=== PATIENT | female | born 1940 | race Caucasian/White ===

== ENCOUNTER → 2018-05-28 17:59 | Outpatient (REF) | payer OTHER, SELFPAY | LOC: LAB 17:59 | PROVIDERS: Family Provider Physician Assistant; PCP Physician Assistant; Visit Provider Dermatology | DX: Z85.828 Personal history of other malignant neoplasm of skin (principal); L57.0 Actinic keratosis; L08.9 Local infection of the skin and subcutaneous tissue, unspecified | CPT/HCPCS: 87070; 87075; 87205 ==

== ENCOUNTER → 2018-06-04 17:46 | Outpatient (REF) | payer OTHER, SELFPAY | LOC: LAB 17:46 | PROVIDERS: Family Provider Physician Assistant; PCP Physician Assistant; Visit Provider Physician Assistant | DX: T81.40XA Infection following a procedure, unspecified, initial encounter (principal) | CPT/HCPCS: 87070; 87075; 87205 ==

== ENCOUNTER → 2018-07-30 17:46 | Outpatient (REF) | payer OTHER, SELFPAY | LOC: LAB 17:46 | PROVIDERS: Family Provider Physician Assistant; PCP Physician Assistant; Visit Provider Physician Assistant | DX: L30.8 Other specified dermatitis (principal) | CPT/HCPCS: 87070; 87075; 87147; 87205 ==

== ENCOUNTER → 2018-10-28 13:59 | Outpatient (REF) | payer OTHER, SELFPAY | LOC: LAB 13:59 | PROVIDERS: Family Provider Physician Assistant; PCP Physician Assistant; Visit Provider Dermatology MOHS-Micrographic Surgery | DX: Z48.817 Encounter for surgical aftercare following surgery on the skin and subcutaneous tissue (principal) | CPT/HCPCS: 87070; 87077; 87147; 87186; 87205 ==

== ENCOUNTER → 2018-10-29 09:17 | Outpatient (CLI) | payer OTHER, SELFPAY ==
[2018-10-29 10:10] LABS: Add Manual Diff / Slide Review NO; Basophils Absolute Auto 0 /uL (0-100); Basophils Percent Auto 0.8 % (0-2); Eosinophils Absolute Auto 200 /uL (0-450); Eosinophils Percent Auto 3.8 % (2-4); Hematocrit 40.7 % (36-46); Hemoglobin 13.3 g/dL (12.0-16.0); Lymphocytes Absolute Auto 900 /uL (1100-4500); Lymphocytes Percent Auto 16.1 % (25-40); Mean Corpuscular HGB Conc 32.7 % (30-36); Mean Corpuscular Hemoglobin 28.2 PG (26-34); Mean Corpuscular Volume 86.1 fL (80-100); Monocytes Absolute Auto 400 /uL (0-900); Monocytes Percent Auto 7.1 % (3-14); Neutrophils Absolute Auto 4000 /uL (1500-7000); Neutrophils Percent Auto 72.2 % (50-75); Platelet Count 176 X10^3/uL (150-400); Red Blood Cell Count 4.73 X10^6/uL (4.0-5.2); Red Cell Distribution Width 16.7 % (11.6-14.8); White Blood Cell Count 5.5 X10^3/uL (4.5-11.0)
[2018-10-29 10:23] LABS: Alanine Aminotransferase 25 IU/L (9-52); Albumin 4.5 g/dL (3.5-5.0); Albumin Globulin Ratio 1.5 (1.0-2.8); Alkaline Phosphatase 104 U/L (38-126); Aspartate Aminotransferase 21 IU/L (14-36); Bilirubin Total 0.6 mg/dL (0.2-1.3); Blood Urea Nitrogen 24 mg/dL (7-17); Calcium 9.9 mg/dL (8.4-10.2); Carbon Dioxide 31 mmol/L (22-32); Chloride 101 mmol/L (98-107); Cholesterol 136 mg/dL (140-199); Estimated Glomerular Filt Rate 53.6 mL/min (>60); Glucose 111 mg/dL (80-110); HDL Cholesterol 40 mg/dL (40-60); HEMOLYSIS < 15 (0-50); LDL Cholesterol Calculated 53 mg/dL (<100); Potassium 3.7 mmol/L (3.4-5.1); Sodium 142 mmol/L (137-145); Total Protein 7.5 g/dL (6.3-8.2); Triglycerides 215 mg/dL (35-150)
[2018-10-29 10:41] LABS: Creatinine Urine Random 247.9 mg/dL
[2018-10-29 11:04] LABS: Thyroid Stimulating Hormone 3.77 uIU/mL (0.47-4.68)
== END ==
PROVIDERS: Family Provider Hospitalist; PCP Physician Assistant; Visit Provider Physician Assistant
DX: E03.9 Hypothyroidism, unspecified (principal); E78.5 Hyperlipidemia, unspecified; I10 Essential (primary) hypertension; I48.0 Paroxysmal atrial fibrillation
CPT/HCPCS: 36415; 80053; 80061; 82043; 82570; 84443; 85025

== ENCOUNTER → 2018-11-05 18:48 | Outpatient (REF) | payer OTHER, SELFPAY | LOC: LAB 18:48 | PROVIDERS: Family Provider Hospitalist; PCP Physician Assistant; Visit Provider Dermatology MOHS-Micrographic Surgery | DX: Z48.817 Encounter for surgical aftercare following surgery on the skin and subcutaneous tissue (principal) | CPT/HCPCS: 87070; 87077; 87147; 87205 ==

== ENCOUNTER → 2019-01-01 07:54 | Outpatient (CLI) | payer OTHER, SELFPAY ==
--- NOTE | 2019-01-01 | DI.MG.S_ITS ---
BILATERAL DIGITAL SCREENING MAMMOGRAM 3D/2D WITH CAD: 01/01/2019 CLINICAL: Routine screening. Family history of breast cancer. Comparison is made to exams dated: 12/27/2017 mammogram, 12/14/2016 mammogram, and 12/08/2015 mammogram - [facility]. The tissue of both breasts is heterogeneously dense. This may lower the sensitivity of mammography. Current study was also evaluated with a Computer Aided Detection (CAD) system. There are new grouped coarse calcifications in the left breast at 8 o'clock posterior depth. No other significant masses, calcifications, or other findings are seen in either breast. IMPRESSION: INCOMPLETE: NEEDS ADDITIONAL IMAGING EVALUATION The new grouped coarse calcifications in the left breast are indeterminate. Mediolateral, spot compression, and additional views are recommended. This exam was interpreted at Station ID: [id number]. NOTE: For mammograms, a report in lay terms will be sent to the patient. Approximately 15% of breast malignancies will not be visualized mammographically. In the management of a palpable breast mass, a negative mammogram must not discourage biopsy of a clinically suspicious lesion. Electronically Signed By: Bobby milian/charlotte:01/01/2019 09:41:50 letter sent: Additional Imaging Needed ACR BI-RADS Category 0: Incomplete 3340F
== END ==
PROVIDERS: Family Provider Hospitalist; PCP Physician Assistant; Visit Provider Physician Assistant
DX: Z12.31 Encounter for screening mammogram for malignant neoplasm of breast (principal); Z80.3 Family history of malignant neoplasm of breast
CPT/HCPCS: 77063; 77067

== ENCOUNTER → 2019-01-16 08:58 | Outpatient (CLI) | payer OTHER, SELFPAY ==
--- NOTE | 2019-01-16 08:59 | DI.MG.S_ITS ---
UNILATERAL LEFT DIGITAL DIAGNOSTIC MAMMOGRAM 3D/2D WITH ADDITIONAL VIEWS: 01/16/2019 CLINICAL: Additional evaluation requested from prior study. Family history of breast cancer. Comparison is made to exams dated: 01/01/2019 mammogram, 12/27/2017 mammogram, and 12/14/2016 mammogram - [facility]. The tissue of left breast is heterogeneously dense. This may lower the sensitivity of mammography. The indeterminate group of calcifications in the left breast at 8 o'clock posterior depth seen on recent screening mammogram dated 01/01/19 appear dystrophic in morphology on additional imaging today. They have slightly increased in number but demonstrate benign morphology. They are new since 2017 mammograms but present in 2018 where they demonstrated benign appearance. They were recalled because of questionable new, indeterminate calcifications within this group which on magnification views revealed a benign morphology. No other significant masses or calcifications are seen in the breast. IMPRESSION: There is no mammographic evidence of malignancy. A 1 year screening mammogram is recommended. This exam was interpreted at Station ID: [id number]. NOTE: For mammograms, a report in lay terms will be sent to the patient. Approximately 15% of breast malignancies will not be visualized mammographically. In the management of a palpable breast mass, a negative mammogram must not discourage biopsy of a clinically suspicious lesion. SUMMARY: Findings and recommendations were discussed with the patient during today's visit. Electronically Signed By: Bobby Weaver M.D. aty/:01/16/2019 13:44:50 letter sent: Normal Exam ACR BI-RADS Category 2: Benign Finding(s) 3342F
== END ==
PROVIDERS: Family Provider Hospitalist; PCP Physician Assistant; Visit Provider Physician Assistant
DX: R92.8 Other abnormal and inconclusive findings on diagnostic imaging of breast (principal); Z80.3 Family history of malignant neoplasm of breast
CPT/HCPCS: 77065; G0279

== ENCOUNTER 2019-03-16 12:00 | Observation (INO) | payer OTHER, SELFPAY ==
[2019-03-16] VITALS (20 sets, daily range): BP systolic 83–136; BP diastolic 45–80; PULSE 69–142; RESP 12–20; TEMP 36.4–36.9; O2SAT 93–98; BMI 25.0; BMI 25.5
--- NOTE | 2019-03-16 12:10 | ED.ARRPALP ---
HPI - Arrhythmia/Palpitations General Chief Complaint: Arrhythmia/Palpitations Stated Complaint: Dizziness, SOB Time Seen by Provider: 03/16/19 12:02 Source: patient Mode of arrival: ambulatory Limitations: no limitations History of Present Illness HPI narrative: 70-year-old female nonsmoker with history paroxysmal atrial fibrillation on Coumadin presents with a chief complaint of palpitations, dizziness and shortness of breath since this morning. She denies any history of electrocardioversion. She has been taking her Coumadin as prescribed and denies missing any doses, and states her levels have been stable. She denies any dietary change or medication changes. She's had no fever or chills. MD complaint: rapid heart beat, heart racing, palpitations and atrial fibrillation Onset (ago): hour(s) Duration: constant Severity: moderate Arrhythmia history: atrial fibrillation Associated symptoms: shortness of breath Related Data Home Medications Medication Instructions Recorded Confirmed metoprolol succinate 100 mg PO BID #0 08/01/17 03/16/19 atorvastatin 40 mg PO HS #0 08/12/17 03/16/19 [CHEMOTHERAPY CREAM] TOPICAL QDAY #0 09/23/17 11/06/18 acetaminophen 500 mg tablet 500 mg PO Q6H PRN 11/06/18 11/06/18 ampicillin 500 mg capsule 500 mg PO QID 11/06/18 11/06/18 diazepam 5 mg tablet 5 mg PO DAILY PRN tab 11/06/18 11/06/18 hydrocodone 5 mg-acetaminophen 325 1 tab PO Q4-6H PRN 11/06/18 11/06/18 mg tablet propranolol 40 mg tablet 40 mg PO BID PRN 11/06/18 11/06/18 nitroglycerin [Nitrostat] 0.4 mg SUBLINGUAL SEE INSTRUCT PRN 03/16/19 03/16/19 triamterene-hydrochlorothiazid 1 cap PO DAILY 03/16/19 03/16/19 triazolam [Halcion] 0.25 mg PO BEDTIME PRN 03/16/19 03/16/19 Previous Rx's Medication Instructions Recorded alprazolam 0.5 mg tablet 0.5 mg PO QDAY #20 tab 05/13/18 Warfarin 5 mg See Rx Instructions .ROUTE 08/15/18 .COMPLEX #30 allopurinol 300 mg PO QDAY #90 tab 09/26/18 levothyroxine 75 mcg tablet 75 mcg PO QDAY #30 tab 11/10/18 Allergies Allergy/AdvReac Type Severity Reaction Status Date / Time codeine Allergy Severe ANAPHYLAXIS Verified 11/06/18 13:49 NSAIDS (Non-Steroidal AdvReac Severe on Warfarin Verified 11/06/18 13:49 Anti-Inflamma [NSAIDS (NON-STEROIDAL ANTI-INFLAMMA] oxycodone [OXYCODONE] AdvReac Intermediate NAUSEA, Verified 11/06/18 13:49 HALLUCINATIONS, DIZZINESS hydrocodone AdvReac Mild N/V Verified 11/06/18 13:49 pravastatin AdvReac Mild MYALGIA Verified 11/06/18 13:49 simvastatin AdvReac Mild MYALGIA Verified 11/06/18 13:49 Review of Systems Constitutional Denies chills, Denies fever(s), Denies lethargy and Denies weakness Eyes Denies change in vision, Denies eye discharge, Denies irritation and Denies loss of vision ENT Ears, Nose, Mouth, and Throat: Denies change in voice, Denies neck pain and Denies sore throat Cardiovascular Denies chest pain, Reports irregular heart rhythm, Reports lightheadedness, Reports palpitations, Reports dyspnea, Denies dyspnea on exertion and Denies orthopnea Respiratory Denies cough, Reports dyspnea, Denies dyspnea on exertion and Denies wheezing Gastrointestinal Gastrointestinal: Denies abdominal pain, Denies change in bowel habits, Denies diarrhea, Denies nausea and Denies vomiting Genitourinary Denies hematuria, Denies flank pain, Denies urinary incontinence and Denies urinary urgency Musculoskeletal Denies neck pain Integumentary/Breasts Denies pruritus, Denies erythema, Denies rash and Denies wounds Neurologic Denies confusion, Denies loss of vision and Denies weakness Psychiatric Denies anxiety, Denies confusion, Denies depression, Denies homicidal ideation and Denies suicidal ideation Endocrine Reports palpitations Hematologic/Lymphatic Denies easy bruising Allergic/Immunologic Denies wheezing FORMERLY [facility] Medical History ASHD (arteriosclerotic heart disease) (Chronic) Atrial fibrillation (Chronic) CAD (coronary artery disease) (Chronic 10/2006) 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 (Chronic) GERD (gastroesophageal reflux disease) (Chronic) Hypertension (Chronic) Hypothyroidism (Chronic) Stenosis of carotid artery (Chronic) Colon polyps (Resolved 1998) Detached retina, right (Resolved 1998) Gout (Resolved 10/2011) History of hysterectomy (Resolved 1982) History of renal calculi (Resolved) Skin cancer (Resolved) Surgical History History of Zayra fundoplication (Resolved) History of appendectomy (Resolved 1963) History of arthroscopy of left knee (Resolved 01/05/15) History of bilateral carpal tunnel release (Resolved 1988) History of cardiac catheterization (Resolved 10/2006) History of carpal tunnel release (Resolved 1988) History of section (Resolved 1963) History of cholecystectomy (Resolved 1972) History of colonoscopy (Resolved 03/04/06) History of colonoscopy with polypectomy (Resolved 1998) History of esophagogastroduodenoscopy (EGD) (Resolved 06/06/06) History of eye surgery (Resolved 1998) History of left cataract surgery (Resolved 1989) History of left knee surgery (Resolved 08/2010) History of right knee surgery (Resolved 2000) Status post left partial knee replacement (Resolved 10/12/15) Status post primary angioplasty with coronary stent (Resolved 09/2011) Status post right foot surgery (Resolved 1993) Family History (Updated 06/30/18 @ 15:14 by Francisca Hollis) Mother Brain tumor Cancer Father Heart disease CA (myocardial infarction) Sister Lung cancer Stroke MS (multiple sclerosis) Breast cancer Grandmother Diabetes mellitus Social History Smoking Status: Never smoker second hand exposure: No alcohol intake: current substance use type: does not use Family History Mother Brain tumor Cancer Father Heart disease CA (myocardial infarction) Sister Lung cancer Stroke MS (multiple sclerosis) Breast cancer Grandmother Diabetes mellitus Social History household members: none Smoking Status: Never smoker second hand exposure: No alcohol intake: current substance use type: does not use Exam Narrative Exam Narrative: GENERAL: 78-year-old female appears stated age, and in obvious distress, obviously a bit anxious HEAD: Atraumatic. Normocephalic. No temporal or scalp tenderness. EYES: Pupils equal round and reactive. Extraocular motions intact. No scleral icterus. No injection or drainage. ENT: Nose without bleeding, purulent drainage or septal hematoma. Throat without erythema, tonsillar hypertrophy or exudate. Uvula midline. Airway patent. NECK: Trachea midline. No JVD or lymphadenopathy. Supple, nontender, no meningeal signs. CARDIOVASCULAR: Rapid and irregular, no murmurs RESPIRATORY: Clear to auscultation. Breath sounds equal bilaterally. No wheezes, rales, or rhonchi. GASTROINTESTINAL: Abdomen soft, non-tender, nondistended. No hepato-splenomegaly, or palpable masses. No guarding. EXTREMITIES: No clubbing, cyanosis, or edema. No joint tenderness, effusion, or edema noted. BACK: Nontender without deformity or crepitance. No flank tenderness. NEURO: AOx3. SKIN: No rash or erythema. Initial Vital Signs Initial Vital Signs: Vital Signs Temperature 97.5 F L 03/16/19 12:08 Pulse Rate 130 H 03/16/19 12:08 Respiratory Rate 03/16/19 12:08 Blood Pressure 94/80 03/16/19 12:08 Pulse Oximetry 96 03/16/19 12:08 Procedures Cardioversion Consent Signed: Yes Indication: rapid afib Stability: Stable Number of attempts (shocks): 2 Joules used: 150 and 200 Cardiac rhythm post-cardioversion: rapid afib Procedural Sedation Patient Age: Patient is 5yrs or older Consent signed: Yes Time out performed: Yes Indication: cardioversion ASA Class: II Mallampati Airway Classification: Class II Preparation: case monitor applied, pulse oximeter, capnometry used, supplemental O2 applied, suction/airway equipment at bedside and IV secured IV Propofol dose (mg): 40 Intraservice time/total sedation time (min): 10 ED Sedation Level: Moderate (Concious) Patient Tolerated Procedure: Well Complications: none Course Orders Ordered: ED Orders 03/16/19 12:05 EKG-12 Lead Stat 03/16/19 12:15 Basic Metabolic Panel Stat Complete Blood Count AUTO DIFF Stat Free T4 Free Thyroxine Stat Magnesium Stat Prothrombin Time INR Stat Thyroid Stimulating Hormone Stat Troponin & CK Cardiac Panel Stat 03/16/19 13:21 XR chest 1V Stat 03/16/19 13:35 Consult to Discharge Planning Routine EC echo doppler complete Stat 03/16/19 14:05 Urinalysis and Microscopic Stat 03/16/19 14:55 MRSA PCR Stat Acetaminophen (Tylenol) 650 mg PO Q6HR PRN PRN Reason: As Needed for Fever/Mild Pain Al Hydrox/Mg Hydrox/Simethicone (Maalox Plus) 30 ml PO Q6HR PRN PRN Reason: Dyspepsia Bisacodyl (Dulcolax) 10 mg TN DAILY PRN PRN Reason: Constipation Calcium Carbonate (Tums) 1,000 mg PO Q4HR PRN PRN Reason: Dyspepsia Docusate Sodium (Colace) 100 mg PO BID PRN PRN Reason: Constipation Sodium Chloride (Normal Saline 0.9%) 1,000 mls @ 150 mls/hr IV CONT JONE Last Infusion: 03/16/19 13:03 Dose: 150 mls/hr Infusion: 03/16/19 12:54 Dose: 500 mls/hr Admin: 03/16/19 12:22 Dose: 150 mls/hr DILTIAZEM (Diltiazem 125 Mg/125 Ml-D5w) 125 mg in 125 mls @ 5 mls/hr IV TITRATE JONE; Protocol Last Admin: 03/16/19 12:53 Dose: 5 mg/hr, 5 mls/hr Magnesium Hydroxide (Milk Of Magnesia) 30 ml PO DAILY PRN PRN Reason: Constipation Ondansetron HCl (Zofran) 4 mg IV Q8HR PRN PRN Reason: Nausea And Vomiting Discontinued Medications Diltiazem HCl (Cardizem) 10 mg IV NOW ONE Stop: 03/16/19 12:08 Last Admin: 03/16/19 12:52 Dose: 10 mg Sodium Chloride (Normal Saline 0.9%) 500 mls @ 1,000 mls/hr IV BOLUS ONE Stop: 03/16/19 12:36 Last Infusion: 03/16/19 13:37 Dose: 0 mls/hr Admin: 03/16/19 13:03 Dose: 1,000 mls/hr Potassium Chloride 40 meq/ (Sodium Chloride) 520 mls @ 130 mls/hr IV NOW ONE Stop: 03/16/19 17:18 Last Admin: 03/16/19 13:47 Dose: 130 mls/hr Magnesium Sulfate (Magnesium Sulfate) 2 gm in 50 mls @ 25 mls/hr IV NOW ONE Stop: 03/16/19 15:28 Last Admin: 03/16/19 14:28 Dose: 25 mls/hr Propofol (Diprivan) 40 mg IV NOW ONE Stop: 03/16/19 12:44 Last Admin: 03/16/19 12:54 Dose: 40 mg Consultations Consultation #1: call to hospitalist, happy to accept Vital Signs - 8 hr 03/16/19 12:08 03/16/19 12:36 03/16/19 12:37 Temperature 97.5 F L Pulse Rate 130 H 121 H 122 H Respiratory Rate 19 12 16 Blood Pressure 94/80 Blood Pressure [Left Arm] 106/73 112/62 Pulse Oximetry 96 98 98 03/16/19 12:38 03/16/19 12:41 03/16/19 12:42 Temperature Pulse Rate 142 H 131 H 142 H Respiratory Rate 16 18 16 Blood Pressure Blood Pressure [Left Arm] 109/70 93/45 L 88/71 L Pulse Oximetry 98 96 93 03/16/19 12:47 03/16/19 12:51 03/16/19 12:52 Temperature Pulse Rate 106 H 121 H 122 H Respiratory Rate 20 20 Blood Pressure 97/56 L Blood Pressure [Left Arm] 90/50 L 98/70 Pulse Oximetry 95 95 03/16/19 12:55 03/16/19 12:58 03/16/19 13:04 Temperature Pulse Rate 84 95 H 80 Respiratory Rate 16 18 16 Blood Pressure Blood Pressure [Left Arm] 83/50 L 93/58 L 102/70 Pulse Oximetry 95 97 97 03/16/19 13:11 03/16/19 13:53 03/16/19 14:20 Temperature 98.2 F Pulse Rate 85 75 82 Respiratory Rate 16 16 18 Blood Pressure 122/69 107/63 Blood Pressure [Left Arm] 109/54 L Pulse Oximetry 95 96 97 03/16/19 14:22 03/16/19 15:35 Temperature 98.4 F Pulse Rate 78 Respiratory Rate 19 Blood Pressure 102/56 L Blood Pressure [Left Arm] Pulse Oximetry 96 97 MDM - Arrhythmia/Palpitations Lab Data Result diagrams: 03/16/19 12:15 03/16/19 12:15 Lab Results 03/16/19 03/16/19 03/16/19 Range/Units 12:15 12:15 12:15 WBC 9.0 (4.5-11.0) X10^3/uL RBC 4.71 (4.0-5.2) X10^6/uL Hgb 13.5 (12.0-16.0) g/dL Hct 39.8 (36-46) % MCV 84.6 (80-100) fL MCH 28.7 (26-34) PG MCHC 33.9 (30-36) % RDW 16.1 H (11.6-14.8) % Plt Count 183 (150-400) X10^3/uL Neut % (Auto) 86.3 H (50-75) % Lymph % (Auto) 7.8 L (25-40) % [place] % (Auto) 4.6 (3-14) % Eos % (Auto) 0.6 L (2-4) % Baso % (Auto) 0.7 (0-2) % Neut # (Auto) 7800 H (8906-1430) /uL Lymph # (Auto) 700 L (1967-0068) /uL Mes[place] # (Auto) 400 (0-900) /uL Eos # (Auto) 100 (0-450) /uL Baso # (Auto) 100 (0-100) /uL PT 24.7 H (10.1-12.7) SECONDS INR 2.1 H (0.9-1.3) Sodium 136 L (137-145) mmol/L Potassium 3.0 L (3.4-5.1) mmol/L Chloride 100 (98-107) mmol/L Carbon Dioxide 24 (22-32) mmol/L BUN 24 H (7-17) mg/dL Creatinine 1.10 H (0.52-1.04) mg/dL Estimated GFR 48.0 L (>60) mL/min BUN/Creatinine Ratio 21.8 (6-22) Glucose 155 H (80-110) mg/dL Calcium 9.6 (8.4-10.2) mg/dL Magnesium 1.4 L (1.6-2.3) mg/dL Total Creatine Kinase 82 (30-135) U/L CK-MB (CK-2) TNP CK-MB (CK-2) Rel Index TNP Troponin I < 0.012 (0.01-0.034) ng/mL TSH (0.47-4.68) uIU/mL Free T4 (0.78-2.19) ng/dL Urine Color Urine Appearance Urine pH (4.5-8.0) Ur Specific [place] (1.000-1.035) Urine Protein (Negative) Urine Glucose (UA) (Negative) g/dL Urine Ketones (NEGATIVE) Urine Occult Blood (Negative) Urine Nitrate (Negative) Urine Bilirubin (NEGATIVE) Urine Urobilinogen (0.2) E.U./dL Ur Leukocyte Esterase (NEGATIVE) Urine RBC (0-5/HPF) Urine WBC (0-5/HPF) Urine Bacteria (None) Ur Culture Indicated? Micro UA Comment Nasal Screen MRSA (PCR) (Negative) 03/16/19 03/16/19 03/16/19 Range/Units 12:15 12:15 14:05 WBC (4.5-11.0) X10^3/uL RBC (4.0-5.2) X10^6/uL Hgb (12.0-16.0) g/dL Hct (36-46) % MCV (80-100) fL MCH (26-34) PG MCHC (30-36) % RDW (11.6-14.8) % Plt Count (150-400) X10^3/uL Neut % (Auto) (50-75) % Lymph % (Auto) (25-40) % Mesa % (Auto) (3-14) % Eos % (Auto) (2-4) % Baso % (Auto) (0-2) % Neut # (Auto) (8824-6693) /uL Lymph # (Auto) (7454-4800) /uL Mesa # (Auto) (0-900) /uL Eos # (Auto) (0-450) /uL Baso # (Auto) (0-100) /uL PT (10.1-12.7) SECONDS INR (0.9-1.3) Sodium (137-145) mmol/L Potassium (3.4-5.1) mmol/L Chloride (98-107) mmol/L Carbon Dioxide (22-32) mmol/L BUN (7-17) mg/dL Creatinine (0.52-1.04) mg/dL Estimated GFR (>60) mL/min BUN/Creatinine Ratio (6-22) Glucose (80-110) mg/dL Calcium (8.4-10.2) mg/dL Magnesium (1.6-2.3) mg/dL Total Creatine Kinase (30-135) U/L CK-MB (CK-2) CK-MB (CK-2) Rel Index Troponin I (0.01-0.034) ng/mL TSH 2.15 (0.47-4.68) uIU/mL Free T4 1.01 (0.78-2.19) ng/dL Urine Color Yellow Urine Appearance Clear Urine pH 6.5 (4.5-8.0) Ur Specific [place] 1.010 (1.000-1.035) Urine Protein Negative (Negative) Urine Glucose (UA) Negative (Negative) g/dL Urine Ketones Negative (NEGATIVE) Urine Occult Blood Negative (Negative) Urine Nitrate Negative (Negative) Urine Bilirubin Negative (NEGATIVE) Urine Urobilinogen 0.2 (0.2) E.U./dL Ur Leukocyte Esterase Negative (NEGATIVE) Urine RBC None seen (0-5/HPF) Urine WBC None seen (0-5/HPF) Urine Bacteria None seen (None) Ur Culture Indicated? Cult not indicated Micro UA Comment Microscopic normal Nasal Screen MRSA (PCR) (Negative) 03/16/19 Range/Units 14:55 WBC (4.5-11.0) X10^3/uL RBC (4.0-5.2) X10^6/uL Hgb (12.0-16.0) g/dL Hct (36-46) % MCV (80-100) fL MCH (26-34) PG MCHC (30-36) % RDW (11.6-14.8) % Plt Count (150-400) X10^3/uL Neut % (Auto) (50-75) % Lymph % (Auto) (25-40) % [place] % (Auto) (3-14) % Eos % (Auto) (2-4) % Baso % (Auto) (0-2) % Neut # (Auto) (4568-2406) /uL Lymph # (Auto) (8368-7582) /uL [place] # (Auto) (0-900) /uL Eos # (Auto) (0-450) /uL Baso # (Auto) (0-100) /uL PT (10.1-12.7) SECONDS INR (0.9-1.3) Sodium (137-145) mmol/L Potassium (3.4-5.1) mmol/L Chloride (98-107) mmol/L Carbon Dioxide (22-32) mmol/L BUN (7-17) mg/dL Creatinine (0.52-1.04) mg/dL Estimated GFR (>60) mL/min BUN/Creatinine Ratio (6-22) Glucose (80-110) mg/dL Calcium (8.4-10.2) mg/dL Magnesium (1.6-2.3) mg/dL Total Creatine Kinase (30-135) U/L CK-MB (CK-2) CK-MB (CK-2) Rel Index Troponin I (0.01-0.034) ng/mL TSH (0.47-4.68) uIU/mL Free T4 (0.78-2.19) ng/dL Urine Color Urine Appearance Urine pH (4.5-8.0) Ur Specific [place] (1.000-1.035) Urine Protein (Negative) Urine Glucose (UA) (Negative) g/dL Urine Ketones (NEGATIVE) Urine Occult Blood (Negative) Urine Nitrate (Negative) Urine Bilirubin (NEGATIVE) Urine Urobilinogen (0.2) E.U./dL Ur Leukocyte Esterase (NEGATIVE) Urine RBC (0-5/HPF) Urine WBC (0-5/HPF) Urine Bacteria (None) Ur Culture Indicated? Micro UA Comment Nasal Screen MRSA (PCR) Negative for mrsa (Negative) Point of Care Testing Test Results Not applicable Discharge Plan Departure Patient Disposition: Admitted As Inpatient Clinical Impression: Atrial fibrillation with rapid ventricular response, Acute hypokalemia, Hypomagnesemia Discharge Date/Time: 03/16/19 14:00 Interventions: ED Discharge Assessment Last Done: 03/16/19 13:53 Admit Date/Time: 03/16/19 13:42 Admit Provider: Luisa Tran
[2019-03-16] MEDS: SODIUM CHLORIDE 0.9% 1,000 ML 150 ML IV (12:22)
[2019-03-16 12:36] LABS: Add Manual Diff / Slide Review NO; Basophils Absolute Auto 100 /uL (0-100); Basophils Percent Auto 0.7 % (0-2); Eosinophils Absolute Auto 100 /uL (0-450); Eosinophils Percent Auto 0.6 % (2-4); Hematocrit 39.8 % (36-46); Hemoglobin 13.5 g/dL (12.0-16.0); Lymphocytes Absolute Auto 700 /uL (1100-4500); Lymphocytes Percent Auto 7.8 % (25-40); Mean Corpuscular HGB Conc 33.9 % (30-36); Mean Corpuscular Hemoglobin 28.7 PG (26-34); Mean Corpuscular Volume 84.6 fL (80-100); Monocytes Absolute Auto 400 /uL (0-900); Monocytes Percent Auto 4.6 % (3-14); Neutrophils Absolute Auto 7800 /uL (1500-7000); Neutrophils Percent Auto 86.3 % (50-75); Platelet Count 183 X10^3/uL (150-400); Red Blood Cell Count 4.71 X10^6/uL (4.0-5.2); Red Cell Distribution Width 16.1 % (11.6-14.8)
[2019-03-16 12:44] LABS: INR 2.1 (0.9-1.3); Prothrombin Time 24.7 SECONDS (10.1-12.7)
[2019-03-16 12:50] LABS: BUN Creatinine Ratio 21.8 (6-22); Blood Urea Nitrogen 24 mg/dL (7-17); Calcium 9.6 mg/dL (8.4-10.2); Carbon Dioxide 24 mmol/L (22-32); Chloride 100 mmol/L (98-107); Creatine Kinase 82 U/L (30-135); Glucose 155 mg/dL (80-110); HEMOLYSIS < 15 (0-50); Magnesium 1.4 mg/dL (1.6-2.3); Sodium 136 mmol/L (137-145)
[2019-03-16] MEDS: dilTIAZem 5 MG/ML SDV 10 MG IV (12:52)
[2019-03-16] MEDS: DILTIAZEM 125 MG/125 ML PIGGYBACK IV (12:53)
[2019-03-16] MEDS: PROPOFOL 200 MG/20 ML VIAL 40 MG IV (12:54)
[2019-03-16 13:01] LABS: Troponin I < 0.012 ng/mL (0.01-0.034)
[2019-03-16] MEDS: SODIUM CHLORIDE 0.9% 500 ML 1000 ML IV (13:03)
[2019-03-16 13:21] LABS: Thyroid Stimulating Hormone 2.15 uIU/mL (0.47-4.68)
--- NOTE | 2019-03-16 13:21 | DI.RAD.S_ITS ---
PROCEDURE: XR CHEST 1V INDICATIONS: SOB TECHNIQUE: One view of the chest was acquired. COMPARISON: [facility], CHEST 2 VIEW, 09/27/2015, 11:37. [facility], CHEST 1 VIEW, 02/01/2010, 15:48. FINDINGS: Surgical changes and devices: None. Lungs and pleura: Lungs are clear. No pleural effusions or pneumothorax. Mediastinum: Mediastinal contours appear normal. Heart size is normal. Bones and chest wall: No suspicious bony lesions. Overlying soft tissues appear unremarkable. IMPRESSION: Normal for age, source of current shortness of breath symptoms is not seen. Dictated by: Bello Sykes M.D. on 03/16/2019 at 13:47 Approved by: Bello Sykes M.D. on 03/16/2019 at 13:47
[2019-03-16] MEDS: POTASSIUM CHLORIDE 40 MEQ in SODIUM CHLORIDE 0.9% 500 ML 130 ML IV (13:47)
[2019-03-16 13:54] LABS: Free T4, Direct Thyroxine 1.01 ng/dL (0.78-2.19)
--- NOTE | 2019-03-16 13:58 | ED_ITS ---
HPI - Arrhythmia/Palpitations General Chief Complaint: Arrhythmia/Palpitations Stated Complaint: Dizziness, SOB Time Seen by Provider: 03/16/19 12:02 Source: patient Mode of arrival: ambulatory Limitations: no limitations History of Present Illness HPI narrative: 70-year-old female nonsmoker with history paroxysmal atrial fibrillation on Coumadin presents with a chief complaint of palpitations, dizziness and shortness of breath since this morning. She denies any history of electrocardioversion. She has been taking her Coumadin as prescribed and denies missing any doses, and states her levels have been stable. She denies any dietary change or medication changes. She's had no fever or chills. MD complaint: rapid heart beat, heart racing, palpitations and atrial fibri llation Onset (ago): hour(s) Duration: constant Severity: moderate Arrhythmia history: atrial fibrillation Associated symptoms: shortness of breath Related Data Home Medications Medication Instructions Recorded Confirmed metoprolol succinate 100 mg PO BID #0 08/01/17 03/16/19 atorvastatin 40 mg PO HS #0 08/12/17 03/16/19 [CHEMOTHERAPY CREAM] TOPICAL QDAY #0 09/23/17 11/06/18 acetaminophen 500 mg tablet 500 mg PO Q6H PRN 11/06/18 11/06/18 ampicillin 500 mg capsule 500 mg PO QID 11/06/18 11/06/18 diazepam 5 mg tablet 5 mg PO DAILY PRN tab 11/06/18 11/06/18 hydrocodone 5 mg-acetaminophen 325 1 tab PO Q4-6H PRN 11/06/18 11/06/18 mg tablet propranolol 40 mg tablet 40 mg PO BID PRN 11/06/18 11/06/18 nitroglycerin [Nitrostat] 0.4 mg SUBLINGUAL SEE INSTRUCT PRN 03/16/19 03/16/19 triamterene-hydrochlorothiazid 1 cap PO DAILY 03/16/19 03/16/19 triazolam [Halcion] 0.25 mg PO BEDTIME PRN 03/16/19 03/16/19 Previous Rx's Medication Instructions Recorded alprazolam 0.5 mg tablet 0.5 mg PO QDAY #20 tab 05/13/18 Warfarin 5 mg See Rx Instructions .ROUTE 08/15/18 .COMPLEX #30 allopurinol 300 mg PO QDAY #90 tab 09/26/18 levothyroxine 75 mcg tablet 75 mcg PO QDAY #30 tab 11/10/18 Allergies Allergy/AdvReac Type Severity Reaction Status Date / Time codeine Allergy Severe ANAPHYLAXIS Verified 11/06/18 13:49 NSAIDS (Non-Steroidal AdvReac Severe on Warfarin Verified 11/06/18 13:49 Anti-Inflamma [NSAIDS (NON-STEROIDAL ANTI-INFLAMMA] oxycodone [OXYCODONE] AdvReac Intermediate NAUSEA, Verified 11/06/18 13:49 HALLUCINATIONS, DIZZINESS hydrocodone AdvReac Mild N/V Verified 11/06/18 13:49 pravastatin AdvReac Mild MYALGIA Verified 11/06/18 13:49 simvastatin AdvReac Mild MYALGIA Verified 11/06/18 13:49 Review of Systems Constitutional Denies chills, Denies fever(s), Denies lethargy and Denies weakness Eyes Denies change in vision, Denies eye discharge, Denies irritation and Denies loss of vision ENT Ears, Nose, Mouth, and Throat: Denies change in voice, Denies neck pain and Denies sore throat Cardiovascular Denies chest pain, Reports irregular heart rhythm, Reports lightheadedness, Reports palpitations, Reports dyspnea, Denies dyspnea on exertion and Denies orthopnea Respiratory Denies cough, Reports dyspnea, Denies dyspnea on exertion and Denies wheezing Gastrointestinal Gastrointestinal: Denies abdominal pain, Denies change in bowel habits, Denies diarrhea, Denies nausea and Denies vomiting Genitourinary Denies hematuria, Denies flank pain, Denies urinary incontinence and Denies urinary urgency Musculoskeletal Denies neck pain Integumentary/Breasts Denies pruritus, Denies erythema, Denies rash and Denies wounds Neurologic Denies confusion, Denies loss of vision and Denies weakness Psychiatric Denies anxiety, Denies confusion, Denies depression, Denies homicidal ideation and Denies suicidal ideation Endocrine Reports palpitations Hematologic/Lymphatic Denies easy bruising Allergic/Immunologic Denies wheezing [facility] Medical History ASHD (arteriosclerotic heart disease) (Chronic) Atrial fibrillation (Chronic) CAD (coronary artery disease) (Chronic 10/2006) 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 (Chronic) GERD (gastroesophageal reflux disease) (Chronic) Hypertension (Chronic) Hypothyroidism (Chronic) Stenosis of carotid artery (Chronic) Colon polyps (Resolved 1998) Detached retina, right (Resolved 1998) Gout (Resolved 10/2011) History of hysterectomy (Resolved 1982) History of renal calculi (Resolved) Skin cancer (Resolved) Surgical History History of Zayra fundoplication (Resolved) History of appendectomy (Resolved 1963) History of arthroscopy of left knee (Resolved 01/05/15) History of bilateral carpal tunnel release (Resolved 1988) History of cardiac catheterization (Resolved 10/2006) History of carpal tunnel release (Resolved 1988) History of section (Resolved 1963) History of cholecystectomy (Resolved 1972) History of colonoscopy (Resolved 03/04/06) History of colonoscopy with polypectomy (Resolved 1998) History of esophagogastroduodenoscopy (EGD) (Resolved 06/06/06) History of eye surgery (Resolved 1998) History of left cataract surgery (Resolved 1989) History of left knee surgery (Resolved 08/2010) History of right knee surgery (Resolved 2000) Status post left partial knee replacement (Resolved 10/12/15) Status post primary angioplasty with coronary stent (Resolved 09/2011) Status post right foot surgery (Resolved 1993) Family History (Updated 06/30/18 @ 15:14 by Francisca Hollis) Mother Brain tumor Cancer Father Heart disease PA (myocardial infarction) Sister Lung cancer Stroke MS (multiple sclerosis) Breast cancer Grandmother Diabetes mellitus Social History Smoking Status: Never smoker second hand exposure: No alcohol intake: current substance use type: does not use Family History Mother Brain tumor Cancer Father Heart disease PA (myocardial infarction) Sister Lung cancer Stroke MS (multiple sclerosis) Breast cancer Grandmother Diabetes mellitus Social History household members: none Smoking Status: Never smoker second hand exposure: No alcohol intake: current substance use type: does not use Exam Narrative Exam Narrative: GENERAL: 78-year-old female appears stated age, and in obvious distress, obviously a bit anxious HEAD: Atraumatic. Normocephalic. No temporal or scalp tenderness. EYES: Pupils equal round and reactive. Extraocular motions intact. No scleral icterus. No injection or drainage. ENT: Nose without bleeding, purulent drainage or septal hematoma. Throat without erythema, tonsillar hypertrophy or exudate. Uvula midline. Airway patent. NECK: Trachea midline. No JVD or lymphadenopathy. Supple, nontender, no mening eal signs. CARDIOVASCULAR: Rapid and irregular, no murmurs RESPIRATORY: Clear to auscultation. Breath sounds equal bilaterally. No wheezes, rales, or rhonchi. GASTROINTESTINAL: Abdomen soft, non-tender, nondistended. No hepato- splenomegaly, or palpable masses. No guarding. EXTREMITIES: No clubbing, cyanosis, or edema. No joint tenderness, effusion, or edema noted. BACK: Nontender without deformity or crepitance. No flank tenderness. NEURO: AOx3. SKIN: No rash or erythema. Initial Vital Signs Initial Vital Signs: Vital Signs Temperature 97.5 F L 03/16/19 12:08 Pulse Rate 130 H 03/16/19 12:08 Respiratory Rate 19 03/16/19 12:08 Blood Pressure 94/80 03/16/19 12:08 Pulse Oximetry 96 03/16/19 12:08 Procedures Cardioversion Consent Signed: Yes Indication: rapid afib Stability: Stable Number of attempts (shocks): 2 Joules used: 150 and 200 Cardiac rhythm post-cardioversion: rapid afib Procedural Sedation Patient Age: Patient is 5yrs or older Consent signed: Yes Time out performed: Yes Indication: cardioversion ASA Class: II Mallampati Airway Classification: Class II Preparation: dispatcher relay applied, pulse oximeter, capnometry used, supplemental O2 applied, suction/airway equipment at bedside and IV secured IV Propofol dose (mg): 40 Intraservice time/total sedation time (min): 10 ED Sedation Level: Moderate (Concious) Patient Tolerated Procedure: Well Complications: none Course Orders Ordered: ED Orders 03/16/19 12:05 EKG-12 Lead Stat 03/16/19 12:15 Basic Metabolic Panel Stat Complete Blood Count AUTO DIFF Stat Free T4 Free Thyroxine Stat Magnesium Stat Prothrombin Time INR Stat Thyroid Stimulating Hormone Stat Troponin & CK Cardiac Panel Stat 03/16/19 13:21 XR chest 1V Stat 03/16/19 13:35 Consult to Discharge Planning Routine EC echo doppler complete Stat 03/16/19 14:05 Urinalysis and Microscopic Stat 03/16/19 14:55 MRSA PCR Stat Acetaminophen (Tylenol) 650 mg PO Q6HR PRN PRN Reason: As Needed for Fever/Mild Pain Al Hydrox/Mg Hydrox/Simethicone (Maalox Plus) 30 ml PO Q6HR PRN PRN Reason: Dyspepsia Bisacodyl (Dulcolax) 10 mg NH DAILY PRN PRN Reason: Constipation Calcium Carbonate (Tums) 1,000 mg PO Q4HR PRN PRN Reason: Dyspepsia Docusate Sodium (Colace) 100 mg PO BID PRN PRN Reason: Constipation Sodium Chloride (Normal Saline 0.9%) 1,000 mls @ 150 mls/hr IV CONT JONE Last Infusion: 03/16/19 13:03 Dose: 150 mls/hr Infusion: 03/16/19 12:54 Dose: 500 mls/hr Admin: 03/16/19 12:22 Dose: 150 mls/hr DILTIAZEM (Diltiazem 125 Mg/125 Ml-D5w) 125 mg in 125 mls @ 5 mls/hr IV TITRATE JONE; Protocol Last Admin: 03/16/19 12:53 Dose: 5 mg/hr, 5 mls/hr Magnesium Hydroxide (Milk Of Magnesia) 30 ml PO DAILY PRN PRN Reason: Constipation Ondansetron HCl (Zofran) 4 mg IV Q8HR PRN PRN Reason: Nausea And Vomiting Discontinued Medications Diltiazem HCl (Cardizem) 10 mg IV NOW ONE Stop: 03/16/19 12:08 Last Admin: 03/16/19 12:52 Dose: 10 mg Sodium Chloride (Normal Saline 0.9%) 500 mls @ 1,000 mls/hr IV BOLUS ONE Stop: 03/16/19 12:36 Last Infusion: 03/16/19 13:37 Dose: 0 mls/hr Admin: 03/16/19 13:03 Dose: 1,000 mls/hr Potassium Chloride 40 meq/ (Sodium Chloride) 520 mls @ 130 mls/hr IV NOW ONE Stop: 03/16/19 17:18 Last Admin: 03/16/19 13:47 Dose: 130 mls/hr Magnesium Sulfate (Magnesium Sulfate) 2 gm in 50 mls @ 25 mls/hr IV NOW ONE Stop: 03/16/19 15:28 Last Admin: 03/16/19 14:28 Dose: 25 mls/hr Propofol (Diprivan) 40 mg IV NOW ONE Stop: 03/16/19 12:44 Last Admin: 03/16/19 12:54 Dose: 40 mg Consultations Consultation #1: call to hospitalist, happy to accept Vital Signs - 8 hr 03/16/19 12:08 03/16/19 12:36 03/16/19 12:37 Temperature 97.5 F L Pulse Rate 130 H 121 H 122 H Respiratory Rate 19 12 16 Blood Pressure 94/80 Blood Pressure [Left Arm] 106/73 112/62 Pulse Oximetry 96 98 98 03/16/19 12:38 03/16/19 12:41 03/16/19 12:42 Temperature Pulse Rate 142 H 131 H 142 H Respiratory Rate 16 18 16 Blood Pressure Blood Pressure [Left Arm] 109/70 93/45 L 88/71 L Pulse Oximetry 98 96 93 03/16/19 12:47 03/16/19 12:51 03/16/19 12:52 Temperature Pulse Rate 106 H 121 H 122 H Respiratory Rate 20 20 Blood Pressure 97/56 L Blood Pressure [Left Arm] 90/50 L 98/70 Pulse Oximetry 95 95 03/16/19 12:55 03/16/19 12:58 03/16/19 13:04 Temperature Pulse Rate 84 95 H 80 Respiratory Rate 16 18 16 Blood Pressure Blood Pressure [Left Arm] 83/50 L 93/58 L 102/70 Pulse Oximetry 95 97 97 03/16/19 13:11 03/16/19 13:53 03/16/19 14:20 Temperature 98.2 F Pulse Rate 85 75 82 Respiratory Rate 16 16 18 Blood Pressure 122/69 107/63 Blood Pressure [Left Arm] 109/54 L Pulse Oximetry 95 96 97 03/16/19 14:22 03/16/19 15:35 Temperature 98.4 F Pulse Rate 78 Respiratory Rate 19 Blood Pressure 102/56 L Blood Pressure [Left Arm] Pulse Oximetry 96 97 MDM - Arrhythmia/Palpitations Lab Data Result diagrams: 03/16/19 12:15 03/16/19 12:15 Lab Results 03/16/19 03/16/19 03/16/19 Range/Units 12:15 12:15 12:15 WBC 9.0 (4.5-11.0) X10^3/uL RBC 4.71 (4.0-5.2) X10^6/uL Hgb 13.5 (12.0-16.0) g/dL Hct 39.8 (36-46) % MCV 84.6 (80-100) fL MCH 28.7 (26-34) PG MCHC 33.9 (30-36) % RDW 16.1 H (11.6-14.8) % Plt Count 183 (150-400) X10^3/uL Neut % (Auto) 86.3 H (50-75) % Lymph % (Auto) 7.8 L (25-40) % Christian % (Auto) 4.6 (3-14) % Eos % (Auto) 0.6 L (2-4) % Baso % (Auto) 0.7 (0-2) % Neut # (Auto) 7800 H (6510-0125) /uL Lymph # (Auto) 700 L (8207-2396) /uL Christian # (Auto) 400 (0-900) /uL Eos # (Auto) 100 (0-450) /uL Baso # (Auto) 100 (0-100) /uL PT 24.7 H (10.1-12.7) SECONDS INR 2.1 H (0.9-1.3) Sodium 136 L (137-145) mmol/L Potassium 3.0 L (3.4-5.1) mmol/L Chloride 100 (98-107) mmol/L Carbon Dioxide 24 (22-32) mmol/L BUN 24 H (7-17) mg/dL Creatinine 1.10 H (0.52-1.04) mg/dL Estimated GFR 48.0 L (>60) mL/min BUN/Creatinine Ratio 21.8 (6-22) Glucose 155 H (80-110) mg/dL Calcium 9.6 (8.4-10.2) mg/dL Magnesium 1.4 L (1.6-2.3) mg/dL Total Creatine Kinase 82 (30-135) U/L CK-MB (CK-2) TNP CK-MB (CK-2) Rel Index TNP Troponin I < 0.012 (0.01-0.034) ng/mL TSH (0.47-4.68) uIU/mL Free T4 (0.78-2.19) ng/dL Urine Color Urine Appearance Urine pH (4.5-8.0) Ur Specific [place] (1.000-1.035) Urine Protein (Negative) Urine Glucose (UA) (Negative) g/dL Urine Ketones (NEGATIVE) Urine Occult Blood (Negative) Urine Nitrate (Negative) Urine Bilirubin (NEGATIVE) Urine Urobilinogen (0.2) E.U./dL Ur Leukocyte Esterase (NEGATIVE) Urine RBC (0-5/HPF) Urine WBC (0-5/HPF) Urine Bacteria (None) Ur Culture Indicated? Micro UA Comment Nasal Screen MRSA (PCR) (Negative) 03/16/19 03/16/19 03/16/19 Range/Units 12:15 12:15 14:05 WBC (4.5-11.0) X10^3/uL RBC (4.0-5.2) X10^6/uL Hgb (12.0-16.0) g/dL Hct (36-46) % MCV (80-100) fL MCH (26-34) PG MCHC (30-36) % RDW (11.6-14.8) % Plt Count (150-400) X10^3/uL Neut % (Auto) (50-75) % Lymph % (Auto) (25-40) % Christian % (Auto) (3-14) % Eos % (Auto) (2-4) % Baso % (Auto) (0-2) % Neut # (Auto) (2254-9949) /uL Lymph # (Auto) (0925-5335) /uL Christian # (Auto) (0-900) /uL Eos # (Auto) (0-450) /uL Baso # (Auto) (0-100) /uL PT (10.1-12.7) SECONDS INR (0.9-1.3) Sodium (137-145) mmol/L Potassium (3.4-5.1) mmol/L Chloride (98-107) mmol/L Carbon Dioxide (22-32) mmol/L BUN (7-17) mg/dL Creatinine (0.52-1.04) mg/dL Estimated GFR (>60) mL/min BUN/Creatinine Ratio (6-22) Glucose (80-110) mg/dL Calcium (8.4-10.2) mg/dL Magnesium (1.6-2.3) mg/dL Total Creatine Kinase (30-135) U/L CK-MB (CK-2) CK-MB (CK-2) Rel Index Troponin I (0.01-0.034) ng/mL TSH 2.15 (0.47-4.68) uIU/mL Free T4 1.01 (0.78-2.19) ng/dL Urine Color Yellow Urine Appearance Clear Urine pH 6.5 (4.5-8.0) Ur Specific [place] 1.010 (1.000-1.035) Urine Protein Negative (Negative) Urine Glucose (UA) Negative (Negative) g/dL Urine Ketones Negative (NEGATIVE) Urine Occult Blood Negative (Negative) Urine Nitrate Negative (Negative) Urine Bilirubin Negative (NEGATIVE) Urine Urobilinogen 0.2 (0.2) E.U./dL Ur Leukocyte Esterase Negative (NEGATIVE) Urine RBC None seen (0-5/HPF) Urine WBC None seen (0-5/HPF) Urine Bacteria None seen (None) Ur Culture Indicated? Cult not indicated Micro UA Comment Microscopic normal Nasal Screen MRSA (PCR) (Negative) 03/16/19 Range/Units 14:55 WBC (4.5-11.0) X10^3/uL RBC (4.0-5.2) X10^6/uL Hgb (12.0-16.0) g/dL Hct (36-46) % MCV (80-100) fL MCH (26-34) PG MCHC (30-36) % RDW (11.6-14.8) % Plt Count (150-400) X10^3/uL Neut % (Auto) (50-75) % Lymph % (Auto) (25-40) % Christian % (Auto) (3-14) % Eos % (Auto) (2-4) % Baso % (Auto) (0-2) % Neut # (Auto) (7263-4380) /uL Lymph # (Auto) (8443-2531) /uL Christian # (Auto) (0-900) /uL Eos # (Auto) (0-450) /uL Baso # (Auto) (0-100) /uL PT (10.1-12.7) SECONDS INR (0.9-1.3) Sodium (137-145) mmol/L Potassium (3.4-5.1) mmol/L Chloride (98-107) mmol/L Carbon Dioxide (22-32) mmol/L BUN (7-17) mg/dL Creatinine (0.52-1.04) mg/dL Estimated GFR (>60) mL/min BUN/Creatinine Ratio (6-22) Glucose (80-110) mg/dL Calcium (8.4-10.2) mg/dL Magnesium (1.6-2.3) mg/dL Total Creatine Kinase (30-135) U/L CK-MB (CK-2) CK-MB (CK-2) Rel Index Troponin I (0.01-0.034) ng/mL TSH (0.47-4.68) uIU/mL Free T4 (0.78-2.19) ng/dL Urine Color Urine Appearance Urine pH (4.5-8.0) Ur Specific [place] (1.000-1.035) Urine Protein (Negative) Urine Glucose (UA) (Negative) g/dL Urine Ketones (NEGATIVE) Urine Occult Blood (Negative) Urine Nitrate (Negative) Urine Bilirubin (NEGATIVE) Urine Urobilinogen (0.2) E.U./dL Ur Leukocyte Esterase (NEGATIVE) Urine RBC (0-5/HPF) Urine WBC (0-5/HPF) Urine Bacteria (None) Ur Culture Indicated? Micro UA Comment Nasal Screen MRSA (PCR) Negative for mrsa (Negative) Point of Care Testing Test Results Not applicable Discharge Plan Departure Patient Disposition: Admitted As Inpatient Clinical Impression: Atrial fibrillation with rapid ventricular response, Acute hypokalemia, Hypomagnesemia Discharge Date/Time: 03/16/19 14:00 Interventions: ED Discharge Assessment Last Done: 03/16/19 13:53 Admit Date/Time: 03/16/19 13:42 Admit Provider: Luisa Tran
[2019-03-16 14:23] LABS: Bacteria Urine None Seen; RBC Urine None Seen (0-5/HPF); WBC Urine None Seen (0-5/HPF)
[2019-03-16 14:24] LABS: Appearance Urine UA CLEAR; Bilirubin Urine UA NEGATIVE (NEGATIVE); Color Urine UA YELLOW; Glucose Urine UA NEGATIVE (Negative); Ketones Urine UA NEGATIVE (NEGATIVE); Leukocyte Esterase Urine UA NEGATIVE (NEGATIVE); Nitrite Urine UA NEGATIVE (Negative); Occult Blood Urine UA NEGATIVE (Negative); Protein Urine UA NEGATIVE (Negative); Urobilinogen Urine UA 0.2 E.U./dL (0.2); pH Urine UA 6.5 (4.5-8.0)
[2019-03-16 14:28] LABS: Culture Indicated Urine Cult Not Indicated; Urine Comments Microscopic Normal
[2019-03-16] MEDS: MAGNESIUM SULFATE 2 GM/50 ML PIGGYBACK IV (14:28)
--- NOTE | 2019-03-16 14:48 | PC.ADMIT ---
Admission Note: Patient arrived to room 104 via stretcher from ER at 1405. Per report, pt failed cardioversion x2 in ER. Walked self from stretcher to bathroom to void, steady on feet. Alert and oriented x3. Reported feeling short of breath at home with exertion, denies at this time. Denies any pain. Diltiazem gtt infusing at 5mg/hr, afib CVR with rate in the 80s. Oxygen sats 95% on RA. Money and credit cards placed in safe, pt wishes to keep purse and rest of contents at bedside. Clothing in room closet. Pt reports daughter will be bringing in home meds later this afternoon in order to reconcile home medications. Pt does report new abdominal protuberance when forcibly exhaling. Healing scab/abrasion/lesion to top of scalp - pt reports this is chronic and related to skin cancer. Oriented to room and to call light/bed/TV controls. Instructed on use of call light and need to call prior to getting OOB - acknowledged understanding. Call light within reach. The patient,Bree Aaron,78 y/o, was given written information regarding hospital policies, unit procedures and contact persons. Patient's smoking status: Never smoker. Vital Signs - 8 hr 03/16/19 12:08 03/16/19 12:36 03/16/19 12:37 Temperature 97.5 F L Pulse Rate 130 H 121 H 122 H Respiratory Rate 19 12 16 Blood Pressure 94/80 Blood Pressure [Left Arm] 106/73 112/62 Pulse Oximetry 96 98 98 03/16/19 12:38 03/16/19 12:41 03/16/19 12:42 Temperature Pulse Rate 142 H 131 H 142 H Respiratory Rate 16 18 16 Blood Pressure Blood Pressure [Left Arm] 109/70 93/45 L 88/71 L Pulse Oximetry 98 96 93 03/16/19 12:47 03/16/19 12:51 03/16/19 12:52 Temperature Pulse Rate 106 H 121 H 122 H Respiratory Rate 20 20 Blood Pressure 97/56 L Blood Pressure [Left Arm] 90/50 L 98/70 Pulse Oximetry 95 95 03/16/19 12:55 03/16/19 12:58 03/16/19 13:04 Temperature Pulse Rate 84 95 H 80 Respiratory Rate 16 18 16 Blood Pressure Blood Pressure [Left Arm] 83/50 L 93/58 L 102/70 Pulse Oximetry 95 97 97 03/16/19 13:11 03/16/19 13:53 03/16/19 14:20 Temperature 98.2 F Pulse Rate 85 75 82 Respiratory Rate 16 16 18 Blood Pressure 122/69 107/63 Blood Pressure [Left Arm] 109/54 L Pulse Oximetry 95 96 97 03/16/19 14:22 Temperature Pulse Rate Respiratory Rate Blood Pressure Blood Pressure [Left Arm] Pulse Oximetry 96
--- NOTE | 2019-03-16 20:32 | PM.HP.1 ---
History of Present Illness Date Patient Seen: 03/16/19 Time Patient Seen: 19:50 Chief complaint: Dizziness, SOB Narrative: Ms. Bree Aaron Is a 78-year-old female patient with history significant for paroxysmal atrial fibrillation on warfarin, coronary artery disease status post stent, hypertension, hyperlipidemia, hypothyroidism and squamous cell skin cancer presents to the ER with an acute onset of dizziness, rapid heartbeat. The patient was at [email or web address] which reports of having an abrupt onset of dizziness and lightheadedness and felt like she was going to faint and inability to focus. She had associated shortness of breath, dry mouth and feel the urge to go to the bathroom. The patient states she has been feeling increasing fatigue and exercise intolerance for the last few months with exertional dyspnea but no chest pain. She reports 3 days of nausea and diarrhea resolving in the last few days. She reports trying to drink more water but has had decreased urinary output with mild stress incontinence and has been taking Maxzide and reports no weight gain and only has edema when standing for long periods working at [employer]. She has no current complaints of fevers or chills, headaches, nasal congestion or sore throat. She has no complaints of chest pain and denies palpitations. She has had mild shortness of breath with the present event in the background of exertional dyspnea and denies cough or wheezing. Denies complaints of abdominal pain and has history of IBS stating she needs to move her bowels 30 minutes after eating. Her previous diarrhea has resolved and she denies rectal bleeding. She has history of osteoarthritis but no limitations in activities of daily living or need for assistive devices. Patient does have an anxiety disorder and will use either alprazolam or diazepam as needed for situational anxiety. Upon arrival in the ER the patient was afebrile with a temperature of 98.2?, heart rate 131, blood pressure of 93/45, respirations of 18 with an oxygen saturation 96% on room air. Twelve lead EKG was obtained finding atrial fibrillation with RVR. Patient underwent attempted cardioversion x2 in the ER without conversion to sinus rhythm. The patient was given diltiazem 10 mg IV push and started on diltiazem infusion. On CBC the patient has a normal white count of 9.0, hemoglobin of 13.5 and hematocrit of 39.8 and platelets of 183. The patient is currently on warfarin with an INR of 2.1. On chemistries she has a sodium of 136 potassium low at 3.0, her BUN is 24 and creatinine 1.1 with an estimated EGFR of 48 and nonfasting glucose of 155. Her magnesium is found to be low at 1 1.4. Her troponin is less than 0.012. Thyroid assessed with a TSH of 2.15 and a free T4 of 1.01. Urinalysis is unremarkable. Both potassium and magnesium repleted in the ER. Patient admitted to the ICU in atrial fibrillation with RVR and diltiazem infusion. 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) GERD (gastroesophageal reflux disease) (Chronic) Hypertension (Chronic) Hypothyroidism (Chronic) Stenosis of carotid artery (Chronic) Colon polyps (Resolved 1998) Detached retina, right (Resolved 1998) Gout (Resolved 10/2011) History of hysterectomy (Resolved 1982) History of renal calculi (Resolved) Skin cancer (Resolved) Surgical History History of Zayra fundoplication (Resolved) History of appendectomy (Resolved 1963) History of arthroscopy of left knee (Resolved 01/05/15) History of bilateral carpal tunnel release (Resolved 1988) History of cardiac catheterization (Resolved 10/2006) History of carpal tunnel release (Resolved 1988) History of section (Resolved 1963) History of cholecystectomy (Resolved 1972) History of colonoscopy (Resolved 03/04/06) History of colonoscopy with polypectomy (Resolved 1998) History of esophagogastroduodenoscopy (EGD) (Resolved 06/06/06) History of eye surgery (Resolved 1998) History of left cataract surgery (Resolved 1989) History of left knee surgery (Resolved 08/2010) History of right knee surgery (Resolved 2000) Status post left partial knee replacement (Resolved 10/12/15) Status post primary angioplasty with coronary stent (Resolved 09/2011) Status post right foot surgery (Resolved 1993) Family History Mother Brain tumor Cancer Father Heart disease [place] (myocardial infarction) Sister Lung cancer Stroke [place] (multiple sclerosis) Breast cancer Grandmother Diabetes mellitus Social History household members: none Smoking Status: Never smoker second hand exposure: No alcohol intake: current substance use type: does not use Family & Social History Family History Mother Brain tumor Cancer Father Heart disease [place] (myocardial infarction) Sister Lung cancer Stroke [place] (multiple sclerosis) Breast cancer Grandmother Diabetes mellitus Social History: household members none Prior Living Arrangements Apartment/Condo Safety & Behavioral: Feels Safe in Current Yes Environment Been Physically Hurt or No Threatened By a Person Suicidal Ideation Description None Suicide Plan Description No Plan Tobacco & Substance use: Smoking Status Never smoker alcohol intake current alcohol intake frequency a few times a month Substance Use Type does not use Comment: Advanced directives: The patient states her wishes to be DO NOT RESUSCITATE/DO NOT INTUBATE. She designates her daughter to be her surrogate decision maker. [facility] Home Medications Medication Instructions Recorded Confirmed Type metoprolol succinate 100 mg PO BID #0 08/01/17 03/16/19 History atorvastatin 40 mg PO HS #0 08/12/17 03/16/19 History Warfarin 5 mg See Rx Instructions .ROUTE 08/15/18 03/16/19 Rx .COMPLEX #30 allopurinol 300 mg PO QDAY #90 tab 09/26/18 03/16/19 Rx acetaminophen 500 mg tablet 500 mg PO Q6H PRN 11/06/18 03/16/19 History ampicillin 500 mg capsule 500 mg PO QID PRN 11/06/18 03/16/19 History diazepam 5 mg tablet 5 mg PO DAILY PRN tab 11/06/18 03/16/19 History hydrocodone 5 mg-acetaminophen 325 1 tab PO Q4-6H PRN 11/06/18 03/16/19 History mg tablet levothyroxine 75 mcg tablet 75 mcg PO QDAY #30 tab 11/10/18 03/16/19 Rx alprazolam 0.5 mg PO QDAY PRN 03/16/19 03/16/19 History nitroglycerin [Nitrostat] 0.4 mg SUBLINGUAL SEE INSTRUCT PRN 03/16/19 03/16/19 History triamcinolone acetonide 1 applic TOPICAL DAILY PRN 03/16/19 03/16/19 History triamterene-hydrochlorothiazid 1 cap PO DAILY 03/16/19 03/16/19 History triazolam [Halcion] 0.25 mg PO BEDTIME PRN 03/16/19 03/16/19 History Allergies Allergy/AdvReac Type Severity Reaction Status Date / Time codeine Allergy Severe ANAPHYLAXIS Verified 11/06/18 13:49 NSAIDS (Non-Steroidal AdvReac Severe on Warfarin Verified 11/06/18 13:49 Anti-Inflamma [NSAIDS (NON-STEROIDAL ANTI-INFLAMMA] oxycodone [OXYCODONE] AdvReac Intermediate NAUSEA, Verified 11/06/18 13:49 HALLUCINATIONS, DIZZINESS hydrocodone AdvReac Mild N/V Verified 11/06/18 13:49 pravastatin AdvReac Mild MYALGIA Verified 11/06/18 13:49 simvastatin AdvReac Mild MYALGIA Verified 11/06/18 13:49 Review of Systems Review of Systems All systems reviewed & are unremarkable except as noted in HPI and below Exam Vital Signs (past 8 hours): - 03/16/19 12:36 03/16/19 12:37 03/16/19 12:38 Temperature Pulse Rate 121 H 122 H 142 H Respiratory Rate 12 16 16 Blood Pressure Blood Pressure [Left Arm] 106/73 112/62 109/70 Pulse Oximetry 98 98 98 03/16/19 12:41 03/16/19 12:42 03/16/19 12:47 Temperature Pulse Rate 131 H 142 H 106 H Respiratory Rate 18 16 20 Blood Pressure Blood Pressure [Left Arm] 93/45 L 88/71 L 90/50 L Pulse Oximetry 96 93 95 03/16/19 12:51 03/16/19 12:52 03/16/19 12:55 Temperature Pulse Rate 121 H 122 H 84 Respiratory Rate 20 16 Blood Pressure 97/56 L Blood Pressure [Left Arm] 98/70 83/50 L Pulse Oximetry 95 95 03/16/19 12:58 03/16/19 13:04 03/16/19 13:11 Temperature Pulse Rate 95 H 80 85 Respiratory Rate 18 16 16 Blood Pressure Blood Pressure [Left Arm] 93/58 L 102/70 109/54 L Pulse Oximetry 97 97 95 03/16/19 13:53 03/16/19 14:20 03/16/19 14:22 Temperature 98.2 F Pulse Rate 75 82 Respiratory Rate 16 18 Blood Pressure 122/69 107/63 Blood Pressure [Left Arm] Pulse Oximetry 96 97 96 03/16/19 15:35 03/16/19 16:00 03/16/19 20:00 Temperature 98.4 F 97.9 F Pulse Rate 78 69 Respiratory Rate 19 16 Blood Pressure 102/56 L 136/48 L Blood Pressure [Left Arm] Pulse Oximetry 97 97 Oxygen Delivery Method Room Air Oxygen Flow Rate 0 Narrative Exam Narrative: GENERAL APPEARANCE: well developed, well nourished, in no acute distress. HEAD: Normocephalic, atraumatic EYES: pupils equal, round, reactive to light and accommodation, sclera non-icteric, extraocular movement intact. EARS: normal external structures, no ear pain NOSE: sinuses non tender to percussion, no rhinorrhea ORAL CAVITY: mucosa moist without lesions or exudate, tongue in midline. NECK/THYROID: neck supple, no jugular venous distention, no carotid bruit, no thyromegaly, trachea midline. LYMPH NODES: no cervical or supraclavicular lymphadenopathy. SKIN: warm and dry, no suspicious lesions, no rashes, good turgor. HEART: Rhythm is now regular, S1-S2 without murmur, no rubs or gallops, brisk capillary refill, no edema LUNGS: clear to auscultation bilaterally, no coarseness crackles or wheezing, no cough present CHEST: Symmetrical movement, no accessory muscle use, no pain to AP and lateral compression. ABDOMEN: Round, distended, tympanic to percussion,no abdominal flank or suprapubic tenderness on palpation, no guarding or peritoneal signs, no organomegaly, active bowel tones. EXTREMITIES: moves all extremities, strength is 5/5 and symmetrical, no deformities or joint effusions. NEUROLOGIC: AAO x4, no focal neurologic deficits, motor strength normal upper and lower extremities, sensory exam intact to light touch, hearing grossly normal to speech. PSYCH: alert, pleasant and cooperative, cognitive function intact, good eye contact Objective Labs Result Diagrams: 03/16/19 12:15 03/16/19 12:15 Labs: Laboratory Results - last 24 hr 03/16/19 03/16/19 03/16/19 12:15 12:15 12:15 WBC 9.0 RBC 4.71 Hgb 13.5 Hct 39.8 MCV 84.6 MCH 28.7 MCHC 33.9 RDW 16.1 H Plt Count 183 Neut % (Auto) 86.3 H Lymph % (Auto) 7.8 L [place] % (Auto) 4.6 Eos % (Auto) 0.6 L Baso % (Auto) 0.7 Neut # (Auto) 7800 H Lymph # (Auto) 700 L [place] # (Auto) 400 Eos # (Auto) 100 Baso # (Auto) 100 PT 24.7 H INR 2.1 H Sodium 136 L Potassium 3.0 L Chloride 100 Carbon Dioxide 24 BUN 24 H Creatinine 1.10 H Estimated GFR 48.0 L BUN/Creatinine Ratio 21.8 Glucose 155 H Calcium 9.6 Magnesium 1.4 L Total Creatine Kinase 82 CK-MB (CK-2) TNP CK-MB (CK-2) Rel Index TNP Troponin I < 0.012 TSH Free T4 Urine Color Urine Appearance Urine pH Ur Specific [place] Urine Protein Urine Glucose (UA) Urine Ketones Urine Occult Blood Urine Nitrate Urine Bilirubin Urine Urobilinogen Ur Leukocyte Esterase Urine RBC Urine WBC Urine Bacteria Ur Culture Indicated? Micro UA Comment Nasal Screen MRSA (PCR) 03/16/19 03/16/19 03/16/19 12:15 12:15 14:05 WBC RBC Hgb Hct MCV MCH MCHC RDW Plt Count Neut % (Auto) Lymph % (Auto) [place] % (Auto) Eos % (Auto) Baso % (Auto) Neut # (Auto) Lymph # (Auto) [place] # (Auto) Eos # (Auto) Baso # (Auto) PT INR Sodium Potassium Chloride Carbon Dioxide BUN Creatinine Estimated GFR BUN/Creatinine Ratio Glucose Calcium Magnesium Total Creatine Kinase CK-MB (CK-2) CK-MB (CK-2) Rel Index Troponin I TSH 2.15 Free T4 1.01 Urine Color Yellow Urine Appearance Clear Urine pH 6.5 Ur Specific [place] 1.010 Urine Protein Negative Urine Glucose (UA) Negative Urine Ketones Negative Urine Occult Blood Negative Urine Nitrate Negative Urine Bilirubin Negative Urine Urobilinogen 0.2 Ur Leukocyte Esterase Negative Urine RBC None seen Urine WBC None seen Urine Bacteria None seen Ur Culture Indicated? Cult not indicated Micro UA Comment Microscopic normal Nasal Screen MRSA (PCR) 03/16/19 14:55 WBC RBC Hgb Hct MCV MCH MCHC RDW Plt Count Neut % (Auto) Lymph % (Auto) [place] % (Auto) Eos % (Auto) Baso % (Auto) Neut # (Auto) Lymph # (Auto) [place] # (Auto) Eos # (Auto) Baso # (Auto) PT INR Sodium Potassium Chloride Carbon Dioxide BUN Creatinine Estimated GFR BUN/Creatinine Ratio Glucose Calcium Magnesium Total Creatine Kinase CK-MB (CK-2) CK-MB (CK-2) Rel Index Troponin I TSH Free T4 Urine Color Urine Appearance Urine pH Ur Specific [place] Urine Protein Urine Glucose (UA) Urine Ketones Urine Occult Blood Urine Nitrate Urine Bilirubin Urine Urobilinogen Ur Leukocyte Esterase Urine RBC Urine WBC Urine Bacteria Ur Culture Indicated? Micro UA Comment Nasal Screen MRSA (PCR) Negative for mrsa Assessment & Plan Assessment & Plan narrative: This is 70-year-old female patient who presents to the ER with symptomatic atrial fibrillation with RVR and failed 2 attempts at cardioversion as now admitted to the intensive care unit on a diltiazem infusion. 1. Paroxysmal Atrial fibrillation, no symptomatic with RVR, present on admission -patient has been increasing symptomatic over several months with acute onset of symptomatic atrial fibrillation with RVR. -patient has been on metoprolol 100 mg twice daily with intermittent palpitations, racing heart today -patient attempt to cardiovert x2 with conscious sedation, remains in atrial fibrillation. -patient started on diltiazem 10 mg IV push and diltiazem infusion. -patient with hypokalemia and hypo magnesium contributing to arrhythmia are repleted as below. 2. Chronic coronary artery disease, stable. -patient has had no complaints of chest pain however has had increasing exertional dyspnea. -patient without indications of myocardial ischemia related to tachyarrhythmia on EKG and troponin is negative at less than 0.012. -will obtain echocardiogram. 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 3. Acute hypokalemia, present on admission. -potassium is 3.0 upon arrival in the ER. Patient is mildly dehydrated with a BUN of 24 and creatinine of 1.1. -recent multiple day episode of diarrhea contributing to electrolyte loss, baseline potassium 3.6-3.7 on historical labs, patient previously taking potassium supplement. -potassium 40 mEq IV initiated in the ER. -will recheck potassium at 9:00 p.m. tonight and assess need for further repletion. -will follow electrolytes in the morning. 4. Acute hypo magnesium, present on admission. -magnesium is found to be 1.4 on admit to ER. Likely complicated by recent episode of diarrhea. -patient received 2 g of magnesium IV. -will recheck magnesium level fractured receive repletion. 5. Essential hypertension, chronic, stable. -patient is borderline hypotensive on arrival to the ER at 93/45 in the setting of atrial fibrillation with rapid ventricular response. BP has improved to 102/54. -continue home regimen of metoprolol 100 mg twice daily as used for management of atrial fibrillation and hypertension. -will track and trend blood pressures. 6. Chronic Hyperlipidemia, presumed stable -will continue patient's home medication of atorvastatin 40 mg at bedtime. 7. Chronic hypothyroidism, stable. - TSH is 2.15 and free T4 1.01 -continue home regimen of levothyroxine 75 mcg daily. 8. Chronic insomnia, stable. -patient takes triazolam 0.25 mg nightly which will be continued. The patient is admitted to the intensive care unit for close monitoring until size am titration and management of atrial fibrillation with rapid ventricular response. The patient is admitted as observation with expected length of stay to be less than 2 midnights. Time Spent With Patient Time with patient: 15-24 minutes Scores [facility] [place] coma scale eye opening: Spontaneous Elizabeth coma scale verbal response: Orientated Elizabeth coma scale motor response: Obey commands Elizabeth coma scale total score: 15
[2019-03-16] MEDS: METOPROLOL ER 50 MG TABLET 100 MG PO (21:54)
[2019-03-16] MEDS: WARFARIN 5 MG TABLET PO (21:54)
[2019-03-16] MEDS: ATORVASTATIN 20 MG TABLET 40 MG PO (21:54)
[2019-03-16 21:55] LABS: HEMOLYSIS < 15 (0-50); Potassium 3.3 mmol/L (3.4-5.1)
[2019-03-16] MEDS: TRIAZOLAM 0.125 MG TABLET 0.25 MG PO (23:48)
[2019-03-17 00:12] VITALS: BP 110/44; PULSE 69; RESP 12; TEMP 36.6; O2SAT 96
[2019-03-17] MEDS: POTASSIUM CHLORIDE 60 MEQ in SODIUM CHLORIDE 0.9% 500 ML 88.333 ML IV (00:42)
[2019-03-17] MEDS: LEVOTHYROXINE 75 MCG TABLET PO (05:25)
[2019-03-17 05:26] VITALS: BP 113/61; PULSE 70; RESP 18; TEMP 36.9; O2SAT 97
[2019-03-17 07:53] VITALS: BP 116/54; PULSE 64; RESP 15; TEMP 36.6; O2SAT 98
[2019-03-17 08:00] VITALS: O2SAT 96
[2019-03-17] MEDS: MAGNESIUM SULFATE 2 GM/50 ML PIGGYBACK IV (08:30)
[2019-03-17] MEDS: METOPROLOL ER 50 MG TABLET 100 MG PO (08:32)
[2019-03-17] MEDS: ALLOPURINOL 300 MG TABLET PO (08:32)
[2019-03-17] MEDS: SODIUM CHLORIDE 0.9% FLUSH 10 ML IV (08:33)
[2019-03-17] MEDS: TRIAMTERENE/HCTZ 37.5/25 TABLET 1 CAP PO (08:33)
--- NOTE | 2019-03-17 08:59 | CM.DANOTE ---
Addendum entered by Radha Meadows LPN 03/17/19 10:09: Met with pt as planned. Introduced self and role. Pt confirms that she does live alone, her about 18 months ago (will alert [facility] to update the demographic sheet). Her daughter Carolin Mcclain is POA. Pt is aware that Dr. Tran is planning a d/c today but, as Dr. Tran confirmed in rounds, tests and labs are still pending. Pt is hopeful that she will be able to drive herself home at d/c as she did drive here and I'm about 10 minutes away from the hospital. She does confirm that her PCP is Ana Benitez/recently switched to [facility]. P: will follow prn. Likely home today. Original Note: Discharge Planning/Care Management DCP: assessment: case received, EMR reviewed. Documentation reveals that pt is a 78 year old female who admitted yesterday afternoon to care of hospitalist team. PCP: will confirm this with pt Payer: [facility] Admission status: in review: per UR JOHN Pineda. Pt admitted with s/s dizziness and SOB. Dr. Tran has now put in a d/c order for today although no d/c summary is yet available. P: discuss case with Dr. Tran in Team Rounds this morning and then meet with pt for any needs related to this d/c today. CM Discharge Assessment Start: 03/17/19 08:57 Freq: Status: Active Protocol: Document 03/17/19 08:58 ITV (Rec: 03/17/19 08:59 ITV [id number]) Discharge Planning Assessment Advance Directives? No History Provided By Patient Medical Record Prior Living Arrangements Apartment/Condo Household Members none Independent with ADL's Yes Is patient alert and oriented? Yes Review Status In Process
--- NOTE | 2019-03-17 11:00 | DI.ECHO.S_ITS ---
+ + :Name: KALINA SORIANO Study Date: 03/17/2019 Height: 66 in : :[facility] Exam Location: [facility] Weight: 154 lb : : Gender: Female BSA: 1.8 m2 : :: 1940 Age: 78 yrs BP: 116/54 mmHg: :Reason For Study: Atrial fibrillation/ RVR : :Ordering Physician: Carlos : :Hospitalist Performed By: Esmer Page : :Referring: SIOMARA ESPOSITO : + + Interpretation Summary The left ventricle is normal in size. Left ventricular systolic function is normal. The ejection fraction is estimated to be 60-65%. LV ejection fraction has not changed. There are no obvious focal wall motion abnormalities noted but poor endocardial definition reduces the sensitivity for the detection of such. Diastolic parameters suggest probable normal left ventricular diastolic function and normal filling pressures. The right ventricle is grossly normal size. The right ventricular systolic function is normal. The right ventricular systolic pressure is estimated to be at least 33 mmHg based on an estimated right atrial pressure of 15 mm Hg. The left atrium is mildly dilated. The right atrium is mildly dilated. There is mild mitral regurgitation. There is no other significant valvular heart disease. The aortic root is normal size. Procedure: A two-dimensional transthoracic echocardiogram with color flow and Doppler was performed. The study quality was technically difficult. Comparison is made with the echocardiogram of 10/05/2015. Most of the acoustic windows were suboptimal, but the best imaging was obtained from the subcostal window. The heart rate ranged between 56-61 bpm during the study. The patient was in normal sinus rhythm during the exam. Left Ventricle: The left ventricle is normal in size. There is normal left ventricular wall thickness. Left ventricular systolic function is normal. The ejection fraction is estimated to be 60-65%. There are no obvious focal wall motion abnormalities noted but poor endocardial definition reduces the sensitivity for the detection of such. Diastolic parameters suggest probable normal left ventricular diastolic function and normal filling pressures. Right Ventricle: The right ventricle is grossly normal size. The right ventricular systolic function is normal. Atria: The left atrium is mildly dilated. The right atrium is mildly dilated. There is no Doppler evidence for an interatrial shunt. Mitral Valve: The mitral valve is normal in structure and function. There is mild mitral regurgitation. Aortic Valve: The aortic valve is trileaflet. The aortic valve opens well. No aortic regurgitation is present. Tricuspid Valve: The tricuspid valve is normal in structure and function. There is trace tricuspid regurgitation. The right ventricular systolic pressure is estimated to be at least 33 mmHg based on an estimated right atrial pressure of 15 mm Hg. Pulmonic Valve: The pulmonic valve is not well visualized. There is no other significant valvular heart disease. Great Vessels: The aortic root is normal size. The ascending aorta is normal in size. The pulmonary is not well visualized. The IVC is dilated (diameter is greater than 2.1 cm) and it collapses less than 50% with a sniff. This suggests a high right atrial pressure of 15 mm Hg. Pericardium/ Pleura There is no pericardial effusion. There is no pleural effusion. MMode/2D Measurements & Calculations LVIDd: 5.2 cm Ao root diam: 3.3 cm LVIDs: 3.1 cm asc Aorta Diam: 3.2 cm FS: 40.7 % IVSd: 0.75 cm LVPWd: 0.78 cm LV lópez. diameter/BSA (cm/m^2): 2.9 LV sys. diameter/BSA (cm/m^2): 1.7 LA A2 area: 19.2 cm2 RA long axis: 5.1 cm LA A4 area: 24.1 cm2 RA area: 18.2 cm2 LA length (vol): 5.5 cm RA vol: 56.0 ml LA vol: 70.8 ml RA : 31.3 ml/m2 LA vol index: 39.6 ml/m2 IVC diam: 2.2 cm RVD1 (basal): 3.8 cm TAPSE: 2.0 cm Doppler Measurements & Calculations Ao V2 max: 116.1 cm/sec LVOT Max Moshe: 84.7 cm/sec Ao V2 mean: 75.5 cm/sec LV V1 max P.9 mmHg Ao max P.4 mmHg LV V1 VTI: 17.8 cm Ao mean P.6 mmHg sev ratio: 0.65 Ao V2 VTI: 27.2 cm MV E max moshe: 89.8 cm/sec TR max moshe: 214.5 cm/sec MV A max moshe: 78.0 cm/sec TR max P.4 mmHg MV E/A: 1.1 PA V2 max: 54.0 cm/sec Med Peak E' Moshe: 9.2 cm/sec PA V2 mean: 38.8 cm/sec E/E' med: 9.8 PA mean P.66 mmHg Lat Peak E' Moshe: 10.8 cm/sec PA Accel Time: 0.09 sec E/E' lat: 8.3 E/e' average: 9.0 MV dec time: 0.17 sec MV P1/2t: 51.1 msec MV P1/2t max moshe: 90.2 cm/sec MVA(2t): 4.3 cm2 _ Reading Physician:12:55 PM
[2019-03-17 11:35] VITALS: BP 120/54; PULSE 61; RESP 19; TEMP 36.8; O2SAT 98
[2019-03-17 11:41] LABS: BUN Creatinine Ratio 21.3 (6-22); Blood Urea Nitrogen 17 mg/dL (7-17); Calcium 8.7 mg/dL (8.4-10.2); Carbon Dioxide 26 mmol/L (22-32); Chloride 106 mmol/L (98-107); Estimated Glomerular Filt Rate > 60.0 mL/min (>60); Glucose 99 mg/dL (80-110); HEMOLYSIS < 15 (0-50); Magnesium 2.6 mg/dL (1.6-2.3); Potassium 3.8 mmol/L (3.4-5.1); Sodium 140 mmol/L (137-145)
[2019-03-17] MEDS: POTASSIUM CHLORIDE 20 MEQ TAB 40 MEQ PO (12:59)
--- NOTE | 2019-03-17 14:35 | P.DS_ITS ---
History of Present Illness Date Patient Seen: 03/16/19 Chief complaint: Dizziness, SOB Narrative: Written by Alessandro VALLEJO: Ms. Bree Aaron Is a 78-year-old female patient with history significant for paroxysmal atrial fibrillation on warfarin, coronary artery disease status post stent, hypertension, hyperlipidemia, hypothyroidism and squamous cell skin cancer presents to the ER with an acute onset of dizziness, rapid heartbeat. The patient was at [employer] which reports of having an abrupt onset of dizziness and lightheadedness and felt like she was going to faint and in ability to focus. She had associated shortness of breath, dry mouth and feel the urge to go to the bathroom. The patient states she has been feeling increasing fatigue and exercise intolerance for the last few months with exertional dyspnea but no chest pain. She reports 3 days of nausea and diarrhea resolving in the last few days. She reports trying to drink more water but has had decreased urinary output with mild stress incontinence and has been taking Maxzide and reports no weight gain and only has edema when standing for long periods working at [employer]. She has no current complaints of fevers or chills, headaches, nasal congestion or sore throat. She has no complaints of chest pain and denies palpitations. She has had mild shortness of breath with the present event in the background of exertional dyspnea and denies cough or wheezing. Denies complaints of abdominal pain and has history of IBS stating she needs to move her bowels 30 minutes after eating. Her previous diarrhea has resolved and she denies rectal bleeding. She has history of osteoarthritis but no limitations in activities of daily living or need for assistive devices. Patient does have an anxiety disorder and will use either alprazolam or diazepam as needed for situational anxiety. Upon arrival in the ER the patient was afebrile with a temperature of 98.2?, heart rate 131, blood pressure of 93/45, respirations of 18 with an oxygen saturation 96% on room air. Twelve lead EKG was obtained finding atrial fibrillation with RVR. Patient underwent attempted cardioversion x2 in the ER without conversion to sinus rhythm. The patient was given diltiazem 10 mg IV push and started on diltiazem infusion. On CBC the patient has a normal white count of 9.0, hemoglobin of 13.5 and hematocrit of 39.8 and platelets of 183. The patient is currently on warfarin with an INR of 2.1. On chemistries she has a sodium of 136 potassium low at 3.0, her BUN is 24 and creatinine 1.1 with an estimated EGFR of 48 and nonfasting glucose of 155. Her magnesium is found to be low at 1 1.4. Her troponin is less than 0.012. Thyroid assessed with a TSH of 2.15 and a free T4 of 1.01. Urinalysis is unremarkable. Both potassium and magnesium repleted in the ER. Patient admitted to the ICU in atrial fibrillat ion with RVR and diltiazem infusion. Discharge Providers Date of admission: 03/16/19 13:42 Discharge Date: 03/17/19 Primary care physician: Ana Benitez PA-C Consults: 03/16/19 13:35 Consult to Discharge Planning Routine Comment: Discharge provider: Luisa Tran DO Summary Discharge Diagnosis: 1. Paroxysmal atrial fibrillation with RVR, secondary to dehydration and electrolyte derrangement, present on admission. Resolved. 2. Acute hypokalemia, present on admission. Resolved. 3. Acute hypomagnesemia, present on admission. Resolved. 4. Coronary artery disease, chronic, present on admission. Presumed stable. 5. Hypertension, chronic, present on admission. Stable. 6. Hyperlipidemia, chronic, present on admission. Stable. 7. Hypothyroidism, chronic, present on admission. Stable. 8. Insomnia, chronic, present on admission. Stable. Hospital Course: Bree Aaron is a 70-year-old female with a past medical history significant for squamous cell carcinoma of multiple areas status post several Mohs procedures and managed by Dermatology, paroxysmal atrial fibrillation on chronic anticoagulation with warfarin, hypertension, hyperlipidemia, hypothyroidism, anxiety, and gout who presented with symptomatic atrial fibrillation with RVR status post unsuccessful cardioversion x 2. 1. Paroxysmal atrial fibrillation with RVR on chronic anticoagulation with warfarin, secondary to dehydration and electrolyte derrangement, present on admission. Resolved. -Patient presented with symptomatic atrial fibrillation with RVR with intermittent palpitations and racing heart. -ED physician attempted cardioversion with conscious sedation x 2, unsuccessful and remained in atrial fibrillation. -Received diltiazem 10 mg IV x 1 with good response then started diltiazem gtt. As electrolytes were corrected and home metoprolol succinate 100 mg twice daily titrated off of diltiazem gtt. Corrected electrolyte derangement as below. -Patient spontaneously converted to SR at 1800 on 03/16. -Continued home warfarin 5 mg M/ and 2.5 mg the rest of the week. 2. Acute hypokalemia, present on admission. Resolved. -Patient was mildly dehydrated on admission, BUN of 24 and creatinine of 1.1, with recent multiple day episode of diarrhea contributing to electrolyte loss. Baseline potassium 3.6-3.7 on historical labs and patient had previously taken potassium supplement unclear why discontinued. -Received 1 L NS in ED. Continued IV fluids until adequately hydrated then discontinued. -Initial potassium level 3.0. -Received potassium chloride 40 mEq IV x 1 in ED. Received another potassium chloride 60 mEq IV x1. Goal K+ > 4.0. -Continued to monitor potassium level and replete as needed. Potassium level now 3.8. Discharged on low dose potassium chloride 10 mEq daily and may need to be up titrated or discontinued. Recheck potassium in 2 days with follow-up PCP. 3. Acute hypomagnesemia, present on admission. Resolved. -Initial magnesium 1.4. Likely due to recent episode of diarrhea. -Received magnesium sulfate 2 g IV x 2. Goal Mg > 2.0. -Continued to monitor magnesium level and replete as needed. Magnesium level now 2.6. Discharged on low dose magnesium chloride 64 mEq daily and may need to be up titrated or discontinued. Recheck magnesium in 2 days with follow-up PCP. 4. Coronary artery disease, chronic, present on admission. Presumed stable. -Patient denies chest pain but does endorse increasing exertional dyspnea (deconditioning vs. ASCVD). -No indication of myocardial ischemia related to tachyarrhythmia on EKG and troponin is negative at < 0.012. -Echocardiogram demonstrated LV size and function is normal with EF 60-65%, no obvious focal wall motion abnormalities, normal left ventricular diastolic function and normal filling pressures. RV size and function normal, RVSP 33 mmHg biatrial dilitation, mild mitral regurgitation and no other significant valvular heart disease, and normal aortic root size. Ruled out CHF. 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 5. Hypertension, chronic, present on admission. Stable. -patient is borderline hypotensive on arrival to the ER at 93/45 in the setting of atrial fibrillation with rapid ventricular response. BP has improved to 102/54. -Continued home regimen of metoprolol succinate 100 mg twice daily. 6. Hyperlipidemia, chronic, present on admission. Stable. -Continued atorvastatin 40 mg daily at bedtime. 7. Hypothyroidism, chronic, present on admission. Stable. -TSH normal at 2.15 and free T4 normal at 1.01. -Continued levothyroxine 75 mcg daily. 8. Insomnia, chronic, present on admission. Stable. -Continued triazolam 0.25 mg daily at bedtime. Status at Discharge Overall status at discharge: patient is back to baseline Exam Vital Signs (past 8 hours): - 03/17/19 07:53 03/17/19 08:00 03/17/19 11:35 Temperature 97.8 F 98.2 F Pulse Rate 64 61 Respiratory Rate 15 19 Blood Pressure 116/54 L 120/54 L Pulse Oximetry 98 96 98 Oxygen Delivery Method Room Air Oxygen Flow Rate 0 Narrative Exam Narrative: General: Elderly female sitting in bed and in no acute distress, well-developed , well-nourished, appropriately interactive. HEENT: Normocephalic. Chronic wound on scalp with scarring and eschar with very mild erythema, does not appear infected and managed by Dermatology. External ears without defect. Pupils equal, round, and reactive to light. Anicteric sclerae, moist conjunctivae, and no lid lag. Oropharynx free of erythema and cobble stoning with moist mucosa. Neck: Supple with full range of motion. No jugular venous distension. No bruits. No lymphadenopathy or thyromegaly. Cardiovascular: Regular rate and rhythm without murmurs, rubs, or gallops appreciated Pulmonary: Clear to auscultation bilaterally without crackles, wheezes, or rhonchi. Normal respiratory effort with no use of accessory muscles. Abdomen: Soft, bowel sounds present, nontender, nondistended. No hepatosplenomegaly or masses appreciated. Extremities: No clubbing, cyanosis, or edema. Skin: Normal temperature, turgor, and texture; no rash, ulcers, or subcutaneous nodules appreciated. Neurological: Cranial nerves grossly intact. Psychiatric: Normal mood and affect. Alert and oriented to person, place, and time. Mild cognitive impairment with short-term memory recall deficit. Objective Labs Result Diagrams: 03/16/19 12:15 07/23/19 11:20 Labs: Laboratory Results - last 24 hr 03/16/19 03/16/19 03/17/19 14:55 21:38 11:20 Sodium 140 Potassium 3.3 L 3.8 Chloride 106 Carbon Dioxide 26 BUN 17 Creatinine 0.80 Estimated GFR > 60.0 BUN/Creatinine Ratio 21.3 Glucose 99 Calcium 8.7 Magnesium 2.6 H Nasal Screen MRSA (PCR) Negative for mrsa Discharge Plan Discharge Plan Patient Disposition: Home Discharge comment: You are being discharged home. You were hospitalized for atrial fibrillation with RVR that is likely due to electrolyte deficiencies and your recent episode of diarrhea was likely the cause. You have been started on low-dose potassium and magnesium with lab work to follow in 2 days. Please call your PCP for these results and further guidance in regard to continuing or discontinuing the potassium and magnesium. Please try to keep your bowel movements regular with MiraLax 17 g daily and Colace 100 mg twice daily. You may adjust these as needed to your bowel movements (increase or decrease). Discharge Med Rec/Prescriptions Prescriptions: New docusate sodium [DOK] 100 mg Capsule 100 mg PO BID Qty: 30 RF: 0 magnesium chloride 64 mg tablet,delayed release (DR/EC) 64 mg PO DAILY Qty: 10 RF: 0 potassium chloride 10 mEq tablet extended release 10 meq PO DAILY Qty: 10 RF: 0 polyethylene glycol 3350 [Miralax] 17 gram/dose powder 17 gram PO DAILY Qty: 238 RF: 0 Continued ampicillin 500 mg capsule 500 mg PO QID PRN (Reason: before dentist and surgery) RF: 0 diazepam 5 mg tablet 5 mg PO DAILY PRN (Reason: before drive [place]) RF: 0 hydrocodone-acetaminophen 5-325 mg tablet 1 tab PO Q4-6H PRN (Reason: Pain, Moderate) RF: 0 acetaminophen [Tylenol Extra Strength] 500 mg tablet 500 mg PO Q6H PRN (Reason: Pain, Mild) RF: 0 metoprolol succinate 100 MG tablet extended release 24 hr 100 mg PO BID Qty: 0 RF: 0 atorvastatin 40 MG tablet 40 mg PO HS Qty: 0 RF: 0 Warfarin 5 mg See Patient Comments .ROUTE .COMPLEX Qty: 30 RF: 0 allopurinol 300 mg tablet 300 mg PO QDAY Qty: 90 RF: 1 levothyroxine [Synthroid] 75 mcg tablet 75 mcg PO QDAY Qty: 30 RF: 6 triamterene-hydrochlorothiazid 37.5-25 mg Capsule 1 cap PO DAILY RF: 0 triazolam [Halcion] 0.25 mg tablet 0.25 mg PO BEDTIME PRN (Reason: Insomnia) RF: 0 nitroglycerin [Nitrostat] 0.4 mg tablet, sublingual 0.4 mg Sublingual SEE INSTRUCT PRN (Reason: Chest Pain) RF: 0 alprazolam 0.5 mg tablet 0.5 mg PO QDAY PRN (Reason: public speaking) RF: 0 triamcinolone acetonide 0.1 % Ointment 1 applic TOPICAL DAILY PRN (Reason: Skin Irritation) RF: 0 Follow up/Referrals: Ana Benitez PA-C [Primary Care Provider] - 03/24/19 8:00 am (APPT:03/24 @ 8:00 WITH TWAN PLEASE CHECK IN @ 0750 ) Provider Discharge Instructions Diet: Low-fat, Low-sodium and Low-cholesterol Activity: Activity as tolerated Visit Report/Discharge Packet Instructions: DI for Atrial Fibrillation, DI for Constipation, Potassium Discharge Data Primary Care Provider: Ana Benitez Attending Provider: Luisa Tran Admit Date/Time: 03/16/19 13:42 Discharges patient from system. Discharge Date/Time: 03/17/19 15:55
--- NOTE | 2019-03-17 15:58 | PC.NURSE ---
Pt discharged to home. IVs removed, cannulas intact. States understanding of all discharge instructions and has all belongings. Belongings returned from safe. Follow up appointment on 03/24, lab draw on 03/19. Escorted to exit by nursing staff. Pt in no acute distress, ambulatory to exit.
== END 2019-03-17 15:55 | disposition home or self-care (01) ==
LOC: ED 12:56 → ICU 14:16 → AC 03-17 09:28
PROVIDERS: Nurse Practitioner Adult Health; Admitting Provider Internal Medicine; Emergency Provider Emergency Medicine; Family Provider Hospitalist; PCP Physician Assistant; Visit Provider Internal Medicine
DX: I48.0 Paroxysmal atrial fibrillation (principal); I49.9 Cardiac arrhythmia, unspecified; E83.42 Hypomagnesemia; E87.6 Hypokalemia; Z79.01 Long term (current) use of anticoagulants; I25.10 Atherosclerotic heart disease of native coronary artery without angina pectoris; I10 Essential (primary) hypertension; E78.5 Hyperlipidemia, unspecified; E03.9 Hypothyroidism, unspecified; F51.04 Psychophysiologic insomnia
CPT/HCPCS: 36415; 36591; 71045; 80048; 81001; 82550; 83735; 84132; 84439; 84443; 84484; 85025; 85610; 87797; 92960; 93005; 93306; 96361; 96365; 96366; 96368; 96375; 99152; 99153; 99285; 99291; G0378; J2704; J3480

== ENCOUNTER → 2019-03-19 08:11 | Outpatient (CLI) | payer OTHER, SELFPAY ==
[2019-03-16 14:22] VITALS: BMI 25.5
[2019-03-19 08:52] LABS: Blood Urea Nitrogen 20 mg/dL (7-17); Calcium 9.3 mg/dL (8.4-10.2); Carbon Dioxide 28 mmol/L (22-32); Chloride 105 mmol/L (98-107); Estimated Glomerular Filt Rate 53.6 mL/min (>60); Glucose 105 mg/dL (80-110); HEMOLYSIS < 15 (0-50); Magnesium 1.7 mg/dL (1.6-2.3); Potassium 3.8 mmol/L (3.4-5.1); Sodium 142 mmol/L (137-145)
== END ==
PROVIDERS: PCP Physician Assistant; Visit Provider Internal Medicine
DX: E87.6 Hypokalemia (principal); I48.91 Unspecified atrial fibrillation; E83.42 Hypomagnesemia
CPT/HCPCS: 36415; 80048; 83735

== ENCOUNTER → 2019-04-01 09:01 | Outpatient (CLI) | payer OTHER, SELFPAY ==
[2019-03-16 14:22] VITALS: BMI 25.5
[2019-04-03 13:17] LABS: Fecal Immunochemical Test NOT DETECTED (NOT DETECTED)
== END ==
PROVIDERS: PCP Physician Assistant; Visit Provider Physician Assistant
DX: Z12.11 Encounter for screening for malignant neoplasm of colon (principal)
CPT/HCPCS: 82274

== ENCOUNTER → 2019-06-18 13:39 | Outpatient (CLI) | payer OTHER, SELFPAY ==
[2019-03-16 14:22] VITALS: BMI 25.5
[2019-06-18 14:56] LABS: Blood Urea Nitrogen 24 mg/dL (7-17); Calcium 9.7 mg/dL (8.4-10.2); Carbon Dioxide 33 mmol/L (22-32); Chloride 99 mmol/L (98-107); Estimated Glomerular Filt Rate 53.6 mL/min (>60); Glucose 106 mg/dL (80-110); HEMOLYSIS < 15 (0-50); Magnesium 1.6 mg/dL (1.6-2.3); Potassium 3.5 mmol/L (3.4-5.1); Sodium 141 mmol/L (137-145)
[2019-06-18 16:16] LABS: Thyroid Stimulating Hormone 3.74 uIU/mL (0.47-4.68)
== END ==
PROVIDERS: PCP Physician Assistant; Visit Provider Physician Assistant
DX: E83.42 Hypomagnesemia (principal); E87.6 Hypokalemia; E03.9 Hypothyroidism, unspecified
CPT/HCPCS: 36415; 80048; 83735; 84443

== ENCOUNTER → 2019-10-20 09:04 | Outpatient (CLI) | payer OTHER, SELFPAY ==
[2019-03-16 14:22] VITALS: BMI 25.5
--- NOTE | 2019-10-20 09:07 | DI.MRI.S_ITS ---
PROCEDURE: MR ABDOMEN PELVIS WO CON COMPARISON: [facility], CT, KIDNEY/ URETER/BLADDER, 01/17/2010, 12:37. INDICATIONS: Abdominal mass - possible ventral hernia. TECHNIQUE: Coronal T2 haste, axial T1 in and out of phase, axial T2 haste, sagittal T2, axial T1, axial T1 with fat saturation obtained through the abdomen and pelvis. FINDINGS: Image quality: There are is motion artifact limiting evaluation. Lung bases: No basal pleural effusions. Heart is normal in size. Solid organs: Multiple hepatic cysts are demonstrated, including a large cyst measuring up to 4.6 x 2.7 cm adjacent to the intervening T1. Inferiorly within segment 5 of the right hepatic lobe, there is a curvilinear cystic lesion measuring up to 4 cm. These appear increased in size compared to the prior CT. Evaluation is limited in the absence of intravenous contrast. Gallbladder is surgically absent. There is mild biliary ductal dilatation, with the common bile duct measuring up to 0.8 cm which may be cysts or prior cholecystectomy. No discrete filling defects identified. Pancreatic duct is nondistended. No discrete pancreatic lesions identified. No adrenal nodules. Kidneys demonstrate no hydronephrosis. Multiple small bilateral renal cysts are noted. Bowel: Visualized bowel loops appear normal in caliber. No intraperitoneal free fluid. Nodes and vessels: No mesenteric or retroperitoneal lymphadenopathy by size criteria. The aorta is normal in caliber. Miscellaneous: No discrete ventral abdominal wall hernia identified. There is a small subcutaneous nodule within the ventral abdominal wall measuring up to 0.9 x 0.6 cm demonstrating internal fat signal representing fat necrosis. Pelvis: No pelvic free fluid. Bladder wall appears normal in thickness. Bones: Visualized osseous structures demonstrate no suspicious focal lesions. IMPRESSION: 1. No evidence of intra-abdominal hernia. 2. Small subcutaneous fat signal intensity nodule redemonstrated likely representing fat necrosis. 3. Cystic lesions in the liver are incompletely characterized in the absence of intravenous contrast. Consider followup evaluation with a contrast-enhanced CT or MRI for further evaluation. Dictated by: Edwin Gonzales M.D. on 10/20/2019 at 17:12 Approved by: Edwin Gonzales M.D. on 10/20/2019 at 17:22
== END ==
PROVIDERS: PCP Physician Assistant; Referring Provider Physician Assistant; Visit Provider Physician Assistant
DX: R19.09 Other intra-abdominal and pelvic swelling, mass and lump (principal); K76.89 Other specified diseases of liver; K83.8 Other specified diseases of biliary tract; N28.1 Cyst of kidney, acquired; Z90.49 Acquired absence of other specified parts of digestive tract
CPT/HCPCS: 72195

== ENCOUNTER → 2019-10-28 09:28 | Outpatient (CLI) | payer OTHER, SELFPAY ==
[2019-03-16 14:22] VITALS: BMI 25.5
--- NOTE | 2019-10-28 09:30 | DI.MRI.S_ITS ---
PROCEDURE: MR ABDOMEN WO/W CON INDICATIONS: Cyst lesion in the liver TECHNIQUE: Coronal HASTE, axial 2D FLASH in- and [id number]; axial breath-hold T2 FSE. Dynamic axial VIBE during the administration of contrast; post-contrast coronal VIBE or 2D FLASH with fat saturation from the hepatic dome to the iliac crests. Optional diffusion weighted imaging and ADC may be performed. COMPARISON: [facility], CT, KIDNEY/ URETER/BLADDER, 01/17/2010, 12:37. [facility], MR, MR ABDOMEN PELVIS WO CON, 10/20/2019, 9:32. FINDINGS: Image quality: There is mild motion artifact. Lung bases: No basal pleural effusions. Heart size is normal. Solid organs: Multiple hepatic cysts are redemonstrated including a thin-walled oval cyst traversing the right and left hepatic lobes adjacent to the inferior vena cava measuring approximately 4.3 x 3.5 cm. Inferiorly within the anterior aspect of segment 5, there is a lobulated tubular thin-walled cyst measuring up to 4.3 cm in transverse extent by 1.1 x 1.1 cm. These demonstrate no internal enhancement following contrast administration. No discrete solid hepatic mass or abnormal enhancement. The gallbladder is surgically absent. There is mild biliary ductal dilatation, with the common bile duct measuring up to approximately 9 mm. No definite common duct stones. No pancreatic duct dilatation. There is a small enhancing thin-walled cystic lesion posterior to the pancreatic head measuring up to 1.0 cm in transverse dimension by 1.8 cm in anteroposterior dimension by 0.8 cm in craniocaudad dimension. Findings are suggestive of a small sidebranch IPMN. Spleen is normal in size and enhancement. No adrenal nodules. Kidneys demonstrate hydronephrosis. There are multiple small bilateral renal cysts. Nodes and vessels: No retroperitoneal or mesenteric adenopathy by size criteria. Aorta and inferior vena cava are normal in size. Bowel and peritoneum: Visualized bowel loops are normal in caliber. No free fluid. Bones and soft tissues: No ventral hernias. Within the ventral abdominal wall, the previously described subcutaneous nodule of fat signal intensity measuring approximately 0.8 x 0.6 cm is redemonstrated without evidence of internal enhancement. The findings may reflect a small lipoma or fat necrosis. Bone marrow is normal in overall signal. IMPRESSION: 1. Hepatic cysts redemonstrated without evidence of internal enhancement. Findings are compatible with benign cysts. 2. Small cystic lesion demonstrated posterior to the pancreatic head. 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 This may have been present on the prior noncontrast CT, with evaluation limited due to differences in technique. Recommend a followup MRI in 12 months demonstrate stability if clinically indicated. Dictated by: Edwin Gonzales M.D. on 10/28/2019 at 15:21 Approved by: Edwin Gonzales M.D. on 10/28/2019 at 15:34
== END ==
PROVIDERS: PCP Nurse Practitioner
DX: K76.89 Other specified diseases of liver (principal); N28.1 Cyst of kidney, acquired; K86.2 Cyst of pancreas; Z90.49 Acquired absence of other specified parts of digestive tract
CPT/HCPCS: 74183; A9579

== ENCOUNTER → 2020-01-13 08:08 | Outpatient (CLI) | payer OTHER, SELFPAY ==
[2019-11-10 15:00] VITALS: BMI 25.5
[2020-01-13 08:43] LABS: Creatinine Urine Random 199.6 mg/dL
[2020-01-13 08:48] LABS: Microalbumi Creatinin Ratio Ur 7.5 ug/mg CR (<30); Microalbumin Urine Random 1.5 mg/dL (0-1.6)
[2020-01-13 09:17] LABS: Alanine Aminotransferase 22 IU/L (<35); Albumin 4.4 g/dL (3.5-5.0); Albumin Globulin Ratio 1.5 (1.0-2.8); Alkaline Phosphatase 101 U/L (38-126); Aspartate Aminotransferase 29 IU/L (14-36); BUN Creatinine Ratio 22.1 (6-22); Bilirubin Total 0.5 mg/dL (0.2-1.3); Blood Urea Nitrogen 23 mg/dL (7-17); Calcium 9.7 mg/dL (8.4-10.2); Carbon Dioxide 29 mmol/L (22-32); Chloride 104 mmol/L (98-107); Cholesterol 156 mg/dL (140-199); Estimated Glomerular Filt Rate 51.1 mL/min (>60); Globulin 2.9 g/dL (1.7-4.1); Glucose 105 mg/dL (80-110); HDL Cholesterol 45 mg/dL (40-60); HEMOLYSIS < 15 (0-50); LDL Cholesterol Calculated 75 mg/dL (<100); Sodium 142 mmol/L (137-145); Total Protein 7.3 g/dL (6.3-8.2); Triglycerides 182 mg/dL (35-150)
[2020-01-13 09:31] LABS: Free T3, Triiodothyronine Free 2.73 pg/mL (2.77-5.27); Free T4, Direct Thyroxine 0.85 ng/dL (0.78-2.19)
[2020-01-13 09:44] LABS: Thyroid Stimulating Hormone 8.81 uIU/mL (0.47-4.68)
== END ==
PROVIDERS: PCP Student in an Organized Health Care Education/Training Program; Referring Provider Nurse Practitioner; Visit Provider Nurse Practitioner
DX: E03.9 Hypothyroidism, unspecified (principal); E78.5 Hyperlipidemia, unspecified; I10 Essential (primary) hypertension; Z79.899 Other long term (current) drug therapy
CPT/HCPCS: 36415; 80053; 80061; 82043; 82570; 84439; 84443; 84481

== ENCOUNTER → 2020-02-04 14:48 | Outpatient (CLI) | payer OTHER, SELFPAY ==
[2019-11-10 15:00] VITALS: BMI 25.5
== END ==
PROVIDERS: PCP Student in an Organized Health Care Education/Training Program; Referring Provider Student in an Organized Health Care Education/Training Program; Visit Provider Student in an Organized Health Care Education/Training Program
DX: Z13.820 Encounter for screening for osteoporosis (principal); Z78.0 Asymptomatic menopausal state; E07.9 Disorder of thyroid, unspecified; K92.9 Disease of digestive system, unspecified; Z90.722 Acquired absence of ovaries, bilateral; Z91.89 Other specified personal risk factors, not elsewhere classified
CPT/HCPCS: 77080

== ENCOUNTER → 2020-03-16 15:55 | Outpatient (CLI) | payer OTHER, SELFPAY ==
[2019-11-10 15:00] VITALS: BMI 25.5
[2020-03-16 18:38] LABS: Vitamin D 25 Hydroxy (D3) 43.1 ng/mL (30.0-100.0)
[2020-03-16 18:41] LABS: TSH w/ Reflex to FT4 1.12 uIU/mL (0.47-4.68)
== END ==
PROVIDERS: PCP Student in an Organized Health Care Education/Training Program; Referring Provider Student in an Organized Health Care Education/Training Program; Visit Provider Student in an Organized Health Care Education/Training Program
DX: E55.9 Vitamin D deficiency, unspecified (principal); E03.9 Hypothyroidism, unspecified
CPT/HCPCS: 36415; 82306; 84443

== ENCOUNTER → 2020-03-22 10:34 | Outpatient (CLI) | payer OTHER, SELFPAY ==
[2019-11-10 15:00] VITALS: BMI 25.5
[2020-03-22 12:27] LABS: Magnesium 1.8 mg/dL (1.6-2.3)
== END ==
PROVIDERS: PCP Student in an Organized Health Care Education/Training Program; Referring Provider Nurse Practitioner; Visit Provider Nurse Practitioner
DX: I48.0 Paroxysmal atrial fibrillation (principal); I10 Essential (primary) hypertension
CPT/HCPCS: 36415; 83735

== ENCOUNTER → 2020-04-06 10:20 | Outpatient (CLI) | payer OTHER, SELFPAY ==
[2019-11-10 15:00] VITALS: BMI 25.5
--- NOTE | 2020-04-06 | DI.US.S_ITS ---
PROCEDURE: US CAROTID DOPPLER BI INDICATIONS: LEFT BRUIT TECHNIQUE: Color and pulse Doppler interrogation was performed of both carotid systems, with image documentation and velocity measurements. COMPARISON: [facility], US, CAROTID ARTERY DOPPLER BILAT, 02/22/2010, 8:45. [facility], US, CAROTID ARTERY DOPPLER BILAT, 11/22/2006, 9:38. [facility], US, CAROTID ARTERY DOPPLER BILAT, 09/18/2011, 15:21. [facility], US, CAROTID ARTERY DOPPLER BILAT, 07/31/2017, 11:09. [facility], US, CAROTID ARTERY DOPPLER BILAT, 09/28/2014, 8:37. FINDINGS: Stenosis calculations are based on SRU (Society of Radiologists in Ultrasound) criteria. The flow velocities and the arterial waveforms are normal within both carotid arterial systems. Atherosclerotic plaque is seen on both sides. The estimated degree of internal carotid artery stenosis is less than 50%. Antegrade flow is confirmed within both vertebral arteries. IMPRESSION: No hemodynamically significant stenosis is seen. No significant change from the prior. Atherosclerotic plaque is noted bilaterally. Dictated by: Rafiq Bloom M.D. on 04/06/2020 at 11:51 Approved by: Rafiq Bloom M.D. on 04/06/2020 at 11:52
--- NOTE | 2020-04-06 | DI.MG.S_ITS ---
BILATERAL DIGITAL SCREENING MAMMOGRAM 3D/2D WITH CAD: 04/06/2020 CLINICAL: Routine screening. Family history of breast cancer. Comparison is made to exams dated: 01/16/2019 mammogram, 01/01/2019 mammogram, 12/27/2017 mammogram, and 12/14/2016 mammogram - [facility]. The tissue of both breasts is heterogeneously dense. This may lower the sensitivity of mammography. Current study was also evaluated with a Computer Aided Detection (CAD) system. There are benign calcifications in the left breast. No significant masses, calcifications, or other findings are seen in either breast. There has been no significant interval change. IMPRESSION: BENIGN There is no mammographic evidence of malignancy. A 1 year screening mammogram is recommended. This exam was interpreted at Station ID: [id number]. NOTE: For mammograms, a report in lay terms will be sent to the patient. Approximately 15% of breast malignancies will not be visualized mammographically. In the management of a palpable breast mass, a negative mammogram must not discourage biopsy of a clinically suspicious lesion. Electronically Signed By: Edouard faith/charlotte:04/06/2020 14:37:08 letter sent: Normal Exam ACR BI-RADS Category 2: Benign Finding(s) [id number]
== END ==
PROVIDERS: PCP Student in an Organized Health Care Education/Training Program; Referring Provider Nurse Practitioner; Visit Provider Nurse Practitioner
DX: Z12.31 Encounter for screening mammogram for malignant neoplasm of breast (principal); Z80.3 Family history of malignant neoplasm of breast; I65.23 Occlusion and stenosis of bilateral carotid arteries; I48.0 Paroxysmal atrial fibrillation; I25.10 Atherosclerotic heart disease of native coronary artery without angina pectoris; R09.89 Other specified symptoms and signs involving the circulatory and respiratory systems
CPT/HCPCS: 77063; 77067; 93880

== ENCOUNTER → 2020-06-28 08:22 | Outpatient (CLI) | payer OTHER, SELFPAY ==
[2019-11-10 15:00] VITALS: BMI 25.5
[2020-06-28 13:34] LABS: COVID19 -Nasal RAPID Negative (Negative)
== END ==
PROVIDERS: PCP Student in an Organized Health Care Education/Training Program; Visit Provider Physician Assistant
DX: Z01.812 Encounter for preprocedural laboratory examination (principal)
CPT/HCPCS: 87635

== ENCOUNTER → 2020-11-04 15:11 | Outpatient (CLI) | payer MEDICARE, SELFPAY ==
[2019-11-10 15:00] VITALS: BMI 25.5
[2020-11-04] MEDS: COVID-19 VACC, Ad26(JANSSEN)/PF 0.5 ML IM (15:17)
== END ==
PROVIDERS: PCP Student in an Organized Health Care Education/Training Program; Visit Provider Internal Medicine
DX: Z23 Encounter for immunization (principal)
CPT/HCPCS: 0031A; 91303

== ENCOUNTER → 2020-12-21 08:33 | Outpatient (CLI) | payer OTHER, SELFPAY ==
[2019-11-10 15:00] VITALS: BMI 25.5
[2020-12-21 09:34] LABS: HEMOLYSIS < 15 (0-50); Potassium 4.3 mmol/L (3.4-5.1)
[2020-12-21 09:35] LABS: Alanine Aminotransferase 28 IU/L (<35); Albumin 3.9 g/dL (3.5-5.0); Albumin Globulin Ratio 1.5 (1.0-2.8); Alkaline Phosphatase 102 U/L (38-126); Aspartate Aminotransferase 30 IU/L (14-36); BUN Creatinine Ratio 21.7 (6-22); Bilirubin Total 0.4 mg/dL (0.2-1.3); Blood Urea Nitrogen 20 mg/dL (7-17); Calcium 9.7 mg/dL (8.4-10.2); Carbon Dioxide 27 mmol/L (22-32); Chloride 108 mmol/L (98-107); Estimated Glomerular Filt Rate 58.7 mL/min (>60); Globulin 2.6 g/dL (1.7-4.1); Glucose 102 mg/dL (80-110); Magnesium 1.6 mg/dL (1.6-2.3); Sodium 142 mmol/L (137-145); Total Protein 6.5 g/dL (6.3-8.2)
[2020-12-23 08:09] LABS: Cholesterol, Total 124 mg/dL (100-199); HDL-Cholesterol 45 mg/dL (>39); HDL-Particle (Total) 31.4 umol/L (>=30.5); LDL Particle 817 nmol/L (<1000); LDL Size 20.1 nm (>20.5); LDL-Cholsterol 59 mg/dL (0-99); LP-IR Score 60 (<=45); Small LDL- Particle 584 nmol/L (<=527); Triglycerides 107 mg/dL (0-149)
== END ==
PROVIDERS: PCP Student in an Organized Health Care Education/Training Program; Referring Provider Specialist; Visit Provider Specialist
DX: I48.0 Paroxysmal atrial fibrillation (principal); E78.00 Pure hypercholesterolemia, unspecified
CPT/HCPCS: 36415; 80053; 80061; 83704; 83735

== ENCOUNTER → 2021-01-10 08:11 | Outpatient (CLI) | payer OTHER, SELFPAY ==
[2019-11-10 15:00] VITALS: BMI 25.5
[2021-01-10 10:09] LABS: Alanine Aminotransferase 28 IU/L (<35); Albumin Globulin Ratio 1.4 (1.0-2.8); Alkaline Phosphatase 100 U/L (38-126); Aspartate Aminotransferase 32 IU/L (14-36); BUN Creatinine Ratio 19.6 (6-22); Bilirubin Total 0.3 mg/dL (0.2-1.3); Blood Urea Nitrogen 18 mg/dL (7-17); Calcium 9.9 mg/dL (8.4-10.2); Carbon Dioxide 28 mmol/L (22-32); Chloride 105 mmol/L (98-107); Cholesterol 139 mg/dL (140-199); Estimated Glomerular Filt Rate 58.7 mL/min (>60); Globulin 2.8 g/dL (1.7-4.1); Glucose 97 mg/dL (80-110); HDL Cholesterol 45 mg/dL (40-60); HEMOLYSIS < 15 (0-50); LDL Cholesterol Calculated 64 mg/dL (<100); Magnesium 1.8 mg/dL (1.6-2.3); Potassium 4.2 mmol/L (3.4-5.1); Sodium 140 mmol/L (137-145); Total Protein 6.8 g/dL (6.3-8.2); Triglycerides 152 mg/dL (35-150)
[2021-01-10 10:50] LABS: Thyroid Stimulating Hormone 0.423 uIU/mL (0.47-4.68)
== END ==
PROVIDERS: PCP Student in an Organized Health Care Education/Training Program; Referring Provider Specialist; Visit Provider Specialist
DX: I48.0 Paroxysmal atrial fibrillation (principal); E78.2 Mixed hyperlipidemia
CPT/HCPCS: 36415; 80053; 80061; 83735; 84443

== ENCOUNTER 2021-01-12 01:06 | Emergency (ER) | payer OTHER, SELFPAY ==
[2019-11-10 15:00] VITALS: BMI 25.5
[2021-01-12 01:11] VITALS: BP 145/66; PULSE 71; RESP 16; TEMP 36.4; O2SAT 96; BMI 56.9
[2021-01-12] MEDS: LIDOCAINE 1% (PF) 2 ML INJ (01:45)
[2021-01-12 01:58] VITALS: BP 142/65; PULSE 67; RESP 16; O2SAT 97
--- NOTE | 2021-01-12 02:29 | ED_ITS ---
HPI - Extremity Injury (Lower) General Chief Complaint: Extremity Injury, Lower Stated Complaint: Left foot bleeding from popped blister Time Seen by Provider: 01/12/21 01:15 Source: patient and EMS Mode of arrival: EMS Limitations: no limitations History of Present Illness HPI Narrative: 80-year-old woman with a history of atrial fibrillation for which she is anticoagulated on Coumadin with INR checked today at 2.4, atherosclerotic heart disease, hypothyroidism presents complaining of small broken vessel on her left anterior escamilla that continues to bleed despite pressure. She notes that she was simply taking off her socks when a small lesion on the left escamilla began squirting blood. There was no pain or other obvious trauma. She was unable to get the bleeding stopped at home with continuous pressure. She called 911 for further assistance. She does not complain of pain, dyspnea, recent cough, fevers, chills. 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 Related Data Home Medications Medication Instructions Recorded Confirmed metoprolol succinate 100 mg PO BID #0 08/01/17 07/12/20 acetaminophen 500 mg tablet 500 mg PO Q6H PRN 11/06/18 07/12/20 docusate sodium 100 mg capsule 100 mg PO BID 10/30/19 07/12/20 cholecalciferol (vitamin D3) 25 25 mcg PO DAILY 01/22/20 07/12/20 mcg (1,000 unit) capsule atorvastatin 40 mg tablet 80 mg PO HS #0 tab 03/30/20 07/12/20 Previous Rx's Medication Instructions Recorded potassium chloride 10 mEq 10 meq PO DAILY #90 tab 03/24/19 tablet,extended release diazepam 5 mg tablet 5 mg PO DAILY PRN #20 tab 04/08/19 alprazolam 0.5 mg tablet 0.5 mg PO QDAY PRN #20 tab 08/12/19 allopurinol 300 mg tablet 300 mg PO DAILY #90 tab 03/21/20 conjugated estrogens 0.625 mg/gram 0.625 mg VAG DAILY #30 gram 03/30/20 vaginal cream levothyroxine 100 mcg tablet 100 mcg PO DAILY #90 tab 06/27/20 warfarin 5 mg tablet See Rx Instructions PO DAILY #90 08/01/20 tab triazolam 0.25 mg tablet 0.25 mg PO BEDTIME PRN #20 tab 08/11/20 magnesium chloride 64 mg 128 mg PO DAILY #180 tab 08/25/20 (magnesium chloride) tablet,delayed release nitroglycerin 0.4 mg sublingual 0.4 mg SUBLINGUAL Q5-15M PRN #30 10/07/20 tablet tab MDD 3 tabs warfarin 3 mg tablet 3 mg PO DAILY #90 tab 10/26/20 Allergies Allergy/AdvReac Type Severity Reaction Status Date / Time codeine Allergy Severe ANAPHYLAXIS Verified 07/12/20 13:38 NSAIDS (Non-Steroidal AdvReac Severe on Warfarin Verified 07/12/20 13:38 Anti-Inflamma [NSAIDS (NON-STEROIDAL ANTI-INFLAMMA] oxycodone [OXYCODONE] AdvReac Intermediate NAUSEA, Verified 07/12/20 13:38 HALLUCINATIONS, DIZZINESS hydrocodone AdvReac Mild N/V Verified 07/12/20 13:38 pravastatin AdvReac Mild MYALGIA Verified 07/12/20 13:38 simvastatin AdvReac Mild MYALGIA Verified 07/12/20 13:38 Review of Systems Review of Systems Narrative: Remainder of complete review of systems is otherwise unremarkable except for that included in the HPI. Patient History Medical History Anticoagulated on warfarin ASHD (arteriosclerotic heart disease) Atrial fibrillation CAD (coronary artery disease) (10/2006) Chronic instability of right knee Colon polyps (1998) 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, right (1998) Fat necrosis of abdominal wall GERD (gastroesophageal reflux disease) Gout (10/2011) History of renal calculi Hypertension Hypothyroidism Skin cancer Stenosis of carotid artery Stress incontinence Urinary frequency Vaginal atrophy Surgical History History of appendectomy (1963) History of arthroscopy of left knee (01/05/15) History of bilateral carpal tunnel release (1988) History of cardiac catheterization (10/2006) History of carpal tunnel release (1988) History of section (1963) History of cholecystectomy (1972) History of colonoscopy (03/04/06) History of colonoscopy with polypectomy (1998) History of esophagogastroduodenoscopy (EGD) (06/06/06) History of eye surgery (1998) History of hysterectomy (1982) History of left cataract surgery (1989) History of left knee surgery (08/2010) History of Zayra fundoplication History of right knee surgery (2000) Status post left partial knee replacement (10/12/15) Status post primary angioplasty with coronary stent (09/2011) Status post right foot surgery (1993) Family History Mother Brain tumor Cancer Father Heart disease NC (myocardial infarction) Sister Lung cancer Stroke MS (multiple sclerosis) Breast cancer Grandmother Diabetes mellitus Social History household members: none Smoking Status: Never smoker second hand exposure: No alcohol intake: current substance use type: does not use Smoking Status: Never smoker alcohol intake frequency: holidays/special occasions only Substance Use Type: does not use Exam Narrative Exam Narrative: General: Alert appropriate in no acute distress Respiratory: Able to speak in full sentences, no obvious respiratory distress Skin: No obvious rashes, warm and dry Neurologic: Grossly intact no obvious asymmetries or abnormalities Psych: appropriate insight and affect, cooperative Extremity: Chronic venous stasis changes with 1+ bilateral lower extremity edema. She has a superficial varicosity on the left anterior escamilla that has been abraded and is continuing to bleed. Will a horizontal mattress stitch is placed for hemostasis control and is quite effective Initial Vital Signs Initial Vital Signs: Vital Signs Temperature 97.5 F L 01/12/21 01:11 Pulse Rate 71 01/12/21 01:11 Respiratory Rate 16 01/12/21 01:11 Blood Pressure 145/66 H 01/12/21 01:11 Pulse Oximetry 96 01/12/21 01:11 Procedures Laceration Repair Left lower extremity bleeding superficial varicosity: Site: lower extremity Side (If applicable): left Size (cm): 0.5 Description: other (Hemostatic control for superficial varicosity that the bleeding) Depth: simple, single layer Local Anesthetic: lidocaine 1% Skin layer closed with: nylon Size (cm): 3-0 Number of sutures: 1 Course Orders Ordered: Discontinued Medications Bacitracin (Bacitracin Oint 0.9 Gm Pckt) 1 applic TOP NOW ONE Stop: 01/12/21 01:20 Last Admin: 01/12/21 02:01 Dose: Not Given Documented by: [email or web address] Lidocaine HCl (Lidocaine 1% (Pf)) 2 ml INJ NOW ONE Stop: 01/12/21 01:44 Last Admin: 01/12/21 01:45 Dose: 2 ml Documented by: JAMAR Vital Signs Vital signs: Vital Signs - 8 hr 01/12/21 01:11 01/12/21 01:58 Temperature 97.5 F L Pulse Rate 71 67 Respiratory Rate 16 16 Blood Pressure 145/66 H 142/65 H Pulse Oximetry 96 97 MDM - Extremity Injury (Lower) MDM Narrative Medical decision making narrative: 80-year-old woman with a bleeding superficial varicosity left anterior escamilla. INR was therapeutic this morning. She is having no other issues or complaints at this time. A single hemostatic stitch was placed with nice control of bleeding. Dressing is placed patient is safe for home discharge Discharge Plan Departure Patient Disposition: Home Clinical Impression: Hemorrhage of skin lesion, Anticoagulant long-term use Atrial fibrillation Qualifiers: Atrial fibrillation type: longstanding persistent Qualified Code(s): I48.11 - Longstanding persistent atrial fibrillation Instructions: DI for Laceration Repair -- Simple Activity Restrictions/Additional Instructions: Thank you for coming in today I believe that you are correct in that you have a superficial blood vessel that was simply scratched when you took her sock off this evening and began to bleed. Will with your Coumadin even with a perfect INR level of 2.4 as you have today, it does make it harder to stop bleeding. I used a single suture to pull the skin tight around the small bleeding point. This worked well. You wiill need to have that suture removed in about a week. Please keep a Band-Aid over the suture. It seems like it is getting red, there is any drainage or your having increasing pain at that site, please feel free to return to the ER I hope you feel better Prescriptions: No Action acetaminophen [Tylenol Extra Strength] 500 mg tablet 500 mg PO Q6H PRN (Reason: Pain, Mild) RF: 0 metoprolol succinate 100 MG tablet extended release 24 hr 100 mg PO BID Qty: 0 RF: 0 alprazolam 0.5 mg tablet 0.5 mg PO QDAY PRN (Reason: public speaking) Qty: 20 RF: 0 cholecalciferol (vitamin D3) 25 mcg (1,000 unit) capsule 25 mcg PO DAILY RF: 0 allopurinol 300 mg tablet 300 mg PO DAILY Qty: 90 RF: 3 atorvastatin 40 mg tablet 80 mg PO HS Qty: 0 RF: 0 levothyroxine 100 mcg tablet 100 mcg PO DAILY Qty: 90 RF: 3 triazolam [Halcion] 0.25 mg tablet 0.25 mg PO BEDTIME PRN (Reason: Insomnia) Qty: 20 RF: 5 magnesium chloride 64 mg tablet,delayed release (DR/EC) 128 mg PO DAILY Qty: 180 RF: 0 nitroglycerin [Nitrostat] 0.4 mg tablet, sublingual 0.4 mg Sublingual Q5-15M MDD 3 tabs PRN (Reason: Chest Pain) Qty: 30 RF: 11 docusate sodium [Col-Rite] 100 mg capsule 100 mg PO BID RF: 0 warfarin 3 mg tablet 3 mg PO DAILY Qty: 90 RF: 0 potassium chloride 10 mEq tablet extended release 10 meq PO DAILY Qty: 90 RF: 1 diazepam 5 mg tablet 5 mg PO DAILY PRN (Reason: before drive Smil[place]) Qty: 20 RF: 0 conjugated estrogens 0.625 mg/gram cream 0.625 mg VAG DAILY Qty: 30 RF: 5 warfarin 5 mg tablet See Rx Instructions PO DAILY Qty: 90 RF: 2 Referrals: Farhat Conklin MD [Primary Care Provider] -
== END 2021-01-12 02:00 | disposition home or self-care (01) ==
PROVIDERS: Emergency Provider Emergency Medicine; PCP Student in an Organized Health Care Education/Training Program
DX: R23.3 Spontaneous ecchymoses (principal); I48.91 Unspecified atrial fibrillation; Z79.01 Long term (current) use of anticoagulants
CPT/HCPCS: 12001; 99283

== ENCOUNTER → 2021-02-15 11:18 | Outpatient (CLI) | payer OTHER, SELFPAY ==
[2019-11-10 15:00] VITALS: BMI 25.5
[2021-02-15 12:52] LABS: COVID19 -Nasal RAPID Negative (Negative)
== END ==
PROVIDERS: PCP Student in an Organized Health Care Education/Training Program; Visit Provider Physician Assistant
DX: Z01.812 Encounter for preprocedural laboratory examination (principal); Z20.822 Contact with and (suspected) exposure to COVID-19
CPT/HCPCS: 87635

== ENCOUNTER → 2021-02-17 08:52 | Outpatient (CLI) | payer OTHER, SELFPAY ==
[2019-11-10 15:00] VITALS: BMI 25.5
--- NOTE | 2021-02-17 08:54 | DI.ECHO.S_ITS ---
[facility]---------+ [facility] +---------+ : : [address] : : : : [id number] : : : : Phone: [phone]+ Echocardiogram Report + + :Name: KALINA SORIANO Study Date: 02/17/2021 Height: 66 in : :[facility] ReadingLocation: Weight: 158 lb : : Gender: Female BSA: 1.8 m2 : :: 1940 Age: 80 yrs BP: 161/60 mmHg: :Reason For Study: CAD : :Ordering Physician: Pauline : :Sundar Pickens Performed By: Enzo Greenwood : :Referring: PAULINE PICKENS : + + Interpretation Summary Left ventricular systolic function appears normal with an estimated ejection fraction of 55 to 60% without any focal wall motion abnormality. Left ventricular size and function remain normal with probable normal diastolic function and normal filling pressures. There has been no significant change since the previous study. The right ventricle appears normal and unchanged from the previous exam. Right ventricular systolic pressure cannot be estimated but CVP is likely 3 mmHg which is significantly lower compared to the previous exam. Both atria are normal in size and measure smaller compared to the previous study. There is mild mitral regurgitation and trace tricuspid regurgitation, both less prominent compared to the previous study and no other significant valvular abnormality. Procedure: A two-dimensional transthoracic echocardiogram with color flow and Doppler was performed. The study quality was technically adequate. Comparison is made with the echocardiogram of 03/17/2019. The patient was in sinus rhythm with heart rates between 72-81 bpm during the exam. Left Ventricle: The left ventricle appears normal in size, wall thickness, and systolic function without any focal wall motion abnormalities. The estimated left ventricular end diastolic volume is 77 ml. The ejection fraction is estimated to be 55-60%. Diastolic parameters suggest probable normal left ventricular diastolic function and normal filling pressures. There has been no significant change since the previous study. Right Ventricle: The right ventricle is normal in size and function. This is unchanged compared to the previous study. Atria: Both atria are normal in size. Both atria have mildly decreased in size since the prior echo exam. There is no Doppler evidence for an interatrial shunt. Mitral Valve: There is mild mitral annular calcification. The mitral valve leaflets appear normal. There is no evidence of stenosis, fluttering, or prolapse. There is mild mitral regurgitation. This is slightly less prominent compared to the previous study. Aortic Valve: The aortic valve is normal in structure and function. The aortic valve opens well. No aortic regurgitation is present. Tricuspid Valve: The tricuspid valve is normal in structure and function. There is trace tricuspid regurgitation. This is less prominent compared to the previous study. Pulmonary artery pressures cannot be estimated because of the lack of a measurable TR jet velocity but the IVC suggests a CVP of around 3 mmHg. Pulmonic Valve: The pulmonic valve is normal in structure and function. There is a trace or physiologic amount of pulmonic regurgitation. There is no other significant valvular heart disease. Great Vessels: The aortic root is normal size. The dimensions of the ascending aorta are normal. The IVC is of normal diameter and collapses greater than 50% with a sniff. This suggests a low right atrial pressure of 3 mm Hg. Pericardium/ Pleura There is no pericardial effusion. There is no pleural effusion. MMode/2D Measurements & Calculations LVIDd: 5.2 cm LVOT diam: 1.9 cm LVIDs: 3.6 cm asc Aorta Diam: 2.9 cm FS: 30.7 % IVSd: 0.91 cm LVPWd: 0.76 cm LV lópez. diameter/BSA (cm/m^2): 2.9 LV sys. diameter/BSA (cm/m^2): 2.0 LA A2 area: 17.0 cm2 RA long axis: 4.2 cm LA A4 area: 16.6 cm2 RA area: 13.0 cm2 LA length (vol): 4.6 cm RA vol: 34.4 ml LA vol: 51.7 ml RA : 19.0 ml/m2 LA vol index: 28.6 ml/m2 TAPSE: 2.2 cm Doppler Measurements & Calculations Ao V2 max: 129.8 cm/sec LVOT Max Moshe: 84.1 cm/sec Ao V2 mean: 98.9 cm/sec LV V1 max P.8 mmHg Ao max P.7 mmHg LV V1 VTI: 20.0 cm Ao mean P.2 mmHg SANTIAGO(I,D): 1.8 cm2 Ao V2 VTI: 32.2 cm SANTIAGO(V,D): 1.9 cm2 sev ratio: 0.62 SANTIAGO indexed to BSA (cm^2/m^2): 1.00 MV E max moshe: 107.5 cm/sec PA pr(Accel): 45.6 mmHg MV A max moshe: 90.3 cm/sec MV E/A: 1.2 Med Peak E' Moshe: 8.0 cm/sec E/E' med: 13.4 Lat Peak E' Moshe: 9.6 cm/sec E/E' lat: 11.3 E/e' average: 12.3 MV dec time: 0.19 sec SV(OT): 57.9 ml Reading Physician:07:10 AM
--- NOTE | 2021-02-17 20:01 | DI.NM.S_ITS ---
DATE OF SERVICE: 02/17/2021 PROCEDURE: Pharmacological perfusion study. INDICATIONS: Exertional shortness of breath with CAD, underlying right coronary artery stent, paroxysmal AFib, hypertension, hyperlipidemia. RADIOPHARMACEUTICAL: 25.6 millicurie technetium-99m Myoview IV was injected at stress and 11.6 millicurie technetium-99m Myoview IV was injected at rest. CARDIAC STRESS: The patient underwent IV Lexiscan study under the supervision of an attending staff. The patient remained hemodynamically stable. [place] shortness of breath, which got improved in recovery without the need for intravenous aminophylline. Baseline rhythm was sinus with flattening of ST- segment in inferolateral leads and some PVCs. During stress there was worsening of ST-segment depression in inferolateral leads up to 1 mm. No worsening of ventricular arrhythmias. RAW DATA: There is breast shadow seen. There is increased subdiaphragmatic activity. GATED STUDY: Stress LV ejection fraction is 75 percent and resting LV ejection fraction is 72 percent without any obvious wall motion abnormalities. Resting end-diastolic volume 76 mL. TID ratio 1.08, which is within normal limits. Lung/heart ratio 0.24 ,which is within normal limits. MYOCARDIAL PERFUSION SCAN: The stress supine, resting supine and stress prone images were compared to each other. There appears to be predominantly fixed, small size, mildly decreased perfusion of distal anterior wall extending into the anteroapex without any reversible ischemia. CONCLUSION: I will call this study an abnormal myocardial perfusion study with predominantly fixed, small size, mildly decreased perfusion of distal anterior wall and anteroapex. Those segments are moving well. No regional wall motion abnormality. On raw images, breast shadow was seen. This could be due to fixed tissue attenuation artifact, however one cannot rule out the possibility of small nontransmural myocardial infarction of distal anterior wall and anteroapex. Preserved left ventricular function. Baseline ST flattening in inferolateral leads, which got worse during Lexiscan infusion. In absence of reversible ischemia and preserved left ventricular function, overall, this is a low-risk myocardial perfusion study. Correlate clinically. GalenCarlos Albertoon - Eugenie/billy doc#: [id number]/job#: [id number] dd: 02/17/2021 16:52:00 dt: 02/17/2021 19:45:00 DICTATING MD/COPIES TO: Casey Curtis MD COPIES MNE: JESICA;
== END ==
PROVIDERS: PCP Student in an Organized Health Care Education/Training Program; Referring Provider Specialist; Visit Provider Specialist
DX: I34.0 Nonrheumatic mitral (valve) insufficiency (principal); R94.39 Abnormal result of other cardiovascular function study; I25.10 Atherosclerotic heart disease of native coronary artery without angina pectoris; R06.02 Shortness of breath; I48.0 Paroxysmal atrial fibrillation; I10 Essential (primary) hypertension; E78.5 Hyperlipidemia, unspecified; Z95.5 Presence of coronary angioplasty implant and graft
CPT/HCPCS: 78452; 93017; 93306; A9502; J2785

== ENCOUNTER → 2021-03-09 13:51 | Outpatient (CLI) | payer OTHER, SELFPAY ==
[2019-11-10 15:00] VITALS: BMI 25.5
--- NOTE | 2021-03-09 13:52 | DI.MRI.S_ITS ---
PROCEDURE: MR ABDOMEN WO/W CON INDICATIONS: re-evaluate cystic lesion on pancreas TECHNIQUE: Coronal HASTE, axial 2D FLASH in- and [id number]; axial breath-hold T2 FSE with fat saturation from the hepatic dome to the iliac crests. Oblique coronal thin-slice and radial thick slab HASTE through the biliary system. Dynamic axial VIBE during administration of contrast. Post-contrast coronal VIBE or 2D FLASH with fat saturation from the hepatic dome to the iliac crests. Optional diffusion weighted imaging and ADC may be performed. COMPARISON: [facility], MR, MR ABDOMEN PELVIS WO CON, 10/20/2019, 9:32. [facility], MR, MR ABDOMEN WO/W CON, 10/28/2019, 9:54. FINDINGS: Image quality: There is mild motion artifact. Pancreas and biliary system: A lobulated cystic lesions redemonstrated posterior to the pancreatic head, measuring approximately 1.6 x 0.9 cm in transverse dimension (/) by approximately 1.5 cm in craniocaudal dimension, similar in size compared to the prior study. This demonstrates a linear component communicating with the main pancreatic duct. Following contrast administration, no solid internal enhancement is identified. The main pancreatic duct is normal in caliber. No solid pancreatic mass identified. The gallbladder is surgically absent. There is mild biliary ductal dilatation, with the common bile duct measuring up to approximately 1.0 cm and tapering distally into the ampulla. No discrete filling defects to suggest choledocholithiasis. Solid organs: Multiple hepatic cysts are redemonstrated, with the largest demonstrated centrally adjacent to the IVC measuring approximately 3.7 x 3.3 x 3.8 cm. There is also a tortuous curvilinear cystic lesion inferiorly within segment 5 of the right hepatic lobe measuring up to approximately 3.2 x 1.2 cm in transverse dimension (/) and 4.4 x 1.0 cm in coronal dimension on series 3, image 9. This appears similar in size compared to the prior study. There are thin internal septations. Following contrast administration, no internal solid enhancement demonstrated within the cysts. Spleen is normal in size and enhancement. No adrenal nodules. Kidneys demonstrate no hydronephrosis. There are small bilateral renal cysts. Nodes and vessels: No retroperitoneal or mesenteric adenopathy by size criteria. Aorta and inferior vena cava are normal in size. Bowel and peritoneum: Visualized bowel loops are normal in caliber throughout. No free fluid. Lung bases: No basal pleural effusions. Heart size is normal. Bones and soft tissues: No ventral hernias. Bone marrow is normal in overall signal. IMPRESSION: 1. Small lobulated cystic lesion posterior to the pancreatic head appears similar in size compared to the prior study. This demonstrates communication with the main pancreatic duct and is consistent with a side branch IPMN. No suspicious features such as solid internal enhancement or dilatation of the main pancreatic duct identified. Recommend continued follow-up in 12 months to demonstrate stability. 2. Lobulated curvilinear cystic lesion anteriorly in the inferior right hepatic lobe with internal septations is consistent with a mildly complex hepatic cyst. No discrete solid internal enhancement identified. Recommend attention on follow-up. Dictated by: Edwin Gonzales M.D. on 03/10/2021 at 12:38 Approved by: Edwin Gonzales M.D. on 03/10/2021 at 12:51
== END ==
PROVIDERS: PCP Student in an Organized Health Care Education/Training Program; Referring Provider Student in an Organized Health Care Education/Training Program; Visit Provider Student in an Organized Health Care Education/Training Program
DX: D49.0 Neoplasm of unspecified behavior of digestive system (principal); K76.89 Other specified diseases of liver; Z90.49 Acquired absence of other specified parts of digestive tract
CPT/HCPCS: 74183; A9579

== ENCOUNTER → 2021-03-18 08:57 | Outpatient (CLI) | payer OTHER, SELFPAY ==
[2019-11-10 15:00] VITALS: BMI 25.5
[2021-03-18 12:02] LABS: COVID19 -Nasal RAPID Negative (Negative)
== END ==
PROVIDERS: PCP Student in an Organized Health Care Education/Training Program; Visit Provider Physician Assistant
DX: Z01.812 Encounter for preprocedural laboratory examination (principal); Z20.822 Contact with and (suspected) exposure to COVID-19
CPT/HCPCS: 87635

== ENCOUNTER 2021-03-30 13:19 | Emergency (ER) | payer OTHER, SELFPAY ==
[2019-11-10 15:00] VITALS: BMI 25.5
[2021-03-30] VITALS (11 sets, daily range): BP systolic 108–155; BP diastolic 56–87; PULSE 66–85; RESP 14–23; TEMP 36.2; O2SAT 93–97; BMI 25.0
--- NOTE | 2021-03-30 13:26 | DI.RAD.S_ITS ---
PROCEDURE: XR CHEST 1V INDICATIONS: weakness TECHNIQUE: One view of the chest was acquired. COMPARISON: [facility], CR, XR CHEST 1V, 03/16/2019, 13:30. FINDINGS: Surgical changes and devices: Left chest wall dual lead cardiac pacer placed in the interval since prior exam. Lungs and pleura: Lungs are clear. No pleural effusions or pneumothorax. Mediastinum: Mediastinal contours appear normal. Heart size is normal. Bones and chest wall: No suspicious bony lesions. Overlying soft tissues appear unremarkable. IMPRESSION: No acute cardiopulmonary disease process. Dictated by: Thania Paniagua MD, PhD on 03/30/2021 at 14:11 Approved by: Thania Paniagua MD, PhD on 03/30/2021 at 14:11
[2021-03-30 14:07] LABS: Add Manual Diff / Slide Review NO; Basophils Absolute Auto 0 /uL (0-100); Basophils Percent Auto 0.5 % (0-2); Eosinophils Absolute Auto 100 /uL (0-450); Eosinophils Percent Auto 1.1 % (2-4); Hematocrit 42.8 % (36-46); Hemoglobin 14.1 g/dL (12.0-16.0); Lymphocytes Absolute Auto 800 /uL (1100-4500); Lymphocytes Percent Auto 11.9 % (25-40); Mean Corpuscular HGB Conc 33.1 % (30-36); Mean Corpuscular Hemoglobin 28.5 PG (26-34); Mean Corpuscular Volume 86.3 fL (80-100); Monocytes Absolute Auto 400 /uL (0-900); Monocytes Percent Auto 5.5 % (3-14); Neutrophils Absolute Auto 5800 /uL (1500-7000); Platelet Count 162 X10^3/uL (150-400); Red Blood Cell Count 4.96 X10^6/uL (4.0-5.2); Red Cell Distribution Width 15.5 % (11.6-14.8); White Blood Cell Count 7.2 X10^3/uL (4.5-11.0)
[2021-03-30 14:22] LABS: INR 2.7 (0.9-1.3); Prothrombin Time 31.6 SECONDS (10.1-12.7)
[2021-03-30 14:27] LABS: Alanine Aminotransferase 25 IU/L (<35); Albumin 4.2 g/dL (3.5-5.0); Albumin Globulin Ratio 1.4 (1.0-2.8); Alkaline Phosphatase 102 U/L (38-126); Aspartate Aminotransferase 33 IU/L (14-36); BUN Creatinine Ratio 16.5 (6-22); Bilirubin Total 0.4 mg/dL (0.2-1.3); Blood Urea Nitrogen 13 mg/dL (7-17); Calcium 9.7 mg/dL (8.4-10.2); Carbon Dioxide 23 mmol/L (22-32); Chloride 108 mmol/L (98-107); Creatine Kinase 52 U/L (30-135); Estimated Glomerular Filt Rate > 60.0 mL/min (>60); Globulin 2.9 g/dL (1.7-4.1); Glucose 131 mg/dL (80-110); HEMOLYSIS 18 (0-50); Lipase 76 U/L (23-300); Magnesium 1.8 mg/dL (1.6-2.3); Sodium 140 mmol/L (137-145); Total Protein 7.1 g/dL (6.3-8.2)
[2021-03-30 14:37] LABS: PTT Partial Thromboplastin Tim 47 SECONDS (26.4-36.2)
[2021-03-30 14:39] LABS: NT-proBNP (BNP-Adult 18+) 2760 pg/mL (<450); Troponin I < 0.012 ng/mL (0.01-0.034)
--- NOTE | 2021-03-30 14:50 | ED_ITS ---
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 She presents today with a chief complaint of feeling quite under the weather since last night including dizzy, weak and lightheaded, particularly when standing. She denies any nausea or vomiting but has had loose stools for at least a week. She denies any chest pain palpitations or shortness of breath. She denies any change in medications or dietary change. She states that she had been on antibiotics for the week after her pacemaker was placed. She does admit to chronic loose stools but states it has been significantly worse over the past week or so. Related Data Home Medications Medication Instructions Recorded Confirmed acetaminophen 500 mg tablet 500 mg PO Q6H PRN 11/06/18 03/02/21 (Tylenol Extra Strength) docusate sodium 100 mg capsule 100 mg PO BID 10/30/19 03/02/21 (Col-Rite) cholecalciferol (vitamin D3) 25 25 mcg PO DAILY 01/22/20 03/02/21 mcg (1,000 unit) capsule atorvastatin 40 mg tablet 80 mg PO HS #0 tab 03/30/20 03/02/21 metoprolol succinate 50 mg 50 mg PO BID 03/02/21 03/02/21 tablet,extended release 24 hr Previous Rx's Medication Instructions Recorded potassium chloride 10 mEq 10 meq PO DAILY #90 tab 03/24/19 tablet,extended release diazepam 5 mg tablet 5 mg PO DAILY PRN #20 tab 04/08/19 alprazolam 0.5 mg tablet 0.5 mg PO QDAY PRN #20 tab 08/12/19 conjugated estrogens 0.625 mg/gram 0.625 mg VAG DAILY #30 gram 03/30/20 vaginal cream levothyroxine 100 mcg tablet 100 mcg PO DAILY #90 tab 06/27/20 warfarin 5 mg tablet See Rx Instructions PO DAILY #90 08/01/20 tab magnesium chloride 64 mg 128 mg PO DAILY #180 tab 08/25/20 (magnesium chloride) tablet,delayed release nitroglycerin 0.4 mg sublingual 0.4 mg SUBLINGUAL Q5-15M PRN #30 10/07/20 tablet (Nitrostat) tab MDD 3 tabs warfarin 3 mg tablet See Rx Instructions .ROUTE 02/14/21 .COMPLEX #90 tab allopurinol 300 mg tablet 300 mg PO DAILY #90 tab 03/13/21 triazolam 0.25 mg tablet (Halcion) 0.25 mg PO BEDTIME PRN #20 tab 03/28/21 Allergies Allergy/AdvReac Type Severity Reaction Status Date / Time codeine Allergy Severe ANAPHYLAXIS Verified 03/02/21 14:58 NSAIDS (Non-Steroidal AdvReac Severe on Warfarin Verified 03/02/21 14:58 Anti-Inflamma [NSAIDS (NON-STEROIDAL ANTI-INFLAMMA] oxycodone [OXYCODONE] AdvReac Intermediate NAUSEA, Verified 03/02/21 14:58 HALLUCINATIONS, DIZZINESS hydrocodone AdvReac Mild N/V Verified 03/02/21 14:58 pravastatin AdvReac Mild MYALGIA Verified 03/02/21 14:58 simvastatin AdvReac Mild MYALGIA Verified 03/02/21 14:58 Review of Systems Review of Systems Narrative: GENERAL: Denies chills, fatigue, malaise, fever, sweats. HEENT: Denies sinus pain, ear pain, sore throat, difficulty swallowing, dizziness. RESPIRATORY: Denies dyspnea, cough, wheezing, hemoptysis, sputum. CARDIOVASCULAR: See HPI GASTROINTESTINAL: See HPI : Denies dysuria, frequency, incontinence, hematuria, urinary retention. MUSCULOSKELETAL: denies weakness, joint pain, or bony pain SKIN: Denies rash, skin lesions, or other NEUROLOGIC: Denies weakness, headache, numbness, change in speech, confusion, seizures, incoordination. PSYCHIATRIC: No concerning psychosocial issues. 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 GERD (gastroesophageal reflux disease) Gout (10/2011) History of renal calculi Hypertension Hypothyroidism Skin cancer Stenosis of carotid artery Stress incontinence Urinary frequency Vaginal atrophy Surgical History History of appendectomy (1963) History of arthroscopy of left knee (01/05/15) History of bilateral carpal tunnel release (1988) History of cardiac catheterization (10/2006) History of carpal tunnel release (1988) History of section (1963) History of cholecystectomy (1972) History of colonoscopy (03/04/06) History of colonoscopy with polypectomy (1998) History of esophagogastroduodenoscopy (EGD) (06/06/06) History of eye surgery (1998) History of hysterectomy (1982) History of left cataract surgery (1989) History of left knee surgery (08/2010) History of Zayra fundoplication History of right knee surgery (2000) Status post left partial knee replacement (10/12/15) Status post primary angioplasty with coronary stent (09/2011) Status post right foot surgery (1993) Family History Mother Brain tumor Cancer Father Heart disease [place] (myocardial infarction) Sister Lung cancer Stroke MS (multiple sclerosis) Breast cancer Grandmother Diabetes mellitus Social History household members: none Smoking Status: Never smoker second hand exposure: No alcohol intake: current substance use type: does not use Smoking Status: Never smoker alcohol intake frequency: holidays/special occasions only Substance Use Type: does not use Exam Narrative Exam Narrative: GENERAL: [80] year old patient appears stated age. Well- developed patient, in mild distress. HEAD: Atraumatic. Normocephalic. EYES: Pupils equal round and reactive. Extraocular motions intact. No scleral icterus. No injection or drainage. ENT: Dry mucous membranes Nose without bleeding, purulent drainage. Throat without erythema, tonsillar hypertrophy or exudate. Airway patent. NECK: Trachea midline. Non tender CARDIOVASCULAR: Regular rate and rhythm without murmurs, gallops, or rubs. Pace maker incision 80s clean, dry and intact with no surrounding erythema, dehiscence, fluctuance or induration. RESPIRATORY: Clear to auscultation. Breath sounds equal bilaterally. No wheezes, rales, or rhonchi. GASTROINTESTINAL: Abdomen soft, non-tender, nondistended. EXTREMITIES: No edema or joint tenderness. BACK: Nontender without deformity or crepitance. No flank tenderness. NEURO: AOx3. SKIN: No rash or erythema of visible areas Initial Vital Signs Initial Vital Signs: Vital Signs Temperature 97.2 F L 03/30/21 13:27 Pulse Rate 84 03/30/21 13:27 Respiratory Rate 18 03/30/21 13:27 Blood Pressure 120/87 03/30/21 13:27 Pulse Oximetry 95 03/30/21 13:27 Course Orders Ordered: ED Orders 03/30/21 13:26 XR chest 1V Stat 03/30/21 13:40 Complete Blood Count AUTO DIFF Stat Comprehensive Metabolic Panel Stat Lipase Stat Magnesium Stat NT-proBNP (BNP-Adult 18+) Stat Partial Thromboplastin Time Stat Prothrombin Time INR Stat Troponin & CK Cardiac Panel Stat Discontinued Medications Sodium Chloride (Normal Saline 0.9%) 500 mls @ 1,000 mls/hr IV BOLUS ONE Stop: 03/30/21 15:26 Last Infusion: 03/30/21 16:05 Dose: 0 mls/hr Documented by: Admin: 03/30/21 15:25 Dose: 1,000 mls/hr Documented by: BRENNON Reevaluation(s) Reevaluation #1: Patient feeling much better after gentle rehydration, ambulated to the department in no obvious distress Consultations Consultation #1: Discussed with on-call Cardiology (Dr. Jeffries). After extensive discussion with sure the opinion that she is appropriate for discharge and close follow-up, he will relay a message to Dr. Justine Fletcher has called, patient presentation, exam, labs, pacer interrogation relayed and he shares the opinion the patient is appropriate and well for discharge Vital Signs Vital signs: Vital Signs - 8 hr 03/30/21 13:27 03/30/21 14:13 03/30/21 14:30 Temperature 97.2 F L Pulse Rate 84 75 71 Respiratory Rate 18 20 16 Blood Pressure 120/87 132/63 108/56 L Pulse Oximetry 95 97 93 03/30/21 15:00 03/30/21 15:01 03/30/21 15:30 Temperature Pulse Rate 69 70 70 Respiratory Rate 14 15 16 Blood Pressure 126/58 L 134/60 Pulse Oximetry 94 94 95 03/30/21 16:00 03/30/21 16:30 03/30/21 16:31 Temperature Pulse Rate 72 66 67 Respiratory Rate 16 16 20 Blood Pressure 139/62 133/57 L Pulse Oximetry 97 95 95 03/30/21 17:00 03/30/21 17:07 Temperature Pulse Rate 85 75 Respiratory Rate 23 Blood Pressure 141/67 H 155/69 H Pulse Oximetry 96 97 MDM - Weakness Lab Data Result diagrams: 03/30/21 13:40 03/30/21 13:40 Labs: Lab Results 03/30/21 03/30/21 03/30/21 Range/Units 13:40 13:40 13:40 WBC 7.2 (4.5-11.0) X10^3/uL RBC 4.96 (4.0-5.2) X10^6/uL Hgb 14.1 (12.0-16.0) g/dL Hct 42.8 (36-46) % MCV 86.3 (80-100) fL MCH 28.5 (26-34) PG MCHC 33.1 (30-36) % RDW 15.5 H (11.6-14.8) % Plt Count 162 (150-400) X10^3/uL Neut % (Auto) 81.0 H (50-75) % Lymph % (Auto) 11.9 L (25-40) % [place] % (Auto) 5.5 (3-14) % Eos % (Auto) 1.1 L (2-4) % Baso % (Auto) 0.5 (0-2) % Neut # (Auto) 5800 (8165-4431) /uL Lymph # (Auto) 800 L (7163-7412) /uL [place] # (Auto) 400 (0-900) /uL Eos # (Auto) 100 (0-450) /uL Baso # (Auto) 0 (0-100) /uL PT 31.6 H (10.1-12.7) SECONDS INR 2.7 H (0.9-1.3) APTT (26.4-36.2) SECONDS Sodium 140 (137-145) mmol/L Potassium 4.0 (3.4-5.1) mmol/L Chloride 108 H (98-107) mmol/L Carbon Dioxide 23 (22-32) mmol/L BUN 13 (7-17) mg/dL Creatinine 0.79 (0.52-1.04) mg/dL Estimated GFR > 60.0 (>60) mL/min BUN/Creatinine Ratio 16.5 (6-22) Glucose 131 H (80-110) mg/dL Calcium 9.7 (8.4-10.2) mg/dL Magnesium 1.8 (1.6-2.3) mg/dL Total Bilirubin 0.4 (0.2-1.3) mg/dL AST 33 (14-36) IU/L ALT 25 (<35) IU/L Alkaline Phosphatase 102 (38-126) U/L Total Creatine Kinase 52 (30-135) U/L CK-MB (CK-2) TNP CK-MB (CK-2) Rel Index TNP Troponin I < 0.012 (0.01-0.034) ng/mL NT-Pro-B Natriuret Pep 2760 H (<450) pg/mL Total Protein 7.1 (6.3-8.2) g/dL Albumin 4.2 (3.5-5.0) g/dL Globulin 2.9 (1.7-4.1) g/dL Albumin/Globulin Ratio 1.4 (1.0-2.8) Lipase 76 (23-300) U/L // Range/Units 13:40 WBC (4.5-11.0) X10^3/uL RBC (4.0-5.2) X10^6/uL Hgb (12.0-16.0) g/dL Hct (36-46) % MCV (80-100) fL MCH (26-34) PG MCHC (30-36) % RDW (11.6-14.8) % Plt Count (150-400) X10^3/uL Neut % (Auto) (50-75) % Lymph % (Auto) (25-40) % [place] % (Auto) (3-14) % Eos % (Auto) (2-4) % Baso % (Auto) (0-2) % Neut # (Auto) (0789-3941) /uL Lymph # (Auto) (3868-8938) /uL [place] # (Auto) (0-900) /uL Eos # (Auto) (0-450) /uL Baso # (Auto) (0-100) /uL PT (10.1-12.7) SECONDS INR (0.9-1.3) APTT 47 H (26.4-36.2) SECONDS Sodium (137-145) mmol/L Potassium (3.4-5.1) mmol/L Chloride (98-107) mmol/L Carbon Dioxide (22-32) mmol/L BUN (7-17) mg/dL Creatinine (0.52-1.04) mg/dL Estimated GFR (>60) mL/min BUN/Creatinine Ratio (6-22) Glucose (80-110) mg/dL Calcium (8.4-10.2) mg/dL Magnesium (1.6-2.3) mg/dL Total Bilirubin (0.2-1.3) mg/dL AST (14-36) IU/L ALT (<35) IU/L Alkaline Phosphatase (38-126) U/L Total Creatine Kinase (30-135) U/L CK-MB (CK-2) CK-MB (CK-2) Rel Index Troponin I (0.01-0.034) ng/mL NT-Pro-B Natriuret Pep (<450) pg/mL Total Protein (6.3-8.2) g/dL Albumin (3.5-5.0) g/dL Globulin (1.7-4.1) g/dL Albumin/Globulin Ratio (1.0-2.8) Lipase (23-300) U/L Imaging Data Chest x-ray: Radiologist Impression: Chart Viewer Diagnostics DATE TYPE STATUS REF RANGE/AUTHOR Hx Today 13:26 Thania Paniagua 03/09/21 13:52 Edwin Gonzales 02/17/21 20:01 [facility] 20:01 [facility] 02/17/21 08:54 02/17/21 08:54 Eliseo Jeffries 04/06/20 00:00 Edouard Ghotra 04/06/20 00:00 Rafiq Bloom 02/04/20 14:49 02/04/20 10:16 10/28/19 09:30 Edwin Gonzales 10/20/19 09:07 Edwin Gonzales 03/16/19 13:42 03/16/19 13:35 HoraceJeramie 03/16/19 13:21 Bello Sykes 01/16/19 08:59 Bobby Weaver 01/01/19 00:00 Bobby Weaver 12/27/17 00:00 Last Reyes 80, F108/26/1939 REG ER, Main ED R01 167.64cm 70.307kg BMI: 25.0kg/m? Weakness Search Chart No Data to Display ANAPHYLAXIS on Warfarin NAUSEA, HALLUCINATIONS, DIZZINESS N/V MYALGIA MYALGIA ONSET 09/04/16 09/04/16 01/12/04 01/11/11 10/23/05 01/12/04 01/15/03 04/17/04 10/19/14 Today 14:30 Bree Aaron 80 F [address] [id number] ReportSigned Patient: Bree Aaron BMR#: [id number]: 1940Acct:[id number]/Sex: 80 / FDate of Service: 03/30/21Loc: EDAccession Number: [id number] Procedure: XR chest 1V Ordering Provider: Arturo Barragan D.O. PROCEDURE: XR CHEST 1V INDICATIONS: weakness TECHNIQUE: One view of the chest was acquired. COMPARISON: [facility], XR CHEST 1V, 03/16/2019, 13:30. FINDINGS: Surgical changes and devices: Left chest wall dual lead cardiac pacer placed in the interval since prior exam. Lungs and pleura: Lungs are clear. No pleural effusions or pneumothorax. Mediastinum: Mediastinal contours appear normal. Heart size is normal. Bones and chest wall: No suspicious bony lesions. Overlying soft tissues appear unremarkable. IMPRESSION: No acute cardiopulmonary disease process. Dictated by: Thania Paniagua MD, PhD on 03/30/2021 at 14:11 Approved by: Thania Paniagua MD, PhD on 03/30/2021 at 14:11 ECG Data Interpretation: EKG is normal sinus rhythm rate [ 72] and free of any signs of ischemia or ectopy. No ST segmental elevation or depression. No T wave inversions Discharge Plan Departure Patient Disposition: Home Clinical Impression: Acute dehydration Atrial fibrillation Qualifiers: Atrial fibrillation type: unspecified Qualified Code(s): I48.91 - Unspecified atrial fibrillation Instructions: DI for Dehydration -- Adult Activity Restrictions/Additional Instructions: *You have been diagnosed with [dehydration and atrial fibrillation. Otherwise her labs are very reassuring and her pacemaker is working just fine] *What to do: *Please continue to take your regular medications as directed. [ ] New medication prescriptions sent to your pharmacy: [ ] [ ] New medication written as a paper prescription [x ] No new medications given *Please follow up with your primary care provider in 2-3 days, call for an appointment. Let them know you were seen in the Emergency Department and that we ask that you be seen in follow up. We will electronically transmit a record of today's note if your PCP is in our system *If you do not have a primary care provider please contact the [facility] Resource line at [phone]. They will ask some questions about your medical history and help get you set up with a doctor in the community. *Return to Emergency Department if you should have any new, worsening or concerning symptoms, such as [fever greater than 101 F, shaking chills, worsening pain, persistent vomiting or other bothersome symptoms] Prescriptions: No Action acetaminophen [Tylenol Extra Strength] 500 mg tablet 500 mg PO Q6H PRN (Reason: Pain, Mild) RF: 0 alprazolam 0.5 mg tablet 0.5 mg PO QDAY PRN (Reason: public speaking) Qty: 20 RF: 0 cholecalciferol (vitamin D3) 25 mcg (1,000 unit) capsule 25 mcg PO DAILY RF: 0 atorvastatin 40 mg tablet 80 mg PO HS Qty: 0 RF: 0 levothyroxine 100 mcg tablet 100 mcg PO DAILY Qty: 90 RF: 3 magnesium chloride 64 mg tablet,delayed release (DR/EC) 128 mg PO DAILY Qty: 180 RF: 0 nitroglycerin [Nitrostat] 0.4 mg tablet, sublingual 0.4 mg Sublingual Q5-15M MDD 3 tabs PRN (Reason: Chest Pain) Qty: 30 RF: 11 warfarin 3 mg tablet See Rx Instructions .ROUTE .COMPLEX Qty: 90 RF: 0 allopurinol 300 mg tablet 300 mg PO DAILY Qty: 90 RF: 3 triazolam [Halcion] 0.25 mg tablet 0.25 mg PO BEDTIME PRN (Reason: Insomnia) Qty: 20 RF: 5 docusate sodium [Col-Rite] 100 mg capsule 100 mg PO BID RF: 0 potassium chloride 10 mEq tablet extended release 10 meq PO DAILY Qty: 90 RF: 1 diazepam 5 mg tablet 5 mg PO DAILY PRN (Reason: before drive [place]) Qty: 20 RF: 0 conjugated estrogens 0.625 mg/gram cream 0.625 mg VAG DAILY Qty: 30 RF: 5 warfarin 5 mg tablet See Rx Instructions PO DAILY Qty: 90 RF: 2 metoprolol succinate 50 mg tablet extended release 24 hr 50 mg PO BID RF: 0 Referrals: Farhat Conklin MD [Primary Care Provider] -
[2021-03-30] MEDS: SODIUM CHLORIDE 0.9% 500 ML 1000 ML IV (15:25)
--- NOTE | 2021-03-30 15:26 | PC.NURSE ---
[place] ([place]) pacer interrogated at this time. awaiting fax report. Pt remains AAOx3 with stable VS. BP 126/58 HR 70 paced
--- NOTE | 2021-03-30 17:28 | PC.NURSE ---
ambulation trial, tolerated well. pt states feel better
== END 2021-03-30 17:35 | disposition home or self-care (01) ==
PROVIDERS: Emergency Provider Emergency Medicine; PCP Student in an Organized Health Care Education/Training Program
DX: I48.91 Unspecified atrial fibrillation (principal); E86.0 Dehydration; R06.02 Shortness of breath; Z95.0 Presence of cardiac pacemaker
CPT/HCPCS: 36415; 71045; 80053; 82550; 83690; 83735; 83880; 84484; 85025; 85610; 85730; 93005; 96360; 99284

== ENCOUNTER → 2021-04-25 13:51 | Outpatient (CLI) | payer OTHER, SELFPAY ==
[2019-11-10 15:00] VITALS: BMI 25.5
[2021-04-25 13:56] LABS: Bacteria Urine None Seen; RBC Urine None Seen (0-5/HPF); WBC Urine None Seen (0-5/HPF)
[2021-04-25 14:39] LABS: Appearance Urine UA CLEAR; Bilirubin Urine UA NEGATIVE (NEGATIVE); Color Urine UA YELLOW; Glucose Urine UA NEGATIVE (Negative); Ketones Urine UA NEGATIVE (NEGATIVE); Leukocyte Esterase Urine UA NEGATIVE (NEGATIVE); Nitrite Urine UA NEGATIVE (Negative); Occult Blood Urine UA NEGATIVE (Negative); Protein Urine UA NEGATIVE (Negative); Specific Gravity Urine UA <=1.005 (1.000-1.035); Urobilinogen Urine UA 0.2 E.U./dL (0.2)
[2021-04-25 14:43] LABS: Culture Indicated Urine Cult Not Indicated; Urine Comments Microscopic Normal
[2021-04-26 12:11] LABS: Chloride, Urine 48 mmol/L (Not Estab.)
[2021-04-26 14:16] LABS: Osmolality Urine 237 mOsmol/kg (.)
== END ==
PROVIDERS: PCP Student in an Organized Health Care Education/Training Program; Referring Provider Student in an Organized Health Care Education/Training Program; Visit Provider Student in an Organized Health Care Education/Training Program
DX: R35.0 Frequency of micturition (principal); R35.8 Other polyuria
CPT/HCPCS: 81001; 82436; 83935

== ENCOUNTER → 2021-04-27 11:07 | Outpatient (CLI) | payer OTHER, SELFPAY ==
[2019-11-10 15:00] VITALS: BMI 25.5
[2021-04-27 12:47] LABS: BUN Creatinine Ratio 21.3 (6-22); Blood Urea Nitrogen 17 mg/dL (7-17); Calcium 9.9 mg/dL (8.4-10.2); Carbon Dioxide 27 mmol/L (22-32); Chloride 106 mmol/L (98-107); Estimated Glomerular Filt Rate > 60.0 mL/min (>60); Glucose 106 mg/dL (80-110); HEMOLYSIS < 15 (0-50); Potassium 3.9 mmol/L (3.4-5.1); Sodium 140 mmol/L (137-145)
[2021-04-27 13:48] LABS: Creatinine Urine Random 37.9 mg/dL; Potassium Urine Random 36.4 mmol/L; Sodium Urine Random 60 mmol/L (30-90); Urea Nitrogen,Urine Random 312 mg/dL
[2021-04-27 16:49] LABS: Collection Time Urine 24 Hours; Creatinine 24 Hour Urine 701 mg/day (800-1800); Potassium 24 Hour Urine 67 mmol/day (25-125); Sodium 24 Hour Urine 111 mmol/day (40-220); Total Volume Urine 1850 mL; Urea Nitrogen 24 Hour Urine 6 g/DAY (12-20)
[2021-04-28 11:58] LABS: Osmolality, Serum 295 mOsmol/kg (280-301)
== END ==
PROVIDERS: PCP Student in an Organized Health Care Education/Training Program; Referring Provider Student in an Organized Health Care Education/Training Program; Visit Provider Student in an Organized Health Care Education/Training Program
DX: R35.0 Frequency of micturition (principal); R35.8 Other polyuria
CPT/HCPCS: 36415; 80048; 82570; 83930; 84133; 84300; 84540

== ENCOUNTER 2021-05-04 22:25 | Observation (INO) | payer OTHER, SELFPAY ==
[2019-11-10 15:00] VITALS: BMI 25.5
[2021-05-04 22:35] VITALS: BP 149/83; PULSE 134; RESP 20; TEMP 36.6; O2SAT 97; BMI 25.0
--- NOTE | 2021-05-04 22:38 | DI.RAD.S_ITS ---
PROCEDURE: XR CHEST 1V INDICATIONS: chest pain TECHNIQUE: One view of the chest was acquired. COMPARISON: [facility], CR, XR CHEST 1V, 03/30/2021, 13:54. FINDINGS: Surgical changes and devices: Pacemaker. Lungs and pleura: Lungs are clear. No pleural effusions or pneumothorax. Mediastinum: Mediastinal contours appear normal. Heart size is normal. Bones and chest wall: No suspicious bony lesions. Overlying soft tissues appear unremarkable. IMPRESSION: No acute pulmonary process. The above findings are concordant with preliminary report. Dictated by: Mariann Rosado M.D. on 05/05/2021 at 7:33 Approved by: Mariann Rosado M.D. on 05/05/2021 at 7:36
[2021-05-04 23:13] LABS: Add Manual Diff / Slide Review NO; Basophils Absolute Auto 0 /uL (0-100); Basophils Percent Auto 0.5 % (0-2); Eosinophils Absolute Auto 100 /uL (0-450); Eosinophils Percent Auto 0.9 % (2-4); Hemoglobin 12.7 g/dL (12.0-16.0); Lymphocytes Absolute Auto 600 /uL (1100-4500); Lymphocytes Percent Auto 7.9 % (25-40); Mean Corpuscular HGB Conc 32.4 % (30-36); Mean Corpuscular Hemoglobin 27.9 PG (26-34); Monocytes Absolute Auto 400 /uL (0-900); Monocytes Percent Auto 5.5 % (3-14); Neutrophils Absolute Auto 6500 /uL (1500-7000); Neutrophils Percent Auto 85.2 % (50-75); Platelet Count 140 X10^3/uL (150-400); Red Blood Cell Count 4.53 X10^6/uL (4.0-5.2); Red Cell Distribution Width 15.6 % (11.6-14.8); White Blood Cell Count 7.6 X10^3/uL (4.5-11.0)
[2021-05-04 23:15] LABS: Alanine Aminotransferase 17 IU/L (<35); Albumin 4.1 g/dL (3.5-5.0); Albumin Globulin Ratio 1.6 (1.0-2.8); Alkaline Phosphatase 97 U/L (38-126); Aspartate Aminotransferase 25 IU/L (14-36); BUN Creatinine Ratio 24.1 (6-22); Bilirubin Total 0.3 mg/dL (0.2-1.3); Blood Urea Nitrogen 21 mg/dL (7-17); Calcium 9.4 mg/dL (8.4-10.2); Carbon Dioxide 26 mmol/L (22-32); Chloride 106 mmol/L (98-107); Creatine Kinase 63 U/L (30-135); Estimated Glomerular Filt Rate > 60.0 mL/min (>60); Globulin 2.6 g/dL (1.7-4.1); Glucose 128 mg/dL (80-110); HEMOLYSIS 15 (0-50); Lipase 110 U/L (23-300); Potassium 3.9 mmol/L (3.4-5.1); Sodium 140 mmol/L (137-145); Total Protein 6.7 g/dL (6.3-8.2)
[2021-05-04 23:26] LABS: Troponin I < 0.012 ng/mL (0.01-0.034)
--- NOTE | 2021-05-04 23:30 | ED.ARRPALP ---
HPI - Arrhythmia/Palpitations General Chief Complaint: Arrhythmia/Palpitations Stated Complaint: Low bp, AFIB- has pacemaker Time Seen by Provider: 05/04/21 23:18 Source: patient Mode of arrival: Ambulatory Limitations: no limitations History of Present Illness HPI narrative: Patient here for palpitations and low blood pressure. Has history atrial fibrillation. Seen by her EP motion and time study teacher, Dr. Fletcher, today in [place] status post pacemaker placed 1 month ago. Has been doing well. 6:00 p.m. tonight symptoms started. No syncope. No chest pain. No recent illness. Patient motion and time study teacher is Dr. Eliseo Jeffries Related Data Home Medications Medication Instructions Recorded Confirmed acetaminophen 500 mg tablet 500 mg PO Q6H PRN 11/06/18 04/25/21 (Tylenol Extra Strength) cholecalciferol (vitamin D3) 25 25 mcg PO DAILY 01/22/20 04/25/21 mcg (1,000 unit) capsule atorvastatin 40 mg tablet 80 mg PO HS #0 tab 03/30/20 04/25/21 docusate sodium 100 mg capsule 100 mg PO DAILY cap 04/25/21 04/25/21 (Col-Rite) Previous Rx's Medication Instructions Recorded potassium chloride 10 mEq 10 meq PO DAILY #90 tab 03/24/19 tablet,extended release diazepam 5 mg tablet 5 mg PO DAILY PRN #20 tab 04/08/19 warfarin 5 mg tablet See Rx Instructions PO DAILY #90 08/01/20 tab magnesium chloride 64 mg 128 mg PO DAILY #180 tab 08/25/20 (magnesium chloride) tablet,delayed release nitroglycerin 0.4 mg sublingual 0.4 mg SUBLINGUAL Q5-15M PRN #30 10/07/20 tablet (Nitrostat) tab MDD 3 tabs warfarin 3 mg tablet See Rx Instructions .ROUTE 02/14/21 .COMPLEX #90 tab allopurinol 300 mg tablet 300 mg PO DAILY #90 tab 03/13/21 triazolam 0.25 mg tablet (Halcion) 0.25 mg PO BEDTIME PRN #20 tab 03/28/21 alprazolam 0.5 mg tablet 0.5 mg PO QDAY PRN #20 tab 04/26/21 levothyroxine 75 mcg tablet 75 mcg PO DAILY #30 tab 05/05/21 (Synthroid) metoprolol succinate 25 mg 75 mg PO BID #60 tab 05/05/21 tablet,extended release 24 hr Allergies Allergy/AdvReac Type Severity Reaction Status Date / Time codeine Allergy Severe ANAPHYLAXIS Verified 04/25/21 13:01 NSAIDS (Non-Steroidal AdvReac Severe on Warfarin Verified 04/25/21 13:01 Anti-Inflamma [NSAIDS (NON-STEROIDAL ANTI-INFLAMMA] oxycodone [OXYCODONE] AdvReac Intermediate NAUSEA, Verified 04/25/21 13:01 HALLUCINATIONS, DIZZINESS hydrocodone AdvReac Mild N/V Verified 04/25/21 13:01 pravastatin AdvReac Mild MYALGIA Verified 04/25/21 13:01 simvastatin AdvReac Mild MYALGIA Verified 04/25/21 13:01 Review of Systems Review of Systems Narrative: GENERAL: Denies chills, fatigue, malaise, fever, sweats. HEENT: Denies sinus pain, ear pain, sore throat RESPIRATORY: Denies dyspnea, cough CARDIOVASCULAR: Denies chest pain, complaint palpitations GASTROINTESTINAL: Denies nausea, vomiting, abdominal pain : Denies dysuria, frequency, hematuria MUSCULOSKELETAL: denies muscle or bony pain SKIN: Denies rash, skin lesions NEUROLOGIC: Denies weakness, numbness ROS Unobtainable: All systems reviewed & are unremarkable except as noted in HPI and below Patient History Medical History Anticoagulated on warfarin ASHD (arteriosclerotic heart disease) Atrial fibrillation CAD (coronary artery disease) (10/2006) Chronic instability of right knee Colon polyps (1998) 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, right (1998) Fat necrosis of abdominal wall GERD (gastroesophageal reflux disease) Gout (10/2011) History of renal calculi Hypertension Hypothyroidism Skin cancer Stenosis of carotid artery Stress incontinence Tachy-marcus syndrome Vaginal atrophy Surgical History (Updated 05/05/21 @ 02:36 by ALVARO Cisse) History of appendectomy (1963) History of arthroscopy of left knee (01/05/15) History of bilateral carpal tunnel release (1988) History of cardiac catheterization (10/2006) History of carpal tunnel release (1988) History of section (1963) History of cholecystectomy (1972) History of colonoscopy (03/04/06) History of colonoscopy with polypectomy (1998) History of esophagogastroduodenoscopy (EGD) (06/06/06) History of eye surgery (1998) History of hysterectomy (1982) History of left cataract surgery (1989) History of left knee surgery (08/2010) History of Zayra fundoplication History of permanent cardiac pacemaker placement History of right knee surgery (2000) Status post left partial knee replacement (10/12/15) Status post primary angioplasty with coronary stent (09/2011) Status post right foot surgery (1993) Family History Mother Brain tumor Cancer Father Heart disease [place] (myocardial infarction) Sister Lung cancer Stroke MS (multiple sclerosis) Breast cancer Grandmother Diabetes mellitus Social History household members: none Smoking Status: Never smoker second hand exposure: No alcohol intake: current substance use type: does not use Smoking Status: Never smoker alcohol intake frequency: a few times a month Substance Use Type: does not use Exam Narrative Exam Narrative: GENERAL: in no distress, not toxic not dyspneic HEAD: Normocephalic. EYES: Pupils equal round No scleral icterus. No injection no discharge ENT: Mucous membranes moist. NECK: Trachea midline. CARDIOVASCULAR: Tachycardia with irregular regular rhythm RESPIRATORY: Clear to auscultation. Breath sounds equal bilaterally. No wheezes, rales, or rhonchi. GASTROINTESTINAL: Abdomen soft, non-tender EXTREMITIES: No gross deformities. BACK: No flank tenderness. NEURO: AOx4. SKIN: Warm and dry PSYCH: Not anxious, is cooperative Initial Vital Signs Initial Vital Signs: Vital Signs Temperature 98 F 05/04/21 22:35 Pulse Rate 134 H 05/04/21 22:35 Respiratory Rate 20 05/04/21 22:35 Blood Pressure 149/83 H 05/04/21 22:35 Pulse Oximetry 97 05/04/21 22:35 Course Course Course Narrative: No new issues during course of stay Orders Ordered: Discontinued Medications Acetaminophen (Acetaminophen 325 Mg Tablet) 650 mg PO Q6HR PRN PRN Reason: Fever/Mild Pain (1-3) Al Hydrox/Mg Hydrox/Simethicone (Mag Hydrox/Alum/Simeth 30 Ml Udc) 30 ml PO Q6HR PRN PRN Reason: Dyspepsia Allopurinol (Allopurinol 100 Mg Tablet) 200 mg PO DAILY [facility] Last Admin: 05/05/21 11:35 Dose: 200 mg Documented by: BRANDON Atorvastatin Calcium (Atorvastatin 20 Mg Tablet) 80 mg PO BEDTIME [facility] Last Admin: 05/05/21 05:38 Dose: Not Given Documented by: MARSHAL Diltiazem HCl (Diltiazem 5 Mg/Ml Sdv) 10 mg IV NOW ONE Stop: 05/04/21 23:38 Last Admin: 05/04/21 23:50 Dose: 10 mg Documented by: ANGELA Docusate Sodium (Docusate 100 Mg Capsule) 100 mg PO NOW ONE Stop: 05/05/21 12:47 Diltiazem HCl 125 mg/ Sodium (Chloride) 125 mls @ 5 mls/hr IV TITRATE [facility]; Protocol Last Titration: 05/05/21 01:00 Dose: 2.5 mg/hr, 2.5 mls/hr Documented by: Titration: 05/05/21 00:49 Dose: 2.5 mg/hr, 2.5 mls/hr Documented by: Admin: 05/04/21 23:51 Dose: 5 mg/hr, 5 mls/hr Documented by: ANGELA Diltiazem HCl 125 mg/ Dextrose 125 mls @ 5 mls/hr IV TITRATE [facility] Last Admin: 05/05/21 01:10 Dose: Not Given Documented by: MARSHAL Sodium Chloride (Normal Saline 0.9%) 1,000 mls @ 1,000 mls/hr IV BOLUS ONE Stop: 05/05/21 02:31 Last Infusion: 05/05/21 08:22 Dose: 0 mls/hr Documented by: Admin: 05/05/21 01:30 Dose: 1,000 mls/hr Documented by: MARSHAL Magnesium Sulfate (Magnesium Sulfate) 2 gm in 50 mls @ 25 mls/hr IV NOW ONE Stop: 05/05/21 04:12 Last Infusion: 05/05/21 08:22 Dose: 0 mls/hr Documented by: BRANDON Cosigned by: ARMEN Admin: 05/05/21 02:41 Dose: 25 mls/hr Documented by: MARSHAL Cosigned by: ILYA Lactated Ringer's (Lactated Ringers) 1,000 mls @ 100 mls/hr IV CONT [facility] Last Admin: 05/05/21 05:37 Dose: 100 mls/hr Documented by: MARSHAL Sodium Chloride (Normal Saline 0.9%) 500 mls @ 1,000 mls/hr IV BOLUS ONE Stop: 05/05/21 08:28 Last Admin: 05/05/21 09:35 Dose: 1,000 mls/hr Documented by: BRANDON Magnesium Chloride (Magnesium Chloride 64 Mg Tablet) 128 mg PO DAILY [facility] Last Admin: 05/05/21 11:35 Dose: 128 mg Documented by: BRANDON Metoprolol Succinate (Metoprolol Er 50 Mg Tablet) 25 mg PO BID [facility] Metoprolol Succinate (Metoprolol Er 25 Mg Tablet) 75 mg PO BID [facility] Last Admin: 05/05/21 09:16 Dose: 75 mg Documented by: BRANDON Naloxone HCl (Naloxone 0.4 Mg/Ml Vial) 0.2 mg IV Q2MIN PRN PRN Reason: Opiate Reversal Nitroglycerin (Nitroglycerin 0.4 Mg Sl Tab) 0.4 mg SL PRN PRN PRN Reason: Chest Pain Ondansetron HCl (Ondansetron 4 Mg/2 Ml Inj) 4 mg IV Q8HR PRN PRN Reason: Nausea And Vomiting Potassium Chloride (Potassium Chloride 10 Meq Tab) 10 meq PO DAILY [facility] Last Admin: 05/05/21 09:16 Dose: 10 meq Documented by: BRANDON Sennosides (Sennosides 8.6 Mg Tablet) 17.2 mg PO BEDTIME [facility] Sodium Chloride (Sodium Chloride 0.9% Flush) 10 ml IV PRN PRN PRN Reason: Flush Sodium Chloride (Sodium Chloride 0.9% Flush) 10 ml IV BID [facility] Last Admin: 05/05/21 09:27 Dose: Not Given Documented by: BRANDON Warfarin Sodium (Warfarin 1 Mg Tablet) 3 mg PO SuTuThSa@1700 [facility] Warfarin Sodium (Warfarin 5 Mg Tablet) 5 mg PO MoWeFr@1700 [facility] Consultations Consultation #1: Spoke with patient's cardiology group Dr. land, agrees with Stephan and Stephan donnelly. Will need admit. Possibly over [facility] for continue care otherwise admit here. Time: 23:38 Consultation #2: Spoke with pacemaker insurance claim representative. Reviewed the transmission. Essentially AFib with RVR. No other arrhythmia Time: 00:13 Consultation #3: Spoke with hospitalist, Haritha, will admit Time: 00:17 Vital Signs Vital signs: Vital Signs - 8 hr 05/04/21 22:35 05/04/21 23:35 05/04/21 23:50 Temperature 98 F Pulse Rate 134 H 148 H 135 H Respiratory Rate 20 23 Blood Pressure 149/83 H 110/88 Pulse Oximetry 97 95 05/04/21 23:51 Temperature Pulse Rate 90 Respiratory Rate Blood Pressure 110/88 Pulse Oximetry MDM - Arrhythmia/Palpitations Differential Diagnosis Differential diagnosis: Likely palpitations, artial fibrillation, artial flutter, supraventricular tachycardia, ventricular tachycardia and WPW Lab Data Result diagrams: 05/05/21 04:33 05/05/21 04:33 Labs: Lab Results 05/04/21 05/04/21 05/04/21 Range/Units 22:55 22:55 22:55 WBC 7.6 (4.5-11.0) X10^3/uL RBC 4.53 (4.0-5.2) X10^6/uL Hgb 12.7 (12.0-16.0) g/dL Hct 39.0 (36-46) % MCV 86.0 (80-100) fL MCH 27.9 (26-34) PG MCHC 32.4 (30-36) % RDW 15.6 H (11.6-14.8) % Plt Count 140 L (150-400) X10^3/uL Neut % (Auto) 85.2 H (50-75) % Lymph % (Auto) 7.9 L (25-40) % [place] % (Auto) 5.5 (3-14) % Eos % (Auto) 0.9 L (2-4) % Baso % (Auto) 0.5 (0-2) % Neut # (Auto) 6500 (5889-7983) /uL Lymph # (Auto) 600 L (3739-9101) /uL [place] # (Auto) 400 (0-900) /uL Eos # (Auto) 100 (0-450) /uL Baso # (Auto) 0 (0-100) /uL PT 34.4 H (10.1-12.7) SECONDS INR 3.0 H (0.9-1.3) APTT 46 H (26.4-36.2) SECONDS Sodium 140 (137-145) mmol/L Potassium 3.9 (3.4-5.1) mmol/L Chloride 106 (98-107) mmol/L Carbon Dioxide 26 (22-32) mmol/L BUN 21 H (7-17) mg/dL Creatinine 0.87 (0.52-1.04) mg/dL Estimated GFR > 60.0 (>60) mL/min BUN/Creatinine Ratio 24.1 H (6-22) Glucose 128 H (80-110) mg/dL Calcium 9.4 (8.4-10.2) mg/dL Magnesium (1.6-2.3) mg/dL Total Bilirubin 0.3 (0.2-1.3) mg/dL AST 25 (14-36) IU/L ALT 17 (<35) IU/L Alkaline Phosphatase 97 (38-126) U/L Total Creatine Kinase 63 (30-135) U/L CK-MB (CK-2) TNP CK-MB (CK-2) Rel Index TNP Troponin I < 0.012 (0.01-0.034) ng/mL Total Protein 6.7 (6.3-8.2) g/dL Albumin 4.1 (3.5-5.0) g/dL Globulin 2.6 (1.7-4.1) g/dL Albumin/Globulin Ratio 1.6 (1.0-2.8) Lipase 110 (23-300) U/L TSH (0.47-4.68) uIU/mL Free T4 (0.78-2.19) ng/dL SARS-CoV-2 (PCR) (Negative) 05/04/21 05/04/21 05/05/21 Range/Units 22:55 22:55 00:01 WBC (4.5-11.0) X10^3/uL RBC (4.0-5.2) X10^6/uL Hgb (12.0-16.0) g/dL Hct (36-46) % MCV (80-100) fL MCH (26-34) PG MCHC (30-36) % RDW (11.6-14.8) % Plt Count (150-400) X10^3/uL Neut % (Auto) (50-75) % Lymph % (Auto) (25-40) % [place] % (Auto) (3-14) % Eos % (Auto) (2-4) % Baso % (Auto) (0-2) % Neut # (Auto) (1942-0893) /uL Lymph # (Auto) (1373-5355) /uL [place] # (Auto) (0-900) /uL Eos # (Auto) (0-450) /uL Baso # (Auto) (0-100) /uL PT (10.1-12.7) SECONDS INR (0.9-1.3) APTT (26.4-36.2) SECONDS Sodium (137-145) mmol/L Potassium (3.4-5.1) mmol/L Chloride (98-107) mmol/L Carbon Dioxide (22-32) mmol/L BUN (7-17) mg/dL Creatinine (0.52-1.04) mg/dL Estimated GFR (>60) mL/min BUN/Creatinine Ratio (6-22) Glucose (80-110) mg/dL Calcium (8.4-10.2) mg/dL Magnesium 1.6 (1.6-2.3) mg/dL Total Bilirubin (0.2-1.3) mg/dL AST (14-36) IU/L ALT (<35) IU/L Alkaline Phosphatase (38-126) U/L Total Creatine Kinase (30-135) U/L CK-MB (CK-2) CK-MB (CK-2) Rel Index Troponin I (0.01-0.034) ng/mL Total Protein (6.3-8.2) g/dL Albumin (3.5-5.0) g/dL Globulin (1.7-4.1) g/dL Albumin/Globulin Ratio (1.0-2.8) Lipase (23-300) U/L TSH 0.073 L (0.47-4.68) uIU/mL Free T4 1.40 (0.78-2.19) ng/dL SARS-CoV-2 (PCR) Negative (Negative) Imaging Data Chest x-ray: Radiologist's Impresson: No acute findings ECG Data Interpretation: Atrial fibrillation with RVR. Rate 137 MDM Narrative Medical decision making narrative: Appropriate for admission. Recently just had pacemaker placed 4 weeks ago. Patient currently rate controlled with Cardizem. Requiring ICU admit Critical Care Time Critical Care Time Critical Care Time: Yes Total Critical Care Time: 35 Attestation: Critical Care Time 35 minutes: Critical care time is separate from other billable procedures. This critical care time includes consultation with other consulting doctors, review of records, and interpretation of data from labs, EKGs, imaging, etc. Discharge Plan Departure Patient Disposition: Admitted as Observation Clinical Impression: Atrial fibrillation with rapid ventricular response Admit Date/Time: 05/05/21 00:18 Admit Provider: Haritha Liu
[2021-05-04 23:35] VITALS: PULSE 148; RESP 23; O2SAT 95
[2021-05-04 23:39] LABS: Prothrombin Time 34.4 SECONDS (10.1-12.7)
[2021-05-04 23:42] LABS: PTT Partial Thromboplastin Tim 46 SECONDS (26.4-36.2)
[2021-05-04 23:50] VITALS: BP 110/88; PULSE 135
[2021-05-04] MEDS: dilTIAZem 5 MG/ML SDV 10 MG IV (23:50)
[2021-05-04 23:51] VITALS: BP 110/88; PULSE 90
[2021-05-04] MEDS: dilTIAZem 125 MG in SODIUM CHLORIDE 0.9% 100 ML IV (23:51)
[2021-05-05] VITALS (60 sets, daily range): BP systolic 89–136; BP diastolic 48–64; PULSE 66–104; RESP 11–36; TEMP 36.2–36.6; O2SAT 94–99; BMI 24.9
--- NOTE | 2021-05-05 00:52 | PM.HP.1 ---
History of Present Illness History of Present Illness Date Patient Seen: 05/05/21 Time Patient Seen: 00:50 Chief complaint: Low bp, AFIB- has pacemaker Narrative: ?Ms. Bree Aaron Is a 78-year-old female patient with history significant for paroxysmal atrial fibrillation on warfarin, coronary artery disease status post stent, dual chamber pacemaker placed 03/20/2021, tachy-marcus syndrome, hyperlipidemia, hypothyroidism and squamous cell skin cancer presents to the ER with an acute onset of dizziness, low B/P pressure, palpitations, and rapid heartbeat.? Patient last seen by her volunteer services coordinator who placed pacer, Dr. Fletcher, today in [place] status post pacemaker placed 1 month ago.? Has been doing well.? 6:00 p.m. tonight symptoms started.? Patient denies chest pain, shortness of breath, syncope, cough, weakness, headache, changes in vision, nausea, vomiting, diarrhea, chills, fever, body aches, abnormal swelling of extremities, recent illness injury or trauma. No recent illness. Patient volunteer services coordinator is Dr. Eliseo Jeffries at [facility]. Patient is also followed by Dr. [facility] and was last seen on 04/25 2021 for hypotension presyncope and polydipsia, with increased urinary frequency-concern for UTI or SIADH. Dr. Shell in the ED interrogated patient's double chamber pacemaker that is only set for bradycardia not tachycardia. Patient's initial heart rate 177, initial EKG found to be in AFib with RVR, rate 137, patient was paced on Diltazem Drip-5 mcg, BP 110/88, HR corrected 90, RR 23, O2 saturation 95% on room air. Patient's CBC was mostly unremarkable with the exception of mildly decreased platelets 140, chemistries also were mostly unremarkable with the exception of a BUN of 21, glucose 128, patient's is on Coumadin and INR is therapeutic at 3 (cardiology goal between 2-3). Patient's troponin and lipase were within normal limits. Patient's chest x-ray was negative for any acute cardiopulmonary processes. Patient admitted for AFib with RVR, tachycardia. Patient History Medical History Anticoagulated on warfarin ASHD (arteriosclerotic heart disease) Atrial fibrillation CAD (coronary artery disease) (10/2006) Chronic instability of right knee Colon polyps (1998) 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, right (1998) Fat necrosis of abdominal wall GERD (gastroesophageal reflux disease) Gout (10/2011) History of renal calculi Hypertension Hypothyroidism Skin cancer Stenosis of carotid artery Stress incontinence Tachy-marcus syndrome Vaginal atrophy Surgical History (Updated 05/05/21 @ 02:36 by Haritha Liu [employer]-) History of appendectomy (1963) History of arthroscopy of left knee (01/05/15) History of bilateral carpal tunnel release (1988) History of cardiac catheterization (10/2006) History of carpal tunnel release (1988) History of section (1963) History of cholecystectomy (1972) History of colonoscopy (03/04/06) History of colonoscopy with polypectomy (1998) History of esophagogastroduodenoscopy (EGD) (06/06/06) History of eye surgery (1998) History of hysterectomy (1982) History of left cataract surgery (1989) History of left knee surgery (08/2010) History of Zayra fundoplication History of permanent cardiac pacemaker placement History of right knee surgery (2000) Status post left partial knee replacement (10/12/15) Status post primary angioplasty with coronary stent (09/2011) Status post right foot surgery (1993) Family & Social History Family History Mother Brain tumor Cancer Father Heart disease [place] (myocardial infarction) Sister Lung cancer Stroke MS (multiple sclerosis) Breast cancer Grandmother Diabetes mellitus Social History: household members none Safety & Behavioral: Feels Safe in Current Yes Environment Tobacco & Substance use: Smoking Status Never smoker alcohol intake current alcohol intake frequency a few times a month Substance Use Type does not use Meds Home Medications and Allergies Home Medications Medication Instructions Recorded Confirmed Type acetaminophen 500 mg tablet 500 mg PO Q6H PRN 11/06/18 04/25/21 History (Tylenol Extra Strength) potassium chloride 10 mEq 10 meq PO DAILY #90 tab 03/24/19 04/25/21 Rx tablet,extended release diazepam 5 mg tablet 5 mg PO DAILY PRN #20 tab 04/08/19 04/25/21 Rx cholecalciferol (vitamin D3) 25 25 mcg PO DAILY 01/22/20 04/25/21 History mcg (1,000 unit) capsule atorvastatin 40 mg tablet 80 mg PO HS #0 tab 03/30/20 04/25/21 History levothyroxine 100 mcg tablet 100 mcg PO DAILY #90 tab 06/27/20 04/25/21 Rx warfarin 5 mg tablet See Rx Instructions PO DAILY #90 08/01/20 04/25/21 Rx tab magnesium chloride 64 mg 128 mg PO DAILY #180 tab 08/25/20 04/25/21 Rx (magnesium chloride) tablet,delayed release nitroglycerin 0.4 mg sublingual 0.4 mg SUBLINGUAL Q5-15M PRN #30 10/07/20 04/25/21 Rx tablet (Nitrostat) tab MDD 3 tabs warfarin 3 mg tablet See Rx Instructions .ROUTE 02/14/21 04/25/21 Rx .COMPLEX #90 tab metoprolol succinate 50 mg 50 mg PO BID 03/02/21 04/25/21 History tablet,extended release 24 hr allopurinol 300 mg tablet 300 mg PO DAILY #90 tab 03/13/21 04/25/21 Rx triazolam 0.25 mg tablet (Halcion) 0.25 mg PO BEDTIME PRN #20 tab 03/28/21 04/25/21 Rx docusate sodium 100 mg capsule 100 mg PO DAILY cap 04/25/21 04/25/21 History (Col-Rite) alprazolam 0.5 mg tablet 0.5 mg PO QDAY PRN #20 tab 04/26/21 Rx Allergies Allergy/AdvReac Type Severity Reaction Status Date / Time codeine Allergy Severe ANAPHYLAXIS Verified 04/25/21 13:01 NSAIDS (Non-Steroidal AdvReac Severe on Warfarin Verified 04/25/21 13:01 Anti-Inflamma [NSAIDS (NON-STEROIDAL ANTI-INFLAMMA] oxycodone [OXYCODONE] AdvReac Intermediate NAUSEA, Verified 04/25/21 13:01 HALLUCINATIONS, DIZZINESS hydrocodone AdvReac Mild N/V Verified 04/25/21 13:01 pravastatin AdvReac Mild MYALGIA Verified 04/25/21 13:01 simvastatin AdvReac Mild MYALGIA Verified 04/25/21 13:01 Review of Systems Review of Systems Narrative: All 12 point systems reviewed with the patient and are negative except otherwise documented. Exam Vital Signs (past 8 hours): - 05/04/21 22:35 05/04/21 23:35 05/04/21 23:50 Temperature 98 F Pulse Rate 134 H 148 H 135 H Respiratory Rate 20 23 Blood Pressure 149/83 H 110/88 Pulse Oximetry 97 95 05/04/21 23:51 05/05/21 00:00 05/05/21 00:10 Temperature Pulse Rate 90 94 H 96 H Respiratory Rate 25 H 25 H Blood Pressure 110/88 103/61 106/59 L Pulse Oximetry 95 05/05/21 00:15 05/05/21 00:20 05/05/21 00:26 Temperature Pulse Rate 88 86 87 Respiratory Rate 18 26 H 17 Blood Pressure 136/64 101/52 L 102/54 L Pulse Oximetry 96 95 05/05/21 00:30 05/05/21 00:35 05/05/21 00:40 Temperature Pulse Rate 81 79 84 Respiratory Rate 19 36 H 25 H Blood Pressure 95/54 L 103/50 L 102/54 L Pulse Oximetry 95 94 94 05/05/21 00:45 Temperature Pulse Rate 87 Respiratory Rate 21 Blood Pressure 89/62 L Pulse Oximetry 95 Oxygen Delivery Method Room Air Narrative Exam Narrative: General: Patient is a well-developed, well-nourished a des[place] elderly female who appears younger than stated age, in no distress at this time. HEENT: Normocephalic, atraumatic, extraocular muscles intact, oral pharynx is clear and mucous membranes are moist. Neck is supple and symmetric, trachea is midline, no adenopathy, no thyroid enlargement, nontender, no masses palpated. Negative for JVD Chest: Normal AP diameter and contour without kyphoscoliosis, no nasal flaring, retractions, or tachypneic labored Lungs: Auscultation of all lung sanders are clear without adventitious sounds, wheezes, rhonchi, or rales. Cardio: regular rate and irregular rhythm without murmur, rubs, or gallops, no carotid bruit, no cardiac pulsations present. Abdomen: Soft nontender, negative for organomegaly, or masses. Bowel sounds are present in all 4 quadrants without guarding or rebound, no CVA tenderness. Musculoskeletal: Muscle strength and tone are equal within normal limits, no deformity, crepitus, effusions, cyanosis, clubbing or edema present. Full range of motion intact radial and pedal pulses are normal. Skin: Warm dry and intact without rashes, ulcerations or petechiae. Neuro: Alert and orientated x3, strength is +5/5 in all extremities, sensation to touch intact, no gross deficits noted of cranial nerves. Psych: Patient has a well-kept appearance, appropriate affect, mental status attitude thought context and judgment are appropriate for age. Objective Labs Result Diagrams: 05/04/21 22:55 05/04/21 22:55 Labs: Laboratory Results - last 24 hr 05/04/21 05/04/21 05/04/21 22:55 22:55 22:55 WBC 7.6 RBC 4.53 Hgb 12.7 Hct 39.0 MCV 86.0 MCH 27.9 MCHC 32.4 RDW 15.6 H Plt Count 140 L Neut % (Auto) 85.2 H Lymph % (Auto) 7.9 L [place] % (Auto) 5.5 Eos % (Auto) 0.9 L Baso % (Auto) 0.5 Neut # (Auto) 6500 Lymph # (Auto) 600 L [place] # (Auto) 400 Eos # (Auto) 100 Baso # (Auto) 0 PT 34.4 H INR 3.0 H APTT 46 H Sodium 140 Potassium 3.9 Chloride 106 Carbon Dioxide 26 BUN 21 H Creatinine 0.87 Estimated GFR > 60.0 BUN/Creatinine Ratio 24.1 H Glucose 128 H Calcium 9.4 Total Bilirubin 0.3 AST 25 ALT 17 Alkaline Phosphatase 97 Total Creatine Kinase 63 CK-MB (CK-2) TNP CK-MB (CK-2) Rel Index TNP Troponin I < 0.012 Total Protein 6.7 Albumin 4.1 Globulin 2.6 Albumin/Globulin Ratio 1.6 Lipase 110 Assessment & Plan Assessment & Plan narrative: ?Ms. Bree Aaron Is a 78-year-old female patient with history significant for paroxysmal atrial fibrillation on warfarin, coronary artery disease status post stent, dual chamber pacemaker placed 03/20/2021, tachy-marcus syndrome, hyperlipidemia, hypothyroidism and squamous cell skin cancer presents to the ER with an acute onset of dizziness, low B/P pressure, palpitations, and rapid heartbeat. Patient admitted for atrial fibrillation with RVR, tachycardia. 1. Atrial fibrillation with RVR, tachycardia controlled rate, in the setting of dual chamber pace maker placed for tachy-marcus syndrome, secondary to essential hypertension with chronic CAD status post stent, acute on chronic, present on admission -patient's initial heart rate 177,initial EKG found to be in AFib with RVR, rate 137, patient was paced on Diltazem Drip-5 mcg, BP 110/88, HR corrected 90, RR 23, O2 saturation 95% on room air. PTT 34.4, INR 3.0, APTT 46, Na 140, potassium 3.9, chloride 106, CO2 26, BUN 21, Mag 1.6, Heart Score: 7 -Dr. Shell ED:Consultation #1: Spoke with patient's cardiology group Dr. Sanchez, agrees with Cardizem and Cardizem drip.? Will need admit.? Possibly over [facility] for continue care otherwise admit here. Consultation #2: Spoke with pacemaker sales representative raw fibers.? Reviewed the transmission.? Essentially AFib with RVR.? No other arrhythmia -Once pt arrived floor BP 70/45, HR 86-stopped drip, 1L NS Bolus, Mag ordered- Mag 2GM, TSH/T4 ordered, U/A -consult: Telemedicine Dr. [place] -continue patient's Coumadin, potassium, nitro, magnesium- once off drip -will decrease patient's metoprolol to 25 mg b.i.d., check morning orthostatics-monitor hypotension 2. Hyperlipidemia, chronic, present on admission -continue patient's Lipitor, lipids ordered 3. Hypothyroidism, chronic, present on admission -continue patient's levothyroxine, TSH/T4 ordered -TSH 0.073 waiting for T4, will hold levothyroxine tomorrow 4. Anxiety, acute on chronic, present on admission -will hold patient's Xanax and Halcion at this time concerns due to hypotension. Code status: Full code Surrogate decision maker: Daughter Keysha Herrera COVID vaccination:unknown COVID PCR: Negative DVT/VTE prophylaxis: on Coumadin, SCDs only Disposition: Patient's length of stay estimated to be Less than 2 midnight. Time Spent With Patient Critical Care time: I spent a total of [] minutes of critical care time on this patient's care today; this time is exclusive of procedural time. Scores GCS Elizabeth coma scale eye opening: Spontaneous Elizabeth coma scale verbal response: Orientated Elizabeth coma scale motor response: Obey commands Elizabeth coma scale total score: 15 CHADS-VASc Congestive heart failure: no Hypertension: yes Age 75 years or older: yes Diabetes mellitus: no Stroke, TIA, or TE: no Vascular disease: yes Age 65 to 74 years: no Sex category (female): Female CHADS-VASc Score: 5
[2021-05-05 01:06] LABS: COVID19 - ADMIT (NP swab/PCR) Negative (Negative)
[2021-05-05 01:06] LABS: Magnesium 1.6 mg/dL (1.6-2.3)
[2021-05-05] MEDS: SODIUM CHLORIDE 0.9% 1,000 ML 1000 ML IV (01:30)
[2021-05-05 01:38] LABS: Thyroid Stimulating Hormone 0.073 uIU/mL (0.47-4.68)
--- NOTE | 2021-05-05 01:52 | PM.CN.EICU ---
History of Present Illness Consult details Chief complaint: Low bp, AFIB- has pacemaker :: This patient was seen via real time interactive two-way audiovisual telecommunication. Narrative: Bree Aaron is a 81 year old female with history of atrial fibrillation on coumadin presents with palpitation. Denies chest pain, fever/chills, N/V, abdominal pain, dysuria, or decrease PO intake. On arrival to the ER she was found to be in atrial fibrillation with HR ~170s. She was given diltiazem 10 mg IV once and started on diltiazem infusion protocol. Admitted to ICU for further management. In ICU, she developed hypotension which diltiazem was stopped and given 1 liter NS bolus. Her improved to 114/72 and HR remains in the 80s. Mg 1.6 -> given 2 grams of magnesium sulfate. [facility] Medical History (Updated 05/05/21 @ 02:12 by Phan Montana MD) Anticoagulated on warfarin ASHD (arteriosclerotic heart disease) Atrial fibrillation CAD (coronary artery disease) (10/2006) Chronic instability of right knee Colon polyps (1998) 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, right (1998) Fat necrosis of abdominal wall GERD (gastroesophageal reflux disease) Gout (10/2011) History of renal calculi Hypertension Hypothyroidism Skin cancer Stenosis of carotid artery Stress incontinence Tachy-marcus syndrome Vaginal atrophy Surgical History History of appendectomy (1963) History of arthroscopy of left knee (01/05/15) History of bilateral carpal tunnel release (1988) History of cardiac catheterization (10/2006) History of carpal tunnel release (1988) History of section (1963) History of cholecystectomy (1972) History of colonoscopy (03/04/06) History of colonoscopy with polypectomy (1998) History of esophagogastroduodenoscopy (EGD) (06/06/06) History of eye surgery (1998) History of hysterectomy (1982) History of left cataract surgery (1989) History of left knee surgery (08/2010) History of Zayra fundoplication History of right knee surgery (2000) Status post left partial knee replacement (10/12/15) Status post primary angioplasty with coronary stent (09/2011) Status post right foot surgery (1993) Family History Mother Brain tumor Cancer Father Heart disease [place] (myocardial infarction) Sister Lung cancer Stroke MS (multiple sclerosis) Breast cancer Grandmother Diabetes mellitus Social History household members: none Smoking Status: Never smoker second hand exposure: No alcohol intake: current substance use type: does not use Current Medications Current Medications Medications: Home Medications acetaminophen 500 mg tablet (Tylenol Extra Strength) 500 mg PO Q6H PRN 11/06/18 [History Confirmed 04/25/21] potassium chloride 10 mEq tablet,extended release 10 meq PO DAILY #90 tab 03/24/19 [Rx Confirmed 04/25/21] diazepam 5 mg tablet 5 mg PO DAILY PRN #20 tab 04/08/19 [Rx Confirmed 04/25/21] cholecalciferol (vitamin D3) 25 mcg (1,000 unit) capsule 25 mcg PO DAILY 01/22/20 [History Confirmed 04/25/21] atorvastatin 40 mg tablet 80 mg PO HS #0 tab 03/30/20 [History Confirmed 04/25/21] levothyroxine 100 mcg tablet 100 mcg PO DAILY #90 tab 06/27/20 [Rx Confirmed 04/25/21] warfarin 5 mg tablet See Rx Instructions PO DAILY #90 tab 08/01/20 [Rx Confirmed 04/25/21] magnesium chloride 64 mg (magnesium chloride) tablet,delayed release 128 mg PO DAILY #180 tab 08/25/20 [Rx Confirmed 04/25/21] nitroglycerin 0.4 mg sublingual tablet (Nitrostat) 0.4 mg SUBLINGUAL Q5-15M PRN #30 tab MDD 3 tabs 10/07/20 [Rx Confirmed 04/25/21] warfarin 3 mg tablet See Rx Instructions .ROUTE .COMPLEX #90 tab 02/14/21 [Rx Confirmed 04/25/21] metoprolol succinate 50 mg tablet,extended release 24 hr 50 mg PO BID 03/02/21 [History Confirmed 04/25/21] allopurinol 300 mg tablet 300 mg PO DAILY #90 tab 03/13/21 [Rx Confirmed 04/25/21] triazolam 0.25 mg tablet (Halcion) 0.25 mg PO BEDTIME PRN #20 tab 08/03/21 [Rx Confirmed 04/25/21] docusate sodium 100 mg capsule (Col-Rite) 100 mg PO DAILY cap 04/25/21 [History Confirmed 04/25/21] alprazolam 0.5 mg tablet 0.5 mg PO QDAY PRN #20 tab 04/26/21 [Rx] Exam Vital Signs (past 8 hours): - 05/04/21 22:35 05/04/21 23:35 05/04/21 23:50 Temperature 98 F Pulse Rate 134 H 148 H 135 H Respiratory Rate 20 23 Blood Pressure 149/83 H 110/88 Pulse Oximetry 97 95 05/04/21 23:51 05/05/21 00:00 05/05/21 00:10 Temperature Pulse Rate 90 94 H 96 H Respiratory Rate 25 H 25 H Blood Pressure 110/88 103/61 106/59 L Pulse Oximetry 95 05/05/21 00:15 05/05/21 00:20 05/05/21 00:26 Temperature Pulse Rate 88 86 87 Respiratory Rate 18 26 H 17 Blood Pressure 136/64 101/52 L 102/54 L Pulse Oximetry 96 95 05/05/21 00:30 05/05/21 00:35 05/05/21 00:40 Temperature Pulse Rate 81 79 84 Respiratory Rate 19 36 H 25 H Blood Pressure 95/54 L 103/50 L 102/54 L Pulse Oximetry 95 94 94 05/05/21 00:45 05/05/21 00:50 05/05/21 00:55 Temperature Pulse Rate 87 84 82 Respiratory Rate 21 19 29 H Blood Pressure 89/62 L 99/52 L 98/50 L Pulse Oximetry 95 95 95 05/05/21 00:57 05/05/21 01:00 05/05/21 01:15 Temperature 97.4 F L Pulse Rate 84 81 80 Respiratory Rate 27 H 22 18 Blood Pressure 109/51 L 103/51 L 94/53 L Pulse Oximetry 95 96 97 Oxygen Delivery Method Room Air Oxygen Flow Rate 0 Narrative Exam Narrative: Patient does not appear to be in acute distress. Awake and following commands. Sitting comfortably in bed. Objective Imaging Echo: Radiologist's impression: Left ventricular systolic function appears normal with an estimated ejection fraction of 55 to 60% without any focal wall motion abnormality. Left ventricular size and function remain normal with probable normal diastolic function and normal filling pressures. There has been no significant change since the previous study. ? The right ventricle appears normal and unchanged from the previous exam. Right ventricular systolic pressure cannot be estimated but CVP is likely 3 mmHg which is significantly lower compared to the previous exam. ? Both atria are normal in size and measure smaller compared to the previous study. ? There is mild mitral regurgitation and trace tricuspid regurgitation, both less prominent compared to the previous study and no other significant valvular abnormality. Labs Result Diagrams: 05/04/21 22:55 05/04/21 22:55 Labs: Laboratory Results - last 24 hr 05/04/21 05/04/21 05/04/21 22:55 22:55 22:55 WBC 7.6 RBC 4.53 Hgb 12.7 Hct 39.0 MCV 86.0 MCH 27.9 MCHC 32.4 RDW 15.6 H Plt Count 140 L Neut % (Auto) 85.2 H Lymph % (Auto) 7.9 L [place] % (Auto) 5.5 Eos % (Auto) 0.9 L Baso % (Auto) 0.5 Neut # (Auto) 6500 Lymph # (Auto) 600 L [place] # (Auto) 400 Eos # (Auto) 100 Baso # (Auto) 0 PT 34.4 H INR 3.0 H APTT 46 H Sodium 140 Potassium 3.9 Chloride 106 Carbon Dioxide 26 BUN 21 H Creatinine 0.87 Estimated GFR > 60.0 BUN/Creatinine Ratio 24.1 H Glucose 128 H Calcium 9.4 Magnesium Total Bilirubin 0.3 AST 25 ALT 17 Alkaline Phosphatase 97 Total Creatine Kinase 63 CK-MB (CK-2) TNP CK-MB (CK-2) Rel Index TNP Troponin I < 0.012 Total Protein 6.7 Albumin 4.1 Globulin 2.6 Albumin/Globulin Ratio 1.6 Lipase 110 TSH SARS-CoV-2 (PCR) 05/04/21 05/04/21 05/05/21 22:55 22:55 00:01 WBC RBC Hgb Hct MCV MCH MCHC RDW Plt Count Neut % (Auto) Lymph % (Auto) [place] % (Auto) Eos % (Auto) Baso % (Auto) Neut # (Auto) Lymph # (Auto) [place] # (Auto) Eos # (Auto) Baso # (Auto) PT INR APTT Sodium Potassium Chloride Carbon Dioxide BUN Creatinine Estimated GFR BUN/Creatinine Ratio Glucose Calcium Magnesium 1.6 Total Bilirubin AST ALT Alkaline Phosphatase Total Creatine Kinase CK-MB (CK-2) CK-MB (CK-2) Rel Index Troponin I Total Protein Albumin Globulin Albumin/Globulin Ratio Lipase TSH 0.073 L SARS-CoV-2 (PCR) Negative Assessment & Plan Assessment and plan (1) Atrial fibrillation with rapid ventricular response: Status: Acute Plan: -- Secondary to hypomagnesium and ?thyrotoxicosis from excessive synthroid therapy -- HR improved with diltiazem but developed hypotension which infusion was stopped -- Currently getting NS bolus -- Cont IVF resusciation -- Will replete with 2 grams of magnesium sulfate -- Added metoprolol 25 mg BID -- Repeat renal panel and Mg in 6 hours -- Calculated CHADVASC score 4 -> cont coumadin to seek goal INR 2-3 -- Goal HR < 110 (2) Anticoagulated on warfarin: Status: Acute Plan: -- Cont coumadin therapy to seek goal INR 2-3 -- Daily PT/INR (3) Hypotension: Status: Acute Plan: -- Secondary to diltiazem infusion -- BP improved after stopping diltiazem infusion and starting IVF -- Cont IVF resuscitation -- Check UA -- MAP goal > 65 (4) Hypothyroidism: Status: Chronic Plan: -- TSH is low concerning for possible factitious hyperthyroidism vs sick euthyroid -- Check FT3 and FT4 -- Hold synthroid 100 mcg for now Time Spent With Patient Critical Care time: I spent a total of 39 minutes of critical care time on this patient's care today; this time is exclusive of procedural time.
[2021-05-05] MEDS: MAGNESIUM SULFATE 2 GM/50 ML PIGGYBACK IV (02:41)
[2021-05-05 02:44] LABS: Bacteria Urine None Seen; RBC Urine None Seen (0-5/HPF); WBC Urine None Seen (0-5/HPF)
--- NOTE | 2021-05-05 02:46 | PC.NURSE ---
0130- Patient admitted to room 231. Consult with Tele Grain Elevator Worker completed. Patient Cardizem gtt on hold due to low bp. Patient remains in AFib/CVR with occasional paced beats. Patient denies CP or SOB at this time. Bolus of 1 liter NS infusing per order. Oriented to room and advised to not get OOB without assist. Patient verbalizes understanding. No distress at this time.
[2021-05-05 03:19] LABS: Culture Indicated Urine Cult Not Indicated; Squamous Epithelial Cell Urine 1-5 /HPF (0-5/HPF)
[2021-05-05 05:26] LABS: Add Manual Diff / Slide Review NO; BUN Creatinine Ratio 23.7 (6-22); Basophils Absolute Auto 0 /uL (0-100); Basophils Percent Auto 0.5 % (0-2); Blood Urea Nitrogen 18 mg/dL (7-17); Calcium 8.8 mg/dL (8.4-10.2); Carbon Dioxide 25 mmol/L (22-32); Chloride 111 mmol/L (98-107); Eosinophils Absolute Auto 100 /uL (0-450); Eosinophils Percent Auto 1.2 % (2-4); Estimated Glomerular Filt Rate > 60.0 mL/min (>60); Glucose 99 mg/dL (80-110); HEMOLYSIS < 15 (0-50); Hematocrit 35.1 % (36-46); Hemoglobin 11.4 g/dL (12.0-16.0); Lymphocytes Absolute Auto 1100 /uL (1100-4500); Lymphocytes Percent Auto 19.6 % (25-40); Mean Corpuscular HGB Conc 32.6 % (30-36); Mean Corpuscular Hemoglobin 28.2 PG (26-34); Mean Corpuscular Volume 86.5 fL (80-100); Monocytes Absolute Auto 400 /uL (0-900); Monocytes Percent Auto 7.6 % (3-14); Neutrophils Absolute Auto 4000 /uL (1500-7000); Neutrophils Percent Auto 71.1 % (50-75); Platelet Count 119 X10^3/uL (150-400); Potassium 3.6 mmol/L (3.4-5.1); Red Blood Cell Count 4.06 X10^6/uL (4.0-5.2); Red Cell Distribution Width 15.7 % (11.6-14.8); Sodium 141 mmol/L (137-145); White Blood Cell Count 5.6 X10^3/uL (4.5-11.0)
[2021-05-05 05:33] LABS: INR 2.8 (0.9-1.3); Prothrombin Time 32.3 SECONDS (10.1-12.7)
[2021-05-05] MEDS: LACTATED RINGERS 1,000 ML 100 ML IV (05:37)
[2021-05-05 05:38] LABS: NT-proBNP (BNP-Adult 18+) 1080 pg/mL (<450); Troponin I < 0.012 ng/mL (0.01-0.034)
[2021-05-05 05:48] LABS: Magnesium 2.4 mg/dL (1.6-2.3)
--- NOTE | 2021-05-05 09:12 | P.DS_ITS ---
History of Present Illness History of Present Illness Chief complaint: Low bp, AFIB- has pacemaker Narrative: Per Haritha Liu: Ms. Bree Aaron Is a 78-year-old female patient with history significant for paroxysmal atrial fibrillation on warfarin, coronary artery disease status post stent, dual chamber pacemaker placed 03/20/2021, tachy-marcus syndrome, hyperlipidemia, hypothyroidism and squamous cell skin cancer presents to the ER with an acute onset of dizziness, low B/P pressure, palpitations, and rapid heartbeat.? Patient last seen by her medical surgical tech who placed pacer, Dr. Fletcher, today in [place] status post pacemaker placed 1 month ago.? Has been doing well.? 6:00 p.m. tonight symptoms started.? Patient denies chest pain, shortness of breath, syncope, cough, weakness, headache, changes in vision, nausea, vomiting, diarrhea, chills, fever, body aches, abnormal swelling of extremities, recent illness injury or trauma.? No recent illness. Patient medical surgical tech is Dr. Eliseo Jeffries at [facility].? Patient is also followed by Dr. Conk[facility] and was last seen on 04/25 2021 for hypotension presyncope and polydipsia, with increased urinary frequency- concern for UTI or SIADH.? Dr. Shell? in the ED interrogated patient's double chamber pacemaker that is only set for bradycardia not tachycardia. Patient's initial heart rate 177, initial EKG found to be in AFib with RVR, rate 137, patient was paced on Diltazem Drip-5 mcg, BP 110/88, HR corrected 90, RR 23, O2 saturation 95% on room air.? Patient's CBC was mostly unremarkable with the exception of mildly decreased platelets 140, chemistries also were mostly unremarkable with the exception of a BUN of 21, glucose 128, patient's is on Coumadin and INR is therapeutic at 3 (cardiology goal between 2-3).? Patient's troponin and lipase were within normal limits.? Patient's chest x-ray was negative for any acute cardiopulmonary processes.? Patient admitted for AFib with RVR, tachycardia. Discharge Providers Provider Date of admission: 05/05/21 00:18 Discharge Date: 05/05/21 Primary care physician: Farhat Conklin MD Discharge provider: Demario Castaneda MD Summary Hospital Course Discharge Diagnosis: 1. Afib with RVR 2. s/p PPM for tachybrady syndrome 3. CAD s/p stents 4. HTN 5. HL 6. Hypothyroidism 7. Anxiety Hospital Course: Ms. Aaron was admitted with afib with RVR. She had previously had a pacemaker placed for tachybrady syndrome. She had been doing well but had seen her PCP prior for hypotension, her metoprolol had been decreased from 100mg BID to 50mg BID. In that setting she had symptomatic breakthrough afib with RVR. Initially here she was given IV dilt, and then placed on dilt gtt. She became hypotensive and needed IV boluses, and stopped the dilt gtt. She was placed back on metoprolol and did well. She was discharged on 75mg BID metoprolol succinate. She was encouraged to follow up soon with her medical surgical tech. In addition her TSH was low and it was considered that she may have tachycardia in setting of too high a dose of synthroid. She was recommended to hold her synthroid for a few days and restart at a lower dose. She was encouraged to follow up with her PCP within one week. Discharge time: 38 minutes Exam Vital Signs (past 8 hours): Oxygen Delivery Method Room Air Oxygen Flow Rate 0 Narrative Exam Narrative: General:?no acute distress HEENT:?PERRL, moist mucous membranes Lungs:? clear bilaterally Cardio:? regular rate and irregular rhythm without murmur Abdomen:? Soft nontender Musculoskeletal:? Muscle strength and tone are equal within normal limits Skin:? Warm dry and intact without rashes Objective Labs Result Diagrams: 05/05/21 04:33 05/05/21 04:33 [facility] Medical History Anticoagulated on warfarin ASHD (arteriosclerotic heart disease) Atrial fibrillation CAD (coronary artery disease) (10/2006) Chronic instability of right knee Colon polyps (1998) 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, right (1998) Fat necrosis of abdominal wall GERD (gastroesophageal reflux disease) Gout (10/2011) History of renal calculi Hypertension Hypothyroidism Skin cancer Stenosis of carotid artery Stress incontinence Tachy-marcus syndrome Vaginal atrophy Surgical History (Updated 05/05/21 @ 02:36 by ALVARO Cisse) History of appendectomy (1963) History of arthroscopy of left knee (01/05/15) History of bilateral carpal tunnel release (1988) History of cardiac catheterization (10/2006) History of carpal tunnel release (1988) History of section (1963) History of cholecystectomy (1972) History of colonoscopy (03/04/06) History of colonoscopy with polypectomy (1998) History of esophagogastroduodenoscopy (EGD) (06/06/06) History of eye surgery (1998) History of hysterectomy (1982) History of left cataract surgery (1989) History of left knee surgery (08/2010) History of Zayra fundoplication History of permanent cardiac pacemaker placement History of right knee surgery (2000) Status post left partial knee replacement (10/12/15) Status post primary angioplasty with coronary stent (09/2011) Status post right foot surgery (1993) Family History Mother Brain tumor Cancer Father Heart disease CT (myocardial infarction) Sister Lung cancer Stroke MS (multiple sclerosis) Breast cancer Grandmother Diabetes mellitus Social History household members: none Smoking Status: Never smoker second hand exposure: No alcohol intake: current substance use type: does not use Discharge Plan Discharge Plan Patient Disposition: Home Provider Discharge Comment: Ms. Aaron came in to the hospital with atrial fibrillation with a fast heart rate. She improved with medications. She was found to have testing that showed her dose of thyroid medicine might be slightly too strong. She will have her dose of metoprolol increased slightly. She will be on metoprolol 75mg twice a day. She should restart her thyroid medicine on Monday 05/07 at 75mcg daily. She should follow up with her PCP in one week. She is also referred back to her medical surgical tech. Discharge orders & Medications Prescriptions: New metoprolol succinate 25 mg Tablet Extended Release 24 Hr 75 mg PO BID Qty: 60 RF: 0 levothyroxine [Synthroid] 75 mcg tablet 75 mcg PO DAILY Qty: 30 RF: 0 Continued acetaminophen [Tylenol Extra Strength] 500 mg tablet 500 mg PO Q6H PRN (Reason: Pain, Mild) RF: 0 cholecalciferol (vitamin D3) 25 mcg (1,000 unit) capsule 25 mcg PO DAILY RF: 0 atorvastatin 40 mg tablet 80 mg PO HS Qty: 0 RF: 0 magnesium chloride 64 mg tablet,delayed release (DR/EC) 128 mg PO DAILY Qty: 180 RF: 0 nitroglycerin [Nitrostat] 0.4 mg tablet, sublingual 0.4 mg Sublingual Q5-15M MDD 3 tabs PRN (Reason: Chest Pain) Qty: 30 RF: 11 warfarin 3 mg tablet See Rx Instructions .ROUTE .COMPLEX Qty: 90 RF: 0 allopurinol 300 mg tablet 300 mg PO DAILY Qty: 90 RF: 3 triazolam [Halcion] 0.25 mg tablet 0.25 mg PO BEDTIME PRN (Reason: Insomnia) Qty: 20 RF: 5 alprazolam 0.5 mg tablet 0.5 mg PO QDAY PRN (Reason: public speaking) Qty: 20 RF: 0 docusate sodium [Col-Rite] 100 mg capsule 100 mg PO DAILY RF: 0 potassium chloride 10 mEq tablet extended release 10 meq PO DAILY Qty: 90 RF: 1 diazepam 5 mg tablet 5 mg PO DAILY PRN (Reason: before drive [employer]) Qty: 20 RF: 0 warfarin 5 mg tablet See Rx Instructions PO DAILY Qty: 90 RF: 2 Discontinued levothyroxine 100 mcg tablet 100 mcg PO DAILY Qty: 90 RF: 3 metoprolol succinate 50 mg tablet extended release 24 hr 50 mg PO BID RF: 0 Medication counseling provided by Pharmacist: Yes Follow up/Referrals: Farhat Conklin MD [Primary Care Provider] - 05/10/21 11:30 am (Appt:05/10 @ 11:30 w/ please arrive 15 minutes prior to scheduled appointment time) Eliseo Jeffries MD [Physician] - 1 Week (Dr Deal medical student will call you with appointment date & time breakthrough afib rvr, admitted to hospital, increased metoprolol to 75mg BID, please try to move up cards appt) Diet/Activity/Treatments Activity: Activity as tolerated. Visit Report/Discharge Packet Instructions: DI for Atrial Fibrillation, Metoprolol Discharge Data Primary Care Provider: Farhat Conklin Attending Provider: Haritha Liu [facility] [place] The patient has current or prior documentation of left ventricular ejection fraction (LVEF) less than 40%, or moderate or severely depressed left ve ntricular systolic function.: No
[2021-05-05] MEDS: METOPROLOL ER 25 MG TABLET 75 MG PO (09:16)
[2021-05-05] MEDS: POTASSIUM CHLORIDE 10 MEQ TAB PO (09:16)
[2021-05-05] MEDS: SODIUM CHLORIDE 0.9% 500 ML 1000 ML IV (09:35)
--- NOTE | 2021-05-05 09:49 | PC.NURSE ---
Addendum entered by Haritha Sood R.N. 05/05/21 13:04: Converted to SR @ 0933. Occasional v pacing noted. Pt is reporting feeling so much better SBA while getting dressed IV and tele removed. Pt would like to get taxi for ride home. Rxs sent to [place] and follow appt made. Pt Verbalizes understanding re: teaching about medication and follow up POC. Wheeled to rx and taxi. Original Note: AM shift Pt is feeling well this AM, denies dizziness while upto BR. Orthostatic BP obtained. Home medications restarted, Clarified allopurinol and coumadin, daily INRs ordered. Lungs clear. Tele with occasional v-paced beats and afib cvr rate in the 70s. Denies chest pain. No SOB SBA
[2021-05-05] MEDS: allopurinoL 100 MG TABLET 200 MG PO (11:35)
[2021-05-05] MEDS: MAGNESIUM CHLORIDE 64 MG TABLET 128 MG PO (11:35)
--- NOTE | 2021-05-05 13:55 | CM.DPNOTE ---
Called Efraín Archer to picker tender pt. at front entrance. Anh Mckeon CM Asst.
--- NOTE | 2021-05-05 14:33 | CM.DANOTE ---
DCP: Case received, EMR reviewed and met with patient. Introduced self and role. Was able to obtain information regarding patient's baseline activity status prior to hospitalization. DCP assessment completed with information currently available. Patient is a 80 year old female who admitted early this morning to the care of the hospitalist team. PCP: Dr. Conklin. Payer: confirmed: [facility] [employer]. Patient came to the hospital via private vehicle secondary to having some hypotension as well as a-fib. Patient has history of a-fib, as she has a duel chamber pacemaker that was placed about a month ago at [facility]. She holds current diagnosis of a-fib with RVR. Patient is on diltiazem drip in ICU. Met with patient in her room. She is pleasant, alert and oriented. Confirmed that she is a of 4 years, and lives alone here in [place]. Patient indicated that she is independent with activities, uses no DME supplies and drives short distances. She has a daughter, Keysha who lives in [facility] [place]. She indicated, she has had these heart symptoms before, even after the pacemaker, and she feels that her blood pressure gets low. She indicated that she is feeling better now. P: Patient has discharge orders for home today. Will be calling her a cab with [employer] wheeler, patient has her credit card, after she picks up her medications downstairs at the pharmacy. Blanca Waston RN/Occupational Therapy Technician
--- NOTE | 2021-05-19 10:24 | PC.NURSE ---
Late Entry; LR infusion initiated 05/05 at 05:37, stopped by discharge order [id number]. Bolus ordered to be given prior to discharge. NS infusion initiated 05/05 at 0935 complete at 10:06.
== END 2021-05-05 13:26 | disposition home or self-care (01) ==
LOC: ED 05-05 00:15 → AC 05-05 00:19 → ICU 05-05 01:11
PROVIDERS: Admitting Provider Nurse Practitioner Family; Emergency Provider Emergency Medicine; PCP Student in an Organized Health Care Education/Training Program; Referring Provider Emergency Medicine; Visit Provider Nurse Practitioner Family
DX: I48.0 Paroxysmal atrial fibrillation (principal); E03.9 Hypothyroidism, unspecified; I25.10 Atherosclerotic heart disease of native coronary artery without angina pectoris; E78.5 Hyperlipidemia, unspecified; F41.9 Anxiety disorder, unspecified; Z79.01 Long term (current) use of anticoagulants; Z95.0 Presence of cardiac pacemaker; Z95.818 Presence of other cardiac implants and grafts; Z20.822 Contact with and (suspected) exposure to COVID-19
CPT/HCPCS: 36415; 71045; 80048; 80053; 81015; 82550; 83690; 83735; 83880; 84439; 84443; 84484; 85025; 85610; 85730; 87635; 87797; 93005; 96361; 96365; 96366; 96367; 96375; 99284; 99285; 99291; C9803; G0378; J3475

== ENCOUNTER → 2021-06-20 08:35 | Outpatient (CLI) | payer OTHER, SELFPAY ==
[2021-05-05 01:30] VITALS: BMI 24.9
[2021-06-20 10:02] LABS: TSH w/ Reflex to FT4 1.75 uIU/mL (0.47-4.68)
== END ==
PROVIDERS: PCP Student in an Organized Health Care Education/Training Program; Referring Provider Student in an Organized Health Care Education/Training Program; Visit Provider Student in an Organized Health Care Education/Training Program
DX: E03.9 Hypothyroidism, unspecified (principal)
CPT/HCPCS: 36415; 84443

== ENCOUNTER → 2021-08-17 08:06 | Outpatient (CLI) | payer OTHER, SELFPAY ==
[2021-05-05 01:30] VITALS: BMI 24.9
[2021-08-17 09:41] LABS: INR 2.5 (0.9-1.3); Prothrombin Time 28.7 SECONDS (10.1-12.7)
== END ==
PROVIDERS: PCP Student in an Organized Health Care Education/Training Program; Referring Provider Student in an Organized Health Care Education/Training Program; Visit Provider Student in an Organized Health Care Education/Training Program
DX: Z79.01 Long term (current) use of anticoagulants (principal)
CPT/HCPCS: 36415; 85610

== ENCOUNTER 2021-09-01 15:07 | Emergency (ER) | payer OTHER, SELFPAY ==
[2021-05-05 01:30] VITALS: BMI 24.9
[2021-09-01] VITALS (51 sets, daily range): BP systolic 116–174; BP diastolic 60–101; PULSE 69–143; RESP 13–24; TEMP 36.6; O2SAT 95–99; BMI 25.0
--- NOTE | 2021-09-01 15:12 | DI.RAD.S_ITS ---
PROCEDURE: XR CHEST 1V INDICATIONS: chest pain TECHNIQUE: One view of the chest was acquired. COMPARISON: [facility], , XR CHEST 1V, 05/04/2021, 22:40. FINDINGS: Surgical changes and devices: A cardiac pacemaker is seen with pulse generator in the left chest. Lungs and pleura: Lungs are clear. No pleural effusions or pneumothorax. Mediastinum: Mediastinal contours appear normal. Heart size is normal. Moderate aortic atherosclerotic calcifications. Bones and chest wall: No suspicious bony lesions. Overlying soft tissues appear unremarkable. IMPRESSION: No acute cardiopulmonary abnormality. Dictated by: Edouard Ghotra M.D. on 09/01/2021 at 15:55 Approved by: Edouard Ghotra M.D. on 09/01/2021 at 15:56
[2021-09-01 15:35] LABS: INR 2.7 (0.9-1.3)
[2021-09-01 15:37] LABS: Add Manual Diff / Slide Review NO; Basophils Absolute Auto 0 /uL (0-100); Basophils Percent Auto 0.6 % (0-2); Eosinophils Absolute Auto 0 /uL (0-450); Eosinophils Percent Auto 0.5 % (2-4); Hematocrit 41.4 % (36-46); Hemoglobin 13.9 g/dL (12.0-16.0); Lymphocytes Absolute Auto 800 /uL (1100-4500); Lymphocytes Percent Auto 11.1 % (25-40); Mean Corpuscular HGB Conc 33.5 % (30-36); Mean Corpuscular Hemoglobin 28.8 PG (26-34); Mean Corpuscular Volume 85.9 fL (80-100); Monocytes Absolute Auto 500 /uL (0-900); Monocytes Percent Auto 6.8 % (3-14); Neutrophils Absolute Auto 5600 /uL (1500-7000); Platelet Count 147 X10^3/uL (150-400); Red Blood Cell Count 4.82 X10^6/uL (4.0-5.2); Red Cell Distribution Width 16.2 % (11.6-14.8); White Blood Cell Count 6.9 X10^3/uL (4.5-11.0)
[2021-09-01 15:38] LABS: PTT Partial Thromboplastin Tim 43 SECONDS (26.4-36.2)
[2021-09-01 15:43] LABS: Alanine Aminotransferase 24 IU/L (<35); Albumin 4.4 g/dL (3.5-5.0); Albumin Globulin Ratio 1.4 (1.0-2.8); Alkaline Phosphatase 94 U/L (38-126); Aspartate Aminotransferase 28 IU/L (14-36); Bilirubin Total 0.4 mg/dL (0.2-1.3); Blood Urea Nitrogen 22 mg/dL (7-17); Calcium 10.1 mg/dL (8.4-10.2); Carbon Dioxide 28 mmol/L (22-32); Chloride 108 mmol/L (98-107); Creatine Kinase 73 U/L (30-135); Estimated Glomerular Filt Rate 47.7 mL/min (>60); Globulin 3.1 g/dL (1.7-4.1); Glucose 132 mg/dL (80-110); HEMOLYSIS < 15 (0-50); Lipase 102 U/L (23-300); Magnesium 1.8 mg/dL (1.6-2.3); Potassium 3.8 mmol/L (3.4-5.1); Sodium 141 mmol/L (137-145); Total Protein 7.5 g/dL (6.3-8.2)
[2021-09-01 15:53] LABS: Troponin I < 0.012 ng/mL (0.01-0.034)
--- NOTE | 2021-09-01 16:05 | ED.ARRPALP ---
HPI - Arrhythmia/Palpitations General Chief Complaint: Arrhythmia/Palpitations Stated Complaint: Rapid afib Time Seen by Provider: 09/01/21 16:03 Source: patient and EMS Mode of arrival: EMS Limitations: no limitations History of Present Illness HPI narrative: The patient arrives by EMS with palpitations. She has a history of paroxysmal atrial fib with RVR and tachy-marcus syndrome. A dual chamber pacemaker has been placed. About 9:00 a.m. this morning she developed palpitations. She has dyspnea with exertion with the palpitations. She denies chest pain. She has no headache, sore throat, or cough. She has no GI symptoms. She does have mild peripheral edema. She is under the care local cardiology. She was recently admitted to [facility] to titrate the dose of dofetilide, in an attempt to improve for atrial fib control. Increasing dose did not provide increased control. In addition to the dofetilide she takes metoprolol. She is compliant with medications. She denies recent illness. She is in no distress when at rest. Related Data Home Medications Medication Instructions Recorded Confirmed acetaminophen 500 mg tablet 500 mg PO Q6H PRN 11/06/18 09/01/21 (Tylenol Extra Strength) cholecalciferol (vitamin D3) 25 50 mcg PO DAILY 01/22/20 09/01/21 mcg (1,000 unit) capsule atorvastatin 40 mg tablet 80 mg PO HS #0 tab 03/30/20 09/01/21 docusate sodium 100 mg capsule 100 mg PO DAILY cap 04/25/21 09/01/21 (Col-Rite) dofetilide 250 mcg capsule 375 mcg PO Q12H 06/14/21 09/01/21 warfarin 3 mg tablet See Rx Instructions .ROUTE 07/18/21 09/01/21 .COMPLEX tab warfarin 5 mg tablet See Rx Instructions PO DAILY tab 07/18/21 09/01/21 magnesium oxide 400 mg (241.3 mg 400 mg PO BID 09/01/21 09/01/21 magnesium) tablet potassium chloride 10 mEq 20 meq PO DAILY 09/01/21 09/01/21 tablet,extended release Previous Rx's Medication Instructions Recorded diazepam 5 mg tablet 5 mg PO DAILY PRN #20 tab 04/08/19 nitroglycerin 0.4 mg sublingual 0.4 mg SUBLINGUAL Q5-15M PRN #30 10/07/20 tablet (Nitrostat) tab MDD 3 tabs allopurinol 300 mg tablet 300 mg PO DAILY #90 tab 03/13/21 triazolam 0.25 mg tablet (Halcion) 0.25 mg PO BEDTIME PRN #20 tab 03/28/21 alprazolam 0.5 mg tablet 0.5 mg PO QDAY PRN #20 tab 04/26/21 levothyroxine 75 mcg tablet 75 mcg PO DAILY #90 tab 06/20/21 (Synthroid) metoprolol succinate 25 mg 37.5 mg PO BID #60 tab 08/09/21 tablet,extended release 24 hr Allergies Allergy/AdvReac Type Severity Reaction Status Date / Time codeine Allergy Severe ANAPHYLAXIS Verified 05/10/21 11:31 NSAIDS (Non-Steroidal AdvReac Severe on Warfarin Verified 05/10/21 11:31 Anti-Inflamma [NSAIDS (NON-STEROIDAL ANTI-INFLAMMA] oxycodone [OXYCODONE] AdvReac Intermediate NAUSEA, Verified 05/10/21 11:31 HALLUCINATIONS, DIZZINESS hydrocodone AdvReac Mild N/V Verified 05/10/21 11:31 pravastatin AdvReac Mild MYALGIA Verified 05/10/21 11:31 simvastatin AdvReac Mild MYALGIA Verified 05/10/21 11:31 Review of Systems Constitutional Constitutional: Denies chills, Denies fever(s), Denies headache(s) and Denies poor appetite ENT Ears, Nose, Mouth, and Throat: Denies vertigo, Denies dizziness, Denies headache(s), Denies sinus pressure and Denies sore throat Cardiovascular Cardiovascular: Reports as per HPI, Denies syncope and Denies dyspnea Respiratory Respiratory: Denies chest congestion, Denies pain with cough and Denies dyspnea Gastrointestinal Gastrointestinal: Denies abdominal pain and Denies nausea Genitourinary Genitourinary: Denies dysuria Musculoskeletal Musculoskeletal: Denies back pain and Denies arthralgias Comments: No lower extremity edema. Integumentary/Breasts Skin/Breast: Denies lesions and Denies rash Neurologic Neurologic: Denies confusion, Denies vertigo, Denies dizziness, Denies syncope and Denies headache(s) Psychiatric Psychiatric: Denies confusion Hematologic/Lymphatic On Anticoagulants: Yes Patient History Medical History Anticoagulated on warfarin ASHD (arteriosclerotic heart disease) Atrial fibrillation CAD (coronary artery disease) (10/2006) Chronic instability of right knee Colon polyps (1998) 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, right (1998) Fat necrosis of abdominal wall GERD (gastroesophageal reflux disease) Gout (10/2011) History of renal calculi Hypertension Hypothyroidism Skin cancer Stenosis of carotid artery Stress incontinence Tachy-marcus syndrome Vaginal atrophy Surgical History History of appendectomy (1963) History of arthroscopy of left knee (01/05/15) History of bilateral carpal tunnel release (1988) History of cardiac catheterization (10/2006) History of carpal tunnel release (1988) History of section (1963) History of cholecystectomy (1972) History of colonoscopy (03/04/06) History of colonoscopy with polypectomy (1998) History of esophagogastroduodenoscopy (EGD) (06/06/06) History of eye surgery (1998) History of hysterectomy (1982) History of left cataract surgery (1989) History of left knee surgery (08/2010) History of Zayra fundoplication History of permanent cardiac pacemaker placement History of right knee surgery (2000) Status post left partial knee replacement (10/12/15) Status post primary angioplasty with coronary stent (09/2011) Status post right foot surgery (1993) Family History Mother Brain tumor Cancer Father Heart disease MT (myocardial infarction) Sister Lung cancer Stroke MS (multiple sclerosis) Breast cancer Grandmother Diabetes mellitus Social History household members: none Smoking Status: Never smoker second hand exposure: No alcohol intake: current substance use type: does not use Smoking Status: Never smoker alcohol intake frequency: a few times a month Substance Use Type: does not use Exam Initial Vital Signs Initial Vital Signs: Vital Signs Temperature 98 F 09/01/21 15:07 Pulse Rate 143 H 09/01/21 15:07 Respiratory Rate 18 09/01/21 15:07 Blood Pressure 134/85 09/01/21 15:07 Pulse Oximetry 96 09/01/21 15:07 Const General: cooperative, healthy appearing and comfortable HENMT Head: normal to inspection, normocephalic and atraumatic Mouth: oral mucosae normal Throat: posterior oropharynx normal Eyes Conjunctivae: conjunctivae normal Sclera: sclerae normal Pupils: PERRL EOM: EOM intact bilaterally Neck Neck: No tender and No JVD Chest Chest: No tenderness Resp Effort & Inspection: normal respiratory effort Auscultation: clear to auscultation bilaterally Cardio Rate: tachycardic (Rate 130s) GI Inspection: normal to inspection Palpation: soft, No guarding and No tender Back/Spine/Pelvis Back: normal to inspection Skin General: no rashes or lesions noted Neuro General: patient alert, patient awake, patient oriented x3 and no focal motor deficits Extrem General: normal to inspection, full ROM, no pedal edema and no calf tenderness Psych Appearance: grossly normal Course Course Course Narrative: The patient converted to normal sinus rhythm after multiple medications. She is currently asymptomatic, done quite well. She is discharged home on her current medication regimen. Orders Ordered: ED Orders 09/01/21 15:10 Complete Blood Count AUTO DIFF Stat Comprehensive Metabolic Panel Stat Lipase Stat Magnesium Stat Partial Thromboplastin Time Stat Prothrombin Time INR Stat Troponin & CK Cardiac Panel Stat 09/01/21 15:12 XR chest 1V Stat EKG-12 Lead Stat Discontinued Medications Digoxin (Digoxin 500 Mcg/2 Ml Ampul) 500 mcg IV NOW ONE Stop: 09/01/21 16:58 Last Admin: 09/01/21 17:04 Dose: 500 mcg Documented by: BANDAR Diltiazem HCl (Diltiazem 5 Mg/Ml Sdv) 10 mg IV NOW ONE Stop: 09/01/21 16:14 Last Admin: 09/01/21 16:25 Dose: 10 mg Documented by: BANDAR Metoprolol Tartrate (Metoprolol Tartrate 5 Mg/5 Ml Inj) 5 mg IV Q5M [facility] Stop: 09/01/21 18:56 Last Admin: 09/01/21 19:36 Dose: 5 mg Documented by: Admin: 09/01/21 19:06 Dose: 5 mg Documented by: BANDAR Vital Signs Vital signs: Vital Signs - 8 hr 09/01/21 15:07 09/01/21 15:12 09/01/21 15:16 Temperature 98 F Pulse Rate 143 H 123 H 138 H Respiratory Rate 18 17 Blood Pressure 134/85 134/85 Pulse Oximetry 96 99 96 09/01/21 15:30 09/01/21 16:00 09/01/21 16:23 Temperature Pulse Rate 141 H 136 H 133 H Respiratory Rate 17 17 17 Blood Pressure 138/87 Pulse Oximetry 97 95 96 09/01/21 16:25 09/01/21 16:33 09/01/21 16:34 Temperature Pulse Rate 138 H 134 H 136 H Respiratory Rate 17 Blood Pressure 133/87 132/94 H Pulse Oximetry 97 98 09/01/21 16:35 09/01/21 16:41 09/01/21 16:45 Temperature Pulse Rate 132 H 126 H 120 H Respiratory Rate 20 20 14 Blood Pressure 129/70 122/65 139/63 Pulse Oximetry 98 98 97 09/01/21 16:51 09/01/21 16:55 09/01/21 17:00 Temperature Pulse Rate 129 H 126 H 129 H Respiratory Rate 14 16 20 Blood Pressure 132/68 125/70 116/80 Pulse Oximetry 96 97 96 09/01/21 17:04 09/01/21 17:05 09/01/21 17:10 Temperature Pulse Rate 128 H 128 H 126 H Respiratory Rate 14 24 Blood Pressure 116/80 124/81 133/96 H Pulse Oximetry 98 98 09/01/21 17:15 09/01/21 17:21 09/01/21 17:25 Temperature Pulse Rate 120 H 121 H 123 H Respiratory Rate 13 16 16 Blood Pressure 137/81 135/75 132/65 Pulse Oximetry 97 97 97 09/01/21 17:30 09/01/21 17:35 09/01/21 17:40 Temperature Pulse Rate 117 H 111 H 130 H Respiratory Rate 17 17 18 Blood Pressure 147/66 H 145/60 H 158/67 H Pulse Oximetry 96 96 97 09/01/21 17:45 09/01/21 17:50 09/01/21 17:56 Temperature Pulse Rate 125 H 123 H 121 H Respiratory Rate 17 14 18 Blood Pressure 139/67 135/70 142/72 H Pulse Oximetry 97 98 97 09/01/21 18:00 09/01/21 18:05 09/01/21 18:15 Temperature Pulse Rate 124 H 127 H 127 H Respiratory Rate 15 13 15 Blood Pressure 145/65 H 142/75 H 150/85 H Pulse Oximetry 97 97 97 01/07/22 18:20 09/01/21 18:25 09/01/21 18:30 Temperature Pulse Rate 127 H 126 H 130 H Respiratory Rate 20 14 17 Blood Pressure 149/90 H 136/63 Pulse Oximetry 98 98 98 09/01/21 18:31 09/01/21 18:35 09/01/21 18:40 Temperature Pulse Rate 120 H 126 H 126 H Respiratory Rate 18 16 14 Blood Pressure 151/63 H 160/79 H 146/64 H Pulse Oximetry 98 98 98 09/01/21 18:46 09/01/21 18:50 09/01/21 18:55 Temperature Pulse Rate 123 H 125 H 126 H Respiratory Rate 14 16 13 Blood Pressure 150/85 H 174/72 H 142/66 H Pulse Oximetry 97 96 98 09/01/21 19:00 09/01/21 19:05 09/01/21 19:10 Temperature Pulse Rate 123 H 117 H 115 H Respiratory Rate 15 15 18 Blood Pressure 146/67 H 146/71 H 149/72 H Pulse Oximetry 97 97 98 09/01/21 19:15 09/01/21 19:20 09/01/21 19:25 Temperature Pulse Rate 112 H 106 H 110 H Respiratory Rate 14 14 15 Blood Pressure 137/65 136/69 142/74 H Pulse Oximetry 96 96 96 09/01/21 19:30 09/01/21 19:35 09/01/21 19:43 Temperature Pulse Rate 115 H 109 H 73 Respiratory Rate 16 15 16 Blood Pressure 131/78 147/80 H 142/101 H Pulse Oximetry 96 96 96 09/01/21 19:45 09/01/21 19:50 09/01/21 19:55 Temperature Pulse Rate 71 69 69 Respiratory Rate 21 14 21 Blood Pressure 133/63 154/74 H 148/72 H Pulse Oximetry 96 96 96 MDM - Arrhythmia/Palpitations Lab Data Result diagrams: 09/01/21 15:10 09/01/21 15:10 Labs: Lab Results 09/01/21 09/01/21 09/01/21 Range/Units 15:10 15:10 15:10 WBC 6.9 (4.5-11.0) X10^3/uL RBC 4.82 (4.0-5.2) X10^6/uL Hgb 13.9 (12.0-16.0) g/dL Hct 41.4 (36-46) % MCV 85.9 (80-100) fL MCH 28.8 (26-34) PG MCHC 33.5 (30-36) % RDW 16.2 H (11.6-14.8) % Plt Count 147 L (150-400) X10^3/uL Neut % (Auto) 81.0 H (50-75) % Lymph % (Auto) 11.1 L (25-40) % [place] % (Auto) 6.8 (3-14) % Eos % (Auto) 0.5 L (2-4) % Baso % (Auto) 0.6 (0-2) % Neut # (Auto) 5600 (3484-4190) /uL Lymph # (Auto) 800 L (6851-5568) /uL [place] # (Auto) 500 (0-900) /uL Eos # (Auto) 0 (0-450) /uL Baso # (Auto) 0 (0-100) /uL PT 32.0 H (10.1-12.7) SECONDS INR 2.7 H (0.9-1.3) APTT 43 H (26.4-36.2) SECONDS Sodium 141 (137-145) mmol/L Potassium 3.8 (3.4-5.1) mmol/L Chloride 108 H (98-107) mmol/L Carbon Dioxide 28 (22-32) mmol/L BUN 22 H (7-17) mg/dL Creatinine 1.10 H (0.52-1.04) mg/dL Estimated GFR 47.7 L (>60) mL/min BUN/Creatinine Ratio 20.0 (6-22) Glucose 132 H (80-110) mg/dL Calcium 10.1 (8.4-10.2) mg/dL Magnesium 1.8 (1.6-2.3) mg/dL Total Bilirubin 0.4 (0.2-1.3) mg/dL AST 28 (14-36) IU/L ALT 24 (<35) IU/L Alkaline Phosphatase 94 (38-126) U/L Total Creatine Kinase 73 (30-135) U/L CK-MB (CK-2) TNP CK-MB (CK-2) Rel Index TNP Troponin I < 0.012 (0.01-0.034) ng/mL Total Protein 7.5 (6.3-8.2) g/dL Albumin 4.4 (3.5-5.0) g/dL Globulin 3.1 (1.7-4.1) g/dL Albumin/Globulin Ratio 1.4 (1.0-2.8) Lipase 102 (23-300) U/L Urine Dip Bedside Urine Glucose Negative Bedside Urine Bilirubin - Negative Bedside Urine Ketone - Negative Urine Specific [place] 1.015 Bedside Urine Occult Blood - Negative Bedside Urine pH 6.0 Bedside Urine Protein +/- 15 Bedside Urine Urobilinogen - Negative Bedside Urine Nitrite - Negative Bedside Urine Leukocytes - Negative Esterase Imaging Data Chest x-ray: Radiologist's Impresson: No acute cardiopulmonary findings. ECG Data Attestation: I personally reviewed and interpreted this ECG as follows: (AFib with RVR rate 138 beats per minute. Nonspecific ST T wave changes. No significant ST elevations or depressions.) Discharge Plan Departure Patient Disposition: Home Clinical Impression: Atrial fibrillation with RVR Instructions: DI for Atrial Fibrillation Activity Restrictions/Additional Instructions: You arrived with AFib RVR rate 138. I gave you a combination of IV Cardizem, with little effect. This was followed by IV digoxin and IV Lopressor. You also received your schedule does of Dofetilide. You converted to normal sinus rhythm rate 69 beats per minute with a systolic blood pressure of 157. Continue current medications. Follow-up with cardiology as scheduled. Return here as needed. Prescriptions: No Action acetaminophen [Tylenol Extra Strength] 500 mg tablet 500 mg PO Q6H PRN (Reason: Pain, Mild) 0RF cholecalciferol (vitamin D3) 25 mcg (1,000 unit) capsule 50 mcg PO DAILY 0RF atorvastatin 40 mg tablet 80 mg PO HS Qty: 0 0RF nitroglycerin [Nitrostat] 0.4 mg tablet, sublingual 0.4 mg Sublingual Q5-15M MDD 3 tabs PRN (Reason: Chest Pain) Qty: 30 11RF allopurinol 300 mg tablet 300 mg PO DAILY Qty: 90 3RF triazolam [Halcion] 0.25 mg tablet 0.25 mg PO BEDTIME PRN (Reason: Insomnia) Qty: 20 5RF alprazolam 0.5 mg tablet 0.5 mg PO QDAY PRN (Reason: public speaking) Qty: 20 0RF dofetilide 250 mcg capsule 375 mcg PO Q12H 0RF Rx Instructions: take 1 cap 250 mcg and 1 cap 125 mcg for a total dose of 375 mcg levothyroxine [Synthroid] 75 mcg tablet 75 mcg PO DAILY Qty: 90 3RF metoprolol succinate 25 mg tablet extended release 24 hr 37.5 mg PO BID Qty: 60 0RF docusate sodium [Col-Rite] 100 mg capsule 100 mg PO DAILY 0RF warfarin 5 mg tablet See Rx Instructions PO DAILY 0RF Rx Instructions: 5mg Saturday, Saturday, Saturday and 3mg all other days; or as directed. diazepam 5 mg tablet 5 mg PO DAILY PRN (Reason: before drive [place]) Qty: 20 0RF warfarin 3 mg tablet See Rx Instructions .ROUTE .COMPLEX 0RF Dose Instruction: take 1 tablet by mouth once daily or as directed Rx Instructions: 5 mg Saturday, Saturday, Saturday and 3 mg all other days (Saturday, , Saturday, Saturday) ; or as directed. magnesium oxide 400 mg (241.3 mg magnesium) tablet 400 mg PO BID 0RF Label Comments: take 1 tablet by mouth twice a day potassium chloride 10 mEq tablet extended release 20 meq PO DAILY 0RF Referrals: Farhat Conklin MD [Primary Care Provider] -
[2021-09-01] MEDS: dilTIAZem 5 MG/ML SDV 10 MG IV (16:25)
[2021-09-01] MEDS: DIGOXIN 500 MCG/2 ML AMPUL IV (17:04)
[2021-09-01] MEDS: METOPROLOL TARTRATE 5 MG/5 ML INJ IV ×2 (19:06→19:36)
== END 2021-09-01 20:06 | disposition home or self-care (01) ==
PROVIDERS: Emergency Provider Emergency Medicine; PCP Student in an Organized Health Care Education/Training Program
DX: I48.91 Unspecified atrial fibrillation (principal); Z95.0 Presence of cardiac pacemaker; Z79.01 Long term (current) use of anticoagulants
CPT/HCPCS: 36415; 71045; 80053; 81003; 82550; 83690; 83735; 84484; 85025; 85610; 85730; 93005; 93010; 96374; 96375; 99284; J1160

== ENCOUNTER → 2021-09-18 09:09 | Outpatient (CLI) | payer OTHER, SELFPAY ==
[2021-05-05 01:30] VITALS: BMI 24.9
[2021-09-18 10:26] LABS: INR 2.9 (0.9-1.3); Prothrombin Time 33.4 SECONDS (10.1-12.7)
[2021-09-18 10:32] LABS: BUN Creatinine Ratio 23.3 (6-22); Blood Urea Nitrogen 24 mg/dL (7-17); Estimated Glomerular Filt Rate 51.4 mL/min (>60)
== END ==
PROVIDERS: PCP Student in an Organized Health Care Education/Training Program; Referring Provider Student in an Organized Health Care Education/Training Program; Visit Provider Student in an Organized Health Care Education/Training Program
DX: Z79.01 Long term (current) use of anticoagulants (principal); N17.9 Acute kidney failure, unspecified
CPT/HCPCS: 36415; 82565; 84520; 85610

== ENCOUNTER → 2022-01-01 08:16 | Outpatient (CLI) | payer OTHER, SELFPAY ==
[2021-05-05 01:30] VITALS: BMI 24.9
[2022-01-03 08:08] LABS: Cholesterol, Total 155 mg/dL (100-199); HDL-Cholesterol 50 mg/dL (>39); HDL-Particle (Total) 35.8 umol/L (>=30.5); LDL Particle 899 nmol/L (<1000); LDL Size 20.6 nm (>20.5); LDL-Cholsterol 75 mg/dL (0-99); LP-IR Score 53 (<=45); Small LDL- Particle 517 nmol/L (<=527); Triglycerides 178 mg/dL (0-149)
== END ==
PROVIDERS: PCP Student in an Organized Health Care Education/Training Program; Referring Provider Specialist; Visit Provider Specialist
DX: E78.00 Pure hypercholesterolemia, unspecified (principal)
CPT/HCPCS: 36415; 80061; 83704

== ENCOUNTER → 2022-01-08 07:53 | Outpatient (CLI) | payer OTHER, SELFPAY ==
[2021-05-05 01:30] VITALS: BMI 24.9
--- NOTE | 2022-01-08 | DI.MG.S_ITS ---
BILATERAL DIGITAL SCREENING MAMMOGRAM 3D/2D WITH CAD: 01/08/2022 CLINICAL: Routine screening. Family history of breast cancer. Comparison is made to exams dated: 04/06/2020 mammogram, 01/16/2019 mammogram, 01/01/2019 mammogram, 12/27/2017 mammogram, and 12/14/2016 mammogram - [facility]. The tissue of both breasts is heterogeneously dense. This may lower the sensitivity of mammography. Current study was also evaluated with a Computer Aided Detection (CAD) system. There are benign calcifications in the left breast. No significant masses, calcifications, or other findings are seen in either breast. IMPRESSION: BENIGN There is no mammographic evidence of malignancy. A 1 year screening mammogram is recommended. This exam was interpreted at Station ID: [id number]. NOTE: For mammograms, a report in lay terms will be sent to the patient. Approximately 15% of breast malignancies will not be visualized mammographically. In the management of a palpable breast mass, a negative mammogram must not discourage biopsy of a clinically suspicious lesion. Electronically Signed By: Bobby milian/charlotte:01/08/2022 16:18:48 letter sent: Normal Exam ACR BI-RADS Category 2: Benign Finding(s) 3342F
== END ==
PROVIDERS: PCP Student in an Organized Health Care Education/Training Program; Referring Provider Student in an Organized Health Care Education/Training Program; Visit Provider Student in an Organized Health Care Education/Training Program
DX: Z12.31 Encounter for screening mammogram for malignant neoplasm of breast (principal); Z80.3 Family history of malignant neoplasm of breast
CPT/HCPCS: 77063; 77067

== ENCOUNTER → 2022-01-15 08:27 | Outpatient (CLI) | payer OTHER, SELFPAY ==
[2021-05-05 01:30] VITALS: BMI 24.9
[2022-01-15 11:15] LABS: Alanine Aminotransferase 21 IU/L (<35); Albumin Globulin Ratio 1.7 (1.0-2.8); Alkaline Phosphatase 76 U/L (38-126); Aspartate Aminotransferase 25 IU/L (14-36); BUN Creatinine Ratio 21.8 (6-22); Bilirubin Total 0.4 mg/dL (0.2-1.3); Blood Urea Nitrogen 22 mg/dL (7-17); Calcium 9.1 mg/dL (8.4-10.2); Carbon Dioxide 29 mmol/L (22-32); Chloride 106 mmol/L (98-107); Estimated Glomerular Filt Rate 56 mL/min (>60); Globulin 2.3 g/dL (1.7-4.1); Glucose 95 mg/dL (80-110); HEMOLYSIS < 15 (0-50); Magnesium 1.8 mg/dL (1.6-2.3); Potassium 4.3 mmol/L (3.4-5.1); Sodium 139 mmol/L (137-145); Total Protein 6.3 g/dL (6.3-8.2)
== END ==
PROVIDERS: PCP Student in an Organized Health Care Education/Training Program; Referring Provider Specialist; Visit Provider Specialist
DX: I48.0 Paroxysmal atrial fibrillation (principal); E78.2 Mixed hyperlipidemia
CPT/HCPCS: 36415; 80053; 83735

== ENCOUNTER → 2022-04-03 10:01 | Outpatient (CLI) | payer OTHER, SELFPAY ==
[2021-05-05 01:30] VITALS: BMI 24.9
== END ==
PROVIDERS: PCP Student in an Organized Health Care Education/Training Program; Referring Provider Student in an Organized Health Care Education/Training Program; Visit Provider Student in an Organized Health Care Education/Training Program
DX: Z78.0 Asymptomatic menopausal state (principal); Z13.820 Encounter for screening for osteoporosis; Z92.23 Personal history of estrogen therapy; Z90.710 Acquired absence of both cervix and uterus; Z85.828 Personal history of other malignant neoplasm of skin
CPT/HCPCS: 77080

== ENCOUNTER → 2022-04-16 07:52 | Outpatient (CLI) | payer OTHER, SELFPAY ==
[2021-05-05 01:30] VITALS: BMI 24.9
[2022-04-16 09:35] LABS: INR 2.7 (0.9-1.3)
== END ==
PROVIDERS: PCP Student in an Organized Health Care Education/Training Program; Referring Provider Student in an Organized Health Care Education/Training Program; Visit Provider Student in an Organized Health Care Education/Training Program
DX: Z79.01 Long term (current) use of anticoagulants (principal)
CPT/HCPCS: 36415; 85610

== ENCOUNTER → 2022-05-08 14:36 | Outpatient (CLI) | payer OTHER, SELFPAY ==
[2021-05-05 01:30] VITALS: BMI 24.9
--- NOTE | 2022-05-08 | DI.ECHO.S_ITS ---
[facility]---------+ [facility] +---------+ : : [id number] : : : : [id number] : : : : Phone: [phone] Echocardiogram Report + + :Name: KALINA SORIANO Study Date: 05/08/2022 Height: 66.5 in: :[facility] ReadingLocation: Weight: 159 lb : : Gender: Female BSA: 1.8 m2 : :: 1940 Age: 81 yrs BP: 130/76 mmHg: :Reason For Study: DYSPNEA : :Ordering Physician: CELIO, : :PAULINE Performed By: Corine Figueroa : :Referring: PAULINE PICKENS : + + Interpretation Summary Left ventricular systolic function appears normal with an ejection fraction of 55 to 60% with a slight dyssynchronous contraction pattern but no focal wall motion abnormality and appears unchanged from the previous study. Left ventricular size and wall thickness remain normal with probable normal diastolic function and normal filling pressures although tissue Doppler velocities are somewhat lower compared to previous which could be an indication of higher preload. The right ventricle appears normal and unchanged. Right ventricular systolic pressure cannot be estimated but CVP is likely around 3 mmHg, unchanged from the previous study. Both atria are normal and unchanged from the previous exam. There is mild mitral regurgitation that is unchanged from the previous study and no other significant valvular abnormality. The patient was in sinus rhythm with frequent PVCs during the exam. Procedure: A two-dimensional transthoracic echocardiogram with color flow and Doppler was performed. Comparison is made with the echocardiogram of 02/17/2021. The study quality was technically difficult. Most of the acoustic windows were suboptimal, but the best imaging was obtained from the subcostal window. The patient was in sinus rhythm with heart rates between 76-85 bpm during the exam. The patient had frequent PVCs during the exam. Left Ventricle: The left ventricle is normal in size and wall thickness. The estimated left ventricular end diastolic volume is 65 mL compared to the previous 77 ml. Left ventricular systolic function is normal. The ejection fraction is estimated to be 55-60%. There is a borderline dyssynchronous contraction pattern, consistent with a conduction abnormality. There are no focal wall motion abnormalities. This is unchanged compared to the previous study. Diastolic parameters suggest probable normal left ventricular diastolic function and normal filling pressures. This is likely unchanged compared to the previous study. However, tissue Doppler velocities are slightly lower compared to previous. Right Ventricle: The right ventricle is not well visualized. The right ventricle grossly appears normal in size with probable normal systolic function. This is unchanged compared to the previous study. Atria: Both atria are normal in size. This is unchanged compared to the previous study. There is no Doppler evidence for an interatrial shunt. Mitral Valve: There is mild mitral annular calcification. The mitral valve leaflets appear normal. There is no evidence of stenosis, fluttering, or prolapse. There is mild mitral regurgitation. This is unchanged compared to the previous study. Aortic Valve: The aortic valve is trileaflet. The aortic valve opens well. There is no aortic valve stenosis. No aortic regurgitation is present. Tricuspid Valve: The tricuspid valve is not well visualized, but is grossly normal. There is trace tricuspid regurgitation. Pulmonary artery pressures cannot be estimated because of the lack of a measurable TR jet velocity but the IVC suggests a CVP of around 3 mmHg. Pulmonic Valve: The pulmonic valve leaflets are thin and pliable; valve motion is normal. There is no pulmonic valvular regurgitation. Great Vessels: The aortic root is normal size. The dimensions of the ascending aorta are normal. The IVC is of normal diameter and collapses greater than 50% with a sniff. This suggests a low right atrial pressure of 3 mm Hg. Pericardium/ Pleura There is no pericardial effusion. There is no pleural effusion. MMode/2D Measurements & Calculations LVIDd: 5.1 cm LVOT diam: 2.1 cm LVIDs: 3.6 cm Ao root diam: 3.0 cm FS: 29.4 % asc Aorta Diam: 3.1 cm IVSd: 1.1 cm Ao Arch Diam (Prox Trans): 2.4 cm LVPWd: 0.67 cm LV lópez. diameter/BSA (cm/m^2): 2.8 LV sys. diameter/BSA (cm/m^2): 2.0 LA A2 area: 16.6 cm2 RA long axis: 4.3 cm LA A4 area: 15.9 cm2 RA area: 13.6 cm2 LA length (vol): 4.9 cm RA vol: 36.3 ml LA vol: 45.8 ml RA : 19.9 ml/m2 LA vol index: 25.1 ml/m2 IVC diam: 1.3 cm TAPSE: 1.7 cm Doppler Measurements & Calculations Ao V2 max: 108.8 cm/sec LVOT Max Moshe: 67.5 cm/sec Ao V2 mean: 78.8 cm/sec LV V1 max P.8 mmHg Ao max P.7 mmHg LV V1 VTI: 17.2 cm Ao mean P.8 mmHg SANTIAGO(I,D): 2.1 cm2 Ao V2 VTI: 26.7 cm SANTIAGO(V,D): 2.0 cm2 sev ratio: 0.64 SANTIAGO indexed to BSA (cm^2/m^2): 1.2 MV E max moshe: 69.5 cm/sec TR max moshe: 201.1 cm/sec MV A max moshe: 84.9 cm/sec TR max P.2 mmHg MV E/A: 0.82 PA V2 max: 83.1 cm/sec Med Peak E' Moshe: 6.1 cm/sec PA V2 mean: 54.2 cm/sec E/E' med: 11.4 PA mean P.4 mmHg Lat Peak E' Moshe: 6.1 cm/sec PA pr(Accel): 24.2 mmHg E/E' lat: 11.4 E/e' average: 11.4 MV dec time: 0.25 sec SV(LVOT): 56.8 ml Reading Physician:05:06 PM
== END ==
PROVIDERS: PCP Student in an Organized Health Care Education/Training Program; Referring Provider Specialist; Visit Provider Specialist
DX: I49.3 Ventricular premature depolarization (principal); R06.00 Dyspnea, unspecified
CPT/HCPCS: 93306

== ENCOUNTER → 2022-05-10 07:38 | Outpatient (CLI) | payer OTHER, SELFPAY ==
[2021-05-05 01:30] VITALS: BMI 24.9
[2022-05-10 10:36] LABS: INR 2.8 (0.9-1.3); Prothrombin Time 32.5 SECONDS (10.1-12.7)
[2022-05-10 11:14] LABS: Uric Acid 3.6 mg/dL (2.5-6.2)
[2022-05-10 11:28] LABS: Alanine Aminotransferase 22 IU/L (<35); Albumin 4.1 g/dL (3.5-5.0); Albumin Globulin Ratio 1.6 (1.0-2.8); Alkaline Phosphatase 80 U/L (38-126); Aspartate Aminotransferase 25 IU/L (14-36); BUN Creatinine Ratio 20.8 (6-22); Bilirubin Total 0.4 mg/dL (0.2-1.3); Blood Urea Nitrogen 20 mg/dL (7-17); Calcium 9.3 mg/dL (8.4-10.2); Carbon Dioxide 27 mmol/L (22-32); Chloride 104 mmol/L (98-107); Estimated Glomerular Filt Rate 59 mL/min (>60); Globulin 2.5 g/dL (1.7-4.1); Glucose 98 mg/dL (80-110); HEMOLYSIS < 15 (0-50); Magnesium 1.8 mg/dL (1.6-2.3); Potassium 4.1 mmol/L (3.4-5.1); Sodium 141 mmol/L (137-145); Total Protein 6.6 g/dL (6.3-8.2)
[2022-05-10 11:28] LABS: Free T4, Direct Thyroxine 1.04 ng/dL (0.78-2.19)
[2022-05-10 11:42] LABS: Thyroid Stimulating Hormone 2.96 uIU/mL (0.47-4.68)
== END ==
PROVIDERS: PCP Student in an Organized Health Care Education/Training Program; Visit Provider Specialist
DX: I48.0 Paroxysmal atrial fibrillation (principal); E78.2 Mixed hyperlipidemia; M10.9 Gout, unspecified; E03.9 Hypothyroidism, unspecified; Z79.01 Long term (current) use of anticoagulants
CPT/HCPCS: 36415; 80053; 83735; 84439; 84443; 84481; 84550; 85610

== ENCOUNTER → 2022-05-11 07:25 | Outpatient (CLI) | payer OTHER, SELFPAY ==
[2021-05-05 01:30] VITALS: BMI 24.9
[2022-05-13 10:45] LABS: Cholesterol, Total 148 mg/dL (100-199); HDL-Cholesterol 51 mg/dL (>39); HDL-Particle (Total) 35.7 umol/L (>=30.5); LDL Particle 762 nmol/L (<1000); LDL Size 20.2 nm (>20.5); LDL-Cholsterol 73 mg/dL (0-99); LP-IR Score 49 (<=45); Small LDL- Particle 470 nmol/L (<=527); Triglycerides 139 mg/dL (0-149)
== END ==
PROVIDERS: PCP Student in an Organized Health Care Education/Training Program; Referring Provider Specialist; Visit Provider Specialist
DX: E78.2 Mixed hyperlipidemia (principal)
CPT/HCPCS: 36415; 80061; 83704

== ENCOUNTER → 2022-06-06 08:22 | Outpatient (CLI) | payer OTHER, SELFPAY ==
[2021-05-05 01:30] VITALS: BMI 24.9
[2022-06-06 09:01] LABS: COVID19 -Nasal RAPID Negative (Negative)
== END ==
PROVIDERS: PCP Student in an Organized Health Care Education/Training Program; Referring Provider Internal Medicine; Visit Provider Internal Medicine
DX: Z20.822 Contact with and (suspected) exposure to COVID-19 (principal)
CPT/HCPCS: 87635; C9803

== ENCOUNTER → 2022-06-07 08:09 | Outpatient (CLI) | payer OTHER, SELFPAY ==
[2021-05-05 01:30] VITALS: BMI 24.9
--- NOTE | 2022-06-16 10:50 | PM.PFT.1 ---
Pulmonary Function Test Referral & Results Date Patient Seen: 06/07/22 Requesting provider: Farhat Conklin Results: The spirometry demonstrates an FVC of 2.34 L which is 80% of predicted. The FEV1 was measured at 1.41 L which is 65% of predicted. The FEV1/FVC ratio was 60 which is 82% of predicted. Following the administration of bronchodilator there was no notable change. Lung volumes show an SVC of 2.28 L which is 77% of predicted. The diffusing capacity was measured at 13.29 which is 46% of predicted. No hemoglobin value was provided, so no correction for potential anemia could be made, if appropriate. The maximum voluntary ventilation was reduced Interpretation: This study demonstrates moderate obstructive lung disease based on reduction FEV1 although FEV1/FVC ratio is relatively preserved and there really is no significant benefit following bronchodilator, shape of flow volume loop does indeed support the presence of obstructive lung disease There is a minimal reduction in lung volumes which may explain some of the abnormality in the FEV1 above There is a more significant reduction diffusing capacity suggesting moderate to moderately severe disease at the capillary alveolar level Clinical correlation suggested
== END ==
PROVIDERS: PCP Student in an Organized Health Care Education/Training Program; Referring Provider Student in an Organized Health Care Education/Training Program; Visit Provider Student in an Organized Health Care Education/Training Program
DX: R06.09 Other forms of dyspnea (principal); J98.8 Other specified respiratory disorders
CPT/HCPCS: 94060; 94726; 94729

== ENCOUNTER 2022-06-15 21:21 | Emergency (ER) | payer OTHER, SELFPAY ==
[2021-05-05 01:30] VITALS: BMI 24.9
[2022-06-15] VITALS (8 sets, daily range): BP systolic 136–173; BP diastolic 63–76; PULSE 81–87; RESP 20; TEMP 37.3; O2SAT 89–94; BMI 25.8
--- NOTE | 2022-06-15 21:39 | ED_ITS ---
HPI - General Adult General Chief complaint: Abdominal Pain Stated complaint: vomitting Time Seen by Provider: 06/15/22 21:29 Source: patient and EMS Mode of arrival: EMS History of Present Illness HPI narrative: 81-year-old female who received her COVID booster this morning. This evening she was out it some friends when she stated that she started to not feel very well. Was starting to have abdominal pain and vomiting. She is also having shortness of breath. The shortness of breath is not new for her. She is also having diarrhea. This is not new for her as well. The abdominal pain is new. She states she just generally does not feel very well. No fevers. Abdominal pain is generalized. No urinary symptoms. Related Data Home Medications Medication Instructions Recorded Confirmed acetaminophen 500 mg tablet 500 mg PO Q6H PRN Pain, Mild 11/06/18 05/30/22 (Tylenol Extra Strength) cholecalciferol (vitamin D3) 25 50 mcg PO DAILY 01/22/20 05/30/22 mcg (1,000 unit) capsule atorvastatin 40 mg tablet 80 mg PO HS #0 tabs 03/30/20 05/30/22 docusate sodium 100 mg capsule 100 mg PO DAILY 04/25/21 05/30/22 (Col-Rite) potassium chloride 10 mEq 20 meq PO DAILY 09/01/21 05/30/22 tablet,extended release metoprolol succinate 50 mg capsule 75 mg PO BID 09/14/21 05/30/22 sprinkle, ext. release 24 hr fluocinolone 0.01 % scalp oil and ea topical 03/21/22 05/30/22 shower cap ketoconazole 2 % shampoo 1 applic topical 2XW 03/21/22 05/30/22 niacinamide 500 mg tablet 500 mg PO BID 03/21/22 05/30/22 dofetilide 250 mcg capsule 250 mcg PO Q12H 05/23/22 05/30/22 magnesium oxide 400 mg (241.3 mg 400 mg PO BID 05/30/22 05/30/22 magnesium) tablet Previous Rx's Medication Instructions Recorded nitroglycerin 0.4 mg sublingual 0.4 mg sublingual Q5-15M PRN Chest 10/07/20 tablet (Nitrostat) Pain #30 tabs alprazolam 0.5 mg tablet 0.5 mg PO QDAY PRN public speaking 04/26/21 #20 tabs levothyroxine 75 mcg tablet 75 mcg PO DAILY #90 tabs 06/20/21 (Synthroid) warfarin 5 mg tablet See Rx Instructions PO DAILY #90 10/02/21 tabs allopurinol 300 mg tablet 300 mg PO DAILY #90 tabs 03/16/22 triazolam 0.25 mg tablet (Halcion) 0.25 mg PO BEDTIME PRN Insomnia 04/16/22 #20 tabs warfarin 3 mg tablet See Rx Instructions .Route 06/05/22 .COMPLEX #50 tabs Allergies Allergy/AdvReac Type Severity Reaction Status Date / Time codeine Allergy Severe ANAPHYLAXIS Verified 06/15/22 21:31 NSAIDS (Non-Steroidal AdvReac Severe on Warfarin Verified 06/15/22 21:31 Anti-Inflamma [NSAIDS (NON-STEROIDAL ANTI-INFLAMMA] oxycodone [OXYCODONE] AdvReac Intermediate NAUSEA, Verified 06/15/22 21:31 HALLUCINATIONS, DIZZINESS hydrocodone AdvReac Mild N/V Verified 06/15/22 21:31 pravastatin AdvReac Mild MYALGIA Verified 06/15/22 21:31 simvastatin AdvReac Mild MYALGIA Verified 06/15/22 21:31 Review of Systems Review of Systems ROS Unobtainable: All systems reviewed & are unremarkable except as noted in HPI and below Patient History Medical History Anticoagulated on warfarin ASHD (arteriosclerotic heart disease) Atrial fibrillation CAD (coronary artery disease) (10/2006) Chronic instability of right knee Colon polyps (1998) 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, right (1998) Diastasis recti Fat necrosis of abdominal wall GERD (gastroesophageal reflux disease) Gout (10/2011) History of renal calculi Hypertension Hypothyroidism Skin cancer Stenosis of carotid artery Stress incontinence Tachy-marcus syndrome Vaginal atrophy Surgical History History of appendectomy (1963) History of arthroscopy of left knee (01/05/15) History of bilateral carpal tunnel release (1988) History of cardiac catheterization (10/2006) History of carpal tunnel release (1988) History of section (1963) History of cholecystectomy (1972) History of colonoscopy (03/04/06) History of colonoscopy with polypectomy (1998) History of esophagogastroduodenoscopy (EGD) (06/06/06) History of eye surgery (1998) History of hysterectomy (1982) History of left cataract surgery (1989) History of left knee surgery (08/2010) History of Zayra fundoplication History of permanent cardiac pacemaker placement History of right knee surgery (2000) Status post left partial knee replacement (10/12/15) Status post primary angioplasty with coronary stent (09/2011) Status post right foot surgery (1993) Family History Mother Brain tumor Cancer Father Heart disease [place] (myocardial infarction) Sister Lung cancer Stroke MS (multiple sclerosis) Breast cancer Grandmother Diabetes mellitus Social History household members: none Smoking Status: Never smoker second hand exposure: No alcohol intake: current substance use type: does not use Smoking Status: Never smoker alcohol intake frequency: a few times a month Substance Use Type: does not use Exam Initial Vital Signs Initial Vital Signs: Vital Signs Pulse Rate 85 06/15/22 21:27 Pulse Oximetry 93 06/15/22 21:27 HENMT Head: normal to inspection and normocephalic Resp Effort & Inspection: normal respiratory effort and not tachypneic Auscultation: clear to auscultation bilaterally Cardio Rate: regular rate and bradycardic GI Inspection: normal to inspection Palpation: soft, No firm, No guarding and tender (Generalized) Skin General: no rashes or lesions noted Neuro General: patient alert, patient awake, patient oriented x3 and moves all extremities Extrem General: normal to inspection and capillary refill normal Psych Appearance: grossly normal Course Orders Ordered: ED Orders 06/15/22 21:41 CT abdomen pelvis w con Stat XR chest 1V Stat 06/15/22 21:42 EKG-12 Lead Stat 06/15/22 21:45 Complete Blood Count AUTO DIFF Stat Comprehensive Metabolic Panel Stat Lactate (Lactic Acid) Stat Lipase Stat NT-proBNP (BNP-Adult 18+) Stat Discontinued Medications Acetaminophen (Acetaminophen 325 Mg Tablet) 650 mg PO NOW ONE Stop: 06/15/22 21:30 Last Admin: 06/15/22 22:14 Dose: 650 mg Documented By: RL Sodium Chloride (Normal Saline 0.9%) 1,000 mls @ 500 mls/hr IV BOLUS ONE Stop: 06/15/22 23:39 Last Infusion: 06/15/22 23:44 Dose: 0 mls/hr Documented By: Admin: 06/15/22 21:46 Dose: 500 mls/hr Documented By: GRANT Ondansetron HCl (Ondansetron 4 Mg Odt) 4 mg PO NOW ONE Stop: 06/15/22 21:30 Last Admin: 06/15/22 21:42 Dose: Not Given Documented By: GRANT Ondansetron HCl (Ondansetron 4 Mg/2 Ml Inj) 4 mg IV NOW ONE Stop: 06/15/22 21:41 Last Admin: 06/15/22 21:46 Dose: 4 mg Documented By: GRANT Ondansetron HCl (Ondansetron 4 Mg Odt Prepack) 1 bottle MISC SEEINSTR ONE Stop: 06/15/22 23:38 Last Admin: 06/15/22 23:43 Dose: 1 bottle Documented By: GRANT Vital Signs Vital signs: Vital Signs - 8 hr 06/15/22 21:31 06/15/22 21:27 06/15/22 21:30 Temperature 99.2 F Pulse Rate 87 85 84 Respiratory Rate 20 Blood Pressure 173/76 H Pulse Oximetry 92 93 89 L Oxygen Delivery Method Room Air 06/15/22 21:49 06/15/22 21:49 06/15/22 22:00 Temperature Pulse Rate 84 Respiratory Rate Blood Pressure 160/71 H 158/70 H Pulse Oximetry 94 Oxygen Delivery Method 06/15/22 22:00 06/15/22 22:40 06/15/22 22:41 Temperature Pulse Rate 82 87 87 Respiratory Rate Blood Pressure Pulse Oximetry 94 94 93 Oxygen Delivery Method 06/15/22 22:41 06/15/22 23:00 06/15/22 23:00 Temperature Pulse Rate 81 Respiratory Rate Blood Pressure 150/66 H 136/63 Pulse Oximetry 93 Oxygen Delivery Method Medical Decision Making Lab Data Lab results reviewed: Yes I reviewed the patient's lab results. Result diagrams: 06/15/22 21:45 06/15/22 21:45 Labs: Lab Results 06/15/22 06/15/22 06/15/22 Range/Units 21:45 21:45 21:45 WBC 7.8 (4.5-11.0) X10^3/uL RBC 4.27 (4.0-5.2) X10^6/uL Hgb 12.5 (12.0-16.0) g/dL Hct 37.3 (36-46) % MCV 87.4 (80-100) fL MCH 29.3 (26-34) PG MCHC 33.5 (30-36) % RDW 15.4 H (11.6-14.8) % Plt Count 104 L (150-400) X10^3/uL Neut % (Auto) 89.5 H (50-75) % Lymph % (Auto) 3.2 L (25-40) % [place] % (Auto) 6.0 (3-14) % Eos % (Auto) 0.8 L (2-4) % Baso % (Auto) 0.5 (0-2) % Neut # (Auto) 7000 (1115-6653) /uL Lymph # (Auto) 200 L (0166-6253) /uL [place] # (Auto) 500 (0-900) /uL Eos # (Auto) 100 (0-450) /uL Baso # (Auto) 0 (0-100) /uL Sodium 139 (137-145) mmol/L Potassium 3.7 (3.4-5.1) mmol/L Chloride 103 (98-107) mmol/L Carbon Dioxide 25 (22-32) mmol/L BUN 24 H (7-17) mg/dL Creatinine 0.88 (0.52-1.04) mg/dL Estimated GFR > 60 (>60) mL/min BUN/Creatinine Ratio 27.3 H (6-22) Glucose 177 H (80-110) mg/dL Lactate 1.4 (0.7-2.1) mmol/L Calcium 9.1 (8.4-10.2) mg/dL Total Bilirubin 0.5 (0.2-1.3) mg/dL AST 24 (14-36) IU/L ALT 20 (<35) IU/L Alkaline Phosphatase 107 (38-126) U/L NT-Pro-B Natriuret Pep 304 (<450) pg/mL Total Protein 7.1 (6.3-8.2) g/dL Albumin 4.2 (3.5-5.0) g/dL Globulin 2.9 (1.7-4.1) g/dL Albumin/Globulin Ratio 1.4 (1.0-2.8) Lipase 91 (23-300) U/L Imaging Data CT scan - abdomen/pelvis: Radiologist's Impression: [address] [address] [address] Scan Report Signed Patient: Bree Aaron MR#: [id number] : 1940 Acct:[id number] Age/Sex: 81 / F Date of Service: 06/15/22 Loc: ED Accession Number: [id number] ?? Procedure: CT abdomen pelvis w con Ordering Provider: Lg Lynch D.O. PROCEDURE:? CT ABDOMEN PELVIS W CON ? INDICATIONS:? Generalized abdominal pain ? TECHNIQUE:? After the administration of intravenous contrast, axial sections acquired from the lung bases to the pubic symphysis.? Coronal and sagittal reformats were performed.? For radiation dose reduction, the following was used:? automated exposure control, adjustment of mA and/or kV according to patient size.? ? COMPARISON:? None. ? FINDINGS:? Image quality:? Excellent.? ? Lung bases:? Scarring/atelectasis at bilateral lung bases are seen.? 8 mm down to low-density is seen in posterior medial right lung base series 3, image 13. Heart:? Heart size is enlarged, no pericardial effusion.? Pacemaker leads are in the region of right atrium and right ventricle.? Small hiatal hernia is seen. ? ABDOMEN: Liver:? Liver is normal in size.? Ill-defined hypodense area involving inferior aspect of anterior right hepatic lobe is seen and measures 8.5 Hounsfield unit in density series 2, image 30. Gallbladder:? Gallbladder is within normal limits.? Biliary ducts:? Unremarkable.? ? Pancreas:? Unremarkable.? ? Spleen:? Unremarkable.? ? Adrenal Glands:? Unremarkable.? ? Kidneys and Ureters:? Small bilateral renal cortical cysts are seen.? No renal stones or hydronephrosis.? No hydroureter. ? Stomach and Bowel:? There is no bowel obstruction.? No gross gastric or small bowel wall thickening.? No mesenteric fat stranding.? No colonic wall thickening.? No abscess collection. Peritoneum:? No abnormal intraperitoneal fluid.? No free air.? ? Ventral Wall: ? No hernias.? Abdominal Nodes:? No retroperitoneal or mesenteric adenopathy by size criteria.? Vessels:? Aorta and inferior vena cava are normal in size.? Moderate atherosclerotic calcifications are noted throughout abdominal aorta. ? PELVIS: Pelvic Organs:? Unremarkable.? ? Bladder:? Unremarkable.? ? Pelvic Nodes: No enlarged lymph nodes.? Miscellaneous: No hernias are seen. ? ? ? Bones:? No suspicious bony lesion.? No acute vertebral body compression fracture or spondylolisthesis. ? ? IMPRESSION:? 1. No acute inflammatory process is seen in abdomen or pelvis.? No bowel obstruction.? No free fluid or free air. ? 2. Possible hepatic cyst in inferior aspect of right hepatic lobe as above.? No ? 3. Bilateral renal cysts.? No obstructing renal stones or hydronephrosis.? No hydroureter.? Normal appearing urinary bladder. ? 4. Bibasilar scarring/atelectasis.? Incidentally noted of 8 mm nodular density in posterior medial right lung base.? Follow-up CT chest study as an outpatient can be done for further evaluation of bilateral lung sanders. ? ? Dictated by: Eldon Huang M.D. on 06/15/2022 at 22:53 ? ? Approved by: Eldon Huang M.D. on 06/15/2022 at 23:02?? Chest x-ray: Radiologist's Impression: [address] [address] XRay Report Signed Patient: Bree Aaron MR#: [id number] : 1940 Acct:[id number] Age/Sex: 81 / F Date of Service: 06/15/22 Loc: ED Accession Number: [id number] ?? Procedure: XR chest 1V Ordering Provider: Lg Lynch D.O. PROCEDURE:? XR CHEST 1V ? INDICATIONS:? Shortness of breath ? TECHNIQUE:? One view of the chest was acquired.? ? COMPARISON:? [facility], [facility], XR CHEST 1V, 09/01/2021, 15:36. ? FINDINGS:? ? Surgical changes and devices:? Left chest wall pacemaker leads are in the region of right atrium and right ventricle. ? Lungs and pleura:? Lungs are clear.? No pleural effusions or pneumothorax.? ? Mediastinum:? Mediastinal contours appear normal.? Heart size is normal.? ? Bones and chest wall:? No suspicious bony lesions.? Overlying soft tissues appear unremarkable.? ? IMPRESSION:? No acute cardiopulmonary pathology. ? ? Dictated by: Eldon Huang M.D. on 06/15/2022 at 22:52 ? ? Approved by: Eldon Huang M.D. on 06/15/2022 at 22:53? ECG Data Attestation: I personally reviewed and interpreted this ECG as follows: Interpretation: Sinus rhythm Ventricular rate 83 Normal axis Normal QRS Normal QTC No ST T wave changes MDM Narrative Medical decision making narrative: Workup here in the emergency department is unremarkable. Labs unremarkable. Vital signs unremarkable. CT scan of the abdomen shows no acute pathology. Chest x-ray is unremarkable. I suspect that her symptoms are the result of her COVID shot that she had this morning. There is no indication for the need of any antibiotics. Informed patient that she could take Tylenol/ibuprofen for fevers or discomfort. She was given return precautions. She expressed understanding and agreement. Discharge Plan Departure Patient Disposition: Home Clinical Impression: Nausea, Abdominal pain, Chills Instructions: DI for Abdominal Pain-Adult Activity Restrictions/Additional Instructions: Continue to take all of your medications as directed. You can take Tylenol for any fevers or discomfort. Contact your primary provider for a follow-up. Return to the emergency department for any new or worsening symptoms. Prescriptions: No Action acetaminophen [Tylenol Extra Strength] 500 mg tablet 500 mg PO Q6H PRN (Reason: Pain, Mild) cholecalciferol (vitamin D3) 25 mcg (1,000 unit) capsule 50 mcg PO DAILY atorvastatin 40 mg tablet 80 mg PO HS Qty: 0 nitroglycerin [Nitrostat] 0.4 mg tablet, sublingual 0.4 mg Sublingual Q5-15M MDD 3 tabs PRN (Reason: Chest Pain) Qty: 30 11RF alprazolam 0.5 mg tablet 0.5 mg PO QDAY PRN (Reason: public speaking) Qty: 20 0RF levothyroxine [Synthroid] 75 mcg tablet 75 mcg PO DAILY Qty: 90 3RF warfarin 5 mg tablet See Rx Instructions PO DAILY Qty: 90 3RF Rx Instructions: 5mg Saturday, Saturday, Saturday and 3mg all other days; or as directed. allopurinol 300 mg tablet 300 mg PO DAILY Qty: 90 1RF triazolam [Halcion] 0.25 mg tablet 0.25 mg PO BEDTIME PRN (Reason: Insomnia) Qty: 20 4RF dofetilide 250 mcg capsule 250 mcg PO Q12H Rx Instructions: take 1 cap 250 mcg warfarin 3 mg tablet See Rx Instructions .ROUTE .COMPLEX Qty: 50 1RF Dose Instruction: take 1 tablet by mouth once daily or as directed Rx Instructions: 5 mg Saturday, Saturday, Saturday and 3 mg all other days or as directed. docusate sodium [Col-Rite] 100 mg capsule 100 mg PO DAILY fluocinolone and shower cap 0.01 % oil topical ketoconazole 2 % shampoo 1 applic topical 2XW niacinamide 500 mg tablet 500 mg PO BID metoprolol succinate 50 mg capsule,sprinkle,ER 24hr 75 mg PO BID potassium chloride 10 mEq tablet extended release 20 meq PO DAILY magnesium oxide 400 mg (241.3 mg magnesium) tablet 400 mg PO BID Label Comments: Takes 1 tab AM. 2 tab PM. Referrals: Farhat Conklin MD [Primary Care Provider] - Visit Report Forms: Patient Portal/API
--- NOTE | 2022-06-15 21:41 | DI.RAD.S_ITS ---
PROCEDURE: XR CHEST 1V INDICATIONS: Shortness of breath TECHNIQUE: One view of the chest was acquired. COMPARISON: [facility], , XR CHEST 1V, 09/01/2021, 15:36. FINDINGS: Surgical changes and devices: Left chest wall pacemaker leads are in the region of right atrium and right ventricle. Lungs and pleura: Lungs are clear. No pleural effusions or pneumothorax. Mediastinum: Mediastinal contours appear normal. Heart size is normal. Bones and chest wall: No suspicious bony lesions. Overlying soft tissues appear unremarkable. IMPRESSION: No acute cardiopulmonary pathology. Dictated by: Eldon Huang M.D. on 06/15/2022 at 22:52 Approved by: Eldon Huang M.D. on 06/15/2022 at 22:53
--- NOTE | 2022-06-15 21:41 | DI.CT.S_ITS ---
PROCEDURE: CT ABDOMEN PELVIS W CON INDICATIONS: Generalized abdominal pain TECHNIQUE: After the administration of intravenous contrast, axial sections acquired from the lung bases to the pubic symphysis. Coronal and sagittal reformats were performed. For radiation dose reduction, the following was used: automated exposure control, adjustment of mA and/or kV according to patient size. COMPARISON: None. FINDINGS: Image quality: Excellent. Lung bases: Scarring/atelectasis at bilateral lung bases are seen. 8 mm down to low-density is seen in posterior medial right lung base series 3, image 13. Heart: Heart size is enlarged, no pericardial effusion. Pacemaker leads are in the region of right atrium and right ventricle. Small hiatal hernia is seen. ABDOMEN: Liver: Liver is normal in size. Ill-defined hypodense area involving inferior aspect of anterior right hepatic lobe is seen and measures 8.5 Hounsfield unit in density series 2, image 30. Gallbladder: Gallbladder is within normal limits. Biliary ducts: Unremarkable. Pancreas: Unremarkable. Spleen: Unremarkable. Adrenal Glands: Unremarkable. Kidneys and Ureters: Small bilateral renal cortical cysts are seen. No renal stones or hydronephrosis. No hydroureter. Stomach and Bowel: There is no bowel obstruction. No gross gastric or small bowel wall thickening. No mesenteric fat stranding. No colonic wall thickening. No abscess collection. Peritoneum: No abnormal intraperitoneal fluid. No free air. Ventral Wall: No hernias. Abdominal Nodes: No retroperitoneal or mesenteric adenopathy by size criteria. Vessels: Aorta and inferior vena cava are normal in size. Moderate atherosclerotic calcifications are noted throughout abdominal aorta. PELVIS: Pelvic Organs: Unremarkable. Bladder: Unremarkable. Pelvic Nodes: No enlarged lymph nodes. Miscellaneous: No hernias are seen. Bones: No suspicious bony lesion. No acute vertebral body compression fracture or spondylolisthesis. IMPRESSION: 1. No acute inflammatory process is seen in abdomen or pelvis. No bowel obstruction. No free fluid or free air. 2. Possible hepatic cyst in inferior aspect of right hepatic lobe as above. No 3. Bilateral renal cysts. No obstructing renal stones or hydronephrosis. No hydroureter. Normal appearing urinary bladder. 4. Bibasilar scarring/atelectasis. Incidentally noted of 8 mm nodular density in posterior medial right lung base. Follow-up CT chest study as an outpatient can be done for further evaluation of bilateral lung sanders. Dictated by: Eldon Huang M.D. on 06/15/2022 at 22:53 Approved by: Eldon Huang M.D. on 06/15/2022 at 23:02
[2022-06-15] MEDS: ONDANSETRON 4 MG/2 ML INJ IV (21:46)
[2022-06-15] MEDS: SODIUM CHLORIDE 0.9% 1,000 ML 500 ML IV (21:46)
[2022-06-15 21:48] LABS: Add Manual Diff / Slide Review NO; Basophils Absolute Auto 0 /uL (0-100); Basophils Percent Auto 0.5 % (0-2); Eosinophils Absolute Auto 100 /uL (0-450); Eosinophils Percent Auto 0.8 % (2-4); Hematocrit 37.3 % (36-46); Hemoglobin 12.5 g/dL (12.0-16.0); Lymphocytes Absolute Auto 200 /uL (1100-4500); Lymphocytes Percent Auto 3.2 % (25-40); Mean Corpuscular HGB Conc 33.5 % (30-36); Mean Corpuscular Hemoglobin 29.3 PG (26-34); Mean Corpuscular Volume 87.4 fL (80-100); Monocytes Absolute Auto 500 /uL (0-900); Neutrophils Absolute Auto 7000 /uL (1500-7000); Neutrophils Percent Auto 89.5 % (50-75); Platelet Count 104 X10^3/uL (150-400); Red Blood Cell Count 4.27 X10^6/uL (4.0-5.2); Red Cell Distribution Width 15.4 % (11.6-14.8); White Blood Cell Count 7.8 X10^3/uL (4.5-11.0)
[2022-06-15 21:54] LABS: Lactate (Lactic Acid) 1.4 mmol/L (0.7-2.1)
[2022-06-15 21:56] LABS: Alanine Aminotransferase 20 IU/L (<35); Albumin 4.2 g/dL (3.5-5.0); Albumin Globulin Ratio 1.4 (1.0-2.8); Alkaline Phosphatase 107 U/L (38-126); Aspartate Aminotransferase 24 IU/L (14-36); BUN Creatinine Ratio 27.3 (6-22); Bilirubin Total 0.5 mg/dL (0.2-1.3); Blood Urea Nitrogen 24 mg/dL (7-17); Calcium 9.1 mg/dL (8.4-10.2); Carbon Dioxide 25 mmol/L (22-32); Chloride 103 mmol/L (98-107); Estimated Glomerular Filt Rate > 60 mL/min (>60); Globulin 2.9 g/dL (1.7-4.1); Glucose 177 mg/dL (80-110); HEMOLYSIS < 15 (0-50); Lipase 91 U/L (23-300); Potassium 3.7 mmol/L (3.4-5.1); Sodium 139 mmol/L (137-145); Total Protein 7.1 g/dL (6.3-8.2)
[2022-06-15 22:04] LABS: NT-proBNP (BNP-Adult 18+) 304 pg/mL (<450)
[2022-06-15] MEDS: ACETAMINOPHEN 325 MG TABLET 650 MG PO (22:14)
[2022-06-15] MEDS: ONDANSETRON 4 MG ODT PREPACK 1 BOTTLE MISC (23:43)
== END 2022-06-15 23:45 | disposition home or self-care (01) ==
PROVIDERS: Emergency Provider Emergency Medicine; PCP Student in an Organized Health Care Education/Training Program
DX: R10.84 Generalized abdominal pain (principal); R11.2 Nausea with vomiting, unspecified; R68.83 Chills (without fever); R06.02 Shortness of breath; Z79.01 Long term (current) use of anticoagulants
CPT/HCPCS: 36415; 71045; 74177; 80053; 83605; 83690; 83880; 85025; 93005; 93010; 96361; 96374; 99284; J2405; Q9967

== ENCOUNTER → 2022-06-26 13:19 | Outpatient (CLI) | payer OTHER, SELFPAY ==
[2021-05-05 01:30] VITALS: BMI 24.9
--- NOTE | 2022-06-26 13:20 | DI.CT.S_ITS ---
PROCEDURE: CT CHEST HIGH RESOLUTION INDICATIONS: Restrictive lung disease TECHNIQUE: Noncontrast 1.0 and 5.0 mm thick contiguous axial sections from the pulmonary apex to the posterior costophrenic angles, with 7 mm thick coronal and sagittal MIP reformats. 1 mm thick dynamic expiratory images acquired through the upper, mid, and lower lungs. 1.0 mm thick axial sections acquired from the austen to the posterior costophrenic angles in the prone end-inspiration position. For radiation dose reduction, the following was used: automated exposure control, adjustment of mA and/or kV according to patient size. COMPARISON: None. FINDINGS: Image quality: Excellent. Lungs: No high-grade fibrotic changes. Mild basal atelectasis and scarring is present. There might be very early peripheral reticulation. Pulmonary nodules are present, in particular with the area of nodular suspected scarring in medial portion of the right base, measuring about 7 millimeters in thickness. There is also a 5-6 millimeter nodule adjacent to the left hilum. Tubular nodularity, possibly related to a bronchus is seen in the lingula. On prone images, the basal findings mostly persist. On dynamic images, there is no convincing air trapping. Pleura: No pleural effusions or pneumothorax. Mediastinum: Possible small hiatal hernia and fundoplication. No pathologic adenopathy by size criteria. Left chest wall pulse generator in place with electrode leads. There are coronary calcifications. Bones and chest wall: Unremarkable. Degenerative changes are present. No acute or suspicious osseous abnormality. Abdomen: Partially visualized suspected liver cyst. There liver suspected granulomas and possible splenic artery calcified aneurysms. The abdomen is not well assessed on noncontrast imaging. IMPRESSION: No specific findings for fibrotic lung disease is identified. [id number] degree of scarring and atelectasis is seen at the bases. No convincing honeycombing. There might be very early reticulation. No convincing air trapping or ground-glass opacities to suggest non UIP related restrictive lung diseases. ATS 2018 HRCT classification: Indeterminate for UIP. Pulmonary nodules and nodular regions are described above. Consider follow-up in 3-6 months to ensure stability. Other findings as above. Dictated by: Saroj Granado M.D. on 06/26/2022 at 17:21 Approved by: Saroj Granado M.D. on 06/26/2022 at 17:30
== END ==
PROVIDERS: PCP Student in an Organized Health Care Education/Training Program; Referring Provider Student in an Organized Health Care Education/Training Program; Visit Provider Student in an Organized Health Care Education/Training Program
DX: J98.4 Other disorders of lung (principal); J98.11 Atelectasis
CPT/HCPCS: 71250

== ENCOUNTER → 2022-07-03 10:27 | Outpatient (CLI) | payer OTHER, SELFPAY ==
[2021-05-05 01:30] VITALS: BMI 24.9
[2022-07-03 16:33] LABS: INR 2.8 (0.9-1.3); Prothrombin Time 32.2 SECONDS (10.1-12.7)
== END ==
PROVIDERS: PCP Student in an Organized Health Care Education/Training Program; Referring Provider Student in an Organized Health Care Education/Training Program; Visit Provider Student in an Organized Health Care Education/Training Program
DX: Z79.01 Long term (current) use of anticoagulants (principal)
CPT/HCPCS: 36415; 85610

== ENCOUNTER → 2022-08-07 08:23 | Outpatient (CLI) | payer OTHER, SELFPAY ==
[2021-05-05 01:30] VITALS: BMI 24.9
[2022-08-07 09:42] LABS: INR 3.6 (0.9-1.3); Prothrombin Time 41.6 SECONDS (10.1-12.7)
== END ==
PROVIDERS: PCP Student in an Organized Health Care Education/Training Program; Referring Provider Student in an Organized Health Care Education/Training Program; Visit Provider Student in an Organized Health Care Education/Training Program
DX: I48.0 Paroxysmal atrial fibrillation (principal); Z79.01 Long term (current) use of anticoagulants
CPT/HCPCS: 36415; 85610

== ENCOUNTER → 2022-08-15 09:02 | Outpatient (CLI) | payer OTHER, SELFPAY ==
[2021-05-05 01:30] VITALS: BMI 24.9
[2022-08-15 10:52] LABS: Prothrombin Time 43.6 SECONDS (10.1-12.7)
[2022-08-15 10:54] LABS: INR 3.7 (0.9-1.3)
== END ==
PROVIDERS: PCP Student in an Organized Health Care Education/Training Program; Referring Provider Student in an Organized Health Care Education/Training Program; Visit Provider Student in an Organized Health Care Education/Training Program
DX: I48.0 Paroxysmal atrial fibrillation (principal); Z79.01 Long term (current) use of anticoagulants
CPT/HCPCS: 36415; 85610

== ENCOUNTER → 2022-09-07 08:30 | Outpatient (CLI) | payer OTHER, SELFPAY ==
[2021-05-05 01:30] VITALS: BMI 24.9
[2022-09-07 09:18] LABS: INR 3.1 (0.9-1.3); Prothrombin Time 36.4 SECONDS (10.1-12.7)
== END ==
PROVIDERS: PCP Student in an Organized Health Care Education/Training Program; Referring Provider Student in an Organized Health Care Education/Training Program; Visit Provider Student in an Organized Health Care Education/Training Program
DX: Z79.01 Long term (current) use of anticoagulants (principal); I48.0 Paroxysmal atrial fibrillation; Z51.81 Encounter for therapeutic drug level monitoring
CPT/HCPCS: 36415; 85610

== ENCOUNTER → 2022-09-24 07:40 | Outpatient (CLI) | payer OTHER, SELFPAY ==
[2022-09-10 13:29] VITALS: BMI 24.9
[2022-09-24 08:27] LABS: Add Manual Diff / Slide Review NO; Basophils Absolute Auto 0 /uL (0-100); Basophils Percent Auto 0.8 % (0-2); Eosinophils Absolute Auto 200 /uL (0-450); Hematocrit 39.2 % (36-46); Lymphocytes Absolute Auto 800 /uL (1100-4500); Lymphocytes Percent Auto 18.4 % (25-40); Mean Corpuscular HGB Conc 33.1 % (30-36); Mean Corpuscular Hemoglobin 29.2 PG (26-34); Mean Corpuscular Volume 88.3 fL (80-100); Monocytes Absolute Auto 300 /uL (0-900); Monocytes Percent Auto 6.3 % (3-14); Neutrophils Absolute Auto 3100 /uL (1500-7000); Neutrophils Percent Auto 70.5 % (50-75); Platelet Count 126 X10^3/uL (150-400); Red Blood Cell Count 4.43 X10^6/uL (4.0-5.2); Red Cell Distribution Width 15.4 % (11.6-14.8); White Blood Cell Count 4.4 X10^3/uL (4.5-11.0)
[2022-09-24 08:35] LABS: INR 3.2 (0.9-1.3); Prothrombin Time 37.5 SECONDS (10.1-12.7)
[2022-09-24 08:44] LABS: Alanine Aminotransferase 29 IU/L (<35); Albumin 4.1 g/dL (3.5-5.0); Albumin Globulin Ratio 1.5 (1.0-2.8); Alkaline Phosphatase 92 U/L (38-126); Aspartate Aminotransferase 30 IU/L (14-36); BUN Creatinine Ratio 25.3 (6-22); Bilirubin Total 0.4 mg/dL (0.2-1.3); Blood Urea Nitrogen 23 mg/dL (7-17); Calcium 9.4 mg/dL (8.4-10.2); Carbon Dioxide 29 mmol/L (22-32); Chloride 105 mmol/L (98-107); Cholesterol 156 mg/dL (140-199); Estimated Glomerular Filt Rate > 60 mL/min (>60); Globulin 2.8 g/dL (1.7-4.1); Glucose 104 mg/dL (80-110); HDL Cholesterol 51 mg/dL (40-60); HEMOLYSIS < 15 (0-50); LDL Cholesterol Calculated 79 mg/dL (<100); Magnesium 1.9 mg/dL (1.6-2.3); Potassium 4.3 mmol/L (3.4-5.1); Sodium 140 mmol/L (137-145); Total Protein 6.9 g/dL (6.3-8.2); Triglycerides 128 mg/dL (35-150)
[2022-09-24 09:13] LABS: Thyroid Stimulating Hormone 3.58 uIU/mL (0.47-4.68)
== END ==
PROVIDERS: PCP Student in an Organized Health Care Education/Training Program; Referring Provider Specialist; Visit Provider Specialist
DX: I48.0 Paroxysmal atrial fibrillation (principal); E78.2 Mixed hyperlipidemia
CPT/HCPCS: 36415; 80053; 80061; 83735; 84443; 85025; 85610

== ENCOUNTER → 2023-01-02 06:40 | Outpatient (CLI) | payer OTHER, SELFPAY ==
[2022-09-10 13:29] VITALS: BMI 24.9
--- NOTE | 2023-01-02 | DI.US.S_ITS ---
PROCEDURE: US CAROTID DOPPLER BI INDICATIONS: signs involving the circulatory system TECHNIQUE: Color and pulse Doppler interrogation was performed of both carotid systems, with image documentation and velocity measurements. COMPARISON: [facility] [place], [place], US CAROTID DOPPLER BI, 04/06/2020, 10:58. FINDINGS: Stenosis calculations are based on SRU (Society of Radiologists in Ultrasound) criteria. Right side: Brachial blood pressure: 143/68 mm Hg. Common carotid artery peak systolic velocity: 88 cm/sec. Internal carotid artery peak systolic velocity: 103 cm/sec. Internal carotid artery end diastolic velocity: 25 cm/sec. External carotid artery peak systolic velocity: 85 cm/sec. ICA/CCA peak systolic ratio: 1.2. Lopes scale imaging description: Atheromatous plaque is present at the carotid bifurcation. Percent internal carotid artery stenosis: Less than 50%. Vertebral artery: Flow direction is antegrade. Left side: Brachial blood pressure: 117/65 mm Hg. Common carotid artery peak systolic velocity: 86 cm/sec. Internal carotid artery peak systolic velocity: 121 cm/sec. Internal carotid artery end diastolic velocity: 22 cm/sec. External carotid artery peak systolic velocity: 101 cm/sec. ICA/CCA peak systolic ratio: 1.4. Lopes scale imaging description: Atheromatous plaque is present at the carotid bifurcation. Percent internal carotid artery stenosis: Less than 50%. Vertebral artery: Flow direction is antegrade. IMPRESSION: 1. Less than 50% stenosis of the internal carotid arteries. 2. Differential systolic blood pressures within the bilateral extremities as above. The significance of this finding is unclear; however central stenosis may be present. If further characterization is warranted, ultrasound of this region or CTA of the central aspect of the upper extremities could be used. Dictated by: Demetra Engle M.D. on 01/02/2023 at 9:08 Approved by: Demetra Engle M.D. on 01/02/2023 at 9:11
[2023-01-02 09:51] LABS: Alanine Aminotransferase 23 IU/L (<35); Albumin 3.8 g/dL (3.5-5.0); Albumin Globulin Ratio 1.5 (1.0-2.8); Alkaline Phosphatase 88 U/L (38-126); Aspartate Aminotransferase 25 IU/L (14-36); BUN Creatinine Ratio 20.4 (6-22); Bilirubin Total 0.7 mg/dL (0.2-1.3); Blood Urea Nitrogen 19 mg/dL (7-17); Calcium 9.3 mg/dL (8.4-10.2); Carbon Dioxide 30 mmol/L (22-32); Chloride 103 mmol/L (98-107); Cholesterol 134 mg/dL (140-199); Estimated Glomerular Filt Rate > 60 mL/min (>60); Globulin 2.5 g/dL (1.7-4.1); Glucose 98 mg/dL (80-110); HDL Cholesterol 47 mg/dL (40-60); HEMOLYSIS < 15 (0-50); LDL Cholesterol Calculated 55 mg/dL (<100); Potassium 4.3 mmol/L (3.4-5.1); Sodium 140 mmol/L (137-145); Total Protein 6.3 g/dL (6.3-8.2); Triglycerides 159 mg/dL (35-150)
[2023-01-02 10:25] LABS: Thyroid Stimulating Hormone 2.46 uIU/mL (0.47-4.68)
== END ==
PROVIDERS: PCP Student in an Organized Health Care Education/Training Program; Referring Provider Specialist; Visit Provider Specialist
DX: I65.23 Occlusion and stenosis of bilateral carotid arteries (principal); I48.0 Paroxysmal atrial fibrillation; E78.2 Mixed hyperlipidemia; R09.89 Other specified symptoms and signs involving the circulatory and respiratory systems
CPT/HCPCS: 36415; 80053; 80061; 83735; 84443; 93880

== ENCOUNTER → 2023-02-08 09:24 | Outpatient (CLI) | payer OTHER, SELFPAY ==
[2022-09-10 13:29] VITALS: BMI 24.9
[2023-02-08 11:23] LABS: Prothrombin Time 57.4 SECONDS (10.1-12.7)
[2023-02-08 11:28] LABS: INR 4.9 (0.9-1.3)
== END ==
PROVIDERS: PCP Pediatrics; Referring Provider Pediatrics; Visit Provider Pediatrics
DX: I82.409 Acute embolism and thrombosis of unspecified deep veins of unspecified lower extremity (principal)
CPT/HCPCS: 36415; 85610

== ENCOUNTER → 2023-02-18 07:49 | Outpatient (CLI) | payer OTHER, SELFPAY ==
[2022-09-10 13:29] VITALS: BMI 24.9
--- NOTE | 2023-02-18 | DI.MG.S_ITS ---
BILATERAL DIGITAL SCREENING MAMMOGRAM 3D/2D WITH CAD: 02/18/2023 CLINICAL: Routine screening. Family history of breast cancer. Comparison is made to exams dated: 01/08/2022 mammogram, 04/06/2020 mammogram, 01/01/2019 mammogram, 12/27/2017 mammogram, 12/14/2016 mammogram, and 01/16/2019 mammogram - [facility]. Both breasts are heterogeneously dense, which may obscure small masses (category c / 51-75% glandular tissue). Current study was also evaluated with a Computer Aided Detection (CAD) system. There are benign calcifications in the left breast. No significant masses, calcifications, or other findings are seen in either breast. There has been no significant interval change. IMPRESSION: BENIGN There is no mammographic evidence of malignancy. A 1 year screening mammogram is recommended. Based on the Tyrer Cuzick model (a risk assessment model) the patient's lifetime risk is 1.4% and her 10 year risk is 0.0%. According to the ACR, ACS, and NCCN guidelines, an annual breast MRI exam along with mammogram is recommended if the patient's lifetime risk is 20% or greater. This exam was interpreted at Station ID: [id number]. NOTE: For mammograms, a report in lay terms will be sent to the patient. Approximately 15% of breast malignancies will not be visualized mammographically. In the management of a palpable breast mass, a negative mammogram must not discourage biopsy of a clinically suspicious lesion. Electronically Signed By: Saroj cervantes/[place]lotte:02/18/2023 10:07:37 letter sent: Normal Exam ACR BI-RADS Category 2: Benign Finding(s) 3342F
== END ==
PROVIDERS: PCP Pediatrics; Referring Provider Pediatrics; Visit Provider Pediatrics
DX: Z12.31 Encounter for screening mammogram for malignant neoplasm of breast (principal); Z80.3 Family history of malignant neoplasm of breast
CPT/HCPCS: 77063; 77067

== ENCOUNTER 2023-03-26 14:33 | Emergency (ER) | payer OTHER, SELFPAY ==
[2023-03-21 09:34] VITALS: BMI 24.9
[2023-03-26 14:44] VITALS: BP 193/79; PULSE 55; RESP 16; TEMP 36.1; O2SAT 97; BMI 25.3
--- NOTE | 2023-03-26 14:47 | DI.CT.S_ITS ---
PROCEDURE: CT HEAD/BRAIN WO CON INDICATIONS: fall on thinners TECHNIQUE: Noncontrast 4.5 mm thick angled axial sections acquired from the foramen magnum to the vertex, with coronal and sagittal reformats. For radiation dose reduction, the following was used: automated exposure control, adjustment of mA and/or kV according to patient size. COMPARISON: None. FINDINGS: Image quality: Excellent. CSF spaces: Basal cisterns are patent. No extra-axial fluid collections. The ventricles are symmetric in size and shape. Brain: No intracranial bleeds or masses. There is cerebral volume loss for age, with resultant ventricular and sulcal prominence. There are periventricular and deep white matter chronic small vessel ischemic changes. There is intracranial internal carotid artery atherosclerosis. Note is made of a cavum septum pellucidum. When discovered in isolation, this is considered to be a developmental variant of no clinical consequence. Skull and face: Calvarium and visualized facial bones appear intact, without suspicious lesions. Sinuses: Visualized sinuses and mastoids are clear. IMPRESSION: No acute intracranial hemorrhage is seen. No acute intracranial process is seen. Dictated by: Rafiq Bloom M.D. on 03/26/2023 at 14:14 Approved by: Rafiq Bloom M.D. on 03/26/2023 at 14:15
--- NOTE | 2023-03-26 14:47 | DI.CT.S_ITS ---
PROCEDURE: CT CERVICAL SPINE WO CON INDICATIONS: fall on thinners TECHNIQUE: Noncontrast 3 mm thick sections acquired from the skull base to the T4 level. Sagittal and coronal reformats were then constructed. For radiation dose reduction, the following was used: automated exposure control, adjustment of mA and/or kV according to patient size. COMPARISON: [facility], CT, CT HEAD/BRAIN WO CON, 03/26/2023, 15:03. , CT, CT ANGIO CHEST, 09/26/2022, 9:54. FINDINGS: Image quality: Excellent. Bones: No fractures or dislocations. Visualized superior ribs are intact. Focal degenerative change is seen involving the C1-C2 interface anteriorly. There is moderate to severe disc space narrowing seen at C5-C6, with at least moderate disc space narrowing seen at C6-C7. Milder degenerative changes are seen elsewhere. Soft tissues: Prevertebral soft tissues are normal in thickness. No paravertebral hematomas. No apical pneumothoraces. Atherosclerotic calcification is noted. Left-sided pacer leads are seen. The thyroid is not well seen and is believed to be small in size. IMPRESSION: Negative for acute fracture. Multilevel cervical spine degenerative change can be seen. Dictated by: Rafiq Bloom M.D. on 03/26/2023 at 14:15 Approved by: Rafiq Bloom M.D. on 03/26/2023 at 14:18
[2023-03-26 17:09] VITALS: BP 172/87; PULSE 70; RESP 15; O2SAT 99
--- NOTE | 2023-03-26 19:15 | ED.HEATRA ---
HPI - Head Injury <Joann Graves PA-C - Last Filed: 03/26/23 19:26> General Chief complaint: Trauma Stated complaint: fell T-7 hit the cement takes Warfin Time Seen by Provider: 03/26/23 15:34 Source: patient Mode of arrival: Family Vehicle History of Present Illness HPI Narrative: 82-year-old female presents with concern for head injury. Patient states that on the 18 of March she was at her 's grave site, she moved a heavy flower pot down to the ground and was replacing with a smaller flower pot she was leaning forward and she thinks that her purse which was over her right shoulder swung forward causing her to lose balance, she fell forward and hit the right side of her face above her eye on an adjacent Grave stone. She states that all of the stones in the area are flat as this is a cremation variable site. She did not lose consciousness and states that she was able to get up okay on her own. Since that time she has not had any notable symptoms, she denies headaches, vision changes, neck pain, eye pain or any other symptoms. She does state that she had fairly large bruise around her right eye for a number of days but this has largely resolved. Multiple friends of hers found out that she had hit her head hard and encouraged her to seek evaluation in the emergency department today she states she is seeing her primary care provider in the next 2 days as they are working on switching her from warfarin to a different blood thinner medication. She does get her INR checked once weekly but states that it tends to fluctuate. She denies any other complaints or concerns including numbness, tingling of the upper extremities, one-sided weakness, nausea, vomiting, light sensitivity or any other symptoms. Related Data Home Medications Medication Instructions Recorded Confirmed acetaminophen 500 mg tablet 500 mg PO Q6H PRN Pain, Mild 11/06/18 08/22/22 (Tylenol Extra Strength) cholecalciferol (vitamin D3) 25 50 mcg PO DAILY 01/22/20 08/22/22 mcg (1,000 unit) capsule atorvastatin 40 mg tablet 80 mg PO HS #0 tabs 03/30/20 08/22/22 docusate sodium 100 mg capsule 100 mg PO DAILY 04/25/21 08/22/22 (Col-Rite) potassium chloride 10 mEq 20 meq PO DAILY 09/01/21 08/22/22 tablet,extended release metoprolol succinate 50 mg capsule 75 mg PO BID 09/14/21 08/22/22 sprinkle, ext. release 24 hr ketoconazole 2 % shampoo 1 applic topical 2XW 03/21/22 08/22/22 niacinamide 500 mg tablet 500 mg PO BID 03/21/22 08/22/22 dofetilide 250 mcg capsule 250 mcg PO Q12H 05/23/22 08/22/22 magnesium oxide 400 mg (241.3 mg 400 mg PO BID 05/30/22 08/22/22 magnesium) tablet dofetilide 125 mcg capsule 125 mcg PO BID 07/03/22 08/22/22 fluticasone propionate 50 g intranasal 08/22/22 08/22/22 mcg/actuation nasal spray,suspension Previous Rx's Medication Instructions Recorded nitroglycerin 0.4 mg sublingual 0.4 mg sublingual Q5-15M PRN Chest 10/07/20 tablet (Nitrostat) Pain #30 tabs levothyroxine 75 mcg tablet 75 mcg PO DAILY #90 tabs 07/02/22 (Synthroid) allopurinol 300 mg tablet 300 mg PO DAILY #90 tabs 09/24/22 triazolam 0.25 mg tablet (Halcion) 0.25 mg PO BEDTIME PRN Insomnia 10/17/22 #20 tabs warfarin 3 mg tablet See Rx Instructions .Route 11/26/22 .COMPLEX #50 tabs warfarin 5 mg tablet See Rx Instructions PO DAILY #90 12/10/22 tabs alprazolam 0.5 mg tablet 0.5 mg PO QDAY PRN public speaking 01/02/23 #20 tabs Allergies Allergy/AdvReac Type Severity Reaction Status Date / Time codeine Allergy Severe ANAPHYLAXIS Verified 03/26/23 14:51 NSAIDS (Non-Steroidal AdvReac Severe on Warfarin Verified 03/26/23 14:51 Anti-Inflamma [NSAIDS (NON-STEROIDAL ANTI-INFLAMMA] oxycodone [OXYCODONE] AdvReac Intermediate NAUSEA, Verified 03/26/23 14:51 HALLUCINATIONS, DIZZINESS hydrocodone AdvReac Mild N/V Verified 03/26/23 14:51 pravastatin AdvReac Mild MYALGIA Verified 03/26/23 14:51 simvastatin AdvReac Mild MYALGIA Verified 03/26/23 14:51 Review of Systems <Joann Graves PA-C - Last Filed: 03/26/23 19:26> Review of Systems Narrative: See HPI Patient History <Joann Graves PA-C - Last Filed: 03/26/23 19:26> Medical History Anticoagulated on warfarin ASHD (arteriosclerotic heart disease) Atrial fibrillation CAD (coronary artery disease) (10/2006) Chronic instability of right knee Colon polyps (1998) 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, right (1998) Diastasis recti Fat necrosis of abdominal wall GERD (gastroesophageal reflux disease) Gout (10/2011) History of renal calculi Hypertension Hypothyroidism Skin cancer Stenosis of carotid artery Stress incontinence Tachy-marcus syndrome Vaginal atrophy Surgical History History of appendectomy (1963) History of arthroscopy of left knee (01/05/15) History of bilateral carpal tunnel release (1988) History of cardiac catheterization (10/2006) History of carpal tunnel release (1988) History of section (1963) History of cholecystectomy (1972) History of colonoscopy (03/04/06) History of colonoscopy with polypectomy (1998) History of esophagogastroduodenoscopy (EGD) (06/06/06) History of eye surgery (1998) History of hysterectomy (1982) History of left cataract surgery (1989) History of left knee surgery (08/2010) History of Zayra fundoplication History of permanent cardiac pacemaker placement History of right knee surgery (2000) Status post left partial knee replacement (10/12/15) Status post primary angioplasty with coronary stent (09/2011) Status post right foot surgery (1993) Family History Mother Brain tumor Cancer Father Heart disease MD (myocardial infarction) Sister Lung cancer Stroke MS (multiple sclerosis) Breast cancer Grandmother Diabetes mellitus Social History household members: none Smoking Status: Never smoker second hand exposure: No alcohol intake: current substance use type: does not use Smoking Status: Never smoker alcohol intake frequency: a few times a month Substance Use Type: does not use Exam <Joann Graves PA-C - Last Filed: 03/26/23 19:26> Narrative Exam Narrative: GENERAL: 82 year old patient appears stated age. Well-developed patient, in mild distress. HEAD: There is very subtle purplish discoloration just lateral and superior to the right orbit without swelling or tenderness present. Facial bones are stable, patient has a normal bite, there is no other tenderness or swelling noted. Otherwise Atraumatic. Normocephalic. EYES: Pupils equal round and reactive. Extraocular motions intact. No scleral icterus. No injection or drainage. ENT: Nose without bleeding, purulent drainage. Airway patent. NECK: Trachea midline. Non tender, no midline spinous process tenderness, normal active range of motion pain-free. CARDIOVASCULAR: Regular rate and rhythm without murmurs, gallops, or rubs. RESPIRATORY: Clear to auscultation. Breath sounds equal bilaterally. No wheezes, rales, or rhonchi. GASTROINTESTINAL: Abdomen soft, non-tender, nondistended. EXTREMITIES: No edema or joint tenderness. BACK: Nontender without deformity or crepitance. No flank tenderness. NEURO: AOx3. Cranial nerves 2-12 are intact, equal cloth weaver bilaterally equal push pull, EOMs intact SKIN: No rash or erythema of visible areas Initial Vital Signs Initial Vital Signs: Vital Signs Temperature 97 F L 03/26/23 14:44 Pulse Rate 55 L 03/26/23 14:44 Respiratory Rate 16 03/26/23 14:44 Blood Pressure 193/79 H 03/26/23 14:44 Pulse Oximetry 97 03/26/23 14:44 Oxygen Delivery Method Room Air 03/26/23 14:44 <John Kebede MD - Last Filed: 03/27/23 08:32> Initial Vital Signs Initial Vital Signs: Vital Signs Temperature 97 F L 03/26/23 14:44 Pulse Rate 55 L 03/26/23 14:44 Respiratory Rate 16 03/26/23 14:44 Blood Pressure 193/79 H 03/26/23 14:44 Pulse Oximetry 97 03/26/23 14:44 Oxygen Delivery Method Room Air 03/26/23 14:44 Course <Joann Graves PA-C - Last Filed: 03/26/23 19:26> Orders Ordered: ED Orders 03/26/23 14:47 CT cervical spine wo con Stat CT head/brain wo con Stat Vital Signs Vital signs: Vital Signs - 8 hr 03/26/23 14:44 03/26/23 17:09 Temperature 97 F L Pulse Rate 55 L 70 Respiratory Rate 16 15 Blood Pressure 193/79 H 172/87 H Pulse Oximetry 97 99 Oxygen Delivery Method Room Air Room Air <John Kebede MD - Last Filed: 03/27/23 08:32> Orders Ordered: ED Orders 03/26/23 14:47 CT cervical spine wo con Stat CT head/brain wo con Stat Vital Signs Vital signs: Vital Signs - 8 hr 03/26/23 14:44 03/26/23 17:09 Temperature 97 F L Pulse Rate 55 L 70 Respiratory Rate 16 15 Blood Pressure 193/79 H 172/87 H Pulse Oximetry 97 99 Oxygen Delivery Method Room Air Room Air MDM - Head Injury <Joann Graves PA-C - Last Filed: 03/26/23 19:26> Differential Diagnosis Differential diagnosis: Likely concussion without loss of consciousness and closed head injury Medical Records Attestation: I reviewed the patient's medical records. Imaging Data CT scan - head: My Impression: Agree with Radiology interpretation Radiologist's Impression: [place] [address] CT Scan Report Signed Patient: Bree Aaron MR#: [id number] : 1940 Acct:[id number] Age/Sex: 82 / F Date of Service: 03/26/23 Loc: ED Accession Number: [id number] ?? Procedure: CT head/brain wo con Ordering Provider: John Kbeede MD PROCEDURE:? CT HEAD/BRAIN WO CON ? INDICATIONS:? fall on thinners ? TECHNIQUE:? Noncontrast 4.5 mm thick angled axial sections acquired from the foramen magnum to the vertex, with coronal and sagittal reformats.? For radiation dose reduction, the following was used:? automated exposure control, adjustment of mA and/or kV according to patient size.? ? COMPARISON:? None. ? FINDINGS:? Image quality:? Excellent.? ? CSF spaces:? Basal cisterns are patent.? No extra-axial fluid collections.? The ventricles are symmetric in size and shape.? ? Brain:? No intracranial bleeds or masses.? There is cerebral volume loss for age, with resultant ventricular and sulcal prominence.? There are periventricular and deep white matter chronic small vessel ischemic changes.? There is intracranial internal carotid artery atherosclerosis.? Note is made of a cavum septum pellucidum.? When discovered in isolation, this is considered to be a developmental variant of no clinical consequence.? ? Skull and face:? Calvarium and visualized facial bones appear intact, without suspicious lesions.? ? Sinuses:? Visualized sinuses and mastoids are clear.? ? ? IMPRESSION:? No acute intracranial hemorrhage is seen.? ? No acute intracranial process is seen.? ? ? Dictated by: Rafiq Bloom M.D. on 03/26/2023 at 14:14 ? ? Approved by: Rafiq Bloom M.D. on 03/26/2023 at 14:15?? CT - cervical spine: My Impression: Agree with Radiology interpretation Radiologist's Impression: [place] [address] CT Scan Report Signed Patient: Bree Aaron MR#: [id number] : 1940 Acct:[id number] Age/Sex: 82 / F Date of Service: 03/26/23 Loc: ED Accession Number: [id number] ?? Procedure: CT cervical spine wo con Ordering Provider: John Kebede MD PROCEDURE:? CT CERVICAL SPINE WO CON ? INDICATIONS:? fall on thinners ? TECHNIQUE:? Noncontrast 3 mm thick sections acquired from the skull base to the T4 level.? Sagittal and coronal reformats were then constructed.? For radiation dose reduction, the following was used:? automated exposure control, adjustment of mA and/or kV according to patient size.? ? COMPARISON:? [facility], CT, CT HEAD/BRAIN WO CON, 03/26/2023, 15:03.? [facility], CT, CT ANGIO CHEST, 09/26/2022, 9:54. ? FINDINGS:? Image quality:? Excellent.? ? Bones:? No fractures or dislocations.? Visualized superior ribs are intact.? ? Focal degenerative change is seen involving the C1-C2 interface anteriorly.? There is moderate to severe disc space narrowing seen at C5-C6, with at least moderate disc space narrowing seen at C6-C7.? Milder degenerative changes are seen elsewhere.? ? Soft tissues:? Prevertebral soft tissues are normal in thickness.? No paravertebral hematomas.? No apical pneumothoraces.? Atherosclerotic calcification is noted.? Left-sided pacer leads are seen.? The thyroid is not well seen and is believed to be small in size. ? ? IMPRESSION:? Negative for acute fracture. ? Multilevel cervical spine degenerative change can be seen. ? ? Dictated by: Rafiq Bloom M.D. on 03/26/2023 at 14:15 ? ? Approved by: Rafiq Bloom M.D. on 03/26/2023 at 14:18?? Treatment and disposition Shared decision making:: Shared decision-making was used to determine the patient's plan of care in the emergency department plan for outpatient follow-up MDM Narrative Medical decision making narrative: This is a well-appearing 82-year-old woman who is on warfarin with a history of obstructive lung disease paroxysmal atrial fibrillation hypertension and CAD with generalized osteoarthritis who presents with concern for a head injury sustained on March 18. Patient actually denies any symptoms other than having some bruising around her right eye after the event. This was a ground level fall sustained when she was leaning forward adjusting flower pot on her 's grave. She was advised to come to the emergency department by friends and family who were concerned about her based on her age and the fact that she is on blood thinners. She had a non-con head CT and neck CT today which did not reveal any concerning findings, she does have some degenerative changes of the cervical spine which were discussed with the patient. In no acute injury noted and no head bleed. Based on duration of symptoms as her fall occurred 7 days ago and she has not had any concerning symptoms since that time with negative findings today, this is reassuring. She is going to see her primary care provider in the next 2 days and she is advised to touch base with him as well for a recheck. She is advised regarding monitoring for new or worsening symptoms, return precautions provided, follow-up plan discussed, all questions answered. Discharge Plan Departure Patient Disposition: Home Clinical Impression: Fall, Head injury Activity Restrictions/Additional Instructions: *You have been diagnosed with [fall, head injury without new findings] *What to do: *Please continue to take your regular medications as directed. [ ] New medication prescriptions sent to your pharmacy: [ ] [ ] New medication written as a paper prescription [ X] No new medications given *Please follow up with your primary care provider in 2-3 days, call for an appointment. Let them know you were seen in the Emergency Department and that we ask that you be seen in follow up. We will electronically transmit a record of today's note if your PCP is in our system. We did a CT scan of your head and neck today to evaluate for bleeding in your brain or any fractures or new injury to your cervical spine. These looked okay today you do have some degenerative and arthritic changes in your neck but no new fracture or evidence of new injury, the CT scan of your head also looked good today there is no evidence of bleeding. Considering that your original injury occurred on March 18 which was just over a week ago, this result is reassuring, however as we discussed if you do develop new or worsening symptoms such as dizziness, lightheadedness, headaches, vision change, or any other symptoms of concern please do not hesitate to be re-evaluated. I am glad your seeing your new primary care provider this week, I encourage you to discuss this visit with them when you see them on , please continue to monitor your blood pressures regularly you were a little bit hypertensive today in the emergency department but did have normal blood pressures this morning when you check them at the [facility]. Your primary care provider can talk to you about possibly checking her pressures at home more often and keeping a log of making a decision about adjusting your medications if needed. *If you do not have a primary care provider please contact the [facility] Resource line at [phone]. They will ask some questions about your medical history and help get you set up with a doctor in the community. *Return to Emergency Department if you should have any new, worsening or concerning symptoms, such as [fever greater than 101 F, shaking chills, worsening pain, persistent vomiting or other bothersome symptoms] Prescriptions: No Action acetaminophen [Tylenol Extra Strength] 500 mg tablet 500 mg PO Q6H PRN (Reason: Pain, Mild) cholecalciferol (vitamin D3) 25 mcg (1,000 unit) capsule 50 mcg PO DAILY atorvastatin 40 mg tablet 80 mg PO HS Qty: 0 nitroglycerin [Nitrostat] 0.4 mg tablet, sublingual 0.4 mg Sublingual Q5-15M MDD 3 tabs PRN (Reason: Chest Pain) Qty: 30 11RF dofetilide 250 mcg capsule 250 mcg PO Q12H Rx Instructions: take 1 cap 250 mcg levothyroxine [Synthroid] 75 mcg tablet 75 mcg PO DAILY Qty: 90 3RF allopurinol 300 mg tablet 300 mg PO DAILY Qty: 90 3RF triazolam [Halcion] 0.25 mg tablet 0.25 mg PO BEDTIME PRN (Reason: Insomnia) Qty: 20 5RF warfarin 3 mg tablet See Rx Instructions .ROUTE .COMPLEX Qty: 50 1RF Dose Instruction: take 1 tablet by mouth once daily or as directed Rx Instructions: 5 mg Saturday, Saturday, Saturday and 3 mg all other days or as directed. warfarin 5 mg tablet See Rx Instructions PO DAILY Qty: 90 3RF Rx Instructions: 5mg Saturday, Saturday, Saturday and 3mg all other days; or as directed. alprazolam 0.5 mg tablet 0.5 mg PO QDAY PRN (Reason: public speaking) Qty: 20 0RF docusate sodium [Col-Rite] 100 mg capsule 100 mg PO DAILY ketoconazole 2 % shampoo 1 applic topical 2XW niacinamide 500 mg tablet 500 mg PO BID dofetilide 125 mcg capsule 125 mcg PO BID fluticasone propionate 50 mcg/actuation spray,suspension intranasal metoprolol succinate 50 mg capsule,sprinkle,ER 24hr 75 mg PO BID potassium chloride 10 mEq tablet extended release 20 meq PO DAILY magnesium oxide 400 mg (241.3 mg magnesium) tablet 400 mg PO BID Patient Comments: Takes 1 tab AM. 2 tab PM. Referrals: Mansoor Frausto MD [Primary Care Provider] - Stand Alone Forms: Patient Portal/API <John Kebede MD - Last Filed: 03/27/23 08:32> Cosign ED Attending Fideliaature Attestation: I was immediately available in the department for consultation. ?This documentation has been reviewed and I agree with assessment and plan. Supervised by John Kebede MD
== END 2023-03-26 17:12 | disposition home or self-care (01) ==
PROVIDERS: Emergency Provider Student in an Organized Health Care Education/Training Program; PCP Pediatrics
DX: S09.90XA Unspecified injury of head, initial encounter (principal); W18.30XA Fall on same level, unspecified, initial encounter; Z79.01 Long term (current) use of anticoagulants
CPT/HCPCS: 70450; 72125; 99284

== ENCOUNTER → 2023-05-07 08:11 | Outpatient (CLI) | payer OTHER, SELFPAY ==
[2023-03-21 09:34] VITALS: BMI 24.9
[2023-05-07 08:40] LABS: Add Manual Diff / Slide Review NO; Basophils Absolute Auto 0 /uL (0-100); Basophils Percent Auto 0.7 % (0-2); Eosinophils Absolute Auto 100 /uL (0-450); Eosinophils Percent Auto 3.4 % (2-4); Hematocrit 36.8 % (36-46); Hemoglobin 12.3 g/dL (12.0-16.0); Lymphocytes Absolute Auto 800 /uL (1100-4500); Lymphocytes Percent Auto 17.6 % (25-40); Mean Corpuscular HGB Conc 33.4 % (30-36); Mean Corpuscular Hemoglobin 29.4 PG (26-34); Monocytes Absolute Auto 300 /uL (0-900); Monocytes Percent Auto 6.7 % (3-14); Neutrophils Absolute Auto 3200 /uL (1500-7000); Neutrophils Percent Auto 71.6 % (50-75); Platelet Count 122 X10^3/uL (150-400); Red Blood Cell Count 4.18 X10^6/uL (4.0-5.2); Red Cell Distribution Width 15.3 % (11.6-14.8); White Blood Cell Count 4.4 X10^3/uL (4.5-11.0)
[2023-05-07 08:44] LABS: D Dimer 497 ng/ml (<500)
[2023-05-07 09:04] LABS: Alanine Aminotransferase 22 IU/L (<35); Albumin 3.9 g/dL (3.5-5.0); Albumin Globulin Ratio 1.6 (1.0-2.8); Alkaline Phosphatase 88 U/L (38-126); Aspartate Aminotransferase 24 IU/L (14-36); BUN Creatinine Ratio 21.3 (6-22); Bilirubin Total 0.6 mg/dL (0.2-1.3); Blood Urea Nitrogen 20 mg/dL (7-17); Calcium 9.2 mg/dL (8.4-10.2); Carbon Dioxide 29 mmol/L (22-32); Chloride 105 mmol/L (98-107); Cholesterol 132 mg/dL (140-199); Estimated Glomerular Filt Rate > 60 mL/min (>60); Globulin 2.5 g/dL (1.7-4.1); Glucose 102 mg/dL (80-110); HDL Cholesterol 47 mg/dL (40-60); HEMOLYSIS < 15 (0-50); LDL Cholesterol Calculated 63 mg/dL (<100); Potassium 4.2 mmol/L (3.4-5.1); Sodium 140 mmol/L (137-145); Total Protein 6.4 g/dL (6.3-8.2); Triglycerides 110 mg/dL (35-150)
[2023-05-07 09:06] LABS: NT-proBNP (BNP-Adult 18+) 282 pg/mL (<450)
[2023-05-07 09:17] LABS: Vitamin D 25 Hydroxy (D3) 55.5 ng/mL (30.0-100.0)
[2023-05-07 09:33] LABS: Appearance Urine UA CLEAR; Bilirubin Urine UA NEGATIVE (NEGATIVE); Color Urine UA YELLOW; Glucose Urine UA NEGATIVE (Negative); Ketones Urine UA NEGATIVE (NEGATIVE); Leukocyte Esterase Urine UA TRACE (NEGATIVE); Nitrite Urine UA NEGATIVE (Negative); Occult Blood Urine UA NEGATIVE (Negative); Protein Urine UA NEGATIVE (Negative)
== END ==
PROVIDERS: PCP Pediatrics; Referring Provider Pediatrics; Visit Provider Pediatrics
DX: E03.9 Hypothyroidism, unspecified (principal); E55.9 Vitamin D deficiency, unspecified; I10 Essential (primary) hypertension; I25.10 Atherosclerotic heart disease of native coronary artery without angina pectoris; I48.0 Paroxysmal atrial fibrillation; J44.9 Chronic obstructive pulmonary disease, unspecified; K21.9 Gastro-esophageal reflux disease without esophagitis; M10.9 Gout, unspecified; M15.9 Polyosteoarthritis, unspecified; Z00.00 Encounter for general adult medical examination without abnormal findings; Z79.01 Long term (current) use of anticoagulants
CPT/HCPCS: 36415; 80053; 80061; 81003; 81015; 82306; 83880; 85025; 85379

== ENCOUNTER → 2023-06-04 08:48 | Outpatient (CLI) | payer OTHER, SELFPAY ==
[2023-03-21 09:34] VITALS: BMI 24.9
[2023-06-04 11:07] LABS: Alanine Aminotransferase 25 IU/L (<35); Albumin 4.2 g/dL (3.5-5.0); Albumin Globulin Ratio 1.6 (1.0-2.8); Alkaline Phosphatase 97 U/L (38-126); Aspartate Aminotransferase 25 IU/L (14-36); BUN Creatinine Ratio 15.4 (6-22); Bilirubin Total 0.7 mg/dL (0.2-1.3); Blood Urea Nitrogen 16 mg/dL (7-17); Carbon Dioxide 28 mmol/L (22-32); Chloride 103 mmol/L (98-107); Cholesterol 146 mg/dL (140-199); Estimated Glomerular Filt Rate 54 mL/min (>60); Globulin 2.6 g/dL (1.7-4.1); Glucose 106 mg/dL (80-110); HDL Cholesterol 54 mg/dL (40-60); HEMOLYSIS < 15 (0-50); LDL Cholesterol Calculated 61 mg/dL (<100); Magnesium 1.9 mg/dL (1.6-2.3); Potassium 4.3 mmol/L (3.4-5.1); Sodium 140 mmol/L (137-145); Total Protein 6.8 g/dL (6.3-8.2); Triglycerides 154 mg/dL (35-150)
== END ==
PROVIDERS: Referring Provider Specialist; Visit Provider Specialist
DX: I48.0 Paroxysmal atrial fibrillation (principal); E78.2 Mixed hyperlipidemia
CPT/HCPCS: 36415; 80053; 80061; 83735; 84443

== ENCOUNTER 2023-08-09 09:07 | Emergency (ER) | payer OTHER, SELFPAY ==
[2023-03-21 09:34] VITALS: BMI 24.9
[2023-08-09 09:16] VITALS: BP 155/70; PULSE 67; RESP 18; TEMP 36.7; O2SAT 98; BMI 25.9
--- NOTE | 2023-08-09 09:37 | ED.WOUNDLAC ---
HPI - Wound/Laceration General Chief Complaint: Wound/Laceration Stated Complaint: LE Bleeding Blister Time Seen by Provider: 08/09/23 09:20 Source: EMS Mode of arrival: EMS History of Present Illness HPI narrative: Patient year old history of atrial fibrillation on Eliquis presents today with bleeding on her leg. She says she put on her socks when she nicked her skin significant amount of blood loss for EMS and. Pressure dressing placed by. She does have arthritis but still has a good distal pedal pulse. No other symptoms time. Happened just prior to arrival. Related Data Home Medications Medication Instructions Recorded Confirmed acetaminophen 500 mg tablet 500 mg PO Q6H PRN Pain, Mild 11/06/18 07/16/23 (Tylenol Extra Strength) cholecalciferol (vitamin D3) 25 50 mcg PO DAILY 01/22/20 07/16/23 mcg (1,000 unit) capsule atorvastatin 40 mg tablet 80 mg PO HS #0 tabs 03/30/20 07/16/23 potassium chloride 10 mEq 20 meq PO DAILY 09/01/21 07/16/23 tablet,extended release ketoconazole 2 % shampoo 1 applic topical 2XW 03/21/22 07/16/23 dofetilide 250 mcg capsule 250 mcg PO Q12H 05/23/22 07/16/23 magnesium oxide 400 mg (241.3 mg 400 mg PO BID 05/30/22 07/16/23 magnesium) tablet dofetilide 125 mcg capsule 125 mcg PO BID 07/03/22 07/16/23 fluticasone propionate 50 g intranasal 08/22/22 07/16/23 mcg/actuation nasal spray,suspension metoprolol succinate 100 mg 100 mg PO BID 03/28/23 07/16/23 tablet,extended release 24 hr apixaban 5 mg tablet (Eliquis) 5 mg PO BID 05/06/23 07/16/23 calcipotriene 0.005 % topical cream 1 applic topical BID 07/16/23 07/16/23 clobetasol 0.05 % scalp solution topical 07/16/23 07/16/23 Previous Rx's Medication Instructions Recorded nitroglycerin 0.4 mg sublingual 0.4 mg sublingual Q5-15M PRN Chest 10/07/20 tablet (Nitrostat) Pain #30 tabs allopurinol 300 mg tablet 300 mg PO DAILY #90 tabs 09/24/22 alprazolam 0.5 mg tablet 0.5 mg PO DAILY PRN anxiety #30 06/06/23 tabs levothyroxine 75 mcg tablet 75 mcg PO DAILY #90 tabs 06/24/23 (Synthroid) buspirone 10 mg tablet 10 mg PO BID PRN anxiety #30 tabs 07/16/23 ramelteon 8 mg tablet 8 mg PO BEDTIME PRN sleep #30 tabs 07/16/23 triazolam 0.125 mg tablet 0.0625 mg (1/2 x 0.125 mg) PO 07/16/23 BEDTIME PRN sleep #20 tabs Allergies Allergy/AdvReac Type Severity Reaction Status Date / Time codeine Allergy Severe ANAPHYLAXIS Verified 07/16/23 14:11 NSAIDS (Non-Steroidal AdvReac Severe on Warfarin Verified 07/16/23 14:11 Anti-Inflamma [NSAIDS (NON-STEROIDAL ANTI-INFLAMMA] oxycodone [OXYCODONE] AdvReac Intermediate NAUSEA, Verified 07/16/23 14:11 HALLUCINATIONS, DIZZINESS hydrocodone AdvReac Mild N/V Verified 07/16/23 14:11 pravastatin AdvReac Mild MYALGIA Verified 07/16/23 14:11 simvastatin AdvReac Mild MYALGIA Verified 07/16/23 14:11 Patient History Medical History Tachy-marcus syndrome Anticoagulated on warfarin Stress incontinence Vaginal atrophy Diastasis recti Fat necrosis of abdominal wall ASHD (arteriosclerotic heart disease) Stenosis of carotid artery Atrial fibrillation Skin cancer Chronic instability of right knee History of renal calculi Hypothyroidism Hypertension GERD (gastroesophageal reflux disease) 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, right (1998) Gout (10/2011) CAD (coronary artery disease) (10/2006) Colon polyps (1998) Surgical History History of permanent cardiac pacemaker placement History of eye surgery (1998) Status post right foot surgery (1993) History of Zayra fundoplication History of right knee surgery (2000) History of left knee surgery (08/2010) History of hysterectomy (1982) Status post primary angioplasty with coronary stent (09/2011) History of cholecystectomy (1972) History of section (1963) History of left cataract surgery (1989) History of carpal tunnel release (1988) History of bilateral carpal tunnel release (1988) History of cardiac catheterization (10/2006) History of appendectomy (1963) Status post left partial knee replacement (10/12/15) History of arthroscopy of left knee (01/05/15) History of esophagogastroduodenoscopy (EGD) (06/06/06) History of colonoscopy with polypectomy (1998) History of colonoscopy (03/04/06) Family History Mother Brain tumor Cancer Father Heart disease [place] (myocardial infarction) Sister Lung cancer Stroke MS (multiple sclerosis) Breast cancer Grandmother Diabetes mellitus Social History household members: none Smoking Status: Never smoker second hand exposure: No alcohol intake: current substance use type: does not use Smoking Status: Never smoker alcohol intake frequency: a few times a month Substance Use Type: does not use Exam Initial Vital Signs Initial Vital Signs: Vital Signs Temperature 98.1 F 08/09/23 09:16 Pulse Rate 67 08/09/23 09:16 Respiratory Rate 18 08/09/23 09:16 Blood Pressure 155/70 H 08/09/23 09:16 Pulse Oximetry 98 08/09/23 09:16 Oxygen Delivery Method Room Air 08/09/23 09:16 GENERAL: Alert pleasant well-appearing 83-year-old female CARDIOVASCULAR: peripheral pulses in tact, cap refill <2 sec RESPIRATORY: No respiratory distress, speaks in full sentences without difficulty EXTREMITIES: Normal range of motion, no clubbing or edema. Neurovascularly intact Significant arthritis in foot with distal pedal NEUROLOGICAL: Cranial nerves II through XII grossly intact. Normal gait and speech. SKIN: Left anterior escamilla pressure dressing removed bleeding has stopped no obvious bleeding site is identified. No further oozing. Good distal pedal pulse no erythema Course Vital Signs Vital signs: Vital Signs - 8 hr 08/09/23 09:16 08/09/23 10:15 08/09/23 10:22 Temperature 98.1 F 98.1 F Pulse Rate 67 60 62 Respiratory Rate 18 18 Blood Pressure 155/70 H 135/62 135/82 Pulse Oximetry 98 96 95 Oxygen Delivery Method Room Air Room Air MDM - Wound/Laceration MDM Narrative Medical decision making narrative: 83-year-old female with left anterior escamilla injury on Eliquis with bleeding. Pressure dressing removed no active bleeding identified. Surgicel and dressing placed. No further intervention required vitals are stable. Discharge Plan Departure Patient Disposition: Home Clinical Impression: Noninfected skin tear of left leg Instructions: DI for Minor Laceration Activity Restrictions/Additional Instructions: *You have been diagnosed with skin tear *What to do: Keep dressing on for 24 hours. If it bleeds again apply some pressure and ice, and elevation if excessive bleeding may return to ED *Continue to take medications as directed *Follow up with your primary care provider in 2-3 days or call [phone] *Return to ER if you should have increasing bleeding redness fever weakness or any new, worsening or concerning symptoms Prescriptions: No Action acetaminophen [Tylenol Extra Strength] 500 mg tablet 500 mg PO Q6H PRN (Reason: Pain, Mild) triazolam 0.125 mg tablet 0.0625 mg PO BEDTIME PRN (Reason: sleep) Qty: 20 0RF Rx Instructions: Take 1/2 tab qhs prn for sleep buspirone 10 mg tablet 10 mg PO BID PRN (Reason: anxiety) Qty: 30 2RF ramelteon 8 mg tablet 8 mg PO BEDTIME PRN (Reason: sleep) Qty: 30 2RF clobetasol 0.05 % solution topical calcipotriene 0.005 % cream 1 applic topical BID Rx Instructions: rub in gently and completely cholecalciferol (vitamin D3) 25 mcg (1,000 unit) capsule 50 mcg PO DAILY atorvastatin 40 mg tablet 80 mg PO HS Qty: 0 nitroglycerin [Nitrostat] 0.4 mg tablet, sublingual 0.4 mg Sublingual Q5-15M MDD 3 tabs PRN (Reason: Chest Pain) Qty: 30 11RF dofetilide 250 mcg capsule 250 mcg PO Q12H Rx Instructions: take 1 cap 250 mcg allopurinol 300 mg tablet 300 mg PO DAILY Qty: 90 3RF alprazolam 0.5 mg tablet 0.5 mg PO DAILY PRN (Reason: anxiety) Qty: 30 0RF levothyroxine [Synthroid] 75 mcg tablet 75 mcg PO DAILY Qty: 90 0RF ketoconazole 2 % shampoo 1 applic topical 2XW dofetilide 125 mcg capsule 125 mcg PO BID fluticasone propionate 50 mcg/actuation spray,suspension intranasal metoprolol succinate 100 mg tablet extended release 24 hr 100 mg PO BID Eliquis 5 mg tablet 5 mg PO BID potassium chloride 10 mEq tablet extended release 20 meq PO DAILY magnesium oxide 400 mg (241.3 mg magnesium) tablet 400 mg PO BID Patient Comments: Takes 1 tab AM. 2 tab PM. Referrals: Sarmad Keller MD [Primary Care Provider] - Stand Alone Forms: Patient Portal/API
[2023-08-09 10:15] VITALS: BP 135/62; PULSE 60; O2SAT 96
[2023-08-09 10:22] VITALS: BP 135/82; PULSE 62; RESP 18; TEMP 36.7; O2SAT 95
== END 2023-08-09 10:24 | disposition home or self-care (01) ==
PROVIDERS: Emergency Provider Emergency Medicine; PCP Family Medicine
DX: S81.812A Laceration without foreign body, left lower leg, initial encounter (principal)
CPT/HCPCS: 99281

== ENCOUNTER → 2023-11-22 10:02 | Outpatient (CLI) | payer OTHER, SELFPAY ==
[2023-03-21 09:34] VITALS: BMI 24.9
== END ==
PROVIDERS: PCP Family Medicine; Visit Provider Nurse Practitioner Family
DX: R19.7 Diarrhea, unspecified (principal)
CPT/HCPCS: 87205

== ENCOUNTER → 2023-11-23 10:26 | Outpatient (CLI) | payer OTHER, SELFPAY ==
[2023-03-21 09:34] VITALS: BMI 24.9
[2023-11-23 13:31] LABS: Occult Blood 1 Negative (Negative); Occult Blood 2 Negative (Negative); Occult Blood 3 Negative (Negative)
[2023-11-23 14:58] LABS: Clostridium Difficile Tox PCR Negative for C. diff (Negative)
== END ==
PROVIDERS: Nurse Practitioner Family; PCP Family Medicine; Referring Provider Family Medicine; Visit Provider Family Medicine
DX: R19.7 Diarrhea, unspecified (principal)
CPT/HCPCS: 82270; 87045; 87329; 87493

== ENCOUNTER → 2023-11-26 08:51 | Outpatient (CLI) | payer OTHER, SELFPAY ==
[2023-03-21 09:34] VITALS: BMI 24.9
[2023-11-26 09:52] LABS: Hemoglobin 12.2 g/dL (12.0-16.0); Mean Corpuscular Hemoglobin 28.9 PG (26-34); Mean Corpuscular Volume 87.3 fL (80-100); Platelet Count 142 X10^3/uL (150-400); Red Blood Cell Count 4.23 X10^6/uL (4.0-5.2); Red Cell Distribution Width 15.8 % (11.6-14.8); White Blood Cell Count 5.8 X10^3/uL (4.5-11.0)
[2023-11-26 10:54] LABS: Hemoglobin A1C% w Est Avg Glu 5.9 % (4.0-6.0)
[2023-11-26 11:07] LABS: Vitamin B12 263 pg/mL (239-931)
[2023-11-26 20:14] LABS: Alanine Aminotransferase 14 IU/L (<35); Albumin 3.6 g/dL (3.5-5.0); Albumin Globulin Ratio 1.4 (1.0-2.8); Alkaline Phosphatase 86 U/L (38-126); Aspartate Aminotransferase 20 IU/L (14-36); BUN Creatinine Ratio 18.8 (6-22); Bilirubin Total 0.7 mg/dL (0.2-1.3); Blood Urea Nitrogen 18 mg/dL (7-17); Calcium 9.4 mg/dL (8.4-10.2); Carbon Dioxide 28 mmol/L (22-32); Chloride 108 mmol/L (98-107); Estimated Glomerular Filt Rate 59 mL/min (>60); Globulin 2.6 g/dL (1.7-4.1); Glucose 105 mg/dL (80-110); HEMOLYSIS < 15 (0-50); Magnesium 1.7 mg/dL (1.6-2.3); Potassium 4.1 mmol/L (3.4-5.1); Sodium 140 mmol/L (137-145); Total Protein 6.2 g/dL (6.3-8.2)
[2023-11-28 10:01] LABS: Cholesterol, Total 130 mg/dL (100-199); HDL-Cholesterol 48 mg/dL (>39); HDL-Particle (Total) 31.6 umol/L (>=30.5); LDL Particle 723 nmol/L (<1000); LDL Size 19.8 nm (>20.5); LDL-Cholsterol 58 mg/dL (0-99); LP-IR Score 39 (<=45); Small LDL- Particle 529 nmol/L (<=527); Triglycerides 138 mg/dL (0-149)
== END ==
PROVIDERS: PCP Family Medicine; Referring Provider Specialist; Visit Provider Specialist
DX: Z79.01 Long term (current) use of anticoagulants (principal); I48.0 Paroxysmal atrial fibrillation; E78.2 Mixed hyperlipidemia; G62.9 Polyneuropathy, unspecified
CPT/HCPCS: 36415; 80053; 80061; 82607; 83036; 83704; 83735; 85027

== ENCOUNTER 2024-04-22 15:33 | Emergency (ER) | payer OTHER, SELFPAY ==
[2023-03-21 09:34] VITALS: BMI 24.9
[2024-04-22] VITALS (10 sets, daily range): BP systolic 137–169; BP diastolic 63–94; PULSE 69–127; RESP 15–34; TEMP 36.9; O2SAT 96–98; BMI 25.7
--- NOTE | 2024-04-22 15:44 | DI.RAD.S_ITS ---
PROCEDURE: XR CHEST 1V INDICATIONS: chest pain TECHNIQUE: One view of the chest was acquired. COMPARISON: [facility], CR, XR CHEST 1V, 06/15/2022, 22:28. [facility], CR, XR CHEST 1V, 09/01/2021, 15:36. FINDINGS: Surgical changes and devices: Left chest wall pacemaker. Lungs and pleura: Lungs are clear. No pleural effusions or pneumothorax. Mediastinum: Mediastinal contours appear normal. Heart size is normal. Bones and chest wall: No suspicious bony lesions. Overlying soft tissues appear unremarkable. IMPRESSION: No acute cardiopulmonary abnormality is seen. Dictated by: Seymour Dominguez M.D. on 04/22/2024 at 16:24 Approved by: Seymour Dominguez M.D. on 04/22/2024 at 16:24
--- NOTE | 2024-04-22 15:51 | EKG_ITS ---
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
[2024-04-22 16:05] LABS: Add Manual Diff / Slide Review NO; Basophils Absolute Auto 0 /uL (0-100); Basophils Percent Auto 0.8 % (0-2); Eosinophils Absolute Auto 100 /uL (0-450); Eosinophils Percent Auto 1.7 % (2-4); Hematocrit 40.2 % (36-46); Hemoglobin 13.4 g/dL (12.0-16.0); Lymphocytes Absolute Auto 800 /uL (1100-4500); Lymphocytes Percent Auto 15.3 % (25-40); Mean Corpuscular HGB Conc 33.3 % (30-36); Mean Corpuscular Hemoglobin 29.4 PG (26-34); Mean Corpuscular Volume 88.2 fL (80-100); Monocytes Absolute Auto 300 /uL (0-900); Monocytes Percent Auto 6.3 % (3-14); Neutrophils Absolute Auto 4100 /uL (1500-7000); Neutrophils Percent Auto 75.9 % (50-75); Platelet Count 136 X10^3/uL (150-400); Red Blood Cell Count 4.56 X10^6/uL (4.0-5.2); Red Cell Distribution Width 15.4 % (11.6-14.8); White Blood Cell Count 5.4 X10^3/uL (4.5-11.0)
[2024-04-22 16:12] LABS: INR 1.2 (0.9-1.3)
[2024-04-22 16:14] LABS: PTT Partial Thromboplastin Tim 39 SECONDS (25.1-36.5)
[2024-04-22 16:16] LABS: Alanine Aminotransferase 19 IU/L (<35); Albumin 4.1 g/dL (3.5-5.0); Albumin Globulin Ratio 1.4 (1.0-2.8); Alkaline Phosphatase 106 U/L (38-126); Aspartate Aminotransferase 22 IU/L (14-36); BUN Creatinine Ratio 24.1 (6-22); Bilirubin Total 0.6 mg/dL (0.2-1.3); Blood Urea Nitrogen 21 mg/dL (7-17); Calcium 9.4 mg/dL (8.4-10.2); Carbon Dioxide 24 mmol/L (22-32); Chloride 105 mmol/L (98-107); Creatine Kinase 52 U/L (30-135); Estimated Glomerular Filt Rate > 60 mL/min (>60); Glucose 130 mg/dL (80-110); HEMOLYSIS < 15 (0-50); Lipase 119 U/L (23-300); Magnesium 1.8 mg/dL (1.6-2.3); Sodium 138 mmol/L (137-145); Total Protein 7.1 g/dL (6.3-8.2)
[2024-04-22 16:28] LABS: NT-proBNP (BNP-Adult 18+) 616 pg/mL (<450); Troponin I < 0.012 ng/mL (0.01-0.034)
--- NOTE | 2024-04-22 16:36 | ED_ITS ---
HPI - Arrhythmia/Palpitations General Chief Complaint: Arrhythmia/Palpitations Stated Complaint: lightheaded, blood pressure and heart issues Time Seen by Provider: 04/22/24 15:53 Source: patient Mode of arrival: Family Vehicle History of Present Illness HPI narrative: 83-year-old woman with a history of paroxysmal atrial fibrillation on dofetilide with a pacemaker in place, anticoagulated on apixaban, history of hypertension hyperlipidemia presents today complaining of high heart rate, feeling lightheaded and shaky. She was in atrial fibrillation, pacemaker interrogation suggests proximally 4 hours of atrial fibrillation. She has since converted back to sinus rhythm without any intervention. Related Data Home Medications Medication Instructions Recorded Confirmed acetaminophen 500 mg tablet 500 mg PO Q6H PRN Pain, Mild 11/06/18 01/01/24 (Tylenol Extra Strength) cholecalciferol (vitamin D3) 25 50 mcg PO DAILY 01/22/20 01/01/24 mcg (1,000 unit) capsule atorvastatin 40 mg tablet 80 mg PO HS #0 tabs 03/30/20 01/01/24 potassium chloride 10 mEq 20 meq PO DAILY 09/01/21 01/01/24 tablet,extended release dofetilide 250 mcg capsule 250 mcg PO Q12H 05/23/22 01/01/24 magnesium oxide 400 mg (241.3 mg 400 mg PO BID 05/30/22 01/01/24 magnesium) tablet dofetilide 125 mcg capsule 125 mcg PO BID 07/03/22 01/01/24 fluticasone propionate 50 g intranasal 08/22/22 01/01/24 mcg/actuation nasal spray,suspension metoprolol succinate 100 mg 100 mg PO BID 03/28/23 01/01/24 tablet,extended release 24 hr apixaban 5 mg tablet (Eliquis) 5 mg PO BID 05/06/23 01/01/24 calcipotriene 0.005 % topical cream 1 applic topical BID 07/16/23 01/01/24 clobetasol 0.05 % scalp solution topical 07/16/23 01/01/24 Previous Rx's Medication Instructions Recorded nitroglycerin 0.4 mg sublingual 0.4 mg sublingual Q5-15M PRN Chest 10/07/20 tablet (Nitrostat) Pain #30 tabs alprazolam 0.5 mg tablet 0.5 mg PO DAILY PRN anxiety #30 10/12/23 tabs triazolam 0.125 mg tablet 0.0625 mg (1/2 x 0.125 mg) PO 07/16/23 BEDTIME PRN sleep #20 tabs allopurinol 300 mg tablet 300 mg PO DAILY #90 tabs 10/10/23 cyanocobalamin (vitamin B-12) 1,000 mcg PO DAILY #90 tabs 11/27/23 1,000 mcg tablet buspirone 10 mg tablet 10 mg PO BID PRN anxiety #30 tabs 01/01/24 loperamide 2 mg tablet 2 mg PO Q4H PRN loose stool #30 01/01/24 (Anti-Diarrheal (loperamide)) tabs levothyroxine 75 mcg tablet 75 mcg PO QAM #90 tabs 03/13/24 Allergies Allergy/AdvReac Type Severity Reaction Status Date / Time codeine Allergy Severe ANAPHYLAXIS Verified 04/22/24 15:52 NSAIDS (Non-Steroidal AdvReac Severe on Warfarin Verified 04/22/24 15:52 Anti-Inflamma [NSAIDS (NON-STEROIDAL ANTI-INFLAMMA] oxycodone [OXYCODONE] AdvReac Intermediate NAUSEA, Verified 04/22/24 15:52 HALLUCINATIONS, DIZZINESS hydrocodone AdvReac Mild N/V Verified 04/22/24 15:52 pravastatin AdvReac Mild MYALGIA Verified 04/22/24 15:52 simvastatin AdvReac Mild MYALGIA Verified 04/22/24 15:52 Review of Systems Review of Systems Narrative: Pertinent positive and negative findings as per HPI Patient History Medical History Tachy-marcsu syndrome Anticoagulated on warfarin Stress incontinence Vaginal atrophy Diastasis recti Fat necrosis of abdominal wall ASHD (arteriosclerotic heart disease) Stenosis of carotid artery Atrial fibrillation Skin cancer Chronic instability of right knee History of renal calculi Hypothyroidism Hypertension GERD (gastroesophageal reflux disease) 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, right (1998) Gout (10/2011) CAD (coronary artery disease) (10/2006) Colon polyps (1998) Surgical History History of permanent cardiac pacemaker placement History of eye surgery (1998) Status post right foot surgery (1993) History of Zayra fundoplication History of right knee surgery (2000) History of left knee surgery (08/2010) History of hysterectomy (1982) Status post primary angioplasty with coronary stent (09/2011) History of cholecystectomy (1972) History of section (1963) History of left cataract surgery (1989) History of carpal tunnel release (1988) History of bilateral carpal tunnel release (1988) History of cardiac catheterization (10/2006) History of appendectomy (1963) Status post left partial knee replacement (10/12/15) History of arthroscopy of left knee (01/05/15) History of esophagogastroduodenoscopy (EGD) (06/06/06) History of colonoscopy with polypectomy (1998) History of colonoscopy (03/04/06) Family History Mother Brain tumor Cancer Father Heart disease [place] (myocardial infarction) Sister Lung cancer Stroke [place] (multiple sclerosis) Breast cancer Grandmother Diabetes mellitus Social History household members: none Smoking Status: Never smoker second hand exposure: No alcohol intake: current substance use type: does not use Smoking Status: Never smoker alcohol intake frequency: a few times a month Substance Use Type: does not use Exam Initial Vital Signs Initial Vital Signs: Vital Signs Pulse Rate 122 H 04/22/24 15:43 Respiratory Rate 20 04/22/24 15:43 Pulse Oximetry 98 04/22/24 15:43 General: Healthy appearing, in no acute distress. Able to give a complete and coherent history. Well-nourished well-developed HEENT: Moist mucous membranes, normal sclera with reactive pupils, Neck: No JVD, Respiratory: Lungs are clear to auscultation, no wheezing no rales no rhonchi. Full and symmetrical air movement Cardiac: Regular rate and rhythm no murmurs no bruits Abdomen: Soft, nontender, good bowel tones, no flank pain Skin: Warm and dry, no rashes Neurologic: Grossly neurologically intact with no obvious asymmetries or abnormalities Extremities: No trauma, well perfused, no edema Psych: Cooperative, appropriate insight and affect Course Orders Ordered: ED Orders 04/22/24 15:44 XR chest 1V Stat EKG-12 Lead Stat 04/22/24 15:56 Complete Blood Count AUTO DIFF Stat Comprehensive Metabolic Panel Stat Lipase Stat Magnesium Stat NT-proBNP (BNP-Adult 18+) Stat PTT Partial Thromboplastin Darshan Stat Prothrombin Time INR Stat Troponin & CK Cardiac Panel Stat 04/22/24 16:37 EKG-12 Lead Stat Vital Signs Vital signs: Vital Signs - 8 hr 04/22/24 15:43 04/22/24 15:45 04/22/24 15:46 Temperature 98.5 F Pulse Rate 122 H 127 H 126 H Respiratory Rate 20 20 15 Blood Pressure 137/94 H Pulse Oximetry 98 98 98 Oxygen Delivery Method Room Air 04/22/24 16:00 04/22/24 16:00 04/22/24 16:15 Temperature Pulse Rate 126 H 79 Respiratory Rate 24 22 Blood Pressure 146/82 H Pulse Oximetry 97 98 Oxygen Delivery Method Room Air 04/22/24 16:30 04/22/24 16:31 04/22/24 16:31 Temperature Pulse Rate 75 74 Respiratory Rate 34 H 24 Blood Pressure 169/63 H Pulse Oximetry 98 98 Oxygen Delivery Method MDM - Arrhythmia/Palpitations Lab Data 04/22/24 15:56 04/22/24 15:56 Labs: Lab Results 04/22/24 Range/Units 15:56 WBC 5.4 (4.5-11.0) X10^3/uL RBC 4.56 (4.0-5.2) X10^6/uL Hgb 13.4 (12.0-16.0) g/dL Hct 40.2 (36-46) % MCV 88.2 (80-100) fL MCH 29.4 (26-34) PG MCHC 33.3 (30-36) % RDW 15.4 H (11.6-14.8) % Plt Count 136 L (150-400) X10^3/uL Neut % (Auto) 75.9 H (50-75) % Lymph % (Auto) 15.3 L (25-40) % [place] % (Auto) 6.3 (3-14) % Eos % (Auto) 1.7 L (2-4) % Baso % (Auto) 0.8 (0-2) % Neut # (Auto) 4100 (8593-0046) /uL Lymph # (Auto) 800 L (8220-7023) /uL [place] # (Auto) 300 (0-900) /uL Eos # (Auto) 100 (0-450) /uL Baso # (Auto) 0 (0-100) /uL PT 14.0 H (9.4-12.5) SECONDS INR 1.2 (0.9-1.3) APTT 39 H (25.1-36.5) SECONDS Sodium 138 (137-145) mmol/L Potassium 4.0 (3.4-5.1) mmol/L Chloride 105 (98-107) mmol/L Carbon Dioxide 24 (22-32) mmol/L BUN 21 H (7-17) mg/dL Creatinine 0.87 (0.52-1.04) mg/dL Estimated GFR > 60 (>60) mL/min BUN/Creatinine Ratio 24.1 H (6-22) Glucose 130 H (80-110) mg/dL Calcium 9.4 (8.4-10.2) mg/dL Magnesium 1.8 (1.6-2.3) mg/dL Total Bilirubin 0.6 (0.2-1.3) mg/dL AST 22 (14-36) IU/L ALT 19 (<35) IU/L Alkaline Phosphatase 106 (38-126) U/L Total Creatine Kinase 52 (30-135) U/L Troponin I < 0.012 (0.01-0.034) ng/mL NT-Pro-B Natriuret Pep 616 H (<450) pg/mL Total Protein 7.1 (6.3-8.2) g/dL Albumin 4.1 (3.5-5.0) g/dL Globulin 3.0 (1.7-4.1) g/dL Albumin/Globulin Ratio 1.4 (1.0-2.8) Lipase 119 (23-300) U/L MDM Narrative Medical decision making narrative: CC: Rapid heart rate Complicating co-morbidities: Paroxysmal atrial fibrillation, post ablation in October of 2022, sick sinus syndrome with pacemaker, on dofetilide Data collected from: patient Medical records reviewed: Cardiology notes from February of 2024 indicate that patient has preserved left ventricular function, sick sinus syndrome, dual- chamber pacemaker, she did undergo ablation for her proximal atrial fibrillation in October of 2022. Differential considered: AFib, acute coronary syndrome, congestive heart failure, Exam documented above, pertinent findings include: Exam is entirely benign, patient is back in a sinus rhythm at a rate of 62 Lab Test results independently reviewed as above. Pertinent findings: CBC is unremarkable Chemistries are reassuring Troponin is undetectable BNP is minimally elevated at 616 Independently reviewed EKG: Initial EKG shows atrial fibrillation at a rate of 125. No acute ischemic changes Patient has spontaneously converted and follow up EKG shows sinus rhythm at a rate of 69 with no acute ischemic changes Imaging studies independently reviewed: Chest x-ray shows no significant abnormalities Consultations: Discussion with Dr. Davila, automatic lehr operator. His recommendation was adding an extra 50 mg of metoprolol succinate in the morning. She does have a pacemaker to prevent significant bradycardia and blood pressure is slightly elevated and certainly can benefit from additional metoprolol. Discussion: 83-year-old woman with 4 hours of atrial fibrillation and spontaneous conversion. Electrolytes are unremarkable. She is feeling well at this time. Lab work is reviewed with the patient there was no evidence of acute coronary syndrome, congestive heart failure electrolyte abnormalities or other explanation for why she may have had this brief episode of paroxysmal atrial fibrillation. We will have her continue all medications with the increase of 50 mg of metoprolol succinate in the morning. We will ask her follow up with her primary care doctor and automatic lehr operator in the near future. She is safe for discharge Discharge Plan Departure Patient Disposition: Home Clinical Impression: Paroxysmal atrial fibrillation Instructions: DI for Atrial Fibrillation Activity Restrictions/Additional Instructions: Thank you for coming in today You are in atrial fibrillation for approximately 4 hours and spontaneously converted back to sinus rhythm. There was no sign of heart attack, infection, lung abnormalities or alternate explanation that would require further workup or hospitalization today I did briefly review your care with Dr. Davila or automatic lehr operator on-call. His recommendation was to add half of a metoprolol tablet in the morning. This means that you will be taking 50 mg of metoprolol succinate in the morning and 100 mg at night. This medication controls heart rate as well as blood pressure. Please do continue to check blood pressures intermittently. I would recommend that you follow up with your automatic lehr operator in the near future. If you find that you are getting worse or develop any new symptoms, please feel free to return to the emergency department for further evaluation. If you find that you are getting worse or develop any new symptoms, please feel free to return to the emergency department for further evaluation. Prescriptions: No Action acetaminophen [Tylenol Extra Strength] 500 mg tablet 500 mg PO Q6H PRN (Reason: Pain, Mild) triazolam 0.125 mg tablet 0.0625 mg PO BEDTIME PRN (Reason: sleep) Qty: 20 0RF Hold Instructions: Weaning Rx Instructions: Take 1/2 tab qhs prn for sleep clobetasol 0.05 % solution topical calcipotriene 0.005 % cream 1 applic topical BID Rx Instructions: rub in gently and completely buspirone 10 mg tablet 10 mg PO BID PRN (Reason: anxiety) Qty: 30 2RF loperamide [Anti-Diarrheal (loperamide)] 2 mg tablet 2 mg PO Q4H MDD 10mg PRN (Reason: loose stool) Qty: 30 0RF Rx Instructions: administer after each loose stool until symptoms controlled; do not exceed 10 mg per 24 hrs cholecalciferol (vitamin D3) 25 mcg (1,000 unit) capsule 50 mcg PO DAILY atorvastatin 40 mg tablet 80 mg PO HS Qty: 0 nitroglycerin [Nitrostat] 0.4 mg tablet, sublingual 0.4 mg Sublingual Q5-15M MDD 3 tabs PRN (Reason: Chest Pain) Qty: 30 11RF dofetilide 250 mcg capsule 250 mcg PO Q12H Rx Instructions: take 1 cap 250 mcg alprazolam 0.5 mg tablet 0.5 mg PO DAILY PRN (Reason: anxiety) Qty: 30 0RF allopurinol 300 mg tablet 300 mg PO DAILY Qty: 90 3RF cyanocobalamin (vitamin B-12) 1,000 mcg tablet 1,000 mcg PO DAILY Qty: 90 0RF levothyroxine 75 mcg tablet 75 mcg PO QAM Qty: 90 2RF dofetilide 125 mcg capsule 125 mcg PO BID fluticasone propionate 50 mcg/actuation spray,suspension intranasal metoprolol succinate 100 mg tablet extended release 24 hr 100 mg PO BID Eliquis 5 mg tablet 5 mg PO BID potassium chloride 10 mEq tablet extended release 20 meq PO DAILY magnesium oxide 400 mg (241.3 mg magnesium) tablet 400 mg PO BID Patient Comments: Takes 1 tab AM. 2 tab PM. Referrals: Sarmda Keller MD [Primary Care Provider] - Stand Alone Forms: Patient Portal/API
--- NOTE | 2024-04-22 16:43 | EKG_ITS ---
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
== END 2024-04-22 17:08 | disposition home or self-care (01) ==
PROVIDERS: Emergency Provider Emergency Medicine; PCP Family Medicine
DX: I48.0 Paroxysmal atrial fibrillation (principal); Z79.01 Long term (current) use of anticoagulants; Z95.0 Presence of cardiac pacemaker
CPT/HCPCS: 36415; 71045; 80053; 82550; 83690; 83735; 83880; 84484; 85025; 85610; 85730; 93005; 99283; 99284

== ENCOUNTER → 2024-05-06 07:35 | Outpatient (CLI) | payer OTHER, SELFPAY ==
[2023-03-21 09:34] VITALS: BMI 24.9
--- NOTE | 2024-05-06 | DI.MG.S_ITS ---
BILATERAL DIGITAL SCREENING MAMMOGRAM 3D/2D WITH CAD: 05/06/2024 CLINICAL: Routine screening. Family history of breast cancer. Comparison is made to exams dated: 02/18/2023 mammogram, 01/08/2022 mammogram, and 04/06/2020 mammogram - [facility]. The breasts are heterogeneously dense, which may obscure small masses (category c / 51-75% glandular tissue). Current study was also evaluated with a Computer Aided Detection (CAD) system. There are benign post operative findings and biopsy clip in the left breast. No significant masses, calcifications, or other findings are seen in either breast. There has been no significant interval change. IMPRESSION: BENIGN There is no mammographic evidence of malignancy. A 1 year screening mammogram is recommended. Based on the Tyrer Cuzick model (a risk assessment model) the patient's lifetime risk is 1.0% and her 10 year risk is 0.0%. According to the ACR, ACS, and NCCN guidelines, an annual breast MRI exam along with mammogram is recommended if the patient's lifetime risk is 20% or greater. This exam was interpreted at Station ID: [id number]. NOTE: For mammograms, a report in lay terms will be sent to the patient. Approximately 15% of breast malignancies will not be visualized mammographically. In the management of a palpable breast mass, a negative mammogram must not discourage biopsy of a clinically suspicious lesion. Electronically Signed By: Pallavi Roberts M.D., Ph.D. sharri/charlotte:05/07/2024 15:44:22 letter sent: Normal Exam ACR BI-RADS Category 2: Benign [id number]
== END ==
LOC: MAMMO 07:35
PROVIDERS: PCP Family Medicine; Referring Provider Family Medicine; Visit Provider Family Medicine
DX: Z12.31 Encounter for screening mammogram for malignant neoplasm of breast (principal); Z80.3 Family history of malignant neoplasm of breast; R92.333 Mammographic heterogeneous density, bilateral breasts
CPT/HCPCS: 77063; 77067

== ENCOUNTER → 2024-07-03 07:28 | Outpatient (CLI) | payer OTHER, SELFPAY ==
[2023-03-21 09:34] VITALS: BMI 24.9
[2024-07-03 09:16] LABS: Alanine Aminotransferase 23 IU/L (<35); Albumin Globulin Ratio 1.7 (1.0-2.8); Alkaline Phosphatase 91 U/L (38-126); Aspartate Aminotransferase 32 IU/L (14-36); Bilirubin Total 0.9 mg/dL (0.2-1.3); Blood Urea Nitrogen 20 mg/dL (7-17); Calcium 9.6 mg/dL (8.4-10.2); Carbon Dioxide 27 mmol/L (22-32); Chloride 106 mmol/L (98-107); Cholesterol 143 mg/dL (140-199); Estimated Glomerular Filt Rate > 60 mL/min (>60); Globulin 2.4 g/dL (1.7-4.1); Glucose 99 mg/dL (80-110); HDL Cholesterol 56 mg/dL (40-60); HEMOLYSIS < 15 (0-50); LDL Cholesterol Calculated 60 mg/dL (<100); Magnesium 2.1 mg/dL (1.6-2.3); Potassium 3.9 mmol/L (3.4-5.1); Sodium 140 mmol/L (137-145); Total Protein 6.4 g/dL (6.3-8.2); Triglycerides 136 mg/dL (35-150)
[2024-07-07 07:41] LABS: Cholesterol, Total 148 mg/dL (100-199); HDL-Cholesterol 55 mg/dL (>39); HDL-Particle (Total) 34.4 umol/L (>=30.5); Historical Reading Comment: (.); LDL Particle 945 nmol/L (<1000); LDL Size 20.9 nm (>20.5); LDL-Cholsterol 69 mg/dL (0-99); LP-IR Score 44 (<=45); Small LDL- Particle 435 nmol/L (<=527); Triglycerides 136 mg/dL (0-149)
== END ==
PROVIDERS: PCP Family Medicine; Referring Provider Specialist; Visit Provider Specialist
DX: I48.0 Paroxysmal atrial fibrillation (principal); E78.2 Mixed hyperlipidemia
CPT/HCPCS: 36415; 80053; 80061; 83704; 83735; 84443

== ENCOUNTER → 2024-07-06 09:03 | Outpatient (CLI) | payer OTHER, SELFPAY ==
[2023-03-21 09:34] VITALS: BMI 24.9
--- NOTE | 2024-07-06 09:04 | DI.ECHO.S_ITS ---
[place] [facility]+ [facility] : : [id number] : [place] [address] : : [id number] : : Phone: [phone] Echocardiogram Report + + :Name: KALINA SORIANO Study Date: 07/06/2024 Height: 66.5 in: :[facility] ReadingLocation: Weight: 159 lb : : Gender: Female BSA: 1.8 m2 : :: 1940 Age: 84 yrs BP: 159/82 mmHg: :Reason For Study: EXERTIONAL DYSPNEA : :Ordering Physician: CELIO, : :PAULINE Performed By: Corine Figueroa : :Referring: PAULINE PICKENS : + + Interpretation Summary Left ventricular systolic function remains normal with an estimated ejection fraction of 55 to 60% without any focal wall motion abnormality. Diastolic parameters suggest probable elevated filling pressures, likely higher compared to the previous exam. The right ventricle appears normal and unchanged. Right ventricular systolic pressure is estimated at 31 mmHg plus the clinically estimated CVP. There is borderline biatrial enlargement both measuring larger compared to the previous exam. There is mild to moderate mitral regurgitation and mild tricuspid regurgitation, both appearing slightly more prominent compared to the previous study. The patient was in sinus rhythm at 60-85 bpm with less PVCs compared to the previous study. Procedure: The study quality was technically difficult. Comparison is made with the echocardiogram of 05/08/2022. Most of the acoustic windows were suboptimal, but the best imaging was obtained from the subcostal window. The patient was in sinus rhythm with heart rates between 60-85 bpm during the exam. Left Ventricle: The left ventricle is normal in size and wall thickness. The estimated left ventricular end diastolic volume is 66 mL compared to the previous 65 ml. Left ventricular systolic function appears normal without focal wall motion abnormalities. The ejection fraction is estimated to be 55- 60%. This is unchanged compared to the previous study. Diastolic parameters suggest a pseudonormalization pattern, consistent with probable elevated filling pressures. This is possibly higher compared to the previous study. Right Ventricle: There is a pacemaker lead in the right ventricle. The right ventricle is normal in size and function. This is unchanged compared to the previous study. Atria: There is borderline biatrial enlargement. Both atria have mildly increased in size since the prior echo exam. There is a catheter/pacemaker lead seen in the right atrium. There is no Doppler evidence for an interatrial shunt. Mitral Valve: There is mild mitral annular calcification. The mitral valve leaflets appear mildly thickened, but open well. The mitral valve leaflets are slightly calcified. There is mild to moderate mitral regurgitation. This is mildly more prominent compared to the previous study. Aortic Valve: The aortic valve is not well visualized. The aortic valve is slightly calcified. The aortic valve opens well. There is no aortic valve stenosis. No aortic regurgitation is present. Tricuspid Valve: The tricuspid valve is normal in structure and function. There is mild tricuspid regurgitation. This is slightly more prominent compared to the previous study. Right ventricular systolic pressure is estimated to be 31 mmHg plus the clinically estimated CVP which cannot be estimated on this exam. Pulmonic Valve: The pulmonic valve is not well seen, but is grossly normal. There is no pulmonic valvular regurgitation. Great Vessels: The aortic root is normal size. The dimensions of the ascending aorta are normal. The inferior vena cava was not visualized. Pericardium/ Pleura There is no pericardial effusion. There is no pleural effusion. MMode/2D Measurements & Calculations LVIDd: 5.4 cm LVOT diam: 2.0 cm LVIDs: 3.6 cm Ao root diam: 3.1 cm FS: 33.5 % asc Aorta Diam: 2.9 cm EPSS: 1.2 cm Ao Arch Diam (Prox Trans): 2.2 cm IVSd: 0.75 cm LVPWd: 0.70 cm LV lópez. diameter/BSA (cm/m^2): 2.9 LV sys. diameter/BSA (cm/m^2): 2.0 LA A2 area: 19.3 cm2 RA long axis: 5.3 cm LA A4 area: 20.5 cm2 RA area: 17.5 cm2 LA length (vol): 5.4 cm RA vol: 49.2 ml LA vol: 62.1 ml RA : 27.0 ml/m2 LA vol index: 34.0 ml/m2 RVD1 (basal): 3.9 cm TAPSE: 2.6 cm Doppler Measurements & Calculations Ao V2 max: 117.8 cm/sec LVOT Max Moshe: 81.3 cm/sec Ao V2 mean: 85.0 cm/sec LV V1 max P.6 mmHg Ao max P.6 mmHg LV V1 VTI: 20.2 cm Ao mean P.2 mmHg SANTIAGO(I,D): 2.0 cm2 Ao V2 VTI: 32.0 cm SANTIAGO(V,D): 2.1 cm2 sev ratio: 0.63 SANTIAGO indexed to BSA (cm^2/m^2): 1.1 MV E max moshe: 103.9 cm/sec TR max moshe: 277.9 cm/sec MV A max moshe: 102.7 cm/sec TR max P.9 mmHg MV E/A: 1.0 PA V2 max: 84.1 cm/sec Med Peak E' Moshe: 5.1 cm/sec PA V2 mean: 62.5 cm/sec E/E' med: 20.4 PA mean P.7 mmHg Lat Peak E' Moshe: 6.7 cm/sec PA pr(Accel): 31.0 mmHg E/E' lat: 15.4 E/e' average: 17.9 MV dec time: 0.20 sec SV(LVOT): 62.9 ml Reading Physician:09:38 AM
== END ==
PROVIDERS: PCP Family Medicine; Referring Provider Specialist; Visit Provider Specialist
DX: I08.1 Rheumatic disorders of both mitral and tricuspid valves (principal); R06.09 Other forms of dyspnea
CPT/HCPCS: 93306

== ENCOUNTER 2024-07-09 16:54 | Emergency (ER) | payer OTHER, SELFPAY ==
[2023-03-21 09:34] VITALS: BMI 24.9
[2024-07-09] VITALS (18 sets, daily range): BP systolic 136–209; BP diastolic 72–88; PULSE 60–79; RESP 16–18; TEMP 36.4; O2SAT 92–98; BMI 25.8
[2024-07-09 17:44] LABS: Add Manual Diff / Slide Review NO; Basophils Absolute Auto 0 /uL (0-100); Basophils Percent Auto 0.6 % (0-2); Eosinophils Absolute Auto 100 /uL (0-450); Eosinophils Percent Auto 1.3 % (2-4); Hematocrit 41.4 % (36-46); Hemoglobin 13.3 g/dL (12.0-16.0); Lymphocytes Absolute Auto 700 /uL (1100-4500); Lymphocytes Percent Auto 9.5 % (25-40); Mean Corpuscular HGB Conc 32.2 % (30-36); Monocytes Absolute Auto 300 /uL (0-900); Monocytes Percent Auto 4.8 % (3-14); Neutrophils Absolute Auto 5800 /uL (1500-7000); Neutrophils Percent Auto 83.8 % (50-75); Platelet Count 147 X10^3/uL (150-400); Red Cell Distribution Width 16.2 % (11.6-14.8); White Blood Cell Count 6.9 X10^3/uL (4.5-11.0)
[2024-07-09 17:57] LABS: Alanine Aminotransferase 46 IU/L (<35); Albumin 4.2 g/dL (3.5-5.0); Albumin Globulin Ratio 1.4 (1.0-2.8); Alkaline Phosphatase 99 U/L (38-126); Aspartate Aminotransferase 44 IU/L (14-36); BUN Creatinine Ratio 25.8 (6-22); Bilirubin Total 0.7 mg/dL (0.2-1.3); Blood Urea Nitrogen 23 mg/dL (7-17); Calcium 9.6 mg/dL (8.4-10.2); Carbon Dioxide 31 mmol/L (22-32); Chloride 103 mmol/L (98-107); Estimated Glomerular Filt Rate > 60 mL/min (>60); Globulin 2.9 g/dL (1.7-4.1); Glucose 124 mg/dL (80-110); HEMOLYSIS < 15 (0-50); Lipase 93 U/L (23-300); Potassium 4.2 mmol/L (3.4-5.1); Sodium 138 mmol/L (137-145); Total Protein 7.1 g/dL (6.3-8.2)
--- NOTE | 2024-07-09 18:12 | ED.NAVMDI ---
HPI - Nausea/Vomiting/Diarrhea General Chief complaint: Nausea/Vomiting/Diarrhea Stated complaint: sent by PCP, for diarrhea Time Seen by Provider: 07/09/24 17:52 Source: patient Mode of arrival: Ambulatory History of Present Illness HPI Narrative: 84-year-old female with history of chronic diarrhea, paroxysmal atrial fibrillation on dofetilide and Eliquis, history of permanent pacemaker, hypertension presents for lightheadedness and concerned that she was dehydrated. Patient states that she has been followed by GI for diarrhea that she has had since October of this year. No definitive cause has been found. This morning the patient woke up feeling very lightheaded and like she was dehydrated from her diarrhea. She called her primary care doctor's office who referred her to the emergency department for evaluation. Patient denies bleeding, abdominal pain, other complaints at this time. Related Data Home Medications Medication Instructions Recorded Confirmed acetaminophen 500 mg tablet 500 mg PO Q6H PRN Pain, Mild 11/06/18 01/01/24 (Tylenol Extra Strength) cholecalciferol (vitamin D3) 25 50 mcg PO DAILY 01/22/20 01/01/24 mcg (1,000 unit) capsule atorvastatin 40 mg tablet 80 mg PO HS #0 tabs 03/30/20 01/01/24 potassium chloride 10 mEq 20 meq PO DAILY 09/01/21 01/01/24 tablet,extended release dofetilide 250 mcg capsule 250 mcg PO Q12H 05/23/22 01/01/24 magnesium oxide 400 mg (241.3 mg 400 mg PO BID 05/30/22 01/01/24 magnesium) tablet dofetilide 125 mcg capsule 125 mcg PO BID 07/03/22 01/01/24 fluticasone propionate 50 g intranasal 08/22/22 01/01/24 mcg/actuation nasal spray,suspension metoprolol succinate 100 mg 100 mg PO BID 03/28/23 01/01/24 tablet,extended release 24 hr apixaban 5 mg tablet (Eliquis) 5 mg PO BID 05/06/23 01/01/24 calcipotriene 0.005 % topical cream 1 applic topical BID 07/16/23 01/01/24 clobetasol 0.05 % scalp solution topical 07/16/23 01/01/24 Previous Rx's Medication Instructions Recorded nitroglycerin 0.4 mg sublingual 0.4 mg sublingual Q5-15M PRN Chest 10/07/20 tablet (Nitrostat) Pain #30 tabs alprazolam 0.5 mg tablet 0.5 mg PO DAILY PRN anxiety #30 06/06/23 tabs triazolam 0.125 mg tablet 0.0625 mg (1/2 x 0.125 mg) PO 07/16/23 BEDTIME PRN sleep #20 tabs allopurinol 300 mg tablet 300 mg PO DAILY #90 tabs 10/10/23 cyanocobalamin (vitamin B-12) 1,000 mcg PO DAILY #90 tabs 11/27/23 1,000 mcg tablet buspirone 10 mg tablet 10 mg PO BID PRN anxiety #30 tabs 01/01/24 loperamide 2 mg tablet 2 mg PO Q4H PRN loose stool #30 01/01/24 (Anti-Diarrheal (loperamide)) tabs levothyroxine 75 mcg tablet 75 mcg PO QAM #90 tabs 03/13/24 Allergies Allergy/AdvReac Type Severity Reaction Status Date / Time codeine Allergy Severe ANAPHYLAXIS Verified 04/22/24 15:52 NSAIDS (Non-Steroidal AdvReac Severe on Warfarin Verified 04/22/24 15:52 Anti-Inflamma [NSAIDS (NON-STEROIDAL ANTI-INFLAMMA] oxycodone [OXYCODONE] AdvReac Intermediate NAUSEA, Verified 04/22/24 15:52 HALLUCINATIONS, DIZZINESS hydrocodone AdvReac Mild N/V Verified 04/22/24 15:52 pravastatin AdvReac Mild MYALGIA Verified 04/22/24 15:52 simvastatin AdvReac Mild MYALGIA Verified 04/22/24 15:52 Patient History Medical History Tachy-marcus syndrome Anticoagulated on warfarin Stress incontinence Vaginal atrophy Diastasis recti Fat necrosis of abdominal wall ASHD (arteriosclerotic heart disease) Stenosis of carotid artery Atrial fibrillation Skin cancer Chronic instability of right knee History of renal calculi Hypothyroidism Hypertension GERD (gastroesophageal reflux disease) 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, right (1998) Gout (10/2011) CAD (coronary artery disease) (10/2006) Colon polyps (1998) Surgical History History of permanent cardiac pacemaker placement History of eye surgery (1998) Status post right foot surgery (1993) History of Zayra fundoplication History of right knee surgery (2000) History of left knee surgery (08/2010) History of hysterectomy (1982) Status post primary angioplasty with coronary stent (09/2011) History of cholecystectomy (1972) History of section (1963) History of left cataract surgery (1989) History of carpal tunnel release (1988) History of bilateral carpal tunnel release (1988) History of cardiac catheterization (10/2006) History of appendectomy (1963) Status post left partial knee replacement (10/12/15) History of arthroscopy of left knee (01/05/15) History of esophagogastroduodenoscopy (EGD) (06/06/06) History of colonoscopy with polypectomy (1998) History of colonoscopy (03/04/06) Family History Mother Brain tumor Cancer Father Heart disease PA (myocardial infarction) Sister Lung cancer Stroke MS (multiple sclerosis) Breast cancer Grandmother Diabetes mellitus Social History household members: none Smoking Status: Never smoker second hand exposure: No alcohol intake: current substance use type: does not use Smoking Status: Never smoker alcohol intake frequency: a few times a month Substance Use Type: does not use Exam Initial Vital Signs Initial Vital Signs: Vital Signs Temperature 97.5 F L 07/09/24 17:01 Pulse Rate 61 07/09/24 17:01 Respiratory Rate 18 07/09/24 17:01 Blood Pressure 178/73 H 07/09/24 17:01 Pulse Oximetry 97 07/09/24 17:01 Oxygen Delivery Method Room Air 07/09/24 17:01 Const: Awake, alert, no acute distress, nontoxic appearing Cardiac: regular rate, regular rhythm RESP: unlabored, clear bilaterally, no wheezing GI: Soft, nontender, nondistended, no rebound, no guarding MSK: Atraumatic, full range of motion, pulses equal Skin: Warm, Dry, intact, no rashes Neuro: AO x3, CN II-XII grossly intact, moves all extremities Course Orders Ordered: ED Orders 07/09/24 17:13 GI Panel (Film Array) Stat 07/09/24 17:29 Complete Blood Count AUTO DIFF Stat Comprehensive Metabolic Panel Stat Lipase Stat 07/09/24 22:41 CT head/brain wo con Stat Chest [XR chest 1V] Stat EKG-12 Lead Stat Discontinued Medications Sodium Chloride (Normal Saline 0.9%) 1,000 mls @ 1,000 mls/hr IV BOLUS ONE Stop: 07/09/24 21:27 Last Infusion: 07/09/24 21:55 Dose: Infused Documented By: Admin: 07/09/24 20:35 Dose: 1,000 mls/hr Documented By: JOSIE Sodium Chloride (Normal Saline 0.9%) 500 mls @ 1,000 mls/hr IV BOLUS ONE Stop: 07/09/24 22:29 Last Infusion: 07/09/24 22:41 Dose: Infused Documented By: Admin: 07/09/24 22:13 Dose: 1,000 mls/hr Documented By: JOSIE Vital Signs Vital signs: Vital Signs - 8 hr 07/09/24 17:01 07/09/24 17:16 07/09/24 17:17 Temperature 97.5 F L Pulse Rate 61 67 Respiratory Rate 18 Blood Pressure 178/73 H 209/86 H Pulse Oximetry 97 97 Oxygen Delivery Method Room Air 07/09/24 17:17 07/09/24 17:21 07/09/24 17:21 Temperature Pulse Rate 67 60 Respiratory Rate Blood Pressure 190/84 H Pulse Oximetry 94 96 Oxygen Delivery Method 07/09/24 17:30 07/09/24 17:30 07/09/24 18:00 Temperature Pulse Rate 60 65 Respiratory Rate Blood Pressure 195/84 H Pulse Oximetry 97 96 Oxygen Delivery Method 07/09/24 18:30 07/09/24 19:00 07/09/24 19:30 Temperature Pulse Rate 60 79 60 Respiratory Rate Blood Pressure Pulse Oximetry 95 96 96 Oxygen Delivery Method 07/09/24 19:34 07/09/24 19:34 07/09/24 20:00 Temperature Pulse Rate 64 60 Respiratory Rate Blood Pressure 136/88 Pulse Oximetry 98 96 Oxygen Delivery Method Room Air 07/09/24 20:01 07/09/24 20:01 07/09/24 20:30 Temperature Pulse Rate 60 60 Respiratory Rate 16 Blood Pressure 173/72 H Pulse Oximetry 96 95 Oxygen Delivery Method Room Air 07/09/24 21:56 11/14/24 21:57 07/09/24 21:57 Temperature Pulse Rate 72 Respiratory Rate Blood Pressure 175/77 H Pulse Oximetry 92 92 Oxygen Delivery Method 07/09/24 22:00 07/09/24 22:00 07/09/24 22:30 Temperature Pulse Rate 60 60 Respiratory Rate Blood Pressure 182/78 H Pulse Oximetry 97 96 Oxygen Delivery Method Room Air 07/09/24 22:30 07/09/24 23:03 Temperature Pulse Rate 64 Respiratory Rate 18 Blood Pressure 187/77 H Pulse Oximetry 97 Oxygen Delivery Method MDM - Nausea/Vomiting/Diarrhea Lab Data 07/09/24 17:29 07/09/24 17:29 Labs: Lab Results 07/09/24 Range/Units 17:29 WBC 6.9 (4.5-11.0) X10^3/uL RBC 4.60 (4.0-5.2) X10^6/uL Hgb 13.3 (12.0-16.0) g/dL Hct 41.4 (36-46) % MCV 90.0 (80-100) fL MCH 29.0 (26-34) PG MCHC 32.2 (30-36) % RDW 16.2 H (11.6-14.8) % Plt Count 147 L (150-400) X10^3/uL Neut % (Auto) 83.8 H (50-75) % Lymph % (Auto) 9.5 L (25-40) % [place] % (Auto) 4.8 (3-14) % Eos % (Auto) 1.3 L (2-4) % Baso % (Auto) 0.6 (0-2) % Neut # (Auto) 5800 (3103-7337) /uL Lymph # (Auto) 700 L (2124-2118) /uL [place] # (Auto) 300 (0-900) /uL Eos # (Auto) 100 (0-450) /uL Baso # (Auto) 0 (0-100) /uL Sodium 138 (137-145) mmol/L Potassium 4.2 (3.4-5.1) mmol/L Chloride 103 (98-107) mmol/L Carbon Dioxide 31 (22-32) mmol/L BUN 23 H (7-17) mg/dL Creatinine 0.89 (0.52-1.04) mg/dL Estimated GFR > 60 (>60) mL/min BUN/Creatinine Ratio 25.8 H (6-22) Glucose 124 H (80-110) mg/dL Calcium 9.6 (8.4-10.2) mg/dL Total Bilirubin 0.7 (0.2-1.3) mg/dL AST 44 H (14-36) IU/L ALT 46 H (<35) IU/L Alkaline Phosphatase 99 (38-126) U/L Total Protein 7.1 (6.3-8.2) g/dL Albumin 4.2 (3.5-5.0) g/dL Globulin 2.9 (1.7-4.1) g/dL Albumin/Globulin Ratio 1.4 (1.0-2.8) Lipase 93 (23-300) U/L Imaging Data CT scan - head: Radiologist's Impression: PROCEDURE: CT HEAD/BRAIN WO CON INDICATIONS: unsteady gait x 1 day TECHNIQUE: Noncontrast 4.5 mm thick angled axial sections acquired from the foramen magnum to the vertex, with coronal and sagittal reformats. For radiation dose reduction, the following was used: automated exposure control, adjustment of mA and/or kV according to patient size. COMPARISON: [facility], CT, CT HEAD/BRAIN WO CON, 03/26/2023, 15:03. FINDINGS: Image quality: Diagnostic. CSF spaces: Basal cisterns are patent. No extra-axial fluid collections. The ventricles are symmetric in size and shape. Brain: No acute intracranial hemorrhage or mass effect. There is cerebral volume loss for age, with resultant ventricular and sulcal prominence. There are periventricular and deep white matter chronic small vessel ischemic changes. There is intracranial internal carotid artery atherosclerosis. Skull and face: Calvarium and visualized facial bones appear intact, without suspicious lesions. Sinuses: Visualized sinuses and mastoids are clear. IMPRESSION: No acute intracranial pathology. Approved by: Edouard Ghotra M.D. on 07/09/2024 at 23:16 ECG Data Interpretation: Atrial paced rhythm at 60 beats per minute. No ST T wave changes, normal intervals MDM Narrative Medical decision making narrative: Well-appearing patient with lightheadedness following chronic diarrhea. Patient is concerned that she was dehydrated and needs IV fluids. Abdomen soft, patient has been followed by GI for her symptoms without definitive diagnosis so far. Basic laboratory work, GI panel, IV fluids ordered. Patient was not provided GI panel sample. She states that she feels improved after receiving a L of IV fluids but still slightly lightheaded. Laboratory work reviewed, no leukocytosis, normal electrolytes. Mild increase in AST and ALT from several weeks ago, this may be related to her diarrhea, however bilirubin is normal and patient has no abdominal pain. Plan to give 500 mL additional fluids and we will reassess. Patient received additional 500 cc of normal saline. Nursing staff informed me that patient was very unsteady on her feet, which is unusual for the patient. A chest x-ray and CT brain ordered for assessment. Patient has no weakness or vertigo symptoms at this time. CT brain and chest x-ray negative for acute findings. Patient reassessed, she states that after the fluids she feels much better and closer to her ?real self?. I asked the patient about her unsteady gait, she states that she normally has to start her walking with a walker, and as she becomes more steady she will discard the walker. She states that right now she feels a little nervous because it was late at night and she has to get home in the dark. She states that she feels like when she was gone to the bathroom numerous times her gait has been more or less her baseline. She states that she feels comfortable going home and she feels like she got what she needed out of her visit. She has both a cardiology and primary care doctor's appointment within the next week and she will continue to follow up with GI for her chronic diarrhea. Strict ER return precautions discussed at bedside. Discharge Plan Departure Patient Disposition: Home Clinical Impression: Lightheaded, Diarrhea Instructions: DI for Dehydration -- Adult Activity Restrictions/Additional Instructions: Your laboratory work today overall looks reassuring. You had a very mild increase in your liver enzymes, however this is likely due to your diarrhea and can be followed by your primary care doctor. Continue to take all of your medications as prescribed. If you notice your symptoms worsening or are having trouble walking, weakness, any other concerning symptoms please return immediately to the emergency department for evaluation. Prescriptions: No Action acetaminophen [Tylenol Extra Strength] 500 mg tablet 500 mg PO Q6H PRN (Reason: Pain, Mild) triazolam 0.125 mg tablet 0.0625 mg PO BEDTIME PRN (Reason: sleep) Qty: 20 0RF Hold Instructions: Weaning Rx Instructions: Take 1/2 tab qhs prn for sleep clobetasol 0.05 % solution topical calcipotriene 0.005 % cream 1 applic topical BID Rx Instructions: rub in gently and completely buspirone 10 mg tablet 10 mg PO BID PRN (Reason: anxiety) Qty: 30 2RF loperamide [Anti-Diarrheal (loperamide)] 2 mg tablet 2 mg PO Q4H MDD 10mg PRN (Reason: loose stool) Qty: 30 0RF Rx Instructions: administer after each loose stool until symptoms controlled; do not exceed 10 mg per 24 hrs cholecalciferol (vitamin D3) 25 mcg (1,000 unit) capsule 50 mcg PO DAILY atorvastatin 40 mg tablet 80 mg PO HS Qty: 0 nitroglycerin [Nitrostat] 0.4 mg tablet, sublingual 0.4 mg Sublingual Q5-15M MDD 3 tabs PRN (Reason: Chest Pain) Qty: 30 11RF dofetilide 250 mcg capsule 250 mcg PO Q12H Rx Instructions: take 1 cap 250 mcg alprazolam 0.5 mg tablet 0.5 mg PO DAILY PRN (Reason: anxiety) Qty: 30 0RF allopurinol 300 mg tablet 300 mg PO DAILY Qty: 90 3RF cyanocobalamin (vitamin B-12) 1,000 mcg tablet 1,000 mcg PO DAILY Qty: 90 0RF levothyroxine 75 mcg tablet 75 mcg PO QAM Qty: 90 2RF dofetilide 125 mcg capsule 125 mcg PO BID fluticasone propionate 50 mcg/actuation spray,suspension intranasal metoprolol succinate 100 mg tablet extended release 24 hr 100 mg PO BID Eliquis 5 mg tablet 5 mg PO BID potassium chloride 10 mEq tablet extended release 20 meq PO DAILY magnesium oxide 400 mg (241.3 mg magnesium) tablet 400 mg PO BID Patient Comments: Takes 1 tab AM. 2 tab PM. Referrals: Sarmad Keller MD [Primary Care Provider] - Stand Alone Forms: Patient Portal/API/Survey
--- NOTE | 2024-07-09 19:12 | PC.NURSE ---
Pt ambulatory to restroom without difficulty or assistance. States this is first time in months with no stool output.
--- NOTE | 2024-07-09 19:38 | PC.NURSE ---
Pt awake and alert sitting in ED stretcher. No distress noted at this time. Pt connected to blood pressure and pulse ox monitors with alarms on and audible. Call light within reach.
--- NOTE | 2024-07-09 20:13 | PC.NURSE ---
No change in patient condition or status. Pt sitting in ED stretcher reading at this time. No distress noted. Remains connected to vs machine with alarms on and audible. Call light within reach.
[2024-07-09] MEDS: SODIUM CHLORIDE 0.9% 1,000 ML 1000 ML IV (20:35)
--- NOTE | 2024-07-09 20:47 | PC.NURSE ---
Pt ambulatory to restroom with 1 person standby. Slightly unsteady gait noted. Pt states I just feel like I'm floating.
--- NOTE | 2024-07-09 20:47 | PC.NURSE ---
Patient ambulatory to restroom without difficulty or assistance. Unable to provide stool sample at this time.
--- NOTE | 2024-07-09 21:57 | PC.NURSE ---
Pt ambulatory to restroom with 1 person standby. Gait unchanged from previously.
--- NOTE | 2024-07-09 21:57 | PC.NURSE ---
Pt ambulatory to restroom without difficulty or assistance. States still feeling lightheaded when up and walking around. Denies symptoms while sitting.
[2024-07-09] MEDS: SODIUM CHLORIDE 0.9% 500 ML 1000 ML IV (22:13)
--- NOTE | 2024-07-09 22:41 | DI.RAD.S_ITS ---
PROCEDURE: XR CHEST 1V INDICATIONS: lightheaded, unsteady gait TECHNIQUE: One view of the chest was acquired. COMPARISON: [facility], CR, XR CHEST 1V, 04/22/2024, 16:01. [facility], CR, XR CHEST 1V, 06/15/2022, 22:28. FINDINGS: Surgical changes and devices: Cardiac pacemaker is seen with pulse generator in the left chest. Lungs and pleura: Lungs are clear. No pleural effusions or pneumothorax. Mediastinum: Mediastinal contours appear normal. Heart size is stable. Bones and chest wall: No suspicious bony lesions. Overlying soft tissues appear unremarkable. IMPRESSION: No acute cardiopulmonary abnormality is seen. Approved by: Edouard Ghotra M.D. on 07/09/2024 at 23:11
--- NOTE | 2024-07-09 22:41 | DI.CT.S_ITS ---
PROCEDURE: CT HEAD/BRAIN WO CON INDICATIONS: unsteady gait x 1 day TECHNIQUE: Noncontrast 4.5 mm thick angled axial sections acquired from the foramen magnum to the vertex, with coronal and sagittal reformats. For radiation dose reduction, the following was used: automated exposure control, adjustment of mA and/or kV according to patient size. COMPARISON: [facility], CT, CT HEAD/BRAIN WO CON, 03/26/2023, 15:03. FINDINGS: Image quality: Diagnostic. CSF spaces: Basal cisterns are patent. No extra-axial fluid collections. The ventricles are symmetric in size and shape. Brain: No acute intracranial hemorrhage or mass effect. There is cerebral volume loss for age, with resultant ventricular and sulcal prominence. There are periventricular and deep white matter chronic small vessel ischemic changes. There is intracranial internal carotid artery atherosclerosis. Skull and face: Calvarium and visualized facial bones appear intact, without suspicious lesions. Sinuses: Visualized sinuses and mastoids are clear. IMPRESSION: No acute intracranial pathology. Approved by: Edouard Ghotra M.D. on 07/09/2024 at 23:16
--- NOTE | 2024-07-09 22:47 | PC.NURSE ---
Pt ambulatory to restroom with one person standby. Gait remains unsteady, unchanged from previous ambulation. Dr. Scott updated.
--- NOTE | 2024-07-09 22:49 | EKG_ITS ---
[address] [address] Test Date: 2024-07-09 Pat Name: Bree Aaron Department: [facility] Room: Gender: Female Classroom Technology Coach: VANITA GARCIA : 1940 Requested By: Order Number: [id number] Reading MD: Chino De Paz MD Measurements Intervals [place] Rate: 60 P: 72 DC: 198 QRS: 46 QRSD: 84 T: 57 QT: 460 QTc: 460 Interpretive Statements Atrial-paced rhythm Cannot rule out Anterior infarct , age undetermined Electronically Signed On 07-10-2024 11:40:42 PST by Chino De Paz MD
--- NOTE | 2024-07-09 22:54 | PC.NURSE ---
Pt to imaging via stretcher with tech
--- NOTE | 2024-07-09 23:52 | PC.NURSE ---
Pt ambulatory to restroom with 1 person standby. Gait remains unsteady and unchanged from previous ambulation. Pt attempted to collect urine for sample but missed collection container. Pt assisted back to any and Dr. Scott informed and at bedside.
== END 2024-07-10 00:11 | disposition home or self-care (01) ==
PROVIDERS: Emergency Medicine; Emergency Provider Emergency Medicine; PCP Family Medicine
DX: R42 Dizziness and giddiness (principal); R19.7 Diarrhea, unspecified; E86.0 Dehydration; R07.9 Chest pain, unspecified; Z79.01 Long term (current) use of anticoagulants; Z95.0 Presence of cardiac pacemaker
CPT/HCPCS: 70450; 71045; 80053; 83690; 85025; 93005; 96360; 99283; 99284

== ENCOUNTER 2024-09-14 10:44 | Emergency (ER) | payer OTHER, SELFPAY ==
[2023-03-21 09:34] VITALS: BMI 24.9
[2024-09-14] VITALS (18 sets, daily range): BP systolic 127–236; BP diastolic 56–102; PULSE 60–74; RESP 14–23; TEMP 36.6–37.1; O2SAT 93–99; BMI 25.7
--- NOTE | 2024-09-14 11:35 | DI.CT.S_ITS ---
PROCEDURE: CT FACIAL BONES WO CON INDICATIONS: ?jaw dislocation TECHNIQUE: Noncontrast 2.5 mm thick axial images acquired from the mandible through the frontal sinuses, with coronal and sagittal reformatting. For radiation dose reduction, the following was used: automated exposure control, adjustment of mA and/or kV according to patient size. COMPARISON: None. FINDINGS: Image quality: Excellent. Bones and teeth: Orbital finley are intact. Sinus finley show no fracture or deformity. Nasal bones and septum are intact. Visualized portions of the mandible demonstrate no fractures or subluxation. Zygomatic arches are intact. Pterygoid plates are intact. Visualized portions of the skull base and auditory canals are intact. Several left maxillary dental caries with periapical lucencies, largest involving the left central incisor. [id number] temporomandibular joint degeneration. Sinuses: Paranasal sinuses are aerated, without fluid levels, mucosal thickening, or mucoceles. Mastoid air cells are aerated. Soft tissues: No edema, masses, or fluid collections. No enlarged lymph nodes. No soft tissue lacerations or debris. Lens replacements. Vascular: Visualized vascular structures appear normal in the absence of contrast. Bony vascular foramina and canals are intact. IMPRESSION: No evidence of temporomandibular joint dislocation. No acute abnormalities. 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 Several left maxillary dental caries with periapical lucencies, largest involving the left central incisor. Recommend dental exam. Dictated by: Seymour Dominguez M.D. on 09/14/2024 at 12:08 Approved by: Seymour Dominguez M.D. on 09/14/2024 at 12:12
--- NOTE | 2024-09-14 11:41 | EKG_ITS ---
[facility] [address] [place] [address] Test Date: 2024-09-14 Pat Name: Bree Aaron Department: [facility] Room: Gender: Female Nurse Orthopaedic: SAMUEL : 1940 Requested By: Order Number: [id number] Reading MD: Measurements Intervals [place] Rate: 67 P: 54 [place]: 142 QRS: 35 QRSD: 88 T: 46 QT: 424 QTc: 448 Interpretive Statements Normal sinus rhythm
--- NOTE | 2024-09-14 11:41 | DI.RAD.S_ITS ---
PROCEDURE: XR CHEST 1V INDICATIONS: chest pain TECHNIQUE: One view of the chest was acquired. COMPARISON: [facility], CR, XR CHEST 1V, 07/09/2024, 22:55. FINDINGS: Surgical changes and devices: Left chest wall pacemaker leads are in the region of right atrium and right ventricle. Lungs and pleura: Lungs are clear. No pleural effusions or pneumothorax. Mediastinum: Mediastinal contours appear normal. Heart size is normal. Bones and chest wall: No suspicious bony lesions. Overlying soft tissues appear unremarkable. IMPRESSION: No acute cardiopulmonary pathology. Dictated by: Eldon Huang M.D. on 09/14/2024 at 12:15 Approved by: Eldon Huang M.D. on 09/14/2024 at 12:15
[2024-09-14 11:51] LABS: Add Manual Diff / Slide Review NO; Basophils Absolute Auto 0 /uL (0-100); Basophils Percent Auto 0.4 % (0-2); Eosinophils Absolute Auto 0 /uL (0-450); Eosinophils Percent Auto 0.5 % (2-4); Hematocrit 40.5 % (36-46); Hemoglobin 13.3 g/dL (12.0-16.0); Lymphocytes Absolute Auto 800 /uL (1100-4500); Lymphocytes Percent Auto 9.5 % (25-40); Mean Corpuscular HGB Conc 32.8 % (30-36); Mean Corpuscular Hemoglobin 29.7 PG (26-34); Mean Corpuscular Volume 90.7 fL (80-100); Monocytes Absolute Auto 600 /uL (0-900); Monocytes Percent Auto 7.2 % (3-14); Neutrophils Absolute Auto 7100 /uL (1500-7000); Neutrophils Percent Auto 82.4 % (50-75); Platelet Count 125 X10^3/uL (150-400); Red Blood Cell Count 4.46 X10^6/uL (4.0-5.2); Red Cell Distribution Width 15.8 % (11.6-14.8); White Blood Cell Count 8.6 X10^3/uL (4.5-11.0)
[2024-09-14 11:58] LABS: INR 1.4 (0.9-1.3); Prothrombin Time 15.4 SECONDS (9.4-12.5)
[2024-09-14 12:01] LABS: PTT Partial Thromboplastin Tim 34 SECONDS (25.1-36.5)
[2024-09-14 12:02] LABS: Alanine Aminotransferase 46 IU/L (<35); Albumin 4.2 g/dL (3.5-5.0); Albumin Globulin Ratio 1.6 (1.0-2.8); Alkaline Phosphatase 95 U/L (38-126); Aspartate Aminotransferase 30 IU/L (14-36); BUN Creatinine Ratio 27.2 (6-22); Bilirubin Total 0.9 mg/dL (0.2-1.3); Blood Urea Nitrogen 25 mg/dL (7-17); Calcium 9.6 mg/dL (8.4-10.2); Carbon Dioxide 32 mmol/L (22-32); Chloride 103 mmol/L (98-107); Creatine Kinase 34 U/L (30-135); Estimated Glomerular Filt Rate > 60 mL/min (>60); Globulin 2.6 g/dL (1.7-4.1); Glucose 114 mg/dL (80-110); HEMOLYSIS < 15 (0-50); Lipase 81 U/L (23-300); Magnesium 1.8 mg/dL (1.6-2.3); Potassium 3.7 mmol/L (3.4-5.1); Sodium 139 mmol/L (137-145); Total Protein 6.8 g/dL (6.3-8.2)
[2024-09-14 12:14] LABS: NT-proBNP (BNP-Adult 18+) 277 pg/mL (<450); Troponin I < 0.012 ng/mL (0.01-0.034)
[2024-09-14] MEDS: LORazepam 2 MG/ML INJ 1 MG IV ×2 (12:14→18:30)
[2024-09-14 12:25] LABS: Urine Volume 10mL (spun)
[2024-09-14 12:33] LABS: Bacteria Urine None Seen; Culture Indicated Urine Specimen Cultured; RBC Urine 0-1/HPF (0-5/HPF); Squamous Epithelial Cell Urine None Seen (0-5/HPF); WBC Urine 1-5/HPF (0-5/HPF)
--- NOTE | 2024-09-14 13:32 | DI.CT.S_ITS ---
PROCEDURE: CT FACIAL BONES W CON INDICATIONS: concern or dental abscess upper right jaw TECHNIQUE: After the administration of intravenous contrast, 2.5 mm axial sections acquired from the mid-neck to the frontal sinuses, with coronal and sagittal reformats. For radiation dose reduction, the following was used: automated exposure control, adjustment of mA and/or kV according to patient size. COMPARISON: [facility], CT, CT FACIAL BONES WO CON, 09/14/2024, 11:44. FINDINGS: Image quality: There is artifact associated with the metallic hardware. Artifact from the metallic hardware is reduced by metal reconstruction algorithm. Soft tissues: There is an oblong fluid collection seen within the right retail and promotions coordinator space, which is overall best demonstrated on series 5, image 50. This fluid collection measures up to 1.5 cm transversely. Distal collection is seen just anterior to the right mandibular condyle. Mild rim enhancement can be seen. Vascular: Visualized vascular structures appear patent throughout. Bony vascular foramina and canals appear normal. Bones: Underlying poor dentition can be seen. Facial bones appear intact, without fractures, erosions, or destruction. Visualized portions of the skull base and auditory canals also appear normal. Sinuses: Paranasal sinuses are aerated without fluid levels, mucosal thickening, or mucoceles. Mastoid air cells are aerated. IMPRESSION: [place] 1.5 cm fluid collection within the right retail and promotions coordinator space, which is consistent with an early abscess. Underlying poor dentition noted. Dictated by: Rafiq Bloom M.D. on 09/14/2024 at 13:16 Approved by: Rafiq Bloom M.D. on 09/14/2024 at 13:20
--- NOTE | 2024-09-14 13:58 | ED.DENTAL ---
HPI - Dental/Oral <Jersey Bell PA-C - Last Filed: 09/14/24 19:01> General Chief complaint: Dental/Oral Stated complaint: pain in Jaw Time Seen by Provider: 09/14/24 11:15 Source: patient Mode of arrival: Ambulatory History of Present Illness HPI Narrative: 84-year-old female with past medical history TMJ, hypertension, hyperlipidemia, hypothyroidism, CAD, status post pacemaker, paroxysmal AFib, anxiety presents to the ED with 3 days of right-sided jaw pain. Patient states that she has a history of TMJ, mostly on the left side. Patient states that she was yawning on Saturday, following which she has had intense right-sided jaw pain. Patient states it is difficult for her to open her jaw, swallow. No fever, chills, chest pain, shortness of breath, nausea, vomiting, dysuria, abdominal pain. Related Data Home Medications Medication Instructions Recorded Confirmed acetaminophen 500 mg tablet 500 mg PO Q6H PRN Pain, Mild 11/06/18 09/14/24 (Tylenol Extra Strength) cholecalciferol (vitamin D3) 25 50 mcg PO DAILY 01/22/20 09/14/24 mcg (1,000 unit) capsule atorvastatin 40 mg tablet 80 mg PO HS #0 tabs 03/30/20 09/14/24 potassium chloride 10 mEq 20 meq PO DAILY 09/01/21 09/14/24 tablet,extended release dofetilide 250 mcg capsule 250 mcg PO Q12H 05/23/22 09/14/24 dofetilide 125 mcg capsule 125 mcg PO BID 07/03/22 09/14/24 fluticasone propionate 50 g intranasal 08/22/22 09/14/24 mcg/actuation nasal spray,suspension apixaban 5 mg tablet (Eliquis) 5 mg PO BID 05/06/23 09/14/24 calcipotriene 0.005 % topical cream 1 applic topical BID 07/16/23 09/14/24 clobetasol 0.05 % scalp solution topical 07/16/23 09/14/24 budesonide 3 mg 9 mg PO DAILY 07/14/24 09/14/24 capsule,delayed,extended release magnesium oxide 400 mg (241.3 mg 400 mg PO DAILY 07/14/24 09/14/24 magnesium) tablet metoprolol succinate 100 mg See Rx Instructions PO BID 07/14/24 09/14/24 tablet,extended release 24 hr Previous Rx's Medication Instructions Recorded nitroglycerin 0.4 mg sublingual 0.4 mg sublingual Q5-15M PRN Chest 10/07/20 tablet (Nitrostat) Pain #30 tabs alprazolam 0.5 mg tablet 0.5 mg PO DAILY PRN anxiety #30 06/06/23 tabs triazolam 0.125 mg tablet 0.0625 mg (1/2 x 0.125 mg) PO 07/16/23 BEDTIME PRN sleep #20 tabs allopurinol 300 mg tablet 300 mg PO DAILY #90 tabs 10/10/23 cyanocobalamin (vitamin B-12) 1,000 mcg PO DAILY #90 tabs 11/27/23 1,000 mcg tablet buspirone 10 mg tablet 10 mg PO BID PRN anxiety #30 tabs 01/01/24 loperamide 2 mg tablet 2 mg PO Q4H PRN loose stool #30 01/01/24 (Anti-Diarrheal (loperamide)) tabs levothyroxine 75 mcg tablet 75 mcg PO QAM #90 tabs 03/13/24 amoxicillin 875 mg-potassium 1 tab PO BID 7 days #14 tabs 09/14/24 clavulanate 125 mg tablet Allergies Allergy/AdvReac Type Severity Reaction Status Date / Time codeine Allergy Severe ANAPHYLAXIS Verified 09/14/24 11:09 NSAIDS (Non-Steroidal AdvReac Severe on Warfarin Verified 09/14/24 11:09 Anti-Inflamma [NSAIDS (NON-STEROIDAL ANTI-INFLAMMA] oxycodone [OXYCODONE] AdvReac Intermediate NAUSEA, Verified 09/14/24 11:09 HALLUCINATIONS, DIZZINESS hydrocodone AdvReac Mild N/V Verified 09/14/24 11:09 pravastatin AdvReac Mild MYALGIA Verified 09/14/24 11:09 simvastatin AdvReac Mild MYALGIA Verified 09/14/24 11:09 Review of Systems <Jersey Bell PA-C - Last Filed: 09/14/24 19:01> Constitutional Constitutional: Denies chills, Denies fatigue, Denies fever(s), Denies frequent falls, Denies lethargy and Denies weakness Eyes Eyes: Denies change in vision, Denies eye discharge, Denies irritation and Denies loss of vision ENT Ears, Nose, Mouth, and Throat: Denies change in voice, Denies dizziness, Denies neck pain, Denies sore throat and Denies throat swelling Comments: Right-sided jaw pain Cardiovascular Cardiovascular: Denies chest pain, Denies irregular heart rhythm, Denies lightheadedness, Denies palpitations, Denies dyspnea, Denies dyspnea on exertion and Denies orthopnea Respiratory Respiratory: Denies cough, Denies dyspnea, Denies dyspnea on exertion and Denies wheezing Gastrointestinal Gastrointestinal: Denies abdominal pain, Denies change in bowel habits, Denies diarrhea, Denies nausea and Denies vomiting Musculoskeletal Musculoskeletal: Denies neck pain and Denies numbness Integumentary/Breasts Skin/Breast: Denies pruritus, Denies erythema, Denies rash and Denies wounds Neurologic Neurologic: Denies behavioral changes, Denies confusion, Denies dizziness, Denies frequent falls, Denies loss of vision, Denies numbness and Denies weakness Psychiatric Psychiatric: Denies anxiety, Denies behavioral changes, Denies confusion, Denies depression, Denies homicidal ideation and Denies suicidal ideation Endocrine Endocrine: Denies fatigue, Denies flushing and Denies palpitations Hematologic/Lymphatic Hematologic/Lymphatic: Denies easy bruising Allergic/Immunologic Allergic/Immunologic: Denies urticaria, Denies throat swelling and Denies wheezing Patient History <Jersey Bell PA-C - Last Filed: 09/14/24 19:01> Medical History Tachy-marcus syndrome Anticoagulated on warfarin Stress incontinence Vaginal atrophy Diastasis recti Fat necrosis of abdominal wall ASHD (arteriosclerotic heart disease) Stenosis of carotid artery Atrial fibrillation Skin cancer Chronic instability of right knee History of renal calculi Hypothyroidism Hypertension GERD (gastroesophageal reflux disease) 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, right (1998) Gout (10/2011) CAD (coronary artery disease) (10/2006) Colon polyps (1998) Surgical History History of permanent cardiac pacemaker placement History of eye surgery (1998) Status post right foot surgery (1993) History of Zayra fundoplication History of right knee surgery (2000) History of left knee surgery (08/2010) History of hysterectomy (1982) Status post primary angioplasty with coronary stent (09/2011) History of cholecystectomy (1972) History of section (1963) History of left cataract surgery (1989) History of carpal tunnel release (1988) History of bilateral carpal tunnel release (1988) History of cardiac catheterization (10/2006) History of appendectomy (1963) Status post left partial knee replacement (10/12/15) History of arthroscopy of left knee (01/05/15) History of esophagogastroduodenoscopy (EGD) (06/06/06) History of colonoscopy with polypectomy (1998) History of colonoscopy (03/04/06) Family History Mother Brain tumor Cancer Father Heart disease GA (myocardial infarction) Sister Lung cancer Stroke MS (multiple sclerosis) Breast cancer Grandmother Diabetes mellitus Social History household members: none Smoking Status: Never smoker second hand exposure: No alcohol intake: current substance use type: does not use Smoking Status: Never smoker alcohol intake frequency: a few times a month Exam <Jersey Bell PA-C - Last Filed: 09/14/24 19:01> Narrative Exam Narrative: Const General:?cooperative, patient rigoring and in pain HENMT Head:?normal to inspection Ears:?hearing grossly normal bilaterally Nose:?external nose normal Face and sinus:?normal facial exam and sinuses nontender; tenderness to palpation of the right jaw just anterior to the right mandibular condyle. There is swelling; limited mouth opening due to pain. Mouth:?oral mucosae normal; patient is exquisitely tender to palpation of the right upper gums Throat:?posterior oropharynx normal Eyes General:?appearance normal, both eyes and all related structures Neck Neck:?normal visual inspection and no lymphadenopathy noted Resp Effort & Inspection:?normal respiratory effort Auscultation:?clear to auscultation bilaterally Cardio Rate:?regular rate Rhythm:?regular rhythm Neuro General:?patient alert, patient awake and patient oriented x3 Initial Vital Signs Initial Vital Signs: Vital Signs Pulse Rate 74 09/14/24 10:54 Pulse Oximetry 96 09/14/24 10:54 <Alessandro Burk DO - Last Filed: 09/14/24 20:26> Initial Vital Signs Initial Vital Signs: Vital Signs Pulse Rate 74 09/14/24 10:54 Pulse Oximetry 96 09/14/24 10:54 Course <Jersey Bell PA-C - Last Filed: 09/14/24 19:01> Orders Ordered: ED Orders 09/14/24 11:35 CT facial bones wo con Stat 09/14/24 11:41 XR chest 1V Stat EKG-12 Lead Stat 09/14/24 11:44 Complete Blood Count AUTO DIFF Stat Comprehensive Metabolic Panel Stat Lipase Stat Magnesium Stat NT-proBNP (BNP-Adult 18+) Stat PTT Partial Thromboplastin Darshan Stat Prothrombin Time INR Stat Troponin & CK Cardiac Panel Stat 09/14/24 12:12 Urine Culture Stat Urine Microscopic Stat 09/14/24 13:32 CT facial bones w con Stat Discontinued Medications Acetaminophen (Ofirmev) 1,000 mg in 100 mls @ 400 mls/hr IV NOW ONE Stop: 09/14/24 16:25 Last Infusion: 09/14/24 17:00 Dose: Infused Documented By: Admin: 09/14/24 16:25 Dose: 400 mls/hr Documented By: SB Clindamycin Phosphate (Cleocin) 600 mg in 50 mls @ 50 mls/hr IV NOW ONE Stop: 09/14/24 17:27 Last Infusion: 09/14/24 18:29 Dose: Infused Documented By: Admin: 09/14/24 17:01 Dose: 50 mls/hr Documented By: SB Lorazepam (Lorazepam 2 Mg/Ml Inj) 1 mg IV NOW ONE Stop: 09/14/24 11:37 Last Admin: 09/14/24 12:14 Dose: 1 mg Documented By: RB Lorazepam (Lorazepam 2 Mg/Ml Inj) 1 mg IV NOW ONE Stop: 09/14/24 17:33 Last Admin: 09/14/24 18:30 Dose: 1 mg Documented By: SB Vital Signs Vital signs: Vital Signs - 8 hr 09/14/24 12:28 09/14/24 12:41 09/14/24 12:50 Pulse Rate 62 62 60 Respiratory Rate 20 22 21 Blood Pressure 151/86 H 146/67 H 138/56 L Pulse Oximetry 98 97 97 Oxygen Delivery Method Room Air Room Air Room Air 09/14/24 13:26 09/14/24 14:06 09/14/24 15:05 Pulse Rate 64 65 61 Respiratory Rate 22 16 14 Blood Pressure 139/56 L 138/67 127/58 L Pulse Oximetry 98 96 96 Oxygen Delivery Method Room Air Room Air Room Air 09/14/24 16:08 09/14/24 17:01 09/14/24 18:55 Pulse Rate 69 64 64 Respiratory Rate 18 18 17 Blood Pressure 194/85 H 172/73 H 153/67 H Pulse Oximetry 98 99 93 Oxygen Delivery Method Room Air Room Air Room Air 09/14/24 20:09 09/14/24 20:11 09/14/24 20:11 Pulse Rate 63 62 Respiratory Rate 23 22 Blood Pressure 160/70 H Pulse Oximetry 96 97 Oxygen Delivery Method Room Air <Alessandro Burk DO - Last Filed: 09/14/24 20:26> Orders Ordered: ED Orders 09/14/24 11:35 CT facial bones wo con Stat 09/14/24 11:41 XR chest 1V Stat EKG-12 Lead Stat 09/14/24 11:44 Complete Blood Count AUTO DIFF Stat Comprehensive Metabolic Panel Stat Lipase Stat Magnesium Stat NT-proBNP (BNP-Adult 18+) Stat PTT Partial Thromboplastin Darshan Stat Prothrombin Time INR Stat Troponin & CK Cardiac Panel Stat 09/14/24 12:12 Urine Culture Stat Urine Microscopic Stat 09/14/24 13:32 CT facial bones w con Stat Discontinued Medications Acetaminophen (Ofirmev) 1,000 mg in 100 mls @ 400 mls/hr IV NOW ONE Stop: 09/14/24 16:25 Last Infusion: 09/14/24 17:00 Dose: Infused Documented By: Admin: 09/14/24 16:25 Dose: 400 mls/hr Documented By: SB Clindamycin Phosphate (Cleocin) 600 mg in 50 mls @ 50 mls/hr IV NOW ONE Stop: 09/14/24 17:27 Last Infusion: 09/14/24 18:29 Dose: Infused Documented By: Admin: 09/14/24 17:01 Dose: 50 mls/hr Documented By: SB Lorazepam (Lorazepam 2 Mg/Ml Inj) 1 mg IV NOW ONE Stop: 09/14/24 11:37 Last Admin: 09/14/24 12:14 Dose: 1 mg Documented By: RB Lorazepam (Lorazepam 2 Mg/Ml Inj) 1 mg IV NOW ONE Stop: 09/14/24 17:33 Last Admin: 09/14/24 18:30 Dose: 1 mg Documented By: SB Vital Signs Vital signs: Vital Signs - 8 hr 09/14/24 12:28 09/14/24 12:41 09/14/24 12:50 Pulse Rate 62 62 60 Respiratory Rate 20 22 21 Blood Pressure 151/86 H 146/67 H 138/56 L Pulse Oximetry 98 97 97 Oxygen Delivery Method Room Air Room Air Room Air 09/14/24 13:26 09/14/24 14:06 09/14/24 15:05 Pulse Rate 64 65 61 Respiratory Rate 22 16 14 Blood Pressure 139/56 L 138/67 127/58 L Pulse Oximetry 98 96 96 Oxygen Delivery Method Room Air Room Air Room Air 09/14/24 16:08 09/14/24 17:01 09/14/24 18:55 Pulse Rate 69 64 64 Respiratory Rate 18 18 17 Blood Pressure 194/85 H 172/73 H 153/67 H Pulse Oximetry 98 99 93 Oxygen Delivery Method Room Air Room Air Room Air 09/14/24 20:09 09/14/24 20:11 09/14/24 20:11 Pulse Rate 63 62 Respiratory Rate 23 22 Blood Pressure 160/70 H Pulse Oximetry 96 97 Oxygen Delivery Method Room Air MDM - Dental/Oral <Jersey Bell PA-C - Last Filed: 09/14/24 19:01> Lab Data 09/14/24 11:44 09/14/24 11:44 Labs: Lab Results 09/14/24 09/14/24 Range/Units 11:44 12:12 WBC 8.6 (4.5-11.0) X10^3/uL RBC 4.46 (4.0-5.2) X10^6/uL Hgb 13.3 (12.0-16.0) g/dL Hct 40.5 (36-46) % MCV 90.7 (80-100) fL MCH 29.7 (26-34) PG MCHC 32.8 (30-36) % RDW 15.8 H (11.6-14.8) % Plt Count 125 L (150-400) X10^3/uL Neut % (Auto) 82.4 H (50-75) % Lymph % (Auto) 9.5 L (25-40) % [place] % (Auto) 7.2 (3-14) % Eos % (Auto) 0.5 L (2-4) % Baso % (Auto) 0.4 (0-2) % Neut # (Auto) 7100 H (1078-1709) /uL Lymph # (Auto) 800 L (7726-9947) /uL [place] # (Auto) 600 (0-900) /uL Eos # (Auto) 0 (0-450) /uL Baso # (Auto) 0 (0-100) /uL PT 15.4 H (9.4-12.5) SECONDS INR 1.4 H (0.9-1.3) APTT 34 (25.1-36.5) SECONDS Sodium 139 (137-145) mmol/L Potassium 3.7 (3.4-5.1) mmol/L Chloride 103 (98-107) mmol/L Carbon Dioxide 32 (22-32) mmol/L BUN 25 H (7-17) mg/dL Creatinine 0.92 (0.52-1.04) mg/dL Estimated GFR > 60 (>60) mL/min BUN/Creatinine Ratio 27.2 H (6-22) Glucose 114 H (80-110) mg/dL Calcium 9.6 (8.4-10.2) mg/dL Magnesium 1.8 (1.6-2.3) mg/dL Total Bilirubin 0.9 (0.2-1.3) mg/dL AST 30 (14-36) IU/L ALT 46 H (<35) IU/L Alkaline Phosphatase 95 (38-126) U/L Total Creatine Kinase 34 (30-135) U/L Troponin I < 0.012 (0.01-0.034) ng/mL NT-Pro-B Natriuret Pep 277 (<450) pg/mL Total Protein 6.8 (6.3-8.2) g/dL Albumin 4.2 (3.5-5.0) g/dL Globulin 2.6 (1.7-4.1) g/dL Albumin/Globulin Ratio 1.6 (1.0-2.8) Lipase 81 (23-300) U/L Urine RBC 0-1/hpf (0-5/HPF) Urine WBC 1-5/hpf (0-5/HPF) Ur Squamous Epith Cells None seen (0-5/HPF) Urine Bacteria None seen (None) Ur Culture Indicated? Specimen cultured Vol Urine Centrifuged 10ml (spun) Urine Dip Bedside Urine Glucose Negative Bedside Urine Bilirubin - Negative Bedside Urine Ketone - Negative Urine Specific [place] 1.030 Bedside Urine Occult Blood - Negative Bedside Urine pH 6.0 Bedside Urine Protein - Negative Bedside Urine Urobilinogen - Negative Bedside Urine Nitrite - Negative Bedside Urine Leukocytes +/- 15 Esterase MDM Narrative Medical decision making narrative: 84-year-old female with past medical history TMJ, hypertension, hyperlipidemia, hypothyroidism, CAD, status post pacemaker, paroxysmal AFib, anxiety presents to the ED with 3 days of right-sided jaw pain. Concern for jaw dislocation versus TMJ versus abscess versus other. CT facial bones obtained without jaw dislocation or other acute findings. Patient also appeared to be rigors ring in the ED. Obtained cardiac workup. Labs within normal limits, EKG is normal sinus rhythm. Chest x-ray without acute cardiopulmonary pathology. Labs within normal limits. Urine shows some leukocyte esterase, no WBC. CT facial bones without contrast shows no evidence of temporomandibular joint dislocation. No acute abnormalities. [id number] bilateral temporomandibular joint degeneration. Several left maxillary dental caries with periapical lucencies, largest involving the left central incisor. Given that patient is exquisitely tender on exam, had rigors, CT facial bones with contrast obtained to rule out an abscess. CT shows an oblong collection seen within the right operations supervisor 2nd shift space, which is overall best demonstrated on series 5, image 50. This fluid collection measures up to 1.5 cm transfer asleep. Distal collection is seen just anterior to the right mandibular condyle. Mild room in pain. Underlying poor dentition noted. ENT was consulted, they recommend transferred to [facility] with consulted OMFS for abscess drainage and IV antibiotics. Transfer to [facility] has been initiated. Patient was given IV Tylenol, Ativan for pain. Patient given a dose of IV clindamycin. Patient reports anaphylactic reaction to codeine in the past. Patient reports that she had nausea, vomiting from hydrocodone and since she is status post a Zayra fundoplication, she is unable to vomit. Patient tolerated Ativan and Tylenol well. Patient is signed out to Dr. Alessandro Burk. <Alessandro Burk, - Last Filed: 09/14/24 20:26> Lab Data Labs: Lab Results 09/14/24 09/14/24 Range/Units 11:44 12:12 WBC 8.6 (4.5-11.0) X10^3/uL RBC 4.46 (4.0-5.2) X10^6/uL Hgb 13.3 (12.0-16.0) g/dL Hct 40.5 (36-46) % MCV 90.7 (80-100) fL MCH 29.7 (26-34) PG MCHC 32.8 (30-36) % RDW 15.8 H (11.6-14.8) % Plt Count 125 L (150-400) X10^3/uL Neut % (Auto) 82.4 H (50-75) % Lymph % (Auto) 9.5 L (25-40) % [place] % (Auto) 7.2 (3-14) % Eos % (Auto) 0.5 L (2-4) % Baso % (Auto) 0.4 (0-2) % Neut # (Auto) 7100 H (4166-8830) /uL Lymph # (Auto) 800 L (9070-1839) /uL [place] # (Auto) 600 (0-900) /uL Eos # (Auto) 0 (0-450) /uL Baso # (Auto) 0 (0-100) /uL PT 15.4 H (9.4-12.5) SECONDS INR 1.4 H (0.9-1.3) APTT 34 (25.1-36.5) SECONDS Sodium 139 (137-145) mmol/L Potassium 3.7 (3.4-5.1) mmol/L Chloride 103 (98-107) mmol/L Carbon Dioxide 32 (22-32) mmol/L BUN 25 H (7-17) mg/dL Creatinine 0.92 (0.52-1.04) mg/dL Estimated GFR > 60 (>60) mL/min BUN/Creatinine Ratio 27.2 H (6-22) Glucose 114 H (80-110) mg/dL Calcium 9.6 (8.4-10.2) mg/dL Magnesium 1.8 (1.6-2.3) mg/dL Total Bilirubin 0.9 (0.2-1.3) mg/dL AST 30 (14-36) IU/L ALT 46 H (<35) IU/L Alkaline Phosphatase 95 (38-126) U/L Total Creatine Kinase 34 (30-135) U/L Troponin I < 0.012 (0.01-0.034) ng/mL NT-Pro-B Natriuret Pep 277 (<450) pg/mL Total Protein 6.8 (6.3-8.2) g/dL Albumin 4.2 (3.5-5.0) g/dL Globulin 2.6 (1.7-4.1) g/dL Albumin/Globulin Ratio 1.6 (1.0-2.8) Lipase 81 (23-300) U/L Urine RBC 0-1/hpf (0-5/HPF) Urine WBC 1-5/hpf (0-5/HPF) Ur Squamous Epith Cells None seen (0-5/HPF) Urine Bacteria None seen (None) Ur Culture Indicated? Specimen cultured Vol Urine Centrifuged 10ml (spun) Urine Dip Bedside Urine Glucose Negative Bedside Urine Bilirubin - Negative Bedside Urine Ketone - Negative Urine Specific [place] 1.030 Bedside Urine Occult Blood - Negative Bedside Urine pH 6.0 Bedside Urine Protein - Negative Bedside Urine Urobilinogen - Negative Bedside Urine Nitrite - Negative Bedside Urine Leukocytes +/- 15 Esterase Imaging Data face CT: Radiologist's Impression: [place] [address] CT Scan Report Signed Patient: Bree Aaron MR#: [id number] : 1940 Acct:[id number] Age/Sex: 84 / F Date of Service: 09/14/24 Loc: ED Accession Number: [id number] Procedure: CT facial bones w con Ordering Provider: Jersey Bell PA-C PROCEDURE: CT FACIAL BONES W CON INDICATIONS: concern or dental abscess upper right jaw TECHNIQUE: After the administration of intravenous contrast, 2.5 mm axial sections acquired from the mid-neck to the frontal sinuses, with coronal and sagittal reformats. For radiation dose reduction, the following was used: automated exposure control, adjustment of mA and/or kV according to patient size. COMPARISON: [facility], CT, CT FACIAL BONES WO CON, 09/14/2024, 11:44. FINDINGS: Image quality: There is artifact associated with the metallic hardware. Artifact from the metallic hardware is reduced by metal reconstruction algorithm. Soft tissues: There is an oblong fluid collection seen within the right operations supervisor 2nd shift space, which is overall best demonstrated on series 5, image 50. This fluid collection measures up to 1.5 cm transversely. Distal collection is seen just anterior to the right mandibular condyle. Mild rim enhancement can be seen. Vascular: Visualized vascular structures appear patent throughout. Bony vascular foramina and canals appear normal. Bones: Underlying poor dentition can be seen. Facial bones appear intact, without fractures, erosions, or destruction. Visualized portions of the skull base and auditory canals also appear normal. Sinuses: Paranasal sinuses are aerated without fluid levels, mucosal thickening, or mucoceles. Mastoid air cells are aerated. IMPRESSION: [place] 1.5 cm fluid collection within the right operations supervisor 2nd shift space, which is consistent with an early abscess. Underlying poor dentition noted. Chest x-ray: Radiologist's Impression: [address] [address] XRay Report Signed Patient: Bree aAron MR#: [id number] : 1940 Acct:[id number] Age/Sex: 84 / F Date of Service: 09/14/24 Loc: ED Accession Number: [id number] Procedure: XR chest 1V Ordering Provider: Jersey Bell PA-C PROCEDURE: XR CHEST 1V INDICATIONS: chest pain TECHNIQUE: One view of the chest was acquired. [facility] 22[facility]55. FINDINGS: Surgical changes and devices: Left chest wall pacemaker leads are in the region of right atrium and right ventricle. Lungs and pleura: Lungs are clear. No pleural effusions or pneumothorax. Mediastinum: Mediastinal contours appear normal. Heart size is normal. Bones and chest wall: No suspicious bony lesions. Overlying soft tissues appear unremarkable. IMPRESSION: No acute cardiopulmonary pathology. MDM Narrative Medical decision making narrative: 84-year-old female with past medical history TMJ, hypertension, hyperlipidemia, hypothyroidism, CAD, status post pacemaker, paroxysmal AFib, anxiety presents to the ED with 3 days of right-sided jaw pain. Concern for jaw dislocation versus TMJ versus abscess versus other. CT facial bones obtained without jaw dislocation or other acute findings. Patient also appeared to be rigors ring in the ED. Obtained cardiac workup. Labs within normal limits, EKG is normal sinus rhythm. Chest x-ray without acute cardiopulmonary pathology. Labs within normal limits. Urine shows some leukocyte esterase, no WBC. CT facial bones without contrast shows no evidence of temporomandibular joint dislocation. No acute abnormalities. Jtss-[id number]-[id number] bilateral temporomandibular joint degeneration. Several left maxillary dental caries with periapical lucencies, largest involving the left central incisor. Given that patient is exquisitely tender on exam, had rigors, CT facial bones with contrast obtained to rule out an abscess. CT shows an oblong collection seen within the right operations supervisor 2nd shift space, which is overall best demonstrated on series 5, image 50. This fluid collection measures up to 1.5 cm transfer asleep. Distal collection is seen just anterior to the right mandibular condyle. Mild room in pain. Underlying poor dentition noted. ENT was consulted, they recommend transferred to [facility] with consulted OMFS for abscess drainage and IV antibiotics. Transfer to [facility] has been initiated. Patient was given IV Tylenol, Ativan for pain. Patient given a dose of IV clindamycin. Patient reports anaphylactic reaction to codeine in the past. Patient reports that she had nausea, vomiting from hydrocodone and since she is status post a Zayra fundoplication, she is unable to vomit. Patient tolerated Ativan and Tylenol well. Patient is signed out to Dr. Alessandro Burk. 1939: I had a lengthy conversation with OMFS Dr. Benji Peterson, who states that he personally reviewed the images as well as the had a discussion with the radiologist, states that they do not believe that this is a mandibular abscess, states that it appears to be more of fluid collection in the right condyle associated with TMJ. He is stating that [facility] with them in clinic this week is recommending soft diet heat packs, also recommending Augmentin prophylaxis. 2020: Recommendations based off of OMFS was relayed to the patient she was given strict return precautions at time of discharge she is protecting airway speaking full sentences tolerating secretions afebrile she verbalized understanding of being discharged home with outpatient follow up and antibiotics. Agrees with being discharged home with outpatient follow up Discharge Plan Departure Patient Disposition: Home Clinical Impression: TMJ arthritis Activity Restrictions/Additional Instructions: Please follow up with OMFS in an outpatient setting this week, they should call you if not called the following number: [phone] Please return to the emergency department if you have any difficulty swallowing breathing if you start developing a fever or the swelling gets significantly worse Please read the discharge instructions sheet carefully and bring all papers to all doctor follow-up visits, as it may contain information that your doctor may want to see. Disease processes change and evolve, if your symptoms worsen or if you develop any new symptoms that are concerning to you please return for evaluation. Your evaluation today does not show any evidence of any life-threatening/serious illnesses requiring admission to the hospital or surgery. Please follow-up with your doctor for re-evaluation in approximately 1 day. Seek immediate medical attention for any worrisome symptoms. *If you do not have a primary care provider please contact the [facility] Resource line at [phone]. They will ask some questions about your medical history and help get you set up with a doctor in the community. Prescriptions: New amoxicillin-pot clavulanate 875-125 mg tablet 1 tab PO BID 7 Days Qty: 14 0RF No Action acetaminophen [Tylenol Extra Strength] 500 mg tablet 500 mg PO Q6H PRN (Reason: Pain, Mild) triazolam 0.125 mg tablet 0.0625 mg PO BEDTIME PRN (Reason: sleep) Qty: 20 0RF Hold Instructions: Weaning Rx Instructions: Take 1/2 tab qhs prn for sleep clobetasol 0.05 % solution topical calcipotriene 0.005 % cream 1 applic topical BID Rx Instructions: rub in gently and completely buspirone 10 mg tablet 10 mg PO BID PRN (Reason: anxiety) Qty: 30 2RF loperamide [Anti-Diarrheal (loperamide)] 2 mg tablet 2 mg PO Q4H MDD 10mg PRN (Reason: loose stool) Qty: 30 0RF Rx Instructions: administer after each loose stool until symptoms controlled; do not exceed 10 mg per 24 hrs budesonide 3 mg capsule,delayed,extend.release 9 mg PO DAILY cholecalciferol (vitamin D3) 25 mcg (1,000 unit) capsule 50 mcg PO DAILY atorvastatin 40 mg tablet 80 mg PO HS Qty: 0 nitroglycerin [Nitrostat] 0.4 mg tablet, sublingual 0.4 mg Sublingual Q5-15M MDD 3 tabs PRN (Reason: Chest Pain) Qty: 30 11RF dofetilide 250 mcg capsule 250 mcg PO Q12H Rx Instructions: take 1 cap 250 mcg alprazolam 0.5 mg tablet 0.5 mg PO DAILY PRN (Reason: anxiety) Qty: 30 0RF allopurinol 300 mg tablet 300 mg PO DAILY Qty: 90 3RF cyanocobalamin (vitamin B-12) 1,000 mcg tablet 1,000 mcg PO DAILY Qty: 90 0RF levothyroxine 75 mcg tablet 75 mcg PO QAM Qty: 90 2RF dofetilide 125 mcg capsule 125 mcg PO BID fluticasone propionate 50 mcg/actuation spray,suspension intranasal metoprolol succinate 100 mg tablet extended release 24 hr See Rx Instructions PO BID Rx Instructions: Take one and one-half tab in the morning and one tab at night Eliquis 5 mg tablet 5 mg PO BID potassium chloride 10 mEq tablet extended release 20 meq PO DAILY magnesium oxide 400 mg (241.3 mg magnesium) tablet 400 mg PO DAILY Patient Comments: Takes 1 tab AM. 2 tab PM. Referrals: Sarmad Keller MD [Primary Care Provider] - Stand Alone Forms: Patient Portal/API/Survey
[2024-09-14] MEDS: ACETAMINOPHEN IV 1,000 MG/100 ML VIAL 400 MG IV (16:25)
[2024-09-14] MEDS: CLINDAMYCIN 600 MG/50 ML PIGGYBACK 50 MG IV (17:01)
--- NOTE | 2024-09-14 17:32 | PC.NURSE ---
Pt reports difficulty swallowing. She is able to maintain her own airway and swallowing secretions. Provider Hyma is made aware.
== END 2024-09-14 20:58 | disposition home or self-care (01) ==
PROVIDERS: Student in an Organized Health Care Education/Training Program; Emergency Provider Student in an Organized Health Care Education/Training Program; PCP Family Medicine
DX: M26.649 Arthritis of unspecified temporomandibular joint (principal); R07.9 Chest pain, unspecified
CPT/HCPCS: 36415; 70486; 70487; 71045; 80053; 81003; 81015; 82550; 83690; 83735; 83880; 84484; 85025; 85610; 85730; 87086; 93005; 96365; 96367; 96375; 96376; 99284; J0131; J2060; Q9967

== ENCOUNTER → 2025-01-05 08:28 | Outpatient (CLI) | payer OTHER, SELFPAY ==
[2023-03-21 09:34] VITALS: BMI 24.9
[2025-01-05 09:22] LABS: Hematocrit 35.4 % (36-46); Hemoglobin 12.1 g/dL (12.0-16.0); Mean Corpuscular HGB Conc 34.2 % (30-36); Mean Corpuscular Hemoglobin 31.1 PG (26-34); Platelet Count 113 X10^3/uL (150-400); Red Cell Distribution Width 14.5 % (11.6-14.8); White Blood Cell Count 4.3 X10^3/uL (4.5-11.0)
[2025-01-05 09:30] LABS: Alanine Aminotransferase 22 IU/L (<35); Albumin Globulin Ratio 2.1 (1.0-2.8); Alkaline Phosphatase 88 U/L (38-126); Aspartate Aminotransferase 21 IU/L (14-36); BUN Creatinine Ratio 30.1 (6-22); Bilirubin Total 0.6 mg/dL (0.2-1.3); Blood Urea Nitrogen 25 mg/dL (7-17); Calcium 9.4 mg/dL (8.4-10.2); Carbon Dioxide 29 mmol/L (22-32); Chloride 107 mmol/L (98-107); Estimated Glomerular Filt Rate > 60 mL/min (>60); Globulin 1.9 g/dL (1.7-4.1); Glucose 96 mg/dL (70-99); HEMOLYSIS < 15 (0-50); Magnesium 1.9 mg/dL (1.6-2.3); Potassium 4.1 mmol/L (3.4-5.1); Sodium 142 mmol/L (137-145); Total Protein 5.9 g/dL (6.3-8.2)
== END ==
PROVIDERS: PCP Family Medicine; Referring Provider Specialist; Visit Provider Specialist
DX: E78.2 Mixed hyperlipidemia (principal); I10 Essential (primary) hypertension; I48.0 Paroxysmal atrial fibrillation; R42 Dizziness and giddiness
CPT/HCPCS: 36415; 80053; 83735; 85027

== ENCOUNTER → 2025-05-07 11:09 | Outpatient (CLI) | payer OTHER, SELFPAY ==
[2023-03-21 09:34] VITALS: BMI 24.9
--- NOTE | 2025-05-07 11:11 | DI.MG.S_ITS ---
MM screening mammo BI: 05/07/2025. BI-RADS: 2 CLINICAL: 84-year old female for bilateral screening mammogram. Tyrer-Cuzick lifetime risk of 0.5%. Current reported family history of breast cancer: sister. PRIOR EXAMS 05/06/2024, 02/18/2023, 01/08/2022, 04/06/2020. MAMMOGRAPHY TECHNIQUE: 2D and 3D (tomosynthesis) digital mammographic views obtained, with additional images as needed for full coverage. Current study was also evaluated with a Computer Aided Detection (CAD) system. DENSITY C. The breasts are heterogeneously dense, which may obscure small masses. MAMMOGRAPHY FINDINGS Right: No suspicious mass, asymmetry, microcalcification, or other abnormality seen. Left An implanted medical device sales representative obscures a portion of the breast/axilla. Biopsy marker present on the left. There are no suspicious masses, calcifications, or other findings in the breast. IMPRESSION: Right * No evidence of malignancy. Left * No evidence of malignancy with benign findings. RECOMMENDATIONS Bilateral * Annual screening mammography. OVERALL ASSESSMENT CATEGORY BI-RADS-2: Benign. The [employer] recommends annual screening mammography beginning at age 40 for women with average risk of breast cancer. ELECTRONICALLY SIGNED: Ya Roberts M.D. on 05/08/2025 at 10:49:19 PM PT Interpreting Station ID: [id number]
== END ==
LOC: MAMMO 11:10
PROVIDERS: PCP Family Medicine; Referring Provider Family Medicine; Visit Provider Family Medicine
DX: Z12.31 Encounter for screening mammogram for malignant neoplasm of breast (principal); Z80.3 Family history of malignant neoplasm of breast; R92.333 Mammographic heterogeneous density, bilateral breasts
CPT/HCPCS: 77063; 77067

== ENCOUNTER → 2025-05-11 16:19 | Outpatient (CLI) | payer OTHER, SELFPAY ==
[2023-03-21 09:34] VITALS: BMI 24.9
[2025-05-11 19:01] LABS: COVID-19 CEPHEID 4-PLEX PCR POSITIVE (Negative); Influenza A - CEPHEID Flu A NEGATIVE (NEGATIVE); Influenza B - CEPHEID Flu B NEGATIVE (NEGATIVE)
== END ==
PROVIDERS: PCP Family Medicine; Visit Provider Chiropractor
DX: R05.1 Acute cough (principal)
CPT/HCPCS: 87637

== ENCOUNTER 2025-05-14 13:11 | Emergency (ER) | payer OTHER, SELFPAY ==
[2023-03-21 09:34] VITALS: BMI 24.9
[2025-05-14] VITALS (10 sets, daily range): BP systolic 111–167; BP diastolic 56–84; PULSE 60–69; RESP 15–21; TEMP 36.8; O2SAT 91–98; BMI 23.7
--- NOTE | 2025-05-14 13:48 | DI.RAD.S_ITS ---
PROCEDURE: XR CHEST 1V INDICATIONS: suspected sepsis TECHNIQUE: One view of the chest was acquired. COMPARISON: [facility], CR, XR CHEST 1V, 09/14/2024, 11:39. [facility], CR, XR CHEST 1V, 07/09/2024, 22:55. FINDINGS: Surgical changes and devices: Left chest wall generator with cardiac leads. Surgical clips project over the left upper quadrant. Lungs and pleura: Lungs are clear. No pleural effusions or pneumothorax. Mediastinum: Mediastinal contours appear normal. Heart size is normal. Bones and chest wall: No suspicious bony lesions. Overlying soft tissues appear unremarkable. IMPRESSION: No acute cardiopulmonary abnormality is seen. Dictated by: Lewis Benton M.D. on 05/14/2025 at 14:08 Approved by: Lewis Benton M.D. on 05/14/2025 at 14:09
[2025-05-14 14:05] LABS: INR 1.5 (0.9-1.3); Prothrombin Time 16.4 SECONDS (9.4-12.5)
[2025-05-14 14:07] LABS: PTT Partial Thromboplastin Tim 35 SECONDS (25.1-36.5)
[2025-05-14 14:10] LABS: Alanine Aminotransferase 68 IU/L (<35); Albumin 3.8 g/dL (3.5-5.0); Albumin Globulin Ratio 1.5 (1.0-2.8); Alkaline Phosphatase 84 U/L (38-126); Blood Urea Nitrogen 21 mg/dL (7-17); Calcium 8.3 mg/dL (8.4-10.2); Carbon Dioxide 24 mmol/L (22-32); Chloride 103 mmol/L (98-107); Estimated Glomerular Filt Rate > 60 mL/min (>60); Globulin 2.6 g/dL (1.7-4.1); Glucose 155 mg/dL (70-99); HEMOLYSIS 29 (0-50); Lactate (Lactic Acid) 1.7 mmol/L (0.7-2.1); Lipase 163 U/L (23-300); Potassium 3.6 mmol/L (3.4-5.1); Sodium 136 mmol/L (137-145); Total Protein 6.4 g/dL (6.3-8.2)
[2025-05-14 14:28] LABS: Procalcitonin 0.082 ng/mL (<0.5)
[2025-05-14 14:40] LABS: Add Manual Diff / Slide Review NO; Hematocrit 38.9 % (36-46); Hemoglobin 12.9 g/dL (12.0-16.0); Lymphocytes Absolute Auto 300 /uL (1100-4500); Mean Corpuscular HGB Conc 33.2 % (30-36); Mean Corpuscular Hemoglobin 29.5 PG (26-34); Mean Corpuscular Volume 89.1 fL (80-100); Platelet Count 83 X10^3/uL (150-400)
--- NOTE | 2025-05-14 15:12 | ED.GENADULT ---
HPI - General Adult General Chief complaint: Weakness Stated complaint: Covid+, WKN, Diarrhea Time Seen by Provider: 05/14/25 14:58 Source: patient Mode of arrival: Ambulatory History of Present Illness HPI narrative: 84-year-old woman history of hypothyroidism, paroxysmal AFib, anticoagulated on apixaban, pacemaker in place, inflammatory bowel disease on budesonide, decreased appetite for 4 days body aches headache. Seen at urgent care and the 16th diagnosed with COVID. Comes in today because she continues to have significant diarrhea and she is dizzy and lightheaded when she stands up. No palpitations or chest pain. Intermittent dry cough. Related Data Home Medications ?Medication ?Instructions ?Recorded ?Confirmed acetaminophen 500 mg tablet 500 mg PO Q6H PRN Pain, Mild 11/06/18 05/11/25 (Tylenol Extra Strength) cholecalciferol (vitamin D3) 25 50 mcg PO DAILY 01/22/20 05/11/25 mcg (1,000 unit) capsule atorvastatin 40 mg tablet 80 mg PO HS #0 tabs 03/30/20 05/11/25 potassium chloride 10 mEq 20 meq PO DAILY 09/01/21 05/11/25 tablet,extended release dofetilide 250 mcg capsule 250 mcg PO Q12H 05/23/22 05/11/25 dofetilide 125 mcg capsule 125 mcg PO BID 07/03/22 05/11/25 fluticasone propionate 50 g intranasal 08/22/22 05/11/25 mcg/actuation nasal spray,suspension apixaban 5 mg tablet (Eliquis) 5 mg PO BID 05/06/23 05/11/25 calcipotriene 0.005 % topical cream 1 applic topical BID 07/16/23 05/11/25 clobetasol 0.05 % scalp solution topical 07/16/23 05/11/25 budesonide 3 mg 9 mg PO DAILY 07/14/24 05/11/25 capsule,delayed,extended release magnesium oxide 400 mg (241.3 mg 400 mg PO DAILY 07/14/24 05/11/25 magnesium) tablet metoprolol succinate 100 mg See Rx Instructions PO BID 07/14/24 05/11/25 tablet,extended release 24 hr potassium chloride 20 mEq 20 meq PO DAILY 05/11/25 05/11/25 tablet,extended release Previous Rx's ?Medication ?Instructions ?Recorded nitroglycerin 0.4 mg sublingual 0.4 mg sublingual Q5-15M PRN Chest 10/07/20 tablet (Nitrostat) Pain #30 tabs alprazolam 0.5 mg tablet 0.5 mg PO DAILY PRN anxiety #30 06/06/23 tabs triazolam 0.125 mg tablet 0.0625 mg (1/2 x 0.125 mg) PO 07/16/23 Held on 10/01/23. BEDTIME PRN sleep #20 tabs Instructions: Weaning cyanocobalamin (vitamin B-12) 1,000 mcg PO DAILY #90 tabs 11/27/23 1,000 mcg tablet buspirone 10 mg tablet 10 mg PO BID PRN anxiety #30 tabs 01/01/24 loperamide 2 mg tablet 2 mg PO Q4H PRN loose stool #30 01/01/24 (Anti-Diarrheal (loperamide)) tabs allopurinol 300 mg tablet 300 mg PO DAILY #90 tabs 09/22/24 levothyroxine 75 mcg tablet 75 mcg PO QAM #90 tabs 12/22/24 ondansetron 4 mg disintegrating 4 mg PO Q8H PRN nausea and 05/11/25 tablet vomiting #9 tabs ondansetron 4 mg disintegrating 4 mg PO Q8H PRN nausea and 05/14/25 tablet vomiting #14 tabs Allergies Allergy/AdvReac Type Severity Reaction Status Date / Time codeine Allergy Severe ANAPHYLAXIS Verified 05/14/25 13:34 NSAIDS (Non-Steroidal AdvReac Severe on Warfarin Verified 05/14/25 13:34 Anti-Inflamma (NSAIDS (NON-STEROIDAL ANTI-INFLAMMA) oxycodone (OXYCODONE) AdvReac Intermediate NAUSEA, Verified 05/14/25 13:34 HALLUCINATIONS, DIZZINESS hydrocodone AdvReac Mild N/V Verified 05/14/25 13:34 pravastatin AdvReac Mild MYALGIA Verified 05/14/25 13:34 simvastatin AdvReac Mild MYALGIA Verified 05/14/25 13:34 Review of Systems Review of Systems Narrative: Pertinent positive and negative findings as per HPI Patient History Medical History Tachy-marcus syndrome Anticoagulated on warfarin Stress incontinence Vaginal atrophy Diastasis recti Fat necrosis of abdominal wall ASHD (arteriosclerotic heart disease) Stenosis of carotid artery Atrial fibrillation Skin cancer Chronic instability of right knee History of renal calculi Hypothyroidism Hypertension GERD (gastroesophageal reflux disease) 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, right (1998) Gout (10/2011) CAD (coronary artery disease) (10/2006) Colon polyps (1998) Surgical History History of permanent cardiac pacemaker placement History of eye surgery (1998) Status post right foot surgery (1993) History of Zayra fundoplication History of right knee surgery (2000) History of left knee surgery (08/2010) History of hysterectomy (1982) Status post primary angioplasty with coronary stent (09/2011) History of cholecystectomy (1972) History of section (1963) History of left cataract surgery (1989) History of carpal tunnel release (1988) History of bilateral carpal tunnel release (1988) History of cardiac catheterization (10/2006) History of appendectomy (1963) Status post left partial knee replacement (10/12/15) History of arthroscopy of left knee (01/05/15) History of esophagogastroduodenoscopy (EGD) (06/06/06) History of colonoscopy with polypectomy (1998) History of colonoscopy (03/04/06) Family History Mother Brain tumor Cancer Father Heart disease [place] (myocardial infarction) Sister Lung cancer Stroke MS (multiple sclerosis) Breast cancer Grandmother Diabetes mellitus Social History household members: none Smoking Status: Never smoker second hand exposure: No alcohol intake: current substance use type: does not use Smoking Status: Never smoker alcohol intake frequency: a few times a month Exam Initial Vital Signs Initial Vital Signs: Vital Signs Temperature 98.3 F 05/14/25 13:33 Pulse Rate 69 05/14/25 13:33 Respiratory Rate 20 05/14/25 13:33 Blood Pressure 128/61 05/14/25 13:33 Pulse Oximetry 97 05/14/25 13:33 Oxygen Delivery Method Room Air 05/14/25 13:33 General: Healthy appearing, in no acute distress. Able to give a complete and coherent history. Well-nourished well-developed HEENT: Moist mucous membranes, normal sclera with reactive pupils, Respiratory: Lungs are clear to auscultation, no wheezing no rales no rhonchi. Full and symmetrical air movement Cardiac: Regular rate and rhythm no murmurs no bruits Abdomen: Mild distention with mild diffuse tenderness no rebound or guarding. No flank pain Skin: Warm and dry, no rashes Neurologic: Grossly neurologically intact with no obvious asymmetries or abnormalities Extremities: No trauma, well perfused, no lower extremity edema Psych: Cooperative, appropriate insight and affect Course Orders Ordered: ED Orders 05/14/25 16:26 Urine Culture Stat Urine Microscopic Stat Discontinued Medications Loperamide HCl (Loperamide 2 Mg Capsule) 4 mg PO NOW ONE Stop: 05/14/25 15:27 Last Admin: 05/14/25 16:10 Dose: 4 mg Documented By: BERONICA Ondansetron HCl (Ondansetron 4 Mg/2 Ml Inj) 4 mg IV NOW PRN PRN Reason: Nausea And Vomiting Ondansetron HCl (Ondansetron 4 Mg Odt) 4 mg PO NOW PRN PRN Reason: Nausea And Vomiting Vital Signs Vital signs: Vital Signs - 8 hr 05/14/25 16:00 05/14/25 16:00 05/14/25 16:30 Pulse Rate 60 60 Respiratory Rate 19 15 Blood Pressure 140/60 Pulse Oximetry 96 98 05/14/25 16:30 05/14/25 17:00 05/14/25 17:01 Pulse Rate 60 60 Respiratory Rate 19 20 Blood Pressure 162/71 H Pulse Oximetry 97 97 05/14/25 17:01 Pulse Rate Respiratory Rate Blood Pressure 167/70 H Pulse Oximetry Medical Decision Making Lab Data 05/14/25 13:45 05/14/25 13:45 Labs: Lab Results 05/14/25 05/14/25 Range/Units 13:45 16:26 WBC 2.7 L (4.5-11.0) X10^3/uL RBC 4.36 (4.0-5.2) X10^6/uL Hgb 12.9 (12.0-16.0) g/dL Hct 38.9 (36-46) % MCV 89.1 (80-100) fL MCH 29.5 (26-34) PG MCHC 33.2 (30-36) % RDW 15.8 H (11.6-14.8) % Plt Count 83 L (150-400) X10^3/uL Neut % (Auto) 77.8 H (50-75) % Lymph % (Auto) 11.1 L (25-40) % [place] % (Auto) 10.5 (3-14) % Eos % (Auto) 0.1 L (2-4) % Baso % (Auto) 0.5 (0-2) % Neut # (Auto) 2100 (5821-0820) /uL Lymph # (Auto) 300 L (1611-8026) /uL [place] # (Auto) 300 (0-900) /uL Eos # (Auto) 0 (0-450) /uL Baso # (Auto) 0 (0-100) /uL PT 16.4 H (9.4-12.5) SECONDS INR 1.5 H (0.9-1.3) APTT 35 (25.1-36.5) SECONDS Sodium 136 L (137-145) mmol/L Potassium 3.6 (3.4-5.1) mmol/L Chloride 103 (98-107) mmol/L Carbon Dioxide 24 (22-32) mmol/L BUN 21 H (7-17) mg/dL Creatinine 0.87 (0.52-1.04) mg/dL Estimated GFR > 60 (>60) mL/min BUN/Creatinine Ratio 24.1 H (6-22) Glucose 155 H (70-99) mg/dL Lactate 1.7 (0.7-2.1) mmol/L Calcium 8.3 L (8.4-10.2) mg/dL Total Bilirubin 0.6 (0.2-1.3) mg/dL AST 115 H (14-36) IU/L ALT 68 H (<35) IU/L Alkaline Phosphatase 84 (38-126) U/L Total Protein 6.4 (6.3-8.2) g/dL Albumin 3.8 (3.5-5.0) g/dL Globulin 2.6 (1.7-4.1) g/dL Albumin/Globulin Ratio 1.5 (1.0-2.8) Lipase 163 (23-300) U/L Procalcitonin 0.082 (<0.5) ng/mL Urine RBC None seen (0-5/HPF) Urine WBC None seen (0-5/HPF) Ur Squamous Epith Cells None seen (0-5/HPF) Urine Bacteria Occasional (0-1) (None) Urine Mucus 1+ H (Negative) Vol Urine Centrifuged 10ml (spun) Urine Dip Bedside Urine Glucose Negative Bedside Urine Bilirubin - Negative Bedside Urine Ketone - Negative Urine Specific [place] 1.015 Bedside Urine Occult Blood - Negative Bedside Urine pH 6.0 Bedside Urine Protein +/- 15 Bedside Urine Urobilinogen - Negative Bedside Urine Nitrite - Negative Bedside Urine Leukocytes - Negative Esterase Point of care testing: Urine Dip Bedside Urine Glucose Negative Bedside Urine Bilirubin - Negative Bedside Urine Ketone - Negative Urine Specific [place] 1.015 Bedside Urine Occult Blood - Negative Bedside Urine pH 6.0 Bedside Urine Protein +/- 15 Bedside Urine Urobilinogen - Negative Bedside Urine Nitrite - Negative Bedside Urine Leukocytes - Negative Esterase MDM Narrative Medical decision making narrative: 84-year-old woman with upper respiratory symptoms starting on the , positive COVID diagnosis on the increasing diarrhea, nausea. She has a Zayra fundoplication so isn't actually vomiting but is concerned that she is becoming more dehydrated and dizzy when she stands up. There is a dry cough, no palpitations no significant dyspnea. She reports some abdominal bloating no blood in her stools. She does have chronic bowel disease for which she typically uses budesonide. Lab work shows no acute renal failure or dramatic electrolyte abnormalities. She is given a L of fluid in the ER, oral Imodium has been up and walking, dizziness has improved, she has not had any diarrhea since coming into the ER. We discussed the fact that she is almost over her active COVID symptoms, use of Imodium at home for COVID related diarrhea and use of budesonide for her inflammatory bowel related diarrhea. Additional prescription for Zofran was sent to [facility]. She is currently able to drink, steady when walking, no signs of acute orthostasis or hypoxia and is safe for discharge home Discharge Plan Departure Patient Disposition: Home Clinical Impression: Dehydration, Nausea, Diarrhea, COVID Instructions: DI for Dehydration -- Adult, DI for Nausea -- Adult Activity Restrictions/Additional Instructions: Thank you for coming in today I do believe that all of the significant symptoms this week including headache, body ache, fevers, worsening diarrhea and nausea are related to COVID. These symptoms are typically going to last 5-7 days so you should be improving. You were given a L of fluid in the emergency department. You can use Imodium if you continue to have profuse watery diarrhea. Please continue to use your budesonide for the diarrhea related to your inflammatory bowel disease. I have refilled your prescription for ondansetron, it was electronically transmitted to [facility]. You can use this to help prevent nausea so that you are able to keep herself as hydrated as possible Your oxygen saturations were quite reassuring and there is no indication for hospitalization at this time If you find that you are getting worse or develop any new symptoms, please feel free to return to the emergency department for further evaluation. Prescriptions: New ondansetron 4 mg tablet,disintegrating 4 mg PO Q8H PRN (Reason: nausea and vomiting) Qty: 14 0RF No Action acetaminophen [Tylenol Extra Strength] 500 mg tablet 500 mg PO Q6H PRN (Reason: Pain, Mild) triazolam 0.125 mg tablet 0.0625 mg PO BEDTIME PRN (Reason: sleep) Qty: 20 0RF Rx Instructions: Take 1/2 tab qhs prn for sleep clobetasol 0.05 % solution topical calcipotriene 0.005 % cream 1 applic topical BID Rx Instructions: rub in gently and completely buspirone 10 mg tablet 10 mg PO BID PRN (Reason: anxiety) Qty: 30 2RF loperamide [Anti-Diarrheal (loperamide)] 2 mg tablet 2 mg PO Q4H MDD 10mg PRN (Reason: loose stool) Qty: 30 0RF Rx Instructions: administer after each loose stool until symptoms controlled; do not exceed 10 mg per 24 hrs budesonide 3 mg capsule,delayed,extend.release 9 mg PO DAILY potassium chloride 20 mEq tablet extended release 20 meq PO DAILY ondansetron 4 mg tablet,disintegrating 4 mg PO Q8H PRN (Reason: nausea and vomiting) Qty: 9 0RF cholecalciferol (vitamin D3) 25 mcg (1,000 unit) capsule 50 mcg PO DAILY atorvastatin 40 mg tablet 80 mg PO HS Qty: 0 nitroglycerin [Nitrostat] 0.4 mg tablet, sublingual 0.4 mg Sublingual Q5-15M MDD 3 tabs PRN (Reason: Chest Pain) Qty: 30 11RF dofetilide 250 mcg capsule 250 mcg PO Q12H Rx Instructions: take 1 cap 250 mcg alprazolam 0.5 mg tablet 0.5 mg PO DAILY PRN (Reason: anxiety) Qty: 30 0RF cyanocobalamin (vitamin B-12) 1,000 mcg tablet 1,000 mcg PO DAILY Qty: 90 0RF allopurinol 300 mg tablet 300 mg PO DAILY Qty: 90 3RF levothyroxine 75 mcg tablet 75 mcg PO QAM Qty: 90 2RF dofetilide 125 mcg capsule 125 mcg PO BID fluticasone propionate 50 mcg/actuation spray,suspension intranasal metoprolol succinate 100 mg tablet extended release 24 hr See Rx Instructions PO BID Rx Instructions: Take one and one-half tab in the morning and one tab at night Eliquis 5 mg tablet 5 mg PO BID potassium chloride 10 mEq tablet extended release 20 meq PO DAILY magnesium oxide 400 mg (241.3 mg magnesium) tablet 400 mg PO DAILY Patient Comments: Takes 1 tab AM. 2 tab PM. Referrals: Sarmad Keller MD [Primary Care Provider, Family Practice] Stand Alone Forms: Patient Portal/API
[2025-05-14] MEDS: LOPERAMIDE 2 MG CAPSULE 4 MG PO (16:10)
== END 2025-05-14 17:20 | disposition home or self-care (01) ==
PROVIDERS: Emergency Medicine; Emergency Provider Emergency Medicine; PCP Family Medicine
DX: U07.1 COVID-19 (principal); E86.0 Dehydration; R19.7 Diarrhea, unspecified; R11.0 Nausea; Z95.0 Presence of cardiac pacemaker; Z79.01 Long term (current) use of anticoagulants
CPT/HCPCS: 36415; 71045; 80053; 81003; 81015; 83605; 83690; 84145; 85025; 85610; 85730; 87086; 87147; 99284

== ENCOUNTER 2025-05-18 10:18 | Observation (INO) | payer OTHER, SELFPAY ==
[2023-03-21 09:34] VITALS: BMI 24.9
[2025-05-18] VITALS (21 sets, daily range): BP systolic 111–170; BP diastolic 54–82; PULSE 60–129; RESP 13–26; TEMP 36.1–36.7; O2SAT 95–98; BMI 22.7
--- NOTE | 2025-05-18 10:16 | DI.RAD.S_ITS ---
PROCEDURE: XR CHEST 1V INDICATIONS: weakness TECHNIQUE: One view of the chest was acquired. COMPARISON: [facility], CT, CT ANGIO CHEST, 09/26/2022, 9:54. [facility], CR, XR CHEST 1V, 05/14/2025, 13:43. FINDINGS: Surgical changes and devices: Pacemaker Lungs and pleura: Lungs are clear. No pleural effusions or pneumothorax. Mediastinum: Mediastinal contours appear normal. Heart size is normal. Bones and chest wall: No suspicious bony lesions. Overlying soft tissues appear unremarkable. IMPRESSION: No acute cardiopulmonary abnormality is seen. Dictated by: Heber Styles M.D. on 05/18/2025 at 10:44 Approved by: Heber Styles M.D. on 05/18/2025 at 10:45
--- NOTE | 2025-05-18 10:17 | DI.CT.S_ITS ---
PROCEDURE: CT HEAD/BRAIN WO CON INDICATIONS: weakness TECHNIQUE: Noncontrast 4.5 mm thick angled axial sections acquired from the foramen magnum to the vertex, with coronal and sagittal reformats. For radiation dose reduction, the following was used: automated exposure control, adjustment of mA and/or kV according to patient size. COMPARISON: [facility], CT, CT HEAD/BRAIN WO CON, 07/09/2024, 22:50. FINDINGS: Image quality: Diagnostic. CSF spaces: Basal cisterns are patent. No extra-axial fluid collections. The ventricles are symmetric in size and shape. Brain: No intracranial bleeds or mass effect. There is cerebral volume loss, with resultant ventricular and sulcal prominence. There are periventricular and deep white matter chronic small vessel ischemic changes. There is intracranial internal carotid artery atherosclerosis. Skull and face: Calvarium and visualized facial bones appear intact, without suspicious lesions. Sinuses: Visualized sinuses and mastoids are clear. IMPRESSION: No acute intracranial pathology. Dictated by: Heber Styles M.D. on 05/18/2025 at 11:11 Approved by: Heber Styles M.D. on 05/18/2025 at 11:13
--- NOTE | 2025-05-18 10:17 | ED.WEAKNESS ---
HPI - Weakness General Chief complaint: Weakness Stated complaint: COVID+ 1 wk, weakness Time Seen by Provider: 05/18/25 10:21 History of Present Illness HPI Narrative: Patient is a 84-year-old female past medical history of hypothyroidism, paroxysmal AFib on Eliquis with pacemaker, IBS on budesonide, presents to the emergency department from home via EMS for evaluation of persistent/worsening generalized weakness. She states that she was seen here recently was diagnosed with COVID and was discharged home. She states that she has not been able to care for herself at home states that she has been feeling too weak to really stand and walk therefore has had decreased p.o. intake. She denies any symptoms such as headache visual disturbance chest pain shortness of breath fever chills nausea vomiting abdominal pain or any other GI/ symptoms at this time. At my evaluation patient too weak to even stand and pivot. Patient states that she was unable to take any of her medications this morning secondary to her symptoms. Medics who arrived with the patient states that when they initially got an EKG she was AFib but she converted herself without intervention. She denies any other symptoms at this time. Related Data Home Medications ?Medication ?Instructions ?Recorded ?Confirmed acetaminophen 500 mg tablet 500 mg PO Q6H PRN Pain, Mild 11/06/18 05/11/25 (Tylenol Extra Strength) cholecalciferol (vitamin D3) 25 50 mcg PO DAILY 01/22/20 05/11/25 mcg (1,000 unit) capsule atorvastatin 40 mg tablet 80 mg PO HS #0 tabs 03/30/20 05/11/25 potassium chloride 10 mEq 20 meq PO DAILY 09/01/21 05/11/25 tablet,extended release dofetilide 250 mcg capsule 250 mcg PO Q12H 05/23/22 05/11/25 dofetilide 125 mcg capsule 125 mcg PO BID 07/03/22 05/11/25 fluticasone propionate 50 g intranasal 08/22/22 05/11/25 mcg/actuation nasal spray,suspension apixaban 5 mg tablet (Eliquis) 5 mg PO BID 05/06/23 05/11/25 calcipotriene 0.005 % topical cream 1 applic topical BID 07/16/23 05/11/25 clobetasol 0.05 % scalp solution topical 07/16/23 05/11/25 budesonide 3 mg 9 mg PO DAILY 07/14/24 05/11/25 capsule,delayed,extended release magnesium oxide 400 mg (241.3 mg 400 mg PO DAILY 07/14/24 05/11/25 magnesium) tablet metoprolol succinate 100 mg See Rx Instructions PO BID 07/14/24 05/11/25 tablet,extended release 24 hr potassium chloride 20 mEq 20 meq PO DAILY 05/11/25 05/11/25 tablet,extended release Previous Rx's ?Medication ?Instructions ?Recorded nitroglycerin 0.4 mg sublingual 0.4 mg sublingual Q5-15M PRN Chest 10/07/20 tablet (Nitrostat) Pain #30 tabs alprazolam 0.5 mg tablet 0.5 mg PO DAILY PRN anxiety #30 06/06/23 tabs triazolam 0.125 mg tablet 0.0625 mg (1/2 x 0.125 mg) PO 07/16/23 Held on 10/01/23. BEDTIME PRN sleep #20 tabs Instructions: Weaning cyanocobalamin (vitamin B-12) 1,000 mcg PO DAILY #90 tabs 11/27/23 1,000 mcg tablet buspirone 10 mg tablet 10 mg PO BID PRN anxiety #30 tabs 01/01/24 loperamide 2 mg tablet 2 mg PO Q4H PRN loose stool #30 01/01/24 (Anti-Diarrheal (loperamide)) tabs allopurinol 300 mg tablet 300 mg PO DAILY #90 tabs 09/22/24 levothyroxine 75 mcg tablet 75 mcg PO QAM #90 tabs 12/22/24 ondansetron 4 mg disintegrating 4 mg PO Q8H PRN nausea and 05/11/25 tablet vomiting #9 tabs ondansetron 4 mg disintegrating 4 mg PO Q8H PRN nausea and 05/14/25 tablet vomiting #14 tabs Allergies Allergy/AdvReac Type Severity Reaction Status Date / Time codeine Allergy Severe ANAPHYLAXIS Verified 05/14/25 13:34 NSAIDS (Non-Steroidal AdvReac Severe on Warfarin Verified 05/14/25 13:34 Anti-Inflamma (NSAIDS (NON-STEROIDAL ANTI-INFLAMMA) oxycodone (OXYCODONE) AdvReac Intermediate NAUSEA, Verified 05/14/25 13:34 HALLUCINATIONS, DIZZINESS hydrocodone AdvReac Mild N/V Verified 05/14/25 13:34 pravastatin AdvReac Mild MYALGIA Verified 05/14/25 13:34 simvastatin AdvReac Mild MYALGIA Verified 05/14/25 13:34 Review of Systems Review of Systems Narrative: General: Positive generalized weakness Denies fever, chills, weight loss HEENT: Denies headache, eye drainage, eye irritation, head trauma, sore throat, voice change Cardiovascular: Denies any chest pain, palpitations, tachycardia Respiratory: Denies any shortness of breath, cough, wheeze, stridor GI/: Denies any abdominal pain, nausea, vomiting, diarrhea, bright red blood per rectum, melanotic stools, urinary frequency, urinary retention, dysuria, hematuria MSK: Denies any joint pain, muscle pains, swelling Skin: Denies any rashes, lesions, discoloration Neuro: Denies any headache, lightheadedness, dizziness, fainting, weakness Psych: Denies SI/HI Patient History Medical History Tachy-marcus syndrome Anticoagulated on warfarin Stress incontinence Vaginal atrophy Diastasis recti Fat necrosis of abdominal wall ASHD (arteriosclerotic heart disease) Stenosis of carotid artery Atrial fibrillation Skin cancer Chronic instability of right knee History of renal calculi Hypothyroidism Hypertension GERD (gastroesophageal reflux disease) 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, right (1998) Gout (10/2011) CAD (coronary artery disease) (10/2006) Colon polyps (1998) Surgical History History of permanent cardiac pacemaker placement History of eye surgery (1998) Status post right foot surgery (1993) History of Zayra fundoplication History of right knee surgery (2000) History of left knee surgery (08/2010) History of hysterectomy (1982) Status post primary angioplasty with coronary stent (09/2011) History of cholecystectomy (1972) History of section (1963) History of left cataract surgery (1989) History of carpal tunnel release (1988) History of bilateral carpal tunnel release (1988) History of cardiac catheterization (10/2006) History of appendectomy (1963) Status post left partial knee replacement (10/12/15) History of arthroscopy of left knee (01/05/15) History of esophagogastroduodenoscopy (EGD) (06/06/06) History of colonoscopy with polypectomy (1998) History of colonoscopy (03/04/06) Family History Mother Brain tumor Cancer Father Heart disease AR (myocardial infarction) Sister Lung cancer Stroke MS (multiple sclerosis) Breast cancer Grandmother Diabetes mellitus Social History household members: none Smoking Status: Never smoker second hand exposure: No alcohol intake: current substance use type: does not use alcohol intake frequency: a few times a month Exam Narrative Exam Narrative: General: Cooperative, well-developed, not in acute distress HEENT: Normocephalic, atraumatic, PERRLA, normal sclera, eyelids normal Neck: Active full range of motion, atraumatic Chest: Normal to inspection, negative crepitus, no overlying erythema ecchymosis Respiratory: Normal respiratory effort, not in acute respiratory distress, clear to auscultation bilaterally negative cough, wheeze, tachypnea, rhonchi, rales Cardiology: Regular rate rhythm negative gallop, murmur, rubs GI/: No tenderness to palpation, soft, non rigid, normal to inspection, exam deferred MSK: Full active range of motion in all 4 extremities, atraumatic, no tenderness to palpation of any bony prominences Skin: No rashes or lesions noted Neuro: Alert awake oriented x3, moves all 4 extremities spontaneously, cranial nerves intact, able to answer all questions appropriately follows commands appropriately Psych: Cooperative, negative suicidal or homicidal ideations Initial Vital Signs Initial Vital Signs: Vital Signs Pulse Rate 67 05/18/25 10:17 Pulse Oximetry 97 05/18/25 10:17 Course Orders Ordered: ED Orders 05/18/25 10:16 XR chest 1V Stat EKG-12 Lead Stat 05/18/25 10:17 CT head/brain wo con Stat 05/18/25 10:22 Complete Blood Count AUTO DIFF Stat Comprehensive Metabolic Panel Stat Lactate (Lactic Acid) Stat Lipase Stat MAG [Magnesium] Stat NT-proBNP (BNP-Adult 18+) Stat PTT Partial Thromboplastin Darshan Stat Prothrombin Time INR Stat Troponin & CK Cardiac Panel Stat 05/18/25 11:16 Blood Culture Stat 05/18/25 13:25 Consult to [facility] [place] [place] - Staff Development Manager Stat Sodium Chloride (Normal Saline 0.9%) 1,000 mls @ 1,000 mls/hr IV BOLUS ONE Stop: 05/18/25 14:22 Last Admin: 05/18/25 13:27 Dose: 1,000 mls/hr Documented By: BERONICA Vital Signs Vital signs: Vital Signs - 8 hr 05/18/25 10:17 05/18/25 10:28 05/18/25 10:30 Temperature 98.1 F Pulse Rate 67 65 65 Respiratory Rate 18 13 Blood Pressure 170/72 H Pulse Oximetry 97 98 96 Oxygen Delivery Method Room Air 05/18/25 11:00 05/18/25 11:22 05/18/25 11:22 Temperature Pulse Rate 61 61 Respiratory Rate 16 16 Blood Pressure 154/67 H Pulse Oximetry 95 97 Oxygen Delivery Method 05/18/25 11:30 05/18/25 11:30 05/18/25 12:00 Temperature Pulse Rate 61 Respiratory Rate 25 H Blood Pressure 148/68 H 167/71 H Pulse Oximetry 95 Oxygen Delivery Method 05/18/25 12:00 05/18/25 12:30 05/18/25 12:30 Temperature Pulse Rate 60 61 Respiratory Rate 26 H 21 Blood Pressure 152/70 H Pulse Oximetry 97 98 Oxygen Delivery Method MDM - Weakness Lab Data 05/18/25 10:22 05/18/25 10:22 Labs: Lab Results 05/18/25 Range/Units 10:22 WBC 3.7 L (4.5-11.0) X10^3/uL RBC 4.89 (4.0-5.2) X10^6/uL Hgb 14.3 (12.0-16.0) g/dL Hct 43.0 (36-46) % MCV 88.0 (80-100) fL MCH 29.2 (26-34) PG MCHC 33.2 (30-36) % RDW 15.5 H (11.6-14.8) % Plt Count 104 L (150-400) X10^3/uL Neut % (Auto) 77.8 H (50-75) % Lymph % (Auto) 15.7 L (25-40) % [place] % (Auto) 5.2 (3-14) % Eos % (Auto) 0.3 L (2-4) % Baso % (Auto) 1.0 (0-2) % Neut # (Auto) 2900 (4174-4977) /uL Lymph # (Auto) 600 L (2189-5859) /uL [place] # (Auto) 200 (0-900) /uL Eos # (Auto) 0 (0-450) /uL Baso # (Auto) 0 (0-100) /uL PT 14.8 H (9.4-12.5) SECONDS INR 1.3 (0.9-1.3) APTT 31 (25.1-36.5) SECONDS Sodium 136 L (137-145) mmol/L Potassium 3.5 (3.4-5.1) mmol/L Chloride 103 (98-107) mmol/L Carbon Dioxide 23 (22-32) mmol/L BUN 16 (7-17) mg/dL Creatinine 0.86 (0.52-1.04) mg/dL Estimated GFR > 60 (>60) mL/min BUN/Creatinine Ratio 18.6 (6-22) Glucose 183 H (70-99) mg/dL Lactate 2.1 (0.7-2.1) mmol/L Calcium 8.6 (8.4-10.2) mg/dL Magnesium 1.7 (1.6-2.3) mg/dL Total Bilirubin 0.9 (0.2-1.3) mg/dL AST 45 H (14-36) IU/L ALT 45 H (<35) IU/L Alkaline Phosphatase 85 (38-126) U/L Total Creatine Kinase 26 L (30-135) U/L Troponin I < 0.012 (0.01-0.034) ng/mL NT-Pro-B Natriuret Pep 820 H (<450) pg/mL Total Protein 6.5 (6.3-8.2) g/dL Albumin 3.9 (3.5-5.0) g/dL Globulin 2.6 (1.7-4.1) g/dL Albumin/Globulin Ratio 1.5 (1.0-2.8) Lipase 90 (23-300) U/L Urine Dip Bedside Urine Glucose Negative Bedside Urine Bilirubin - Negative Bedside Urine Ketone - Negative Urine Specific [place] 1.010 Bedside Urine Occult Blood - Negative Bedside Urine pH 7.0 Bedside Urine Protein - Negative Bedside Urine Urobilinogen - Negative Bedside Urine Nitrite - Negative Bedside Urine Leukocytes +++ 500 Esterase ECG Data Interpretation: EKG interpreted ED physician atrially paced at 60, no STEMI MDM Narrative Medical decision making narrative: 84-year-old female with a history of paroxysmal AFib on Eliquis with pacemaker, hypothyroidism presenting from home via EMS for evaluation of persistent/worsening generalized weakness. She states that this is similar and now worsening when she was seen here on 05/14/2025 and diagnosed with the COVID on 05/11/2025. She states that she has been unable to care for herself at home, states that she lives at home alone. She states that she was not able to eat or drink secondary to how weak she is. She is too weak to even stand and pivot here in the emergency department. But she denies any other symptoms such as headache visual disturbances chest pain shortness of breath fever chills nausea vomiting abdominal pain or any other GI/ symptoms at this time. Medics state that when they 1st evaluated the patient she was in rapid AFib but self converted without administration of medication. At time of my evaluation patient is sinus, normotensive. Patient's CT head without any acute findings, chest x-ray without any acute cardiopulmonary abnormality. Patient with WBC 3.7, creatinine 0.86, GFR greater than 60, troponin negative, BNP only slightly elevated at 820. No pleural effusions or supplemental oxygen need at this time.. Review of records show patient with previous echo on 07/06/2024 with the following results: Left ventricular systolic function remains normal with an estimated ejection fraction of 55 to 60% without any focal wall motion abnormality. Diastolic parameters suggest probable elevated filling pressures, likely higher compared to the previous exam. 1235: Patient was re-evaluated no new complaints at this time, formed her that we are just awaiting a urinalysis. Daughter is at bedside, she is requesting that patient possibly be placed in a rehab due to the fact that she is unable to care for herself. I informed her that we can reach out and discuss this route pending urinalysis results. 1410: Patient's UA positive leukocytosis therefore treat for acute urinary tract infection, 1 g Rocephin ordered, given patient with ambulatory dysfunction, failure to thrive and UTI we will admit patient to the hospital for PT OT and further evaluation treatment of symptoms. The patient's management plan was discussed Dr. Keller, who agrees to admit the patient to their service and assumes care of this patient at this time. Full admission orders will be placed by the primary team. Discharge Plan Departure Patient Disposition: Admitted As Inpatient Clinical Impression: Generalized weakness, COVID-19, Ambulatory dysfunction, Adult failure to thrive, Acute UTI
--- NOTE | 2025-05-18 10:22 | EKG_ITS ---
[address] [id number] [address] [address] Test Date: 2025-05-18 Pat Name: Bree Aaron Department: Room: Gender: Female Candy Bar Attendant: SUSAN : 1940 Requested By: Order Number: [id number] Reading MD: Chino De Paz MD Measurements Intervals [place] Rate: 60 P: 63 DC: 176 QRS: 62 QRSD: 84 T: 76 QT: 506 QTc: 506 Interpretive Statements Atrial-paced rhythm Prolonged QT Electronically Signed On 05-18-2025 10:31:42 PDT by Chino De Paz MD
[2025-05-18 10:42] LABS: Add Manual Diff / Slide Review NO; Hematocrit 43.0 % (36-46); Hemoglobin 14.3 g/dL (12.0-16.0); Lymphocytes Absolute Auto 600 /uL (1100-4500); Mean Corpuscular HGB Conc 33.2 % (30-36); Mean Corpuscular Hemoglobin 29.2 PG (26-34); Mean Corpuscular Volume 88.0 fL (80-100); Platelet Count 104 X10^3/uL (150-400)
[2025-05-18 10:45] LABS: INR 1.3 (0.9-1.3); Prothrombin Time 14.8 SECONDS (9.4-12.5)
[2025-05-18 10:48] LABS: PTT Partial Thromboplastin Tim 31 SECONDS (25.1-36.5)
[2025-05-18 10:51] LABS: Magnesium 1.7 mg/dL (1.6-2.3)
[2025-05-18 10:52] LABS: Alanine Aminotransferase 45 IU/L (<35); Albumin 3.9 g/dL (3.5-5.0); Albumin Globulin Ratio 1.5 (1.0-2.8); Alkaline Phosphatase 85 U/L (38-126); Blood Urea Nitrogen 16 mg/dL (7-17); Calcium 8.6 mg/dL (8.4-10.2); Carbon Dioxide 23 mmol/L (22-32); Chloride 103 mmol/L (98-107); Creatine Kinase 26 U/L (30-135); Estimated Glomerular Filt Rate > 60 mL/min (>60); Globulin 2.6 g/dL (1.7-4.1); Glucose 183 mg/dL (70-99); HEMOLYSIS 26 (0-50); Lipase 90 U/L (23-300); Potassium 3.5 mmol/L (3.4-5.1); Sodium 136 mmol/L (137-145); Total Protein 6.5 g/dL (6.3-8.2)
[2025-05-18 10:53] LABS: Lactate (Lactic Acid) 2.1 mmol/L (0.7-2.1)
[2025-05-18 11:01] LABS: NT-proBNP (BNP-Adult 18+) 820 pg/mL (<450)
[2025-05-18 11:04] LABS: Troponin I < 0.012 ng/mL (0.01-0.034)
[2025-05-18 12:10] LABS: Reflexed Lactate in 2 Hours Y
[2025-05-18] MEDS: SODIUM CHLORIDE 0.9% 1,000 ML 1000 ML IV (13:27)
--- NOTE | 2025-05-18 15:05 | CM.IDA ---
Addendum entered by Ethel Velasco 05/18/25 15:39: Madelaine at [facility] calls back and reports that they can take her upon medical clearance due to current IV antibiotics. DCP team to fax PT/OT evals and clinicals to [facility] auth when completed. DISC PAD GRINDING MACHINE FEEDER discussed that daughter will be out of town for a month and preference to have respite/private pay after SNF rehab stay, if stable patient likely to transfer to [facility] for respite afterwards. Ethel Velasco, [facility] Original Note: Initial DCP Assessment Patient is 84 y/o female who presents to ED via EMS due to concern for increase weakness/fatigue in the last week. Recent dx of Covid on 05/11/25, presentation to [place] on 05/11/25 and ED on 05/14/25 due to concern for symptoms. Patient reports that she has been too weak to manage ADLs. Patient's PCP is Dr. Keller, Patient has [employer] insurance. DISC PAD GRINDING MACHINE FEEDER enters room to meet with patient, present in room is patient's daughter/MARY Chopra. Patient presents as A/Ox4. Patient endorses she resides alone in a condo in [place], patient states that she is independent with ADLs at baseline and drives at baseline. Patient states that she has had difficulty managing ADLs in the last week, reliant on FWW to walk, presenting with dizziness. Patient states that she has lost 10lbs in the last week due to decreased food intake. Patient's daughter resides in [place] and endorses that she is leaving town for the month on a trip. Patient presents with some concern being alone without supports while daughter is gone, patient states that she has elderly neighbors as supports who offered to get her groceries but did not want to be exposed to covid. Patient and daughter endorse preference for SNF rehab at [facility], it is reported that they are open to paying privately if [facility] [employer] does not provide insurance auth. Preference is for patient to stay at [facility] for the month while daughter is out of town. Daughter and patient discuss long-term care plan to look into ALFs for patient. DISC PAD GRINDING MACHINE FEEDER provides them with senior resource guide. Daughter endorses that she is reachable by phone as she plans to leave town tomorrow afternoon, will likely visit patient tomorrow morning before leaving town. Patient has been accepted by PCP Dr. Keller due to concern for acute UTI, increased weakness, Covid-19 and failure to thrive. PT and OT ordered and evals pending. DISC PAD GRINDING MACHINE FEEDER contacts PT/OT and discusses patient. DISC PAD GRINDING MACHINE FEEDER calls [facility] and leaves VM regarding patient. Plan: patient admitted to acute care for further treatment and evaluation. follow up with PT/OT evals, follow up with [facility] and daughter. MARY Guardado Discharge Planning/Care Management CM Discharge Assessment Start: 05/18/25 14:53 Freq: Status: Active Protocol: Document 05/18/25 14:55 LN (Rec: 05/18/25 15:02 LN [id number]) Discharge Planning Assessment Assigned Discharge MARY Davenport [employer] Insurance [facility] DPOA/Assigned Daughter/Keysha Marie Designee Name Contact Information [phone] Advance Directives? Yes: POLST Advance Directives Yes on File History Provided By Patient,Family Member,Medical Record Has Patient been No admitted in last 30 days? Prior Living Apartment/Condo Arrangements Household Members none Type of Drives own vehicle transporation used prior to admit Independent with ADL Yes: Ind at Baseline 's Is patient alert and Yes oriented? Comment Currently having difficulty with food prep, home chores , hygiene and ambulation. Caregiver for No Another DME Already Rented / FWW / Walker Owned Patient/Family Correction Facility Preference Discharge Plan Correction Facility Referrals Initiated Correction Medicare Choice List Yes Provided Medicare choice list patient,family reviewed on electronic tablet with SNF/HH Preference Preference for [facility]
[2025-05-18] MEDS: METOPROLOL ER 50 MG TABLET 100 MG PO ×2 (15:51→20:37)
--- NOTE | 2025-05-18 15:55 | PM.HP.IH.1 ---
History of Present Illness History of Present Illness Date Patient Seen: 05/18/25 Time Patient Seen: 15:56 Chief complaint: COVID+ 1 wk, weakness Narrative: 84-year-old female with a history of hypothyroidism, paroxysmal AFib on Eliquis with pacemaker, hypertension, hyperlipidemia presents to the emergency department from home via EMS for evaluation of persistent/worsening generalized weakness. She states that she was seen at [facility] last week, was diagnosed with COVID and was discharged home. She states that she has not been able to care for herself at home states that she has been feeling too weak to really stand and walk therefore has had decreased p.o. intake. She denies any symptoms such as headache visual disturbance chest pain shortness of breath fever chills nausea vomiting abdominal pain or any other GI/ symptoms at this time. On ER physician evaluation patient too weak to even stand and pivot. Patient states that she was unable to take any of her medications this morning secondary to her symptoms. Medics who arrived with the patient states that when they initially got an EKG she was AFib but she converted herself without intervention. She denies any other symptoms at this time. ER workup notable for WBC 3.7, platelets 104 glucose 183, AST 45, ALT 45; remainder of CBC, CMP, troponin, lipase without significant derangements. UA showed 3+ leuk esterase, negative for bacteria or nitrites. CXR and CT head unremarkable. Patient admitted for presumed UTI in the setting of generalized weakness and failure to thrive due to recent SARS-CoV-2 infection. She does live alone which has made managing her illness more challenging, as friends have been unable/unwilling to help due to concern for infection transmission. Admitted for empiric treatment of presumed UTI and dispo planning, likely to SNF for further recovery when appropriate. [facility] Medical History Tachy-marcus syndrome Anticoagulated on warfarin Stress incontinence Vaginal atrophy Diastasis recti Fat necrosis of abdominal wall ASHD (arteriosclerotic heart disease) Stenosis of carotid artery Atrial fibrillation Skin cancer Chronic instability of right knee History of renal calculi Hypothyroidism Hypertension GERD (gastroesophageal reflux disease) 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, right (1998) Gout (10/2011) CAD (coronary artery disease) (10/2006) Colon polyps (1998) Surgical History History of permanent cardiac pacemaker placement History of eye surgery (1998) Status post right foot surgery (1993) History of Zayra fundoplication History of right knee surgery (2000) History of left knee surgery (08/2010) History of hysterectomy (1982) Status post primary angioplasty with coronary stent (09/2011) History of cholecystectomy (1972) History of section (1963) History of left cataract surgery (1989) History of carpal tunnel release (1988) History of bilateral carpal tunnel release (1988) History of cardiac catheterization (10/2006) History of appendectomy (1963) Status post left partial knee replacement (10/12/15) History of arthroscopy of left knee (01/05/15) History of esophagogastroduodenoscopy (EGD) (06/06/06) History of colonoscopy with polypectomy (1998) History of colonoscopy (03/04/06) Family History Mother Brain tumor Cancer Father Heart disease [place] (myocardial infarction) Sister Lung cancer Stroke MS (multiple sclerosis) Breast cancer Grandmother Diabetes mellitus Social History household members: none Smoking Status: Never smoker second hand exposure: No alcohol intake: current substance use type: does not use Meds Home Medications and Allergies Home Medications ?Medication ?Instructions ?Recorded ?Confirmed ?Type acetaminophen 500 mg tablet 500 mg PO Q6H PRN Pain, Mild 11/06/18 05/18/25 History (Tylenol Extra Strength) cholecalciferol (vitamin D3) 25 50 mcg PO DAILY 01/22/20 05/18/25 History mcg (1,000 unit) capsule atorvastatin 40 mg tablet 80 mg PO HS #0 tabs 03/30/20 05/18/25 History nitroglycerin 0.4 mg sublingual 0.4 mg sublingual Q5-15M PRN Chest 10/07/20 05/18/25 Rx tablet (Nitrostat) Pain #30 tabs potassium chloride 10 mEq 20 meq PO DAILY 09/01/21 05/18/25 History tablet,extended release dofetilide 250 mcg capsule 250 mcg PO Q12H 05/23/22 05/18/25 History dofetilide 125 mcg capsule 125 mcg PO BID 07/03/22 05/18/25 History apixaban 5 mg tablet (Eliquis) 5 mg PO BID 05/06/23 05/18/25 History alprazolam 0.5 mg tablet 0.5 mg PO DAILY PRN anxiety #30 06/06/23 05/18/25 Rx tabs loperamide 2 mg tablet 2 mg PO Q4H PRN loose stool #30 01/01/24 05/18/25 Rx (Anti-Diarrheal (loperamide)) tabs budesonide 3 mg 9 mg PO DAILY 07/14/24 05/18/25 History capsule,delayed,extended release magnesium oxide 400 mg (241.3 mg 400 mg PO DAILY 07/14/24 05/18/25 History magnesium) tablet metoprolol succinate 100 mg See Rx Instructions PO BID 07/14/24 05/18/25 History tablet,extended release 24 hr allopurinol 300 mg tablet 300 mg PO DAILY #90 tabs 09/22/24 05/18/25 Rx levothyroxine 75 mcg tablet 75 mcg PO QAM #90 tabs 12/22/24 05/18/25 Rx ondansetron 4 mg disintegrating 4 mg PO Q8H PRN nausea and 05/11/25 05/18/25 Rx tablet vomiting #9 tabs potassium chloride 20 mEq 20 meq PO DAILY 05/11/25 05/18/25 History tablet,extended release ondansetron 4 mg disintegrating 4 mg PO Q8H PRN nausea and 05/14/25 05/18/25 Rx tablet vomiting #14 tabs buspirone 10 mg tablet 10 mg PO DAILY PRN anxiety 05/18/25 05/18/25 History melatonin 5 mg tablet 5 mg PO BEDTIME 05/18/25 05/18/25 History Allergies Allergy/AdvReac Type Severity Reaction Status Date / Time codeine Allergy Severe ANAPHYLAXIS Verified 05/14/25 13:34 NSAIDS (Non-Steroidal AdvReac Severe on Warfarin Verified 05/14/25 13:34 Anti-Inflamma (NSAIDS (NON-STEROIDAL ANTI-INFLAMMA) oxycodone (OXYCODONE) AdvReac Intermediate NAUSEA, Verified 05/14/25 13:34 HALLUCINATIONS, DIZZINESS hydrocodone AdvReac Mild N/V Verified 05/14/25 13:34 pravastatin AdvReac Mild MYALGIA Verified 05/14/25 13:34 simvastatin AdvReac Mild MYALGIA Verified 05/14/25 13:34 Exam Vital Signs (past 8 hours): - 05/18/25 10:17 05/18/25 10:28 05/18/25 10:30 Temperature 98.1 F Pulse Rate 67 65 65 Respiratory Rate 18 13 Blood Pressure 170/72 H Pulse Oximetry 97 98 96 Oxygen Delivery Method Room Air 05/18/25 11:00 05/18/25 11:22 05/18/25 11:22 Temperature Pulse Rate 61 61 Respiratory Rate 16 16 Blood Pressure 154/67 H Pulse Oximetry 95 97 Oxygen Delivery Method 05/18/25 11:30 05/18/25 11:30 05/18/25 12:00 Temperature Pulse Rate 61 Respiratory Rate 25 H Blood Pressure 148/68 H 167/71 H Pulse Oximetry 95 Oxygen Delivery Method 05/18/25 12:00 05/18/25 12:30 05/18/25 12:30 Temperature Pulse Rate 60 61 Respiratory Rate 26 H 21 Blood Pressure 152/70 H Pulse Oximetry 97 98 Oxygen Delivery Method 05/18/25 13:00 05/18/25 13:01 05/18/25 13:01 Temperature Pulse Rate 60 117 H Respiratory Rate 19 Blood Pressure 126/57 L Pulse Oximetry 95 96 Oxygen Delivery Method 05/18/25 13:30 05/18/25 14:00 05/18/25 14:30 Temperature Pulse Rate 122 H 119 H 129 H Respiratory Rate 16 Blood Pressure Pulse Oximetry 98 98 97 Oxygen Delivery Method 05/18/25 15:00 05/18/25 15:01 05/18/25 15:01 Temperature Pulse Rate 124 H 125 H Respiratory Rate Blood Pressure 115/82 Pulse Oximetry 97 97 Oxygen Delivery Method 05/18/25 15:51 Temperature Pulse Rate 128 H Respiratory Rate Blood Pressure 115/82 Pulse Oximetry Oxygen Delivery Method Oxygen Delivery Method Room Air Narrative Exam Narrative: General: Pleasant, tired appearing, NAD HEENT: NC/AT, EOMI, moist membranes CV: Tachycardic, normal S1-S2, no m/g/r Resp: CTAB, comfortable WOB Abd: Soft, NTND, +BS Ext: No edema Skin: No rash or lesions noted Neuro: A&O x3, moves all extremities, no focal deficits Objective Labs 05/18/25 10:22 05/18/25 10:22 Labs: Laboratory Results - last 24 hr 05/18/25 10:22 WBC 3.7 L RBC 4.89 Hgb 14.3 Hct 43.0 MCV 88.0 MCH 29.2 MCHC 33.2 RDW 15.5 H Plt Count 104 L Neut % (Auto) 77.8 H Lymph % (Auto) 15.7 L [place] % (Auto) 5.2 Eos % (Auto) 0.3 L Baso % (Auto) 1.0 Neut # (Auto) 2900 Lymph # (Auto) 600 L [place] # (Auto) 200 Eos # (Auto) 0 Baso # (Auto) 0 PT 14.8 H INR 1.3 APTT 31 Sodium 136 L Potassium 3.5 Chloride 103 Carbon Dioxide 23 BUN 16 Creatinine 0.86 Estimated GFR > 60 BUN/Creatinine Ratio 18.6 Glucose 183 H Lactate 2.1 Calcium 8.6 Magnesium 1.7 Total Bilirubin 0.9 AST 45 H ALT 45 H Alkaline Phosphatase 85 Total Creatine Kinase 26 L Troponin I < 0.012 NT-Pro-B Natriuret Pep 820 H Total Protein 6.5 Albumin 3.9 Globulin 2.6 Albumin/Globulin Ratio 1.5 Lipase 90 Assessment & Plan Assessment and plan (1) Acute UTI: Status: Acute (2) COVID-19: Status: Acute (3) Adult failure to thrive: Status: Acute (4) Generalized weakness: Status: Acute (5) Paroxysmal atrial fibrillation: Problem details: AC w/Eliquis S/p dual-chamber pacemaker placement 03/20/2021 and ablation 10/24/2022 Status: Chronic (6) Pacemaker: Problem details: Dual chamber placed 03/20 2021 Status: Acute (7) Coronary artery disease involving tribe coronary artery of tribe heart without angina pectoris: Problem details: Followed by Dr. 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 Judge ([facility]). Causes chronic diarrhea. Managed w/budesonide per GI recs. Status: Acute (13) Chronic diarrhea: Status: Acute Assessment & Plan narrative: 84-year-old female with a history of hypothyroidism, paroxysmal AFib on Eliquis with pacemaker, hypertension, hyperlipidemia admitted for generalized weakness and failure to thrive in the setting of acute UTI and recent SARS-CoV-2 infection. #uti Qustionable dx, bedside UA in ER showed 3+ LE with no bacteria or nitrites. Empiric treatment while monitoring Ucx for growth. -ceftriaxone 1g q24h -Ucx #sars-cov-2 #FTT #weakness 1 week sxs, outside typical window for paxlovid treatment. -NS @100 cc/hr #paf w/pacemaker Seems to bounce in & out of afib as EMS detected RVR with ER eval in sinus rhythm, back in RVR on my exam. -home eliquis, dofetilide, metoprolol -tele #cad #htn #hld -home atorvastatin, nitroglycerin sublingual prn #hypothyroid -home levothyroxine #gout -home allopurinol #lymphocytic colitis #chronic diarrhea -home budesonide, loperamide prn Dispo: acute care Diet: heart healthy DVT ppx: eliquis Code: full PCP: Krishna MDM: Keysha Marie (daughter, ) Time-Based Coding :: 50 minutes spent with patient and on the chart (including review of chart, obtaining history, exam, reviewing outside data, placing orders, documenting exam and treatment plan, and counseling patient) on 05/18/2025. PROFEE Administrative Support Clerk Document charge(s): Yes Charge Codes Initial inpatient/observation care: [id number]
--- NOTE | 2025-05-18 16:31 | PC.NURSE ---
Pt arrived to floor from ED around 1615. Pt AxO though she said she felt out of it. Upon arrival, pt requested to void but did not feel strong enough to walk to bathroom. Pt did a stand and pivot to a bedside commode, 1 person assist. Afterwards pt did a stand and pivot to bed. No c/o pain or nausea. Pt oriented to room and how to use call light, which is within reach. Bed alarm on.
[2025-05-18 18:09] LABS: Magnesium 1.8 mg/dL (1.6-2.3)
[2025-05-18] MEDS: SODIUM CHLORIDE 0.9% 1,000 ML 100 ML IV (18:32)
[2025-05-18 18:33] LABS: Free T4, Direct Thyroxine 1.19 ng/dL (0.78-2.19)
[2025-05-18 18:48] LABS: Thyroid Stimulating Hormone 2.53 uIU/mL (0.47-4.68)
[2025-05-18] MEDS: ATORVASTATIN 20 MG TABLET 80 MG PO (20:37)
[2025-05-18] MEDS: APIXABAN 5 MG TABLET PO (20:37)
[2025-05-18] MEDS: DOFETILIDE 125 MCG 125 EACH PO (20:37)
[2025-05-18] MEDS: DOFETILIDE 250 MCG 250 EACH PO (20:37)
[2025-05-18] MEDS: MELATONIN 3 MG TABLET 6 MG PO (20:38)
[2025-05-19] VITALS: BP 123/62; PULSE 63; RESP 16; TEMP 35.9; O2SAT 97
[2025-05-19] MEDS: SODIUM CHLORIDE 0.9% 1,000 ML 100 ML IV ×2 (03:40→13:28)
[2025-05-19 06:28] LABS: Add Manual Diff / Slide Review NO; Hematocrit 36.8 % (36-46); Hemoglobin 12.3 g/dL (12.0-16.0); Lymphocytes Absolute Auto 800 /uL (1100-4500); Mean Corpuscular HGB Conc 33.4 % (30-36); Mean Corpuscular Hemoglobin 29.4 PG (26-34); Mean Corpuscular Volume 88.1 fL (80-100); Platelet Count 88 X10^3/uL (150-400)
[2025-05-19] MEDS: LEVOTHYROXINE 75 MCG TABLET PO (06:39)
[2025-05-19 06:42] LABS: Alanine Aminotransferase 31 IU/L (<35); Albumin 3.1 g/dL (3.5-5.0); Albumin Globulin Ratio 1.3 (1.0-2.8); Alkaline Phosphatase 68 U/L (38-126); Blood Urea Nitrogen 15 mg/dL (7-17); Calcium 8.4 mg/dL (8.4-10.2); Carbon Dioxide 24 mmol/L (22-32); Chloride 108 mmol/L (98-107); Estimated Glomerular Filt Rate > 60 mL/min (>60); Globulin 2.3 g/dL (1.7-4.1); Glucose 88 mg/dL (70-99); HEMOLYSIS < 15 (0-50); Magnesium 1.9 mg/dL (1.6-2.3); Potassium 3.6 mmol/L (3.4-5.1); Sodium 137 mmol/L (137-145); Total Protein 5.4 g/dL (6.3-8.2)
[2025-05-19 08:27] VITALS: BP 134/57; PULSE 73; RESP 18; TEMP 36.6; O2SAT 75
[2025-05-19] MEDS: METOPROLOL ER 50 MG TABLET 150 MG PO (08:53)
[2025-05-19] MEDS: BUDESONIDE 3 MG CAP 9 MG PO (08:54)
[2025-05-19] MEDS: DOFETILIDE 250 MCG 250 EACH PO ×2 (08:54→21:52)
[2025-05-19] MEDS: APIXABAN 5 MG TABLET PO ×2 (08:54→21:51)
[2025-05-19] MEDS: DOFETILIDE 125 MCG 125 EACH PO ×2 (08:54→21:52)
--- NOTE | 2025-05-19 10:45 | PT.IIE ---
Current Diagnoses Hypothyroidism, unspecified (05/18/25) Hyperlipidemia, unspecified (05/18/25) Essential (primary) hypertension (05/18/25) Atherosclerotic heart disease of [place] coronary artery without angina pectoris (05/18/25) Paroxysmal atrial fibrillation (05/18/25) Lymphocytic colitis (05/18/25) Noninfective gastroenteritis and colitis, unspecified (05/18/25) Chronic gout, unspecified, without tophus (tophi) (05/18/25) Urinary tract infection, site not specified (05/18/25) Weakness (05/18/25) Adult failure to thrive (05/18/25) COVID-19 (05/18/25) Presence of cardiac pacemaker (05/18/25) Surgical History (Last Reviewed 05/14/25 @ 16:36 by Jmamie Villalba MD) History of appendectomy (1963) History of arthroscopy of left knee (01/05/15) History of bilateral carpal tunnel release (1988) History of cardiac catheterization (10/2006) History of carpal tunnel release (1988) History of section (1963) History of cholecystectomy (1972) History of colonoscopy (03/04/06) History of colonoscopy with polypectomy (1998) History of esophagogastroduodenoscopy (EGD) (06/06/06) History of eye surgery (1998) History of hysterectomy (1982) History of left cataract surgery (1989) History of left knee surgery (08/2010) History of Zayra fundoplication History of permanent cardiac pacemaker placement History of right knee surgery (2000) Status post left partial knee replacement (10/12/15) Status post primary angioplasty with coronary stent (09/2011) Status post right foot surgery (1993) Medical History (Last Reviewed 05/14/25 @ 16:36 by Jammie Villalba MD) Anticoagulated on warfarin ASHD (arteriosclerotic heart disease) Atrial fibrillation CAD (coronary artery disease) (10/2006) Chronic instability of right knee Colon polyps (1998) 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, right (1998) Diastasis recti Fat necrosis of abdominal wall GERD (gastroesophageal reflux disease) Gout (10/2011) History of renal calculi Hypertension Hypothyroidism Skin cancer Stenosis of carotid artery Stress incontinence Tachy-marcus syndrome Vaginal atrophy Physical Therapy Inpatient Evaluation/Re-Eval M1 PT/OT-IP Prior Functional Status Start: 05/19/25 12:31 Freq: NEEDED Status: Active Protocol: Document 05/19/25 10:45 AB (Rec: 05/19/25 12:44 AB [id number]) Medical Review Prior Functional Status Medical History Yes Reviewed Communication able to make needs known; soft speech Mobility and Gait pt stated that she is modified independent with all mobilities and ambulation without AD but usually uses her 4WW first thing in the morning for steadiness but able to ambulate without AD afterwards; pt still drives Social History Household Members none Living Arrangements Apartment/Condo Number of Floors ( One Floor Floors) Number of Stairs To no steps to enter Enter/Railing? Home Environment Walk in Shower Home Equipment Front Wheel Walker,Four Wheel Walker,Hand Held Shower, Grab Bars Near Toilet,Grab Bars In Shower Additional Social pt has an adjustable bed History Comment M2 PT-IP Current Condition Start: 05/19/25 12:31 Freq: NEEDED Status: Active Protocol: Document 05/19/25 10:45 AB (Rec: 05/19/25 12:44 AB [id number]) Physical Therapy Current Condition Current Condition Evaluation Date 05/19/25 Treatment Diagnosis UTI; Covid; generalized weakness Onset Date 05/18/25 M3 PT-IP Subjective Start: 05/19/25 12:31 Freq: NEEDED Status: Active Protocol: Document 05/19/25 10:45 AB (Rec: 05/19/25 12:44 AB [id number]) Subjective Physical Therapy Visit Type Type Initial Evaluation Visit Start Time 10:45 Visit Stop Time 11:40 Number of WEATHER ALGORITHM SCIENTIST Visits 0 Physical Therapy Visit Comments Patient Comments agreeable to do PT Therapy Pain Assessment Pain Present Pain Present Denied Pain M4 PT-IP Mobility and Gait Start: 05/19/25 12:31 Freq: NEEDED Status: Active Protocol: Document 05/19/25 10:45 AB (Rec: 05/19/25 12:44 AB [id number]) PT-Bed Mobility Assessment Supine to Sit Supine to Sit Standby Assistance PT-Transfer Assessment Sit to and From Stand Sit to and from Contact Guard Assistance,1 Person Assistance,Use of Stand Upper Extremities Equipment Transfer Assistive Gait Belt,Front Wheeled Walker Device Orthotic/Prosthetic No Devices or Brace: Transfers Transfer Destination Chair Transfer Technique ambulated Transfer Ability Level of Assist Contact Guard Assistance,1 Person Assistance,Use of Upper Extremities Comments Mobility Comments pt in bed and agreeable to do PT. obtained PLOF and home set up. BP: 171/68 WY: 59-60 O2 sat at RA: 97%. completed supine to sit SBA. c/o lightheadedness and feeling tremulous. BP checked: 159/54 O2 sat: 97% and WY: 68-69 bpm. pt sat for a few minutes. BP rechecked : 161/64. pt agreed to get up. sit to stand CGA and ambulated in room using FWW ~ 40 ft CGA and cues. pt agreed to sit up on the chair. positioned pt on the chair. call light and table placed within reach. no complaints of lightheadedness afterwards. pt agreed to go to SNF if needed. Gait Assessment Gait Gait Assistance Contact Guard Assist,1 Person Assist Required: Distance (Feet) 40 Able to Maintain Yes Weight Bearing Status During Gait Assistive Devices Assistive Device Gait Belt,Front Wheeled Walker Orthotic/Prosthetic No Devices or Brace: Gait Deviations General Gait Pattern Antalgic,Decreased Stride Length,Decreased Feet Clearance Factors Limiting Gait Function Factors Limiting Decreased Activity Tolerance,Decreased Strength, Gait Function Difficulty Following Directions,Limited Range of Motion ,Poor Balance,Poor Safety Awareness PT-Balance Assessment Sitting Balance and Reactions Static Sitting Normal Balance Ability Dynamic Sitting Good Balance Ability Standing Balance and Reactions Static Standing Good Balance Ability Dynamic Standing Fair Balance Ability Device Used FWW M5 PT-IP Objective Assessments Start: 05/19/25 12:31 Freq: NEEDED Status: Active Protocol: Document 05/19/25 10:45 AB (Rec: 05/19/25 12:44 AB [id number]) Orientation Orientation/Cognition Level of Alertness Alert Orientation Name,Place,Situation Safety Awareness Decreased Safety Awareness Memory Description No Deficits Noted Gross Range of Motion Lower Extremity ROM Assessment Within Functional Limits Strength Lower Extremity Strength Assessment Within Functional Limits Coordination Assessment Gross Coordination Gross Coordination WNL Muscle Tone Muscle Tone WNL Yes M6 PT-IP Treatment Start: 05/19/25 12:31 Freq: NEEDED Status: Active Protocol: Document 05/19/25 10:45 AB (Rec: 05/19/25 12:44 AB [id number]) Physical Therapy Treatment Education Education Provided Safety M7 PT-IP Assessment and Plan Start: 05/19/25 12:31 Freq: NEEDED Status: Active Protocol: Document 05/19/25 10:45 AB (Rec: 05/19/25 12:44 AB [id number]) PT Summary Assessment and Plan Potential Rehabilitation Fair Potential Status of Condition Evolving at Evaluation Summary Impairments Pain,ROM,Strength,Balance,Coordination,Sensation,Tone, Cognition,Bed Mobility,Transfers,Gait,Activity Tolerance Assessment Summary pt is an 84 y/o F who is admitted for UTI; weakness. Pt also is (+) COVID that started ~ 1 week ago. pt feeling weak and shaky. pt requiring CGA for transfers and ambulation using FWW CGA ~ 40 ft. pt presents with decrease activity tolerance affecting mobility independence. pt will need assistance at home and will benefit from SNF at this time. will continue to assess progress. Goals Bed Mobility Goal Independent Transfer Goal Independent,Front Wheeled Walker Gait Goal Independent,Front Wheel Walker Gait Distance 150 Other Goals improve transfers and ambulation using 4WW/LRAD 200 ft mod I Days to Meet Goals 10 Frequency of Treatment Frequency Of Once a Day Treatment Treatment Plan Physical Therapy Bed Mobility Training,Transfer Training,Gait Training, Treatment Plan Therapeutic Exercise,Balance Retraining,Discharge Planning,Hot or Cold Pack,Neuromuscular Re-ed, Coordination Retraining Precautions Other Precautions Covid Recommendations To Nursing Amount of Assist 1 Person Assist Needed Discharge Recommendations PT Discharge SNF Rehab Recommendations Transportation Needs Private Vehicle,Wheelchair/Cabulance at Discharge
--- NOTE | 2025-05-19 11:01 | DIET.CONS ---
Dietary Consultation Note Admission Date: 05/18/2025 14:46 Assessment: 84 y F admitted for weakness/covid. Dietitian screened for low MNA score. Attempted to reach pt via call to pt room d/t covid dx. Dx with COVID last weak, since then increasing weakness and difficulty caring for self and with decreased PO intakes. Ht: 167.64 cm Wt: 63.957 kg BMI: 22.7 UBW: 68 kg on 05/11/25 (-5% weight loss in 1 months, severe) Last BM: 05/14/25 (05/18/25 14:53) MNA: 7 Regino Score: 20 Diet: 05/18/25 Breakfast Heart Healthy Diet Diet Modifications: Nutrition Percent Meal Consumed 75% 05/19/25 10:04 Labs: RBC 4.18 X10^6/uL (4.0-5.2) 05/19/25 06:16 Hgb 12.3 g/dL (12.0-16.0) 05/19/25 06:16 Hct 36.8 % (36-46) 05/19/25 06:16 Creatinine 0.74 mg/dL (0.52-1.04) 05/19/25 06:16 Lactate 2.1 mmol/L (0.7-2.1) 05/18/25 10:22 NT-Pro-B Natriuret Pep 820 pg/mL (<450) H 05/18/25 10:22 Nutrition Diagnosis: Unintentional weight loss r/t increased weakness and decreased ability to consume sufficient energy aeb 5% weight loss within a month (severe) Interventions: ONS BID while appetite improves EER: 1600 kcals (25 kcals/kg per BMI) 65 g protein (1g/kg per age) Monitoring/Evaluations: po intakes Electronically Signed by: Vianney James 05/19/25 11:01 Clinical Dietitian [address] [id number]
[2025-05-19 11:25] VITALS: BP 152/53; PULSE 60; RESP 18; TEMP 35.9; O2SAT 95
--- NOTE | 2025-05-19 13:18 | PM.PN.IH.1 ---
Subjective Subjective Date Patient Seen: 05/19/25 Interval history: Resting comfortably in bedside chair. Feeling better with some increased energy, still feels weak and lightheaded when she stands up to go to the bathroom. Anticipates discharging to SNF for additional recovery since her daughter is currently traveling and not around to help. Exam Vital Signs (past 8 hours): - 05/19/25 08:27 05/19/25 10:00 05/19/25 11:25 Temperature 97.9 F 96.6 F L Pulse Rate 73 60 Respiratory Rate 18 18 Blood Pressure 134/57 L 152/53 H Pulse Oximetry 75 L 95 Oxygen Delivery Method Room Air Oxygen Delivery Method Room Air Oxygen Flow Rate 0 Narrative Exam Narrative: General: Pleasant, NAD HEENT: NC/AT, EOMI, moist membranes CV: Regular rate, irregularly irregular rhythm, normal S1-S2, no m/g/r Resp: CTAB, comfortable WOB Abd: Soft, NTND, +BS Ext: No edema Skin: No rash or lesions noted Neuro: A&O x3, moves all extremities, no focal deficits Objective Labs 05/19/25 06:16 05/19/25 06:16 Labs: Laboratory Results - last 24 hr 05/18/25 05/19/25 17:52 06:16 WBC 4.0 L RBC 4.18 Hgb 12.3 Hct 36.8 MCV 88.1 MCH 29.4 MCHC 33.4 RDW 15.4 H Plt Count 88 L Neut % (Auto) 70.1 Lymph % (Auto) 20.5 L Delta % (Auto) 7.7 Eos % (Auto) 1.5 L Baso % (Auto) 0.2 Neut # (Auto) 2800 Lymph # (Auto) 800 L Delta # (Auto) 300 Eos # (Auto) 100 Baso # (Auto) 0 Sodium 137 Potassium 3.6 Chloride 108 H Carbon Dioxide 24 BUN 15 Creatinine 0.74 Estimated GFR > 60 BUN/Creatinine Ratio 20.3 Glucose 88 Calcium 8.4 Magnesium 1.8 1.9 Total Bilirubin 0.6 AST 26 ALT 31 Alkaline Phosphatase 68 Total Protein 5.4 L Albumin 3.1 L Globulin 2.3 Albumin/Globulin Ratio 1.3 TSH 2.53 Free T4 1.19 [facility] Medical History Tachy-marcus syndrome Anticoagulated on warfarin Stress incontinence Vaginal atrophy Diastasis recti Fat necrosis of abdominal wall ASHD (arteriosclerotic heart disease) Stenosis of carotid artery Atrial fibrillation Skin cancer Chronic instability of right knee History of renal calculi Hypothyroidism Hypertension GERD (gastroesophageal reflux disease) 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, right (1998) Gout (10/2011) CAD (coronary artery disease) (10/2006) Colon polyps (1998) Surgical History History of permanent cardiac pacemaker placement History of eye surgery (1998) Status post right foot surgery (1993) History of Zayra fundoplication History of right knee surgery (2000) History of left knee surgery (08/2010) History of hysterectomy (1982) Status post primary angioplasty with coronary stent (09/2011) History of cholecystectomy (1972) History of section (1963) History of left cataract surgery (1989) History of carpal tunnel release (1988) History of bilateral carpal tunnel release (1988) History of cardiac catheterization (10/2006) History of appendectomy (1963) Status post left partial knee replacement (10/12/15) History of arthroscopy of left knee (01/05/15) History of esophagogastroduodenoscopy (EGD) (06/06/06) History of colonoscopy with polypectomy (1998) History of colonoscopy (03/04/06) Family History Mother Brain tumor Cancer Father Heart disease [place] (myocardial infarction) Sister Lung cancer Stroke MS (multiple sclerosis) Breast cancer Grandmother Diabetes mellitus Social History household members: none Smoking Status: Never smoker second hand exposure: No alcohol intake: current substance use type: does not use Assessment & Plan Assessment and plan (1) Acute UTI: Status: Acute (2) COVID-19: Status: Acute (3) Adult failure to thrive: Status: Acute (4) Generalized weakness: Status: Acute (5) Paroxysmal atrial fibrillation: Problem details: AC w/Eliquis S/p dual-chamber pacemaker placement 03/20/2021 and ablation 10/24/2022 Status: Chronic (6) Pacemaker: Problem details: Dual chamber placed 03/20 2021 Status: Acute (7) Coronary artery disease involving [place] coronary artery of [place] heart without angina pectoris: Problem details: Followed by Dr. Jeffries at [id number] on 10/2006 catheterization S/p angioplasty w/stent placement BMS to RCA 09/2011 Status: Inactive (8) Essential hypertension: Status: Chronic (9) Hyperlipidemia: Qualifiers: Hyperlipidemia type: unspecified Qualified Code(s): E78.5 - Hyperlipidemia, unspecified Status: Chronic (10) Hypothyroidism: Qualifiers: Hypothyroidism type: acquired Qualified Code(s): E03.9 - Hypothyroidism, unspecified Status: Chronic (11) Gout: Qualifiers: Gout site: unspecified site Gout etiology: unspecified cause Chronicity: chronic Presence of tophus: without tophus Qualified Code(s): [id number].[id number] - Chronic gout, unspecified, without tophus (tophi) Status: Acute (12) Lymphocytic colitis: Problem details: Bx confirmed on 05/[address] Judge ([facility]). Causes chronic diarrhea. Managed w/budesonide per GI recs. Status: Acute (13) Chronic diarrhea: Status: Acute Assessment & Plan narrative: 84-year-old female with a history of hypothyroidism, paroxysmal AFib on Eliquis with pacemaker, hypertension, hyperlipidemia admitted for generalized weakness and failure to thrive in the setting of acute UTI and recent SARS-CoV-2 infection. #uti resolving symptoms. -ceftriaxone 1g q24h (05/18- ) #sars-cov-2 #FTT #weakness 1 week sxs, slowly improving in terms of weakness. not requiring supplemental o2, outside typical window for paxlovid treatment of non-severe infxn. -NS @100 cc/hr #paf w/pacemaker currently rate controlled. -eliquis, dofetilide, metoprolol -tele #cad #htn #hld -atorvastatin, nitroglycerin sublingual prn #hypothyroid -levothyroxine #gout -allopurinol #lymphocytic colitis #chronic diarrhea -budesonide daily, loperamide prn Dispo: anticipate dc to snf for additional rehab pending adequate resolution of infectious sxs Diet: heart healthy DVT ppx: eliquis Code: full PCP: Krishna MDM: Keysha Marie (daughter, ) Time-Based Coding :: 35 minutes spent with patient and on the chart (including review of chart, obtaining history, exam, reviewing outside data, placing orders, documenting exam and treatment plan, and counseling patient) on 05/19/2025. PROFEE Survey Engineer Document charge(s): Yes Charge Codes Subsequent inpatient/observation care: [id number]
--- NOTE | 2025-05-19 16:13 | OT.IPNOTE ---
To see pt tomorrow as just getting visitors in the room.
[2025-05-19 20:00] VITALS: BP 150/70; PULSE 61; RESP 15; TEMP 36.3; O2SAT 96
[2025-05-19] MEDS: MELATONIN 3 MG TABLET 6 MG PO (21:51)
[2025-05-19] MEDS: ATORVASTATIN 20 MG TABLET 80 MG PO (21:51)
[2025-05-19 21:53] VITALS: BP 152/53; PULSE 60
[2025-05-19] MEDS: METOPROLOL ER 50 MG TABLET 100 MG PO (21:53)
[2025-05-20] VITALS: BP 186/70; PULSE 60; RESP 15; TEMP 35.9; O2SAT 98
[2025-05-20] MEDS: SODIUM CHLORIDE 0.9% 1,000 ML 100 ML IV (00:08)
[2025-05-20 06:00] VITALS: BP 158/63; PULSE 64; RESP 18; TEMP 35.8; O2SAT 98
[2025-05-20] MEDS: LEVOTHYROXINE 75 MCG TABLET PO (07:42)
[2025-05-20 08:06] VITALS: BP 155/60; PULSE 60; RESP 16; TEMP 36.7; O2SAT 97
--- NOTE | 2025-05-20 09:25 | OT.IP.EVAL ---
Current Diagnoses Hypothyroidism, unspecified (05/18/25) Hyperlipidemia, unspecified (05/18/25) Essential (primary) hypertension (05/18/25) Atherosclerotic heart disease of [place] coronary artery without angina pectoris (05/18/25) Paroxysmal atrial fibrillation (05/18/25) Lymphocytic colitis (05/18/25) Noninfective gastroenteritis and colitis, unspecified (05/18/25) Chronic gout, unspecified, without tophus (tophi) (05/18/25) Urinary tract infection, site not specified (05/18/25) Weakness (05/18/25) Adult failure to thrive (05/18/25) COVID-19 (05/18/25) Presence of cardiac pacemaker (05/18/25) Past Medical History (Last Reviewed 05/14/25 @ 16:36 by Jammie Villalba MD) Anticoagulated on warfarin ASHD (arteriosclerotic heart disease) Atrial fibrillation CAD (coronary artery disease) (10/2006) Chronic instability of right knee Colon polyps (1998) 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, right (1998) Diastasis recti Fat necrosis of abdominal wall GERD (gastroesophageal reflux disease) Gout (10/2011) History of renal calculi Hypertension Hypothyroidism Skin cancer Stenosis of carotid artery Stress incontinence Tachy-marcus syndrome Vaginal atrophy Surgical History (Last Reviewed 05/14/25 @ 16:36 by Jammie Villalba MD) History of appendectomy (1963) History of arthroscopy of left knee (01/05/15) History of bilateral carpal tunnel release (1988) History of cardiac catheterization (10/2006) History of carpal tunnel release (1988) History of section (1963) History of cholecystectomy (1972) History of colonoscopy (03/04/06) History of colonoscopy with polypectomy (1998) History of esophagogastroduodenoscopy (EGD) (06/06/06) History of eye surgery (1998) History of hysterectomy (1982) History of left cataract surgery (1989) History of left knee surgery (08/2010) History of Zayra fundoplication History of permanent cardiac pacemaker placement History of right knee surgery (2000) Status post left partial knee replacement (10/12/15) Status post primary angioplasty with coronary stent (09/2011) Status post right foot surgery (1993) Occupational Therapy Inpatient Evaluation/Re-Eval M1 PT/OT-IP Prior Functional Status Start: 05/19/25 12:31 Freq: NEEDED Status: Active Protocol: Document 05/20/25 09:29 [facility] (Rec: 05/20/25 09:42 [facility] Desktop) Medical Review Prior Functional Status Medical History Yes Reviewed Communication able to make needs known; soft speech Mobility and Gait pt stated that she is modified independent with all mobilities and ambulation without AD but usually uses her 4WW first thing in the morning for steadiness but able to ambulate without AD afterwards; pt still drives Activities of Daily Pt states independent with all ADL and IADL needs. Living and IADL's Social History Household Members none Living Arrangements Apartment/Condo Number of Floors ( One Floor Floors) Number of Stairs To no steps to enter Enter/Railing? Home Environment Standard Height Toilet,Walk in Shower Home Equipment Front Wheel Walker,Four Wheel Walker,Hand Held Shower, Grab Bars Near Toilet,Grab Bars In Shower Additional Social pt has an adjustable bed History Comment M2 OT-IP Current Condition Start: 05/20/25 09:29 Freq: Status: Active Protocol: Document 05/20/25 09:29 [facility] (Rec: 05/20/25 09:42 [facility] Desktop) Occupational Therapy Current Condition Current Condition Evaluation Date 05/20/25 Treatment Diagnosis COVID+, acute UTI, generalized weakness Diagnosis Onset Date 05/18/25 M3 OT- IP Subjective and Pain Start: 05/20/25 09:29 Freq: Status: Active Protocol: Document 05/20/25 09:29 [facility] (Rec: 05/20/25 09:42 [facility] Desktop) OT- Subjective Occupational Therapy Visit Type Type Initial Evaluation Visit Start Time 09:05 Visit Stop Time 09:30 Occupational Therapy Visit Comments Patient Comments Pt in the shower with nursing aid when OT came in to assess pt. Patient/Caregiver To go to skilled rehab. Goals OT Pain Assessment Pain When Pain Assessed At Rest Pain Present Pain Present Denied Pain M4 OT- IP ADL's Start: 05/20/25 09:29 Freq: Status: Active Protocol: Document 05/20/25 09:29 [facility] (Rec: 05/20/25 09:42 [facility] Desktop) OT [id number] General Evaluation Self-Feeding Ability Independent OT ADL-Grooming General Evaluation Grooming Ability Independent OT ADL-Oral Care General Eval Oral Care Ability Independent OT ADL-Dressing General Eval Lower Body Dressing Moderate Assistance Ability Areas Needing Underpants/Brief,Socks Assistance Comments OT Dressing Comments Assist to too clothing over her feet and for socks. OT ADL-Toileting General Evaluation Toileting Ability Standby Assistance OT ADL-Bathing General Evaluation Bathing Ability Moderate Assistance Areas Needing Wash/Dry Back,Wash/Dry Lower Extremities Assistance Comments OT Bathing Comments Pt having to sit for showering needs. Prior pt able to stand at home to shower. Due to fatigue, pt having to sit for showers. Pt getting tires and needing assist to dry her back and legs. M5 OT- IP IADL's Start: 05/20/25 09:29 Freq: Status: Active Protocol: Document 05/20/25 09:29 [facility] (Rec: 05/20/25 09:42 [facility] Desktop) OT-Instrumental Activities of Daily Living Home Safety Awareness Awareness of Need Good Awareness for Assistance at Home Ability to Problem Able to Problem Solve Solve Emergency Situations Medication Management Medication No Deficits Identified Management Money Management Money Management No Deficits Identified Meal Preparation Meal Preparation Due to decreased activity tolerance, pt will need Comments assist. Senior Bi Architect Senior Bi Architect Pt will need assist. Comments M6 OT- IP Functional Cognition Start: 05/20/25 09:29 Freq: Status: Active Protocol: Document 05/20/25 09:29 [facility] (Rec: 05/20/25 09:42 [facility] Desktop) Cognitive Factors Limiting Selfcare Function Cognitive Ability Level of Alertness Alert Patient Orientation Name,Age,Birthday,Month,Date,Year,Day of Week,Place, Situation Attention Span Capable of Focused Attention,Capable of Sustained Ability Attention Ability to Follow Able to Follow Multi-Step Commands Commands Cognitive Comments Cognitive Assessment Pt intact and able to follow directions with ADL and Comments IADL needs. Pt needs VC to reach back to the bed prior to sitting down. OT- Vision and Hearing OT- Hearing Assessment OT- Hearing WFL Assessment OT- Vision Assessment Visual Acuity Glasses For Reading Visual Attentiveness WFL Occular Pursuits WFL M7 OT- IP Mobility and Balance Start: 05/20/25 09:29 Freq: Status: Active Protocol: Document 05/20/25 09:29 [facility] (Rec: 05/20/25 09:42 [facility] Desktop) OT- Bed Mobility Assessment Supine to Sit Supine to Sit Assist Standby Assistance Sit to Supine Sit to Supine Assist Standby Assistance OT-Transfer Assessment Sit to and From Stand Sit to and from Contact Guard Assistance Stand Transfers Transfer Ability Contact Guard Assistance Technique Transfer Destination Bed,Shower Stall,Toilet Transfer Technique Stand Step Pivot Devices Transfer Assistive None,Front Wheeled Walker Devices Comments Mobility Comments CGA to stand and to help get back to bed with FWW. OT- Balance Assessment Sitting Balance and Reactions Static Sitting Normal Balance Ability Dynamic Sitting Normal Balance Ability Standing Balance and Reactions Static Standing Good Balance Ability Dynamic Standing Fair Balance Ability M8 OT- IP Objective Assessments Start: 05/20/25 09:29 Freq: Status: Active Protocol: Document 05/20/25 09:29 [facility] (Rec: 05/20/25 09:42 [facility] Desktop) OT Gross Range of Motion Upper Extremity Range of Motion Assessment Within Functional Limits OT Strength Upper Extremity Strength Assessment Within Functional Limits M9 OT- IP Assessment and Plan Start: 05/20/25 09:29 Freq: Status: Active Protocol: Document 05/20/25 09:29 [facility] (Rec: 05/20/25 09:42 [facility] Desktop) OT Summary Assessment and Plan Potential Rehabilitation Excellent Potential Analytic Complexity Moderate at Evaluation Summary OT Impairments Balance,Functional Mobility,Dressing,Toileting,Bathing, Toilet Transfers,Shower Transfers,Activity Tolerance Progress Towards Progressing Toward Goals Goals Assessment Summary Pt MOD complexity here with COVId+ and acute UTI, and main barriers are decreased activity tolerance and now needing MODA for dressing and bating needs. Pt now having to use FWW and CGA for mobility needs. Prior pt was completely independent with all needs and living by herself. Pt will benefit from skilled rehab. Goals Dressing Goal Independent Toileting Goal Independent Bathing Goal Independent Toilet Transfer Goal Independent Shower Transfer Goal Independent Days to Meet Goals 15 Frequency of Treatment Other frequency 5x/week Treatment Plan OT Treatment Plan ADL Training,Functional Mobility,Patient/Family Education,Discharge Planning Other Treatment Standing ADL's at the sink. Recommendations and Next Treatment Focus Discharge Recommendations OT Discharge SNF Rehab Recommendations Home Equipment Needs shower chair Transportation Needs Private Vehicle at Discharge
[2025-05-20] MEDS: METOPROLOL ER 50 MG TABLET 150 MG PO (10:09)
[2025-05-20] MEDS: APIXABAN 5 MG TABLET PO (10:10)
[2025-05-20] MEDS: DOFETILIDE 250 MCG 250 EACH PO (10:19)
[2025-05-20] MEDS: DOFETILIDE 125 MCG 125 EACH PO (10:19)
[2025-05-20] MEDS: BUDESONIDE 3 MG CAP 9 MG PO (10:27)
[2025-05-20 11:06] VITALS: PULSE 72
[2025-05-20 11:10] VITALS: BP 151/60; PULSE 60; RESP 18; TEMP 36; O2SAT 98
--- NOTE | 2025-05-20 12:53 | P.DS_ITS ---
History of Present Illness History of Present Illness Chief complaint: COVID+ 1 wk, weakness Narrative: 84-year-old female with a history of hypothyroidism, paroxysmal AFib on Eliquis with pacemaker, hypertension, hyperlipidemia presents to the emergency department from home via EMS for evaluation of persistent/worsening generalized weakness. She states that she was seen at [facility] last week, was diagnosed with COVID and was discharged home. She states that she has not been able to care for herself at home states that she has been feeling too weak to really stand and walk therefore has had decreased p.o. intake. She denies any symptoms such as headache visual disturbance chest pain shortness of breath fever chills nausea vomiting abdominal pain or any other GI/ symptoms at this time. On ER physician evaluation patient too weak to even stand and pivot. Patient states that she was unable to take any of her medications this morning secondary to her symptoms. Medics who arrived with the patient states that when they initially got an EKG she was AFib but she converted herself without intervention. She denies any other symptoms at this time. ER workup notable for WBC 3.7, platelets 104 glucose 183, AST 45, ALT 45; remainder of CBC, CMP, troponin, lipase without significant derangements. UA showed 3+ leuk esterase, negative for bacteria or nitrites. CXR and CT head unremarkable. Patient admitted for presumed UTI in the setting of generalized weakness and failure to thrive due to recent SARS-CoV-2 infection. She does live alone which has made managing her illness more challenging, as friends have been unable/unwilling to help due to concern for infection transmission. Admitted for empiric treatment of presumed UTI and dispo planning, likely to SNF for further recovery when appropriate. Discharge Providers Provider Date of admission: 05/18/25 14:46 Discharge Date: 05/20/25 Primary care physician: Sarmad Keller MD Consults: 05/18/25 13:25 Consult to SECURITY ORDERLY - Sourcing Coordinator Stat Comment: Sourcing Coordinator Consult needed for:: Lives alone 05/18/25 14:14 Consult to Occupational Therapy Evaluate & Treat Comment: Physician Instructions: Evaluate and treat Consult to Physical Therapy Evaluate & Treat Comment: Physician Instructions: Evaluate and Treat 05/18/25 17:03 Consult to Dietitian, Adult Routine Comment: Reason For Exam: weight loss Discharge provider: Sarmad Keller MD Summary Hospital Course Discharge Diagnosis: #uti #sars-cov-2 #FTT #paf w/pacemaker #cad #htn #hld #hypothyroid #gout #lymphocytic colitis #chronic diarrhea Hospital Course: Admitted for IV antibiotics to treat UTI and IV fluids to address weakness in context of recent sars-cov-2 infection. Patient improved symptomatically and began to regain strength working with PT at time of discharge. Her AFib remained rate controlled with home medications and she required no other interventions. Discharged to SNF for further recovery/rehabilitation due to living alone with no family available to support at this time. Status at Discharge Cognitive/behavioral status at discharge: at baseline, oriented Overall status at discharge: patient is progressing back to baseline Time Spent with Patient Time spent: Less than 30 minutes Exam Vital Signs (past 8 hours): - 05/20/25 06:00 05/20/25 08:06 05/20/25 11:10 Temperature 96.5 F L 98.0 F 96.8 F L Pulse Rate 64 60 60 Respiratory Rate 18 16 18 Blood Pressure 158/63 H 155/60 H 151/60 H Pulse Oximetry 98 97 98 Oxygen Delivery Method Room Air Oxygen Flow Rate 0 Narrative Exam Narrative: General: Pleasant, NAD HEENT: NC/AT, EOMI, moist membranes CV: Regular rate, irregularly irregular rhythm, normal S1-S2, no m/g/r Resp: CTAB, comfortable WOB Abd: Soft, NTND, +BS Ext: No edema Skin: No rash or lesions noted Neuro: A&O x3, moves all extremities, no focal deficits Objective Labs 05/19/25 06:16 05/19/25 06:16 [facility] Medical History Tachy-marcus syndrome Anticoagulated on warfarin Stress incontinence Vaginal atrophy Diastasis recti Fat necrosis of abdominal wall ASHD (arteriosclerotic heart disease) Stenosis of carotid artery Atrial fibrillation Skin cancer Chronic instability of right knee History of renal calculi Hypothyroidism Hypertension GERD (gastroesophageal reflux disease) 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, right (1998) Gout (10/2011) CAD (coronary artery disease) (10/2006) Colon polyps (1998) Surgical History History of permanent cardiac pacemaker placement History of eye surgery (1998) Status post right foot surgery (1993) History of Zayra fundoplication History of right knee surgery (2000) History of left knee surgery (08/2010) History of hysterectomy (1982) Status post primary angioplasty with coronary stent (09/2011) History of cholecystectomy (1972) History of section (1963) History of left cataract surgery (1989) History of carpal tunnel release (1988) History of bilateral carpal tunnel release (1988) History of cardiac catheterization (10/2006) History of appendectomy (1963) Status post left partial knee replacement (10/12/15) History of arthroscopy of left knee (01/05/15) History of esophagogastroduodenoscopy (EGD) (06/06/06) History of colonoscopy with polypectomy (1998) History of colonoscopy (03/04/06) Family History Mother Brain tumor Cancer Father Heart disease MT (myocardial infarction) Sister Lung cancer Stroke MS (multiple sclerosis) Breast cancer Grandmother Diabetes mellitus Social History household members: none Smoking Status: Never smoker second hand exposure: No alcohol intake: current substance use type: does not use Discharge Assessment & Plan Assessment and Plan Assessment: 84-year-old female with a history of hypothyroidism, paroxysmal AFib on Eliquis with pacemaker, hypertension, hyperlipidemia admitted for generalized weakness and failure to thrive in the setting of acute UTI and recent SARS-CoV-2 infection. Plan of Treatment: #uti resolving symptoms. -s/p ceftriaxone 1g q24h (05/18-05/20) #sars-cov-2 #FTT #weakness 1 week sxs, slowly improving in terms of weakness. not requiring supplemental o2, outside typical window for paxlovid treatment of non-severe infxn. discharging to snf for additional physical recovery. -PT #paf w/pacemaker currently rate controlled. -home eliquis, dofetilide, metoprolol #cad #htn #hld -home atorvastatin, nitroglycerin sublingual prn #hypothyroid -home levothyroxine #gout -home allopurinol #lymphocytic colitis #chronic diarrhea -home budesonide daily, loperamide prn Discharge Plan Discharge Plan Patient Disposition: SNF I certify the postop hospital correction care is medically necessary on a continuing basis for any conditions for which he/ she received care during this hospitalization.: Yes The receiving facility has agreed to accept transfer and provide medical treatment.: Yes Discharge orders & Medications Prescriptions: Continued acetaminophen [Tylenol Extra Strength] 500 mg tablet 500 mg PO Q6H PRN (Reason: Pain, Mild) loperamide [Anti-Diarrheal (loperamide)] 2 mg tablet 2 mg PO Q4H MDD 10mg PRN (Reason: loose stool) Qty: 30 0RF Rx Instructions: administer after each loose stool until symptoms controlled; do not exceed 10 mg per 24 hrs budesonide 3 mg capsule,delayed,extend.release 9 mg PO DAILY potassium chloride 20 mEq tablet extended release 20 meq PO DAILY ondansetron 4 mg tablet,disintegrating 4 mg PO Q8H PRN (Reason: nausea and vomiting) Qty: 9 0RF cholecalciferol (vitamin D3) 25 mcg (1,000 unit) capsule 50 mcg PO DAILY atorvastatin 40 mg tablet 80 mg PO HS Qty: 0 nitroglycerin [Nitrostat] 0.4 mg tablet, sublingual 0.4 mg Sublingual Q5-15M MDD 3 tabs PRN (Reason: Chest Pain) Qty: 30 11RF dofetilide 250 mcg capsule 250 mcg PO Q12H Rx Instructions: take 1 cap 250 mcg allopurinol 300 mg tablet 300 mg PO DAILY Qty: 90 3RF levothyroxine 75 mcg tablet 75 mcg PO QAM Qty: 90 2RF dofetilide 125 mcg capsule 125 mcg PO BID metoprolol succinate 100 mg tablet extended release 24 hr See Rx Instructions PO BID Rx Instructions: Take one and one-half tab in the morning and one tab at night Eliquis 5 mg tablet 5 mg PO BID potassium chloride 10 mEq tablet extended release 20 meq PO DAILY magnesium oxide 400 mg (241.3 mg magnesium) tablet 400 mg PO DAILY Patient Comments: Takes 1 tab AM. 2 tab PM. ondansetron 4 mg tablet,disintegrating 4 mg PO Q8H PRN (Reason: nausea and vomiting) Qty: 14 0RF melatonin 5 mg tablet 5 mg PO BEDTIME buspirone 10 mg tablet 10 mg PO DAILY PRN (Reason: anxiety) Discontinued alprazolam 0.5 mg tablet 0.5 mg PO DAILY PRN (Reason: anxiety) Qty: 30 0RF Follow up/Referrals: Sarmad Keller MD [Primary Care Provider, Family Practice] Visit Report/Discharge Packet Stand Alone Forms: Patient Portal/API, Stroke Signs & Symptoms Discharge Data Primary Care Provider: Sarmad Keller Attending Provider: Sarmad Keller Admit Date/Time: 05/18/25 14:46 [facility] Charge Codes Discharge inpatient/observation: [id number]
--- NOTE | 2025-05-20 13:37 | CM.DPC ---
DCP Discharge to SNF Per MD, pt remains stable for discharge to SNF and completed discharge orders and packet. NATIVIDAD faxed updated notes and called [facility] and confirmed that they will auth SNF and provided auth # [id number]. [facility] and transport around 1530 and provided auth number for records. Sent signed med list, no scripts needed, MD orders, PASRR and dc summary to review. Updated machinist set up, COMPENSATION ADMINISTRATOR, and RN and provided number to call report. FARHEEN Baum
--- NOTE | 2025-05-20 15:40 | PC.NURSE ---
Pt has had uneventful day, Denies any issues. Independent in room. MD in to see. D/C intact. Pt discharging to [facility] Transportation here at 1335 Pt escorted by staff via W/C to waiting vehicle D/C in stable status.
== END 2025-05-20 15:35 ==
LOC: ED 14:12 → AC 15:25
PROVIDERS: Admitting Provider Family Medicine; Emergency Provider Student in an Organized Health Care Education/Training Program; PCP Family Medicine; Referring Provider Student in an Organized Health Care Education/Training Program; Visit Provider Family Medicine
DX: N39.0 Urinary tract infection, site not specified (principal); U07.1 COVID-19; R62.7 Adult failure to thrive; R53.1 Weakness; I48.0 Paroxysmal atrial fibrillation; Z95.0 Presence of cardiac pacemaker; I25.10 Atherosclerotic heart disease of native coronary artery without angina pectoris; I10 Essential (primary) hypertension; E78.5 Hyperlipidemia, unspecified; E03.9 Hypothyroidism, unspecified; M1A.9XX0 Chronic gout, unspecified, without tophus (tophi); K52.832 Lymphocytic colitis; K52.9 Noninfective gastroenteritis and colitis, unspecified
CPT/HCPCS: 36415; 51798; 70450; 71045; 80053; 81003; 82550; 83605; 83690; 83735; 83880; 84439; 84443; 84484; 85025; 85610; 85730; 87040; 93005; 93010; 96361; 96365; 96366; 97162; 97166; 97530; 99222; 99232; 99238; 99284; G0378; J0696

== ENCOUNTER → 2025-06-18 09:28 | Outpatient (CLI) | payer OTHER, SELFPAY ==
[2025-05-18 14:53] VITALS: BMI 22.7
[2025-06-18 11:18] LABS: Hematocrit 36.1 % (36-46); Hemoglobin 11.9 g/dL (12.0-16.0); Mean Corpuscular HGB Conc 33.0 % (30-36); Mean Corpuscular Hemoglobin 29.8 PG (26-34); Mean Corpuscular Volume 90.4 fL (80-100); Platelet Count 128 X10^3/uL (150-400)
[2025-06-18 12:03] LABS: Alanine Aminotransferase 22 IU/L (<35); Albumin 3.8 g/dL (3.5-5.0); Albumin Globulin Ratio 1.7 (1.0-2.8); Alkaline Phosphatase 75 U/L (38-126); Blood Urea Nitrogen 20 mg/dL (7-17); Calcium 9.3 mg/dL (8.4-10.2); Carbon Dioxide 24 mmol/L (22-32); Chloride 107 mmol/L (98-107); Cholesterol 121 mg/dL (140-199); Estimated Glomerular Filt Rate > 60 mL/min (>60); Globulin 2.2 g/dL (1.7-4.1); Glucose 103 mg/dL (70-99); HDL Cholesterol 61 mg/dL (40-60); HEMOLYSIS < 15 (0-50); Magnesium 1.8 mg/dL (1.6-2.3); Potassium 3.8 mmol/L (3.4-5.1); Sodium 139 mmol/L (137-145); Total Protein 6.0 g/dL (6.3-8.2); Triglycerides 100 mg/dL (35-150)
== END ==
LOC: LAB 09:31
PROVIDERS: Specialist; PCP Family Medicine; Referring Provider Family Medicine; Visit Provider Family Medicine
DX: E78.2 Mixed hyperlipidemia (principal); I48.0 Paroxysmal atrial fibrillation; Z79.01 Long term (current) use of anticoagulants
CPT/HCPCS: 36415; 80053; 80061; 83735; 85027